=== PATIENT | male | born 1955 | race Caucasian/White ===

== ENCOUNTER 2020-02-05 13:39 | Inpatient (IN) | payer MEDICARE, OTHER ==
[~2020-02-05] VITALS: Ht 177.8 cm; Wt 65.4 kg
--- NOTE | 2020-02-05 14:20 | NUR ---
DIANA FROM STREET, FOUND 3 BLOCK AWAY FROM THE FACILITY HE IS STAYING AT. TO ER BED 12. AAOX4. NOT IN RESP DISTRESS. AMBULATORY. PT REPORTED ELOPED FROM HIS FACILITY. BROUGHT W/ C/O FEELING WEAK BECASUE OF HEAT EXHAUSTION. NO NEURO DEFICIT NOTED. PT VERBALIZED THE HE WAS TRYING TO GO TO THE HOSPITAL THAT IS WHY HE LEFT. AWAITING MD FOR EVAL.
--- NOTE | 2020-02-05 14:45 | NUR ---
SPOKE WITH AISHA HENDRICKS AT THE [facility]. PT WAS ASKING TO SEE THE DENTIST THIS MORNING. AFTER BREAKFAST PT WAS MISSING FROM THE FACILITY AND NO WHERE TO BE FOUND. ACCORDING TO HER, FIRE DEPARTMENT INFORMED HER THAT THE FIRE DEPARTMENT NOTIFIED HER THAT THE PATIENT WAS FOUND 3 BLOCKS FROM THE FACILITY THEN BROUGHT TO [facility]. [facility] WILL BETAKING BACK THE PATIENT IF TO BE DISCHARGED
[2020-02-05 14:53] LABS: BASOPHILS # (AUTO) 0.1 /CMM (0.0-0.2); BASOPHILS % (AUTO) 0.6 % (0.0-2.0); EOSINOPHILS % (AUTO) 0.2 % (0.0-6.0); HEMATOCRIT 40 % (39-51); HEMOGLOBIN 13.5 g/dL (13.5-17.5); LYMPHOCYTES # (AUTO) 0.6 /CMM (0.8-4.8); MEAN CORPUSCULAR HGB CONC 34 g/dl (31.0-36.0); MEAN CORPUSCULAR VOLUME 89 fL (80-96); MONOCYTES # (AUTO) 0.7 /CMM (0.1-1.30); NEUTROPHILS # (AUTO) 8.1 /CMM (1.8-8.9); NEUTROPHILS % (AUTO) 86.2 % (43.0-81.0); PLATELET COUNT (AUTO) 202 /CMM (150-450); RED BLOOD CELL COUNT(AUTO) 4.51 MIL/uL (4.5-6.0); WHITE BLOOD COUNT (AUTO) 9.4 K/uL (4.3-11.0)
[2020-02-05] MEDS ORDERED: IV NS 0.9% 1,000 ML IV ONE (15:00)
--- NOTE | 2020-02-05 15:00 | NUR ---
PT PROVIDED WITH A MEAL
[2020-02-05 15:02] LABS: MAGNESIUM 1.9 mg/dL (1.8-2.4)
--- NOTE | 2020-02-05 15:13 | NUR ---
VIANCA SIEBEL ARCHITECT - [phone] ISAC, CONSERVATOR - [phone]
[2020-02-05 15:20] LABS: ALANINE AMINOTRANSFERASE 28 U/L (12-78); ALBUMIN 4.1 g/dL (3.4-5.0); ALKALINE PHOSPHATASE 88 U/L (46-116); ASPARTATE AMINOTRANSFERASE 28 U/L (15-37); BILIRUBIN,DIRECT 0.2 mg/dL (0.0-0.2); BILIRUBIN,TOTAL 0.8 mg/dL (0.2-1.0); CALCIUM, SERUM 9.4 mg/dL (8.5-10.1); CARBON DIOXIDE 23 mmol/L (21-32); CHLORIDE 109 mmol/L (98-107); CREATININE 1.2 mg/dL (0.6-1.3); GLUCOSE 97 mg/dL (74-106); SODIUM SERUM 145 mmol/L (136-145); TOTAL PROTEIN, SERUM 7.1 g/dL (6.4-8.2); UREA NITROGEN, BLOOD 17 mg/dL (7-18)
[2020-02-05 15:21] LABS: ACETAMINOPHEN < 2 ug/ml (10-30); ALCOHOL, BLOOD < 3 mg/dL (0-0); POTASSIUM 2.7 mmol/L (3.5-5.1); SALICYLATE < 2.8 mg/dL (2.8-20.0)
[2020-02-05] MEDS ORDERED: POTASSIUM CL. PREMIX PERIPHER. 50 ML ONE (15:52)
[2020-02-05] MEDS ORDERED: POTASSIUM CHLORIDE 20 MEQ TAB.PRT.SR PO ONE (15:52)
[2020-02-05] MEDS: POTASSIUM CHLORIDE 20 MEQ TAB.PRT.SR PO ONE ×2 (15:54→16:00)
--- NOTE | 2020-02-05 16:36 | NUR ---
CALLED HOUSE SUP FOR MS BED
[2020-02-05] MEDS ORDERED: BUPR200T2 PO (16:39)
[2020-02-05] MEDS ORDERED: ASPI-1169 PO (16:39)
[2020-02-05] MEDS ORDERED: LOPE2CAP PO (16:39)
[2020-02-05] MEDS ORDERED: PROM6.256 PO (16:39)
[2020-02-05] MEDS ORDERED: POTA20TA83 PO (16:39)
[2020-02-05] MEDS ORDERED: FINA5TAB11 PO (16:39)
[2020-02-05] MEDS ORDERED: ACET-2605 PO (16:39)
[2020-02-05] MEDS ORDERED: FLUT12AE5 IH (16:39)
[2020-02-05] MEDS ORDERED: CLOZ100T32 PO (16:39)
[2020-02-05] MEDS ORDERED: ALBU1.257 IH (16:39)
[2020-02-05] MEDS ORDERED: DOCU-141 PO (16:39)
[2020-02-05] MEDS ORDERED: ZOLP5TAB8 PO (16:39)
[2020-02-05] MEDS ORDERED: LORA-258 PO (16:39)
[2020-02-05] MEDS ORDERED: BUSP5TAB3 PO (16:39)
[2020-02-05] MEDS ORDERED: SERT50TA PO (16:39)
--- NOTE | 2020-02-05 16:52 | NUR ---
room 113-2
[2020-02-05] MEDS ORDERED: ONDANSETRON HCL/PF 4 MG/2 ML VIAL IVP PRN ×2 (17:00→17:30)
[2020-02-05] MEDS ORDERED: MAGNESIUM HYDROXIDE 30 ML UDC PO PRN ×2 (17:00→17:30)
[2020-02-05] MEDS ORDERED: ACETAMINOPHEN 325 MG TABLET PO PRN ×2 (17:00→17:30)
[2020-02-05] MEDS ORDERED: HYDROCODONE/APAP 5/325MG TABLET PO PRN ×2 (17:00→17:30)
[2020-02-05] MEDS ORDERED: Z GUARD REMEDY 2 OZ OINT TP PRN ×2 (17:00→17:30)
[2020-02-05] MEDS ORDERED: ZOLPIDEM TARTRATE 5 MG TABLET PO PRN ×3 (17:00→23:30)
[2020-02-05] MEDS ORDERED: MAG HYDROX/AL HYDROX/SIMETH 30 ML UDC PO PRN ×2 (17:00→17:30)
--- NOTE | 2020-02-05 17:12 | NUR ---
REPORT GIVEN TO JAVIER COLVIN FOR GUNNAR
--- NOTE | 2020-02-05 17:13 | NUR ---
COVID SWAB DONE AND SENT TO LAB
--- NOTE | 2020-02-05 17:13 | NUR ---
PT BEING TRANSPORTED TO UNIT ON [facility] WITH EMT AT BEDSIDE ON STABLE CONDITION.
[2020-02-05 18:28] VITALS: BP 124/70
[2020-02-05] MEDS: POTASSIUM CL. PREMIX PERIPHER. 50 ML IV SCH ×4 (19:25→22:38)
--- NOTE | 2020-02-05 19:28 | NUR ---
Patient is alert, he was recently released from a psyche hosp according to his conservator. Patient recently moved to [facility] [phone]. He is ambulatory and requires supervision with adl's. Spoke with conservator Marlene [phone],she prefer patient be dc back to the [facility] on discharge. Addendum: 02/05/20 at 9 by STERLING SELF RN Amended: Links added.
[2020-02-05] MEDS: Potassium Chloride 20 MEQ in IV NS 0.9% 1,000 ML IV PRN (19:34)
--- NOTE | 2020-02-05 19:35 | NUR ---
RN NOTES CALLED PHARMACY NATHAN AND ASK IF SHE PUT THE KDUR ACTIVE ON OMNICELL SHE SAYS THATS ED ORDER AND DONT ADMINISTER IT AND ED WILL MAKE THE DOCUMENTATION FOR THAT
[2020-02-05] MEDS ORDERED: LORAZEPAM 0.5 MG TABLET PO PRN (23:30)
[2020-02-05] MEDS ORDERED: DOCUSATE SODIUM 100 MG CAPSULE PO PRN (23:30)
[2020-02-06] VITALS: BP 143/74
[2020-02-06 06:44] LABS: CALCIUM, SERUM 8.4 mg/dL (8.5-10.1); CREATININE 0.9 mg/dL (0.6-1.3); POTASSIUM 3.4 mmol/L (3.5-5.1)
--- NOTE | 2020-02-06 07:16 | NUR ---
RN CLOSING NOTES PT ON BED SLEEPING EASY TO WAKE UP NO SIGN AND SYMPTOMS OF RESPIRATORY DISTRESS, NO COMPALINT OF PAIN AKCY, NO SIGNIFICANT CHANGES ON CONDITION NOTED ALL NEEDS ATTENDED DROPLET ISOLATION MAINTAINED FOR R/O COVID SAFETY MEASURE OBSERVED CALL LIGHT WITHIN REACH WILL ENDORSE TO AM SHIFT NURSE
[2020-02-06] MEDS ORDERED: PANTOPRAZOLE 40 MG TABLET.DR PO SCH (07:30)
--- NOTE | 2020-02-06 07:30 | NUR ---
RN CLINICAL DOCUMENTATION SPECIALIST/LESLYE OPENING NOTE RECEIVED PT IN BED AWAKE, ALERT AND ORIENTED X2. PT IS ON OXYGEN 2L VIA N/C SATURATING AT 100% AT THIS TIME. PT IS ON REGULAR DIET ( PARTS SPECIALIST CONSULTED). PT NOTED WITH LEFT KNEE EXCORIATION/SCAB. PT HAS A RIGHT FOREARM 18' INTACT AND PATENT AND FLUSHING WELL. PT IS IN STABLE CONDITION. AT THIS TIME. NO ACUTE DISTRESS OR SOB NOTED AT THIS TIME. PT'S HOB ELEVATED TOLERATED. CALL LIGHT WITHIN REACH AND FUNCTIONING. BED LOCKED AND IN LOWEST POSITION. WILL CONTINUE TO MONITOR AND ASSESS PT.
[2020-02-06 08:00] VITALS: BP 130/74
[2020-02-06] MEDS ORDERED: SERTRALINE HCL 50 MG TABLET PO SCH (09:00)
[2020-02-06] MEDS: ASPIRIN 81 MG TAB.CHEW PO SCH (09:04)
[2020-02-06] MEDS: PANTOPRAZOLE 40 MG TABLET.DR PO SCH (09:05)
[2020-02-06] MEDS: FINASTERIDE (5 MG) 5 MG TABLET PO SCH (09:05)
[2020-02-06] MEDS: POTASSIUM CHLORIDE 20 MEQ TAB.PRT.SR PO SCH (09:05)
[2020-02-06] MEDS: buPROPion SR 100 MG TABLET.ER PO SCH ×2 (09:05→17:00)
[2020-02-06] MEDS: busPIRone 5 MG TABLET PO SCH ×2 (09:05→17:00)
[2020-02-06] MEDS: Potassium Chloride 20 MEQ in IV NS 0.9% 1,000 ML IV PRN (12:43)
--- NOTE | 2020-02-06 16:00 | NUR ---
TEMPLATE INSPECTOR/LESLYE NOTE GAVE REPORT TO LOREN (MED-SURG) NURSE. PT IS IN STABLE CONDITION. PT BEING TRANSFERRED TO [facility].
--- NOTE | 2020-02-06 16:20 | NUR ---
RN MS NOTES RECEIVED PT FROM LESLYE RN BRANDON VIA WHEELCHAIR, PT IS AWAKE, ALERT AND ORIENTED, NO COMPLAINT OF PAIN OR ANY DISCOMFORT, RESPIRATIONS NORMAL, ROOM SET UP ORIENTATION PROVIDED TO PT, VERBALIZED UNDERSTANDING, KEPT WARM AND COMFORTABLE, CALL LIGHT WITHIN REACH.
[2020-02-06 17:00] VITALS: BP 123/76
--- NOTE | 2020-02-06 18:22 | NUR ---
RN MS NOTES PT IN BED, AWAKE, ALERT AND ORIENTED, NO COMPLAINT OF PAIN OR ANY DISCOMFORT, COMPLIANT AND COOPERATIVE WITH CARE, NO BEHAVIOR PROBLEM NOTED, IV FLUIDS INFUSING WELL, CALL LIGHT WITHIN REACH, PM CARE PROVIDED, ALL NEEDS ATTENDED.
--- NOTE | 2020-02-06 19:30 | NUR ---
MS/RN OPENING NOTES RECEIVED PATIENT IN BED HAVING DINNER. PATIENT IS ALERT AND ORIENTED X 3. PATIENT IS ON ROOM AIR TOLERATING WELL. NO SIGNS IF SOB OR RESPIRATORY DISTRESS. PATIENTS BREATHING IS EVEN AND UNLABORED. PATIENT STATES NO PAIN AT THE MOMENT. PATIENT HAS IV ACCESS ON RIGHT FOREARM #18 G INTACT RUNNING NS/20MEQ KCL AT 80 ML/HR. PATIENT IS REQUESTING HE WOULD LIKE TO SPEAK WITH CAPPER MACHINE OPERATOR FOR SNF PLACEMENT. SAFETY MEASURES ARE IN PLACE, BED IS LOCKED AND PLACED IN THE LOW POSITION, SIDE RAILS UP X 3. CALL LIGHT IS WITHIN REACH. WILL CONTINUE TO MONITOR THOUGH OUT SHIFT.
[2020-02-06 20:00] VITALS: BP 147/88
[2020-02-06 20:23] VITALS: BP 147/88
[2020-02-06] MEDS: MIRTAZAPINE 15 MG TABLET PO SCH (21:58)
[2020-02-06] MEDS: CLOZAPINE 100 MG TABLET PO SCH (21:58)
[2020-02-06] MEDS ORDERED: MIRTAZAPINE 15 MG TABLET PO SCH (22:00)
[2020-02-06] MEDS ORDERED: CLOZAPINE 100 MG TABLET PO SCH (22:00)
[2020-02-07] MEDS: Potassium Chloride 20 MEQ in IV NS 0.9% 1,000 ML IV PRN ×2 (05:29→22:51)
--- NOTE | 2020-02-07 06:30 | NUR ---
MS/RN CLOSING NOTES PATIENT IN BED SLEEPING. PATIENT IS ALERT AND ORIENTED X 2-3. PATIENT IS ON ROOM AIR TOLERATING WELL. NO SIGNS OF SOB OR RESPIRATORY DISTRESS. PATIENTS BREATHING IS EVEN AND UNLABORED. PATIENT STATES NO PAIN AT THE MOMENT. PATIENT HAS IV ACCESS ON RIGHT FOREARM #18 G INTACT RUNNING NS/20MEQ KCL AT 80 ML/HR. ALL PATIENTS NEEDS HAVE BEEN NET DURING SHIFT. SAFETY MEASURES ARE IN PLACE, BED IS LOCKED AND PLACED IN THE LOW POSITION, SIDE RAILS UP X 3. CALL LIGHT IS WITHIN REACH. WILL ENDORSE CARE TO DAY SHIFT.
[2020-02-07 08:00] VITALS: BP 127/79
[2020-02-07] MEDS: busPIRone 5 MG TABLET PO SCH ×2 (08:54→16:41)
[2020-02-07] MEDS: ASPIRIN 81 MG TAB.CHEW PO SCH (08:54)
[2020-02-07] MEDS: PANTOPRAZOLE 40 MG TABLET.DR PO SCH (08:54)
[2020-02-07] MEDS: FINASTERIDE (5 MG) 5 MG TABLET PO SCH (08:54)
[2020-02-07] MEDS: POTASSIUM CHLORIDE 20 MEQ TAB.PRT.SR PO SCH (08:54)
[2020-02-07] MEDS: buPROPion SR 100 MG TABLET.ER PO SCH ×2 (08:57→16:41)
--- NOTE | 2020-02-07 17:57 | NUR ---
rn notes patient remains on room air, no sob noted, a/o x2-3 at this time. Quiet most of the time, Uses the urinal, bed ridden. R FA 19 present with NS / KCL @ 80 ml per hour. Plan is to have patient placed on a possible SNF placement. plan is to move patient to MS2 in a few minutes
[2020-02-07 18:45] VITALS: BP 130/82
--- NOTE | 2020-02-07 18:48 | NUR ---
Received patient from [facility], bedside report given by JAVIER Zarate. patient in stable condition. not in any form of distress. no sob. denied pain or discomfort at this time. iv access intact and patent. all belongings checked at bedside, refused to show money noted on the form. situated patient in the room. safety measures in place. bed in low/locked psotion, siderails up x2, bed alarm on. will endorse accordingly
--- NOTE | 2020-02-07 19:15 | NUR ---
BLANCHING MACHINE OPERATOR: RECEIVED REPORT FORM DONOVAN HERRERA. PT IN BED, AWAKE, A/O X2-3 ABLE TO MAKE NEEDS KNOWN, ON RA RESPIRATIONS EVEN AND UNLABORED. IV ACCESS PATENT AND FLUSHING WELL, INFUSING WITH NS + 20MEQ KCL AT 80ML/HR. DISCUSSED PLAN OF CARE TO PT. SAFETTY PRECAUTIONS FOR FALL INITIATED, CALL LIGHT IN REACH, WILL CONTINUE MONITORING PT.
[2020-02-07 20:00] VITALS: BP 134/79
--- NOTE | 2020-02-07 20:33 | NUR ---
rn notes: dr garcía currently in the unit, speaking with the pt.
--- NOTE | 2020-02-07 21:00 | NUR ---
RN NOTES: PT REFUSED SCD DESPITE PROVIDING EDUCATION
[2020-02-07] MEDS: CLOZAPINE 100 MG TABLET PO SCH (21:09)
[2020-02-07] MEDS: MIRTAZAPINE 15 MG TABLET PO SCH (21:09)
--- NOTE | 2020-02-08 07:02 | NUR ---
End of shift report: Pt remains a/o x2, on ra, respirations even and unlabored. Iv access remains patent and flushing well, infusing with ns +20meq kcl at 80ml/hr, no s/s of iv infiltration noted. All due meds administered. Vs remains stable, needs attended. PLAN OF CARE: [facility]. Safety precautions for fall remains engaged, call light in reach, will endorse to day rn for continuity of care.
--- NOTE | 2020-02-08 07:10 | NUR ---
RN OPENING NOTES RECEIVED PATIENT IN BED RESTING. NOT IN ANY FORM OF DISTRESS. NO SOB. DENIED PAIN OR DISCOMFORT AT THIS TIME. IV ACCESS INTACT AND PATENT. KEPT PATIENT SAFE AND COMFORTABLE. BED IN LOW/LOCKED POSITION, SIDERAIL SUPX2, MARLENE LIGHT IN REACH. WILL CONT TO MONITOR ACCORDINGLY.
[2020-02-08] MEDS: ASPIRIN 81 MG TAB.CHEW PO SCH (08:05)
[2020-02-08] MEDS: FINASTERIDE (5 MG) 5 MG TABLET PO SCH (08:05)
[2020-02-08] MEDS: PANTOPRAZOLE 40 MG TABLET.DR PO SCH (08:05)
[2020-02-08] MEDS: busPIRone 5 MG TABLET PO SCH ×2 (08:05→17:36)
[2020-02-08] MEDS: POTASSIUM CHLORIDE 20 MEQ TAB.PRT.SR PO SCH (08:05)
[2020-02-08] MEDS: buPROPion SR 100 MG TABLET.ER PO SCH ×2 (08:12→17:37)
[2020-02-08 08:19] VITALS: BP 127/80
[2020-02-08] MEDS ORDERED: ENOXAPARIN SODIUM 40 MG/0.4 ML DISP.SYRIN SQ SCH (12:00)
[2020-02-08 12:28] LABS: CALCIUM, SERUM 8.7 mg/dL (8.5-10.1); CREATININE 0.9 mg/dL (0.6-1.3)
[2020-02-08] MEDS ORDERED: PANT40TA2 PO (13:57)
[2020-02-08] MEDS ORDERED: MIRT15TA PO (13:57)
[2020-02-08] MEDS ORDERED: CLOZ100T32 PO (13:57)
[2020-02-08 16:00] VITALS: BP 130/79
--- NOTE | 2020-02-08 17:24 | NUR ---
10:30am This SW informed Coordinator Volunteer Services JAVIER Cedillo about the patients request for his discharge plan to be transferred to a custodial with more than 35 patients in the facility. Coordinator Volunteer Services JAVIER Cedillo to speak with the patient and work on this request.
--- NOTE | 2020-02-08 17:24 | NUR ---
10:00AM This SW met with the patient at bedside, in her assigned hospital room. Patient requested to speak with this SW per JAVIER Rondon. Patient is alert and oriented x4. Per notes in patients medical records, patient was found 3 blocks from the [facility] assisted living facility and brought to [facility] due to heat exhaustion. Patient requested information regarding transfer from [facility] to a correction instead. Patient stating, I want to go somewhere that is bigger than 35 residents. This SW explored patients request and concerns. Patient stated I have had trouble with my conservator in the past, and I want to go elsewhere. I wanted to come to make this change happen :I want to make connections, want to make friends, and see more staff and interact with them. I barely receive assistance at the place I was at. This SW informed the patient that she would speak with Case Management as they are the ones that arrange this change. Patient informed this SW about his psychiatric history including depression, visual and auditory hallucinations. Patient stating that he has a primary psychiatrist Dr. Bryant, who eventually he will be asking for a referral to a different psychiatrist because the doctor is getting older. Patient reported auditory hallucinations stating Give me an opportunity. This SW asked the patient to elaborate. Patient stating that it these voices repeated to him Can you elaborate on that? mirroring this SW. Patients visual hallucination come to him in a dream at night, when I can hear the wind, I start to see a plane crash, I am a passenger and this is what I see. Patient does report that he has had suicidal ideations in the past but patient reports no current ideations or plan. Patient informed this SW that a psychiatrist from [facility] has already seen him and prescribed medications for him. Patient could not remember the names of these medications or the purpose. This SW to remain available for all needs regarding this patient.
--- NOTE | 2020-02-08 19:00 | NUR ---
DISCHARGED PATIENT IN STABLE CONDITION, PICKED UP BY GPS STAFF, MICHELET. DC INSTRUCTIONS GIVEN, VERBALIZED UNDERSTANDING. ALL BELONGINGS AND DC PAPERWORK HANDED TO GPS CHARGE NURSE CHERYL. PATIENT REFUSED TO SIGN PAPERWORK. IV ACCESS REMOVED. PHOTOS TAKEN.
== END 2020-02-08 19:00 | DRG 640 ==
LOC: ER 13:39 → TELE1 17:34 → MEDSG1 17:44 → MED 02-06 15:59 → MEDSG2 02-07 18:22
PROVIDERS: ADMIT Nurse Practitioner Acute Care; ATTEND Nurse Practitioner Acute Care
DX: E86.0 Dehydration (principal); G93.41 Metabolic encephalopathy; F33.3 Major depressive disorder, recurrent, severe with psychotic symptoms; E87.6 Hypokalemia; F41.9 Anxiety disorder, unspecified; R53.1 Weakness; F39 Unspecified mood [affective] disorder; Z85.819 Personal history of malignant neoplasm of unspecified site of lip, oral cavity, and pharynx
CPT/HCPCS: 36415; 71045-TC; 80048-TC; 80076-TC; 82550-TC; 83735-TC; 85025-TC; 87081-TC; 94799-TC; 97116-TC; 97530-TC; G0378; G0480; J1650; J3480; J7030; U0003-CS

== ENCOUNTER 2020-02-08 19:30 | Inpatient (IN) | payer MEDICARE, OTHER ==
[~2020-02-08] VITALS: Ht 177.8 cm; Wt 65.3 kg
[~2020-02-08 19:30] MED LIST: ACET-2605 PO; ALBU1.257 IH; ASPI-1169 PO; BUPR200T2 PO; BUSP5TAB3 PO; CLOZ100T32 PO; DOCU-141 PO; FINA5TAB11 PO; FLUT12AE5 IH; LOPE2CAP PO; LORA-258 PO; MIRT15TA PO; PANT40TA2 PO; POTA20TA83 PO; PROM6.256 PO; SERT50TA PO; ZOLP5TAB8 PO
[2020-02-08 19:41] VITALS: BP 143/89
[2020-02-08] MEDS ORDERED: ACETAMINOPHEN 325 MG TABLET PO PRN (20:00)
[2020-02-08] MEDS ORDERED: MAG HYDROX/AL HYDROX/SIMETH 30 ML UDC PO PRN (20:00)
[2020-02-08] MEDS ORDERED: ONDANSETRON 4 MG TAB.RAPDIS PO PRN (20:30)
[2020-02-08] MEDS ORDERED: HYDROCODONE/APAP 5/325MG TABLET PO PRN (20:30)
[2020-02-08] MEDS ORDERED: BLOOD SUGAR DIAGNOSTIC 1 EACH STRIP IN ONE (21:00)
--- NOTE | 2020-02-08 21:00 | NUR ---
RN NOTES: PLACED CALLED STELLA NARAYANAN LPS CONSERVATOR NOTIFIED OF ADMISSION .
[2020-02-08] MEDS: CLOZAPINE 100 MG TABLET PO SCH (21:35)
[2020-02-08] MEDS: MIRTAZAPINE 15 MG TABLET PO SCH (21:35)
[2020-02-08] MEDS: Z GUARD REMEDY 2 OZ OINT TP PRN (22:12)
[2020-02-08 22:53] VITALS: BP 123/72
--- NOTE | 2020-02-08 23:26 | NUR ---
ADMISSION NOTES: ADMITTED THIS 65Y/O MALE PATIENT ADMIT FROM [facility] INTIALLY FROM [facility] AT [address] [facility], ADMITTED TO GPS, PT. IS ON A LPS CONSERVATERSHIP , DUE TO REUSING TO EAT, REFUSING MEDICATION, REFUSING STAFF/FAMILY CARE, HEARING VOCIES , ELOPED FROM HIS FACILITY , DEPRESSED WITH FLAT AFFECT . ,UPON FACE TO FACE ASSESSMENT PATIENT IS A&O X 2 DELUSIONAL, ANXIOUS ,PARANOID , DISORGNIZED ,DISHELVED ,EASILY GETS AGITATED, DENIES SI /HI AT THIS TIME, PT. IS POOR HISTORIAN, POOR INSIGHT ,POOR JUDGEMENT , PT. REFUSED TO SIGNS ADMISSION CONSENT PAPERS , DUE TO MENTAL STATUS / DEPRESSED, BOTH MD AWARE AND NOTIFIED OF THE ADMISSION, BELONGINGS CONTRABAND WERE DONE ,PT. RIGHTS DISCUSS BY ELECTRIC BLASTING CAP ASSEMBLER , PROVIDE THE PT. WITH HANDBOOK, AND MEDICATIONS GUIDE, ENVIRONMENTAL SAFETY CHECK DONE, ENCOURAGED PT. VERBALIZED ANY FEELING CONCERN TO STAFF, ORIENT TO UNIT POLICY, NO ACUTE DISTRESS NOTED,VITAL SIGNS WNL ,DENIES ANY PAIN AT THIS TIME,WILL CONTINUE TO MONITOR FOR Q15 SAFETY AND BEHAVIOR.
--- NOTE | 2020-02-09 06:33 | NUR ---
RN NOTES: PT. RESTING IN HIS ROOM , NO ACUTE DISTRESS, NO CHANGES NOTED, ALL NEEDS ANTICIPATED, WILL CONTINUITY WITH CARE.
[2020-02-09 08:00] VITALS: BP 100/77
[2020-02-09] MEDS: ENSURE ENLIVE 237 ML LIQUID (VANILLA) PO SCH ×2 (08:04→16:42)
[2020-02-09] MEDS: POTASSIUM CHLORIDE 20 MEQ TAB.PRT.SR PO SCH (08:04)
[2020-02-09] MEDS: FINASTERIDE (5 MG) 5 MG TABLET PO SCH (08:04)
[2020-02-09] MEDS: buPROPion SR 100 MG TABLET.ER PO SCH ×2 (08:04→16:42)
[2020-02-09] MEDS: busPIRone 5 MG TABLET PO SCH ×2 (08:04→16:42)
[2020-02-09] MEDS: PANTOPRAZOLE 40 MG TABLET.DR PO SCH (08:04)
[2020-02-09] MEDS: DOCUSATE SODIUM 100 MG CAPSULE PO PRN (08:04)
[2020-02-09] MEDS: ASPIRIN 81 MG TAB.CHEW PO SCH (08:04)
[2020-02-09 16:00] VITALS: BP 133/74
[2020-02-09] MEDS ORDERED: DOCUSATE SODIUM 100 MG CAPSULE PO PRN (18:00)
[2020-02-09 20:43] VITALS: BP 119/76
[2020-02-09] MEDS: CLOZAPINE 100 MG TABLET PO SCH (21:27)
[2020-02-09] MEDS: MIRTAZAPINE 15 MG TABLET PO SCH (21:27)
[2020-02-10 07:14] LABS: BASOPHILS # (AUTO) 0.1 /CMM (0.0-0.2); BASOPHILS % (AUTO) 0.9 % (0.0-2.0); EOSINOPHILS % (AUTO) 2.5 % (0.0-6.0); HEMATOCRIT 45 % (39-51); HEMOGLOBIN 14.7 g/dL (13.5-17.5); LYMPHOCYTES % (AUTO) 15.6 % (20.0-44.0); MEAN CORPUSCULAR HGB CONC 33 g/dl (31.0-36.0); MEAN CORPUSCULAR VOLUME 89 fL (80-96); MONOCYTES # (AUTO) 0.5 /CMM (0.1-1.30); MONOCYTES % (AUTO) 7.6 % (2.0-12.0); NEUTROPHILS # (AUTO) 4.7 /CMM (1.8-8.9); NEUTROPHILS % (AUTO) 73.4 % (43.0-81.0); PLATELET COUNT (AUTO) 167 /CMM (150-450); RED BLOOD CELL COUNT(AUTO) 5.06 MIL/uL (4.5-6.0); WHITE BLOOD COUNT (AUTO) 6.3 K/uL (4.3-11.0)
[2020-02-10 07:38] LABS: CALCIUM, SERUM 9.4 mg/dL (8.5-10.1); CREATININE 1.1 mg/dL (0.6-1.3); POTASSIUM 3.7 mmol/L (3.5-5.1)
[2020-02-10 08:00] VITALS: BP 118/74
[2020-02-10] MEDS: busPIRone 5 MG TABLET PO SCH ×2 (08:09→16:51)
[2020-02-10] MEDS: PANTOPRAZOLE 40 MG TABLET.DR PO SCH (08:09)
[2020-02-10] MEDS: DOCUSATE SODIUM 100 MG CAPSULE PO PRN (08:09)
[2020-02-10] MEDS: ASPIRIN 81 MG TAB.CHEW PO SCH (08:09)
[2020-02-10] MEDS: POTASSIUM CHLORIDE 20 MEQ TAB.PRT.SR PO SCH (08:09)
[2020-02-10] MEDS: buPROPion SR 100 MG TABLET.ER PO SCH ×2 (08:09→16:52)
[2020-02-10] MEDS: FINASTERIDE (5 MG) 5 MG TABLET PO SCH (08:09)
[2020-02-10] MEDS: ENSURE ENLIVE 237 ML LIQUID (VANILLA) PO SCH ×2 (08:10→16:52)
[2020-02-10] MEDS: Z GUARD REMEDY 2 OZ OINT TP PRN (08:13)
[2020-02-10] MEDS ORDERED: FINASTERIDE (5 MG) 5 MG TABLET PO SCH (09:00)
[2020-02-10] MEDS ORDERED: busPIRone 5 MG TABLET PO SCH (09:00)
[2020-02-10] MEDS ORDERED: POTASSIUM CHLORIDE 20 MEQ TAB.PRT.SR PO SCH (09:00)
[2020-02-10] MEDS: FLUTICASONE 110MCG 1 EA INHALER IH SCH ×2 (09:00→16:53)
[2020-02-10] MEDS ORDERED: ASPIRIN 81 MG TAB.CHEW PO SCH (09:00)
[2020-02-10 16:00] VITALS: BP 141/77
[2020-02-10 20:44] VITALS: BP 121/81
[2020-02-10] MEDS: MIRTAZAPINE 15 MG TABLET PO SCH (21:32)
[2020-02-10] MEDS: CLOZAPINE 100 MG TABLET PO SCH (21:32)
[2020-02-11 08:00] VITALS: BP 108/67
[2020-02-11] MEDS: PANTOPRAZOLE 40 MG TABLET.DR PO SCH (08:04)
[2020-02-11] MEDS: FINASTERIDE (5 MG) 5 MG TABLET PO SCH (08:35)
[2020-02-11] MEDS: buPROPion SR 100 MG TABLET.ER PO SCH ×2 (08:35→16:42)
[2020-02-11] MEDS: DOCUSATE SODIUM 100 MG CAPSULE PO PRN (08:35)
[2020-02-11] MEDS: busPIRone 5 MG TABLET PO SCH ×2 (08:35→16:42)
[2020-02-11] MEDS: POTASSIUM CHLORIDE 20 MEQ TAB.PRT.SR PO SCH (08:35)
[2020-02-11] MEDS: ASPIRIN 81 MG TAB.CHEW PO SCH (08:35)
[2020-02-11] MEDS: ENSURE ENLIVE 237 ML LIQUID (VANILLA) PO SCH ×2 (08:37→16:42)
[2020-02-11] MEDS: FLUTICASONE 110MCG 1 EA INHALER IH SCH ×2 (08:37→16:41)
--- NOTE | 2020-02-11 10:55 | NUR ---
CONSERVATOR CONTACT: MIKAYLA contacted pts LPS waltersidney Victoriaine ([phone]) to inform her pt wishes to be discharged to a SNF and has been accepted to [facility]. Anita became upset and states that pt does not belong at a SNF and that pt does not have capacity to make decisions on his own. She states that she wants pt discharged back to [facility]. MIKAYLA stated that she will contact [facility] and inquire on pts readmission due to his elopement from the facility. MIKAYLA requested she speak to pt regarding his placement. Conservyaima stated she will speak to pt regarding his return to [facility]. MIKAYLA will continue to coordinate with anita for a safe and proper discharge plan.
--- NOTE | 2020-02-11 11:12 | NUR ---
FACILITY CONTACT: SW contacted [facility] Address: [address] [place] [address] and spoke to Jocelyne, church business administrator who stated pt is able to return once stable and requests pt get a COVID test done upon discharge.
--- NOTE | 2020-02-11 12:24 | NUR ---
INITIAL DISCHARGE PLAN: Per LPS anita Rosario ([phone]) she wishes for pt to return to [facility] Address: [address] [place] [id number] . SW will help form a safe and proper discharge in collaboration with MD and conservator.
[2020-02-11 16:00] VITALS: BP 121/70
[2020-02-11 20:15] VITALS: BP 120/79
[2020-02-11] MEDS: MIRTAZAPINE 15 MG TABLET PO SCH (21:26)
[2020-02-11] MEDS: CLOZAPINE 100 MG TABLET PO SCH (21:26)
[2020-02-11] MEDS: TEMAZEPAM 7.5 MG CAPSULE PO PRN (23:49)
--- NOTE | 2020-02-11 23:49 | NUR ---
GPS-RN NOTE: INSOMNIA PATIENT C/O INABILITY TO SLEEP. ADMINISTERED RESTORIL 7.5MG PO ORDERED. WILL CONTINUE TO MONITOR FOR PATIENT'S SAFETY.
[2020-02-12 06:18] LABS: BASOPHILS # (AUTO) 0.1 /CMM (0.0-0.2); EOSINOPHILS % (AUTO) 2.2 % (0.0-6.0); HEMATOCRIT 45 % (39-51); LYMPHOCYTES # (AUTO) 1.1 /CMM (0.8-4.8); LYMPHOCYTES % (AUTO) 11.7 % (20.0-44.0); MEAN CORPUSCULAR HGB CONC 34 g/dl (31.0-36.0); MEAN CORPUSCULAR VOLUME 89 fL (80-96); MONOCYTES # (AUTO) 0.8 /CMM (0.1-1.30); MONOCYTES % (AUTO) 8.6 % (2.0-12.0); NEUTROPHILS # (AUTO) 7.1 /CMM (1.8-8.9); NEUTROPHILS % (AUTO) 76.5 % (43.0-81.0); PLATELET COUNT (AUTO) 220 /CMM (150-450); RED BLOOD CELL COUNT(AUTO) 5.06 MIL/uL (4.5-6.0); WHITE BLOOD COUNT (AUTO) 9.3 K/uL (4.3-11.0)
[2020-02-12] MEDS: PANTOPRAZOLE 40 MG TABLET.DR PO SCH (07:59)
[2020-02-12 08:00] VITALS: BP_SYST 113; BP_SYST 155; BP_DIAS 72; BP_DIAS 79
[2020-02-12] MEDS: FLUTICASONE 110MCG 1 EA INHALER IH SCH ×2 (08:21→16:45)
[2020-02-12] MEDS: Z GUARD REMEDY 2 OZ OINT TP PRN (08:21)
[2020-02-12] MEDS: busPIRone 5 MG TABLET PO SCH ×2 (08:21→16:46)
[2020-02-12] MEDS: buPROPion SR 100 MG TABLET.ER PO SCH ×2 (08:22→16:46)
[2020-02-12] MEDS: POTASSIUM CHLORIDE 20 MEQ TAB.PRT.SR PO SCH (08:22)
[2020-02-12] MEDS: FINASTERIDE (5 MG) 5 MG TABLET PO SCH (08:22)
[2020-02-12] MEDS: CLOZAPINE 25 MG TABLET PO SCH (08:22)
[2020-02-12] MEDS: ENSURE ENLIVE 237 ML LIQUID (VANILLA) PO SCH ×2 (08:22→16:46)
[2020-02-12] MEDS: ASPIRIN 81 MG TAB.CHEW PO SCH (08:22)
[2020-02-12] MEDS: DOCUSATE SODIUM 100 MG CAPSULE PO PRN (08:22)
--- NOTE | 2020-02-12 10:32 | NUR ---
WOUND CARE CONSULT: PT PRESENTS WITH BLANCHABLE REDNESS TO SACRUM AND BUTTOCKS, PRESENT ON ADMISSION. PT DEMONSTRATES ABILITY TO TURN AND REPOSITION HIMSELF IN BED AND IS AMBULATORY. WILL SEE PRN. CURRENT TINO SCORE IS 20.
[2020-02-12 16:00] VITALS: BP 105/70
[2020-02-12 20:30] VITALS: BP 131/81
[2020-02-12] MEDS: MIRTAZAPINE 15 MG TABLET PO SCH (21:56)
[2020-02-12] MEDS: CLOZAPINE 100 MG TABLET PO SCH (21:56)
[2020-02-12] MEDS: MAGNESIUM HYDROXIDE 30 ML UDC PO PRN (22:27)
--- NOTE | 2020-02-12 22:29 | NUR ---
GPS RN NOTES: CONSTIPATION PT C/O OF FEELING CONSTIPATED. OFFERED MOM PO PRN ORDERED. PT AGREED AND TOLERTAED MEDICATION WELL. CONTINUE TO MONITOR.
[2020-02-13 08:00] VITALS: BP 120/75
[2020-02-13] MEDS: PANTOPRAZOLE 40 MG TABLET.DR PO SCH (08:42)
[2020-02-13] MEDS: FLUTICASONE 110MCG 1 EA INHALER IH SCH ×2 (08:43→16:57)
[2020-02-13] MEDS: busPIRone 5 MG TABLET PO SCH ×2 (09:35→16:55)
[2020-02-13] MEDS: CLOZAPINE 25 MG TABLET PO SCH (09:35)
[2020-02-13] MEDS: FINASTERIDE (5 MG) 5 MG TABLET PO SCH (09:35)
[2020-02-13] MEDS: buPROPion SR 100 MG TABLET.ER PO SCH ×2 (09:35→16:55)
[2020-02-13] MEDS: ASPIRIN 81 MG TAB.CHEW PO SCH (09:35)
[2020-02-13] MEDS: POTASSIUM CHLORIDE 20 MEQ TAB.PRT.SR PO SCH (09:35)
[2020-02-13] MEDS: ENSURE ENLIVE 237 ML LIQUID (VANILLA) PO SCH ×2 (09:39→16:57)
--- NOTE | 2020-02-13 11:08 | NUR ---
INDIVIDUAL INTERVENTION: SW met with pt at bedside and discussed his discharge plan. Pt states that he does not want to return to [facility] and instead wants to be discharged to a SNF. SW explained that due to pt being conserved his LPS conservator makes decisions for him and informed him that she wishes for him to return to [facility]. SW informed him that SW attempted to advocate for pt and received push back from conservator. SW encouraged pt to talk to his conservator regarding his discharge plan.
[2020-02-13 16:00] VITALS: BP 117/80
[2020-02-13 20:09] VITALS: BP 118/77
[2020-02-13] MEDS: MIRTAZAPINE 15 MG TABLET PO SCH (21:31)
[2020-02-13] MEDS: CLOZAPINE 100 MG TABLET PO SCH (21:31)
--- NOTE | 2020-02-13 22:00 | NUR ---
GPS RN NOTE PATIENT SEEN BY DR. MCMILLAN WITH NEW ORDER TO INCREASE REMERON TO 22.5 MG AT 2200. ORDER NOTED & CARRIED OUT. PATIENT IS MADE AWARE BY DR. MCMILLAN.
[2020-02-14] MEDS: Z GUARD REMEDY 2 OZ OINT TP PRN (03:11)
--- NOTE | 2020-02-14 06:54 | NUR ---
GPS RN NOTE PATIENT SLEPT WELL AT NIGHT. NO CHANGES NOTED. WILL ENDORSEE TO AM RN FOR CONTINUITY OF CARE.
[2020-02-14 06:57] LABS: CALCIUM, SERUM 8.9 mg/dL (8.5-10.1)
[2020-02-14 08:00] VITALS: BP 115/77
[2020-02-14] MEDS: ASPIRIN 81 MG TAB.CHEW PO SCH (08:10)
[2020-02-14] MEDS: FINASTERIDE (5 MG) 5 MG TABLET PO SCH (08:10)
[2020-02-14] MEDS: POTASSIUM CHLORIDE 20 MEQ TAB.PRT.SR PO SCH (08:11)
[2020-02-14] MEDS: CLOZAPINE 25 MG TABLET PO SCH (08:11)
[2020-02-14] MEDS: buPROPion SR 100 MG TABLET.ER PO SCH ×2 (08:11→16:58)
[2020-02-14] MEDS: PANTOPRAZOLE 40 MG TABLET.DR PO SCH (08:11)
[2020-02-14] MEDS: busPIRone 5 MG TABLET PO SCH ×2 (08:11→16:58)
[2020-02-14] MEDS: ENSURE ENLIVE 237 ML LIQUID (VANILLA) PO SCH ×2 (08:12→17:00)
[2020-02-14] MEDS: FLUTICASONE 110MCG 1 EA INHALER IH SCH ×2 (08:12→17:01)
[2020-02-14 16:00] VITALS: BP 110/68
[2020-02-14 20:00] VITALS: BP 140/58
[2020-02-14] MEDS: CLOZAPINE 100 MG TABLET PO SCH (21:17)
[2020-02-14] MEDS: MIRTAZAPINE 15 MG TABLET PO SCH (21:18)
--- NOTE | 2020-02-14 22:48 | NUR ---
GPS RN NOTE RECEIVED REPORT FROM FELLOW NURSE, PT ISOLATIVE, COMPLIANT, CALM A/O X2-3. PT WAS SLEEPING, NONLABORED BREATHING. VITAL SIGNS STABLE, ENVIRONMENTAL CHECK WAS DONE BED IN LOCKED AND LOWEST POSITION, BED ALARM ON, WILL CONTINUE TO MONITOR Q15MIN FOR SAFETY AND BEHAVIOR.
[2020-02-15 08:00] VITALS: BP 131/80
[2020-02-15] MEDS: ASPIRIN 81 MG TAB.CHEW PO SCH (08:39)
[2020-02-15] MEDS: buPROPion SR 100 MG TABLET.ER PO SCH ×2 (08:39→16:41)
[2020-02-15] MEDS: CLOZAPINE 25 MG TABLET PO SCH (08:40)
[2020-02-15] MEDS: FLUTICASONE 110MCG 1 EA INHALER IH SCH ×2 (08:40→16:42)
[2020-02-15] MEDS: busPIRone 5 MG TABLET PO SCH ×2 (08:40→16:41)
[2020-02-15] MEDS: PANTOPRAZOLE 40 MG TABLET.DR PO SCH (08:40)
[2020-02-15] MEDS: POTASSIUM CHLORIDE 20 MEQ TAB.PRT.SR PO SCH (08:40)
[2020-02-15] MEDS: FINASTERIDE (5 MG) 5 MG TABLET PO SCH (08:45)
[2020-02-15] MEDS: ENSURE ENLIVE 237 ML LIQUID (VANILLA) PO SCH ×2 (08:57→16:41)
[2020-02-15 16:00] VITALS: BP 117/71
--- NOTE | 2020-02-15 19:30 | NUR ---
GPS RN NOTE, RECEIVED PATIENT AWAKE AND IN BED, NO S/S OR COMPLAINTS OF PAIN AT THIS TIME. PATIENT IS DISPLAYING NO S/S OF APPARENT DISTRESS AT THIS TIME. PATIENT BREATHING IS UNLABORED WITH EQUAL RISE AND FALL OF THE CHEST. PATIENT IS ALERT AND ORIENTED X 2-3 ON ROOM AIR WITH A SPO2 99%. PATIENT IS COMPLIANT WITH MEDICATIONS, PARANOID, ANXIOUS AT TIMES, ABLE TO BE REDIRECTED, AND PATIENT IS COOPERATIVE. PATIENT DENIES SUICIDAL AND HOMICIDAL IDEATIONS AT THIS TIME. PATIENT ASSISTED WITH TURNING AND REPOSITIONING Q2HR AND PRN FOR COMFORT AND CIRCULATION. PATIENT HAS NO NEEDS AT THIS TIME. PATIENT EDUCATED ON THE USE OF THE CALL BURT. PATIENT BED SIDE RAILS UP X 2 FOR SAFETY. PATIENT BED IS LOCKED, LOW, WITH BED ALARM ON. WILL CONTINUE TO MONITOR THIS PATIENT Q15 MINUTES WITH THE HELP OF STAFF TO MAINTAIN SAFETY.
[2020-02-15 19:49] VITALS: BP 144/74
[2020-02-15] MEDS: MIRTAZAPINE 15 MG TABLET PO SCH (21:00)
[2020-02-15] MEDS: CLOZAPINE 100 MG TABLET PO SCH (21:00)
[2020-02-16 08:00] VITALS: BP 125/82
[2020-02-16] MEDS: busPIRone 5 MG TABLET PO SCH ×2 (08:09→16:18)
[2020-02-16] MEDS: FINASTERIDE (5 MG) 5 MG TABLET PO SCH (08:09)
[2020-02-16] MEDS: PANTOPRAZOLE 40 MG TABLET.DR PO SCH (08:12)
[2020-02-16] MEDS: ASPIRIN 81 MG TAB.CHEW PO SCH (08:12)
[2020-02-16] MEDS: buPROPion SR 100 MG TABLET.ER PO SCH ×2 (08:12→16:18)
[2020-02-16] MEDS: POTASSIUM CHLORIDE 20 MEQ TAB.PRT.SR PO SCH (08:12)
[2020-02-16] MEDS: CLOZAPINE 25 MG TABLET PO SCH (08:13)
[2020-02-16] MEDS: ENSURE ENLIVE 237 ML LIQUID (VANILLA) PO SCH ×2 (08:13→17:36)
[2020-02-16] MEDS: FLUTICASONE 110MCG 1 EA INHALER IH SCH ×2 (08:23→16:19)
[2020-02-16 13:13] LABS: POTASSIUM 4.3 mmol/L (3.5-5.1)
[2020-02-16 13:19] LABS: CALCIUM, SERUM 8.7 mg/dL (8.5-10.1); CREATININE 1.1 mg/dL (0.6-1.3)
[2020-02-16 16:00] VITALS: BP 128/85
[2020-02-16] MEDS: DOCUSATE SODIUM 100 MG CAPSULE PO PRN (18:32)
[2020-02-16 19:39] VITALS: BP 114/80
[2020-02-16] MEDS: MIRTAZAPINE 15 MG TABLET PO SCH (21:14)
[2020-02-16] MEDS: CLOZAPINE 100 MG TABLET PO SCH (21:14)
[2020-02-17 07:10] LABS: CALCIUM, SERUM 9.3 mg/dL (8.5-10.1); CREATININE 1.2 mg/dL (0.6-1.3); POTASSIUM 3.9 mmol/L (3.5-5.1)
[2020-02-17 08:00] VITALS: BP 107/80
[2020-02-17] MEDS: ENSURE ENLIVE 237 ML LIQUID (VANILLA) PO SCH ×2 (08:55→16:34)
[2020-02-17] MEDS: ASPIRIN 81 MG TAB.CHEW PO SCH (08:56)
[2020-02-17] MEDS: CLOZAPINE 25 MG TABLET PO SCH (08:56)
[2020-02-17] MEDS: POTASSIUM CHLORIDE 20 MEQ TAB.PRT.SR PO SCH (08:56)
[2020-02-17] MEDS: busPIRone 5 MG TABLET PO SCH ×2 (08:56→16:34)
[2020-02-17] MEDS: buPROPion SR 100 MG TABLET.ER PO SCH ×2 (08:56→16:34)
[2020-02-17] MEDS: PANTOPRAZOLE 40 MG TABLET.DR PO SCH (08:57)
[2020-02-17] MEDS: FINASTERIDE (5 MG) 5 MG TABLET PO SCH (08:57)
[2020-02-17] MEDS: FLUTICASONE 110MCG 1 EA INHALER IH SCH ×2 (09:03→16:59)
[2020-02-17] MEDS: MAGNESIUM HYDROXIDE 30 ML UDC PO PRN (09:08)
[2020-02-17 16:00] VITALS: BP 106/68
[2020-02-17] MEDS: DOCUSATE SODIUM 100 MG CAPSULE PO PRN (16:58)
[2020-02-17 20:00] VITALS: BP 117/77
[2020-02-17] MEDS: CLOZAPINE 100 MG TABLET PO SCH (21:10)
[2020-02-17] MEDS: MIRTAZAPINE 15 MG TABLET PO SCH (21:12)
[2020-02-18 08:00] VITALS: BP 119/81
[2020-02-18] MEDS: ENSURE ENLIVE 237 ML LIQUID (VANILLA) PO SCH ×2 (08:18→16:10)
[2020-02-18] MEDS: PANTOPRAZOLE 40 MG TABLET.DR PO SCH (08:18)
[2020-02-18] MEDS: POTASSIUM CHLORIDE 20 MEQ TAB.PRT.SR PO SCH (08:18)
[2020-02-18] MEDS: FINASTERIDE (5 MG) 5 MG TABLET PO SCH (08:18)
[2020-02-18] MEDS: busPIRone 5 MG TABLET PO SCH ×2 (08:18→16:10)
[2020-02-18] MEDS: buPROPion SR 100 MG TABLET.ER PO SCH ×2 (08:18→16:10)
[2020-02-18] MEDS: CLOZAPINE 25 MG TABLET PO SCH (08:18)
[2020-02-18] MEDS: ASPIRIN 81 MG TAB.CHEW PO SCH (08:18)
[2020-02-18] MEDS: FLUTICASONE 110MCG 1 EA INHALER IH SCH ×2 (08:19→16:10)
[2020-02-18 16:00] VITALS: BP 139/89
[2020-02-18] MEDS: MAGNESIUM HYDROXIDE 30 ML UDC PO PRN (16:10)
[2020-02-18 19:50] VITALS: BP 129/80
[2020-02-18] MEDS: CLOZAPINE 100 MG TABLET PO SCH (21:06)
[2020-02-18] MEDS: MIRTAZAPINE 15 MG TABLET PO SCH (21:08)
[2020-02-18] MEDS: DOCUSATE SODIUM 100 MG CAPSULE PO PRN (21:09)
--- NOTE | 2020-02-18 21:10 | NUR ---
GPS RN NOTE: CONSTIPATION PT C/O OF CONSTIPATION REQUESTED COLACE, ADMIN COLACE @ [id number], WILL REASSESS AND CONTINUE TO MONITOR Q15MIN FOR SAFETY AND BEHAVIOR.
--- NOTE | 2020-02-18 23:47 | NUR ---
GPS RN NOTE: INDIGESTION PT COMPLAINED OF UPSET STOMACH, REQUESTED SOMEING FOR IT. ADMIN MAALOX PRN @1030, WILL REASSESS AND CONTINUE TO MONITOR Q15MIN FOR SAFETY AND BEHAVIOR.
[2020-02-19 08:05] VITALS: BP 129/78
[2020-02-19] MEDS: ENSURE ENLIVE 237 ML LIQUID (VANILLA) PO SCH ×2 (08:38→17:40)
--- NOTE | 2020-02-19 09:21 | NUR ---
CONSERVATOR CONTACT: MIKAYLA contacted pts LPS conservator Marlene ([phone]) and informed her pt has written SW 3 letters expressing his wishes to be discharged to a SNF due to him being really sick and believing he has cancer. Marlene stated she spoke to pt this morning and explained to him why he couldn't go to a SNF. Per Marlene she states that pt is delusional and is having psychosomatic symptoms and needs his antipsychotic medication to be increased. She requested to speak to Psychiatrist Dr. Mendoza. MIKAYLA informed Dr. Mendoza via phone call.
[2020-02-19] MEDS: busPIRone 5 MG TABLET PO SCH ×2 (09:26→17:40)
[2020-02-19] MEDS: FLUTICASONE 110MCG 1 EA INHALER IH SCH ×2 (09:26→17:42)
[2020-02-19] MEDS: FINASTERIDE (5 MG) 5 MG TABLET PO SCH (09:26)
[2020-02-19] MEDS: POTASSIUM CHLORIDE 20 MEQ TAB.PRT.SR PO SCH (09:26)
[2020-02-19] MEDS: ASPIRIN 81 MG TAB.CHEW PO SCH (09:26)
[2020-02-19] MEDS: PANTOPRAZOLE 40 MG TABLET.DR PO SCH (09:26)
[2020-02-19] MEDS: buPROPion SR 100 MG TABLET.ER PO SCH ×2 (09:27→17:40)
[2020-02-19] MEDS: DOCUSATE SODIUM 100 MG CAPSULE PO PRN (09:27)
[2020-02-19] MEDS: CLOZAPINE 25 MG TABLET PO SCH (09:27)
[2020-02-19 10:16] LABS: BASOPHILS # (AUTO) 0.1 /CMM (0.0-0.2); BASOPHILS % (AUTO) 1.2 % (0.0-2.0); EOSINOPHILS % (AUTO) 2.7 % (0.0-6.0); HEMATOCRIT 40 % (39-51); HEMOGLOBIN 13.4 g/dL (13.5-17.5); LYMPHOCYTES # (AUTO) 0.9 /CMM (0.8-4.8); LYMPHOCYTES % (AUTO) 13.5 % (20.0-44.0); MEAN CORPUSCULAR HGB CONC 33 g/dl (31.0-36.0); MEAN CORPUSCULAR VOLUME 89 fL (80-96); MONOCYTES # (AUTO) 0.5 /CMM (0.1-1.30); MONOCYTES % (AUTO) 7.6 % (2.0-12.0); NEUTROPHILS # (AUTO) 5.1 /CMM (1.8-8.9); PLATELET COUNT (AUTO) 215 /CMM (150-450); RED BLOOD CELL COUNT(AUTO) 4.52 MIL/uL (4.5-6.0); WHITE BLOOD COUNT (AUTO) 6.8 K/uL (4.3-11.0)
--- NOTE | 2020-02-19 14:56 | NUR ---
CONSERVATOR CONTACT: SW received a voicemail from [facility] conservsidney Rosario ([phone]) requesting a callback. SW returned call and was unable to leave a message due to mailbox being full.
--- NOTE | 2020-02-19 15:17 | NUR ---
CONSERVATOR CONTACT: SW received a call from pts [facility] ([phone]) requesting a call from psychiatrist Dr. Mendoza to discuss pts treatment. SW contacted psychiatrist via phone call and notified him of request.
[2020-02-19 16:00] VITALS: BP 105/69
--- NOTE | 2020-02-19 18:00 | NUR ---
QUIET,COOPERATIVE,REQUESTING COLACE 2X DAY.
[2020-02-19] MEDS: CLOZAPINE 100 MG TABLET PO SCH (21:22)
[2020-02-19] MEDS: MIRTAZAPINE 15 MG TABLET PO SCH (21:22)
[2020-02-20 03:27] VITALS: BP 119/73
[2020-02-20 08:00] VITALS: BP 123/76
[2020-02-20] MEDS: busPIRone 5 MG TABLET PO SCH ×2 (08:23→17:43)
[2020-02-20] MEDS: ASPIRIN 81 MG TAB.CHEW PO SCH (08:23)
[2020-02-20] MEDS: FLUVOXAMINE MALEATE 50 MG TABLET PO SCH ×3 (08:23→17:46)
[2020-02-20] MEDS: DOCUSATE SODIUM 100 MG CAPSULE PO PRN (08:24)
[2020-02-20] MEDS: FINASTERIDE (5 MG) 5 MG TABLET PO SCH (08:24)
[2020-02-20] MEDS: CLOZAPINE 25 MG TABLET PO SCH (08:25)
[2020-02-20] MEDS: FLUTICASONE 110MCG 1 EA INHALER IH SCH ×2 (08:26→17:42)
[2020-02-20] MEDS: ENSURE ENLIVE 237 ML LIQUID (VANILLA) PO SCH ×2 (08:27→17:42)
[2020-02-20] MEDS: PANTOPRAZOLE 40 MG TABLET.DR PO SCH (08:29)
[2020-02-20] MEDS: POTASSIUM CHLORIDE 20 MEQ TAB.PRT.SR PO SCH (08:29)
--- NOTE | 2020-02-20 15:13 | NUR ---
INDIVIDUAL INTERVENTION: SW met with pt at bedside and discussed his discharge plan. Pt states that he does not want to return to [facility] and instead wants to be discharged to a SNF. SW explained that due to pt being conserved his LPS conservator makes decisions for him and informed him that she wishes for him to return to [facility]. SW discussed reasons why he does not want to return to [facility] and pt states because he is unable to afford it. SW stated that he is part of an assisted living waiver that pays for his monthly fees. SW explained that per his conservator he does not meet criteria for a SNF, pt states that he does as he is very ill and has cancer. SW provided reality orientation and assessed for insight into his mental illness. Pts insight and judgement is impaired and pt is refusing to be discharged to [facility].
--- NOTE | 2020-02-20 15:52 | NUR ---
sleeping most of day.
[2020-02-20 16:00] VITALS: BP 123/75
[2020-02-20 19:59] VITALS: BP 130/81
[2020-02-20 20:00] VITALS: BP 130/81
[2020-02-20] MEDS: CLOZAPINE 100 MG TABLET PO SCH (21:39)
[2020-02-20] MEDS: MIRTAZAPINE 15 MG TABLET PO SCH (21:39)
--- NOTE | 2020-02-20 21:46 | NUR ---
GPS RN NOTE PATIENT WAS SEEN BY DR. MCMILLAN & PATIENT INFORMED DR. MCMILLAN THAT HE HAS PAIN, ASSESSED GÓMEZ PATIENT AGAIN & ASKED HIM THAT WHERE IS THE PAIN SO PAIN MEDICINE COULD BE GIVEN BUT PATIENT STATED," I AM OK NOW, THAT PAIN WAS 1 HOUR AGO IN MY THROAT." PATIENT IS WATCHING TV AT THIS TIME, NO ACUTE DISTRESS, NO SOB, NO OTHER CHANGES NOTED. ASKED THE PATIENT MULTIPLE TIMES IF HE IS IN PAIN, PAIN MEDICINE COULD BE GIVEN BUT PATIENT KEPT DENYING ANY PAIN AT THIS TIME. WILL CONTINUE TO MONITOR FOR ANY CHANGES & WILL NOTIFY MD [place].
--- NOTE | 2020-02-20 22:33 | NUR ---
GPS RN NOTE REASSESSED THE PATIENT FOR PAIN, PATIENT CONTINUED TO DENIED ANY PAIN AT THIS TIME & ABLE TO SLEEP COMFORTABLY.
--- NOTE | 2020-02-20 23:20 | NUR ---
GPS RN NOTE: NEW COLACE ORDER PATIENT STATED THAT HE HAS BEEN TAKING COLACE 250 MG PO TWICE A DAY FOR AT LEAST 5 YEARS. IF I HAVE LOOSE BM, I DON'T TAKE IT OR I INFORM THE NURSES NOT TO GIVE IT TO ME. INFORMED DR. ROSE ABOUT PATIENT'S CONCERN & MD ORDERED COLACE 250 MG TWICE A DAY & DC COLACE 100 MG DAILY PRN. ORDER NOTED & CARRIED OUT. PATIENT MADE AWARE.
[2020-02-21] MEDS: TEMAZEPAM 7.5 MG CAPSULE PO PRN (01:47)
--- NOTE | 2020-02-21 01:47 | NUR ---
GPS RN NOTE: INSOMNIA PATIENT IS UNABLE TO SLEEP, PRN RESTORIL 7.5 MG 1 CAP PO GIVEN. WILL REASSESS FOR EFFECTIVENESS.
[2020-02-21 08:00] VITALS: BP_SYST 129; BP_SYST 134; BP_DIAS 72; BP_DIAS 95
[2020-02-21] MEDS: ASPIRIN 81 MG TAB.CHEW PO SCH (08:41)
[2020-02-21] MEDS: FINASTERIDE (5 MG) 5 MG TABLET PO SCH (08:41)
[2020-02-21] MEDS: PANTOPRAZOLE 40 MG TABLET.DR PO SCH (08:41)
[2020-02-21] MEDS: FLUVOXAMINE MALEATE 50 MG TABLET PO SCH ×3 (08:41→18:10)
[2020-02-21] MEDS: CLOZAPINE 25 MG TABLET PO SCH (08:41)
[2020-02-21] MEDS: POTASSIUM CHLORIDE 20 MEQ TAB.PRT.SR PO SCH (08:41)
[2020-02-21] MEDS: busPIRone 5 MG TABLET PO SCH ×2 (08:41→17:12)
[2020-02-21] MEDS: DOCUSATE SODIUM 250 MG CAPSULE PO SCH ×2 (08:41→17:12)
[2020-02-21] MEDS: FLUTICASONE 110MCG 1 EA INHALER IH SCH ×2 (08:44→17:12)
[2020-02-21] MEDS: ENSURE ENLIVE 237 ML LIQUID (VANILLA) PO SCH ×2 (09:33→17:00)
--- NOTE | 2020-02-21 15:00 | NUR ---
INDIVIDUAL INTERVENTION: SW met with pt at bedside to discuss his discharge plan. Pt was asleep and not easily roused by verbal cues.
--- NOTE | 2020-02-21 15:02 | NUR ---
CONSERVATOR CONTACT: MIKAYLA contacted pts LPS anita Rosario ([phone]) and left a voicemail informing her pt will be discharged on Tuesday02/26/20 and requested a psychiatrist and potato inspector follow up.
[2020-02-21 15:28] LABS: CALCIUM, SERUM 8.8 mg/dL (8.5-10.1); CREATININE 1.1 mg/dL (0.6-1.3); POTASSIUM 4.2 mmol/L (3.5-5.1)
[2020-02-21 15:40] LABS: BASOPHILS % (AUTO) 0.6 % (0.0-2.0); HEMATOCRIT 43 % (39-51); HEMOGLOBIN 14.3 g/dL (13.5-17.5); LYMPHOCYTES # (AUTO) 0.6 /CMM (0.8-4.8); MEAN CORPUSCULAR HGB CONC 33 g/dl (31.0-36.0); MEAN CORPUSCULAR VOLUME 89 fL (80-96); MONOCYTES # (AUTO) 0.5 /CMM (0.1-1.30); MONOCYTES % (AUTO) 6.8 % (2.0-12.0); NEUTROPHILS # (AUTO) 6.3 /CMM (1.8-8.9); NEUTROPHILS % (AUTO) 82.6 % (43.0-81.0); PLATELET COUNT (AUTO) 202 /CMM (150-450); RED BLOOD CELL COUNT(AUTO) 4.87 MIL/uL (4.5-6.0); WHITE BLOOD COUNT (AUTO) 7.6 K/uL (4.3-11.0)
--- NOTE | 2020-02-21 15:43 | NUR ---
FACILITY CONTACT: SW contacted [facility] Address: [address] [place] [address] and spoke to Jocelyne, software administrator and informed her pt will be discharging on Tuesday02/26/20. She agreed with discharge plan.
--- NOTE | 2020-02-21 16:00 | NUR ---
CONSERVATOR CONTACT: SW received a call from pts LPS conservator Marlene ([phone]) stating that she did not know what to do in regards to pts placement. She states that pt continues to refuse to return to [facility]. SW informed her that currently pt was being transferred to the overflow unit as he was currently a rule our for COVID. SW stated that she would notify her of results tomorrow.
--- NOTE | 2020-02-21 16:30 | NUR ---
GPS/RN-NOTES PATIENT WAS TRANSFER TO OV UNIT TO RULE OUT COVID, REPORT WAS GIVEN TO TATIANA TRAINING ADMINISTRATOR. PATIENT'S CONSERVATOR STELLA ) MADE AWARE.
--- NOTE | 2020-02-21 16:40 | NUR ---
MS RN NOTES RECEIVED PATIENT FROM GPS, PATIENT ALERT,ORIENTED X3 COOPERATIVE. PATIENT WITH SITTER AT BEDSIDE. PATIENT GPS OVERFLOW, TRANSFERRED FOR ISOLATION DUE TO SUSPECTED COVID SINCE PATIENT IS COUGHING. PATIENT SITUATED IN ROOM. WILL CONTINUE TO MONITOR.
--- NOTE | 2020-02-21 17:00 | NUR ---
GPS RN NOTES NASAL SWAB DONE FOR COVID TEST WAITING FOR RESULTS.
--- NOTE | 2020-02-21 18:40 | NUR ---
GPS RN NOTES CALL RECEIVED FROM LAB WITH NEGATIVE COVID RESULTS. GPS NOTIFIED PATIENT TRANSFERRED BACK TO GPS
--- NOTE | 2020-02-21 19:20 | NUR ---
GPS/RN-NOTES PATIENT BACK IN THE UNIT, AWAKE, ALERT X2 AMBULATORY STEADY GAIT.NO ACUTE DISTRESS NOTED. WILL ENDORSE TO INCOMING NURSE/SHIFT FOR CONTINUITY OF CARE.
[2020-02-21 20:00] VITALS: BP 145/68
[2020-02-21 20:06] VITALS: BP 145/68
[2020-02-21] MEDS: MIRTAZAPINE 15 MG TABLET PO SCH (21:29)
[2020-02-21] MEDS: CLOZAPINE 100 MG TABLET PO SCH (21:29)
--- NOTE | 2020-02-22 00:35 | NUR ---
GPS RN NOTE: NEW ORDER PATIENT C/O PRODUCTIVE COUGH , CLEAR SECRETIONS, C/O SOB INTERMITTENTLY, NO ACUTE DISTRESS NOTED AT THIS TIME. VITALS WNL, O2 SAT 95% AT RA. CXR & COVID-19 WAS DONE ON 02/21/2020, BOTH TESTS RESULTED NEGATIVE. NOTIFIED ABOUT PATIENT'S CONDITION WITH NEW ORDER TO ADMINISTER ALBUTEROL NEB Q 6 HOURS PRN & PULMONARY CONSULT IN AM. ORDER NOTED & CARRIED OUT. CONTINUING TO MONITOR THE PATIENT CLOSELY FOR ANY CHANGE OF CONDITION.
--- NOTE | 2020-02-22 00:47 | NUR ---
GPS RN NOTE CALLED AFTER HOURS PHARMACY TO VERIFY ALBUTEROL NEB ORDER.
--- NOTE | 2020-02-22 00:49 | NUR ---
CALLED RESPIRATORY, SPOKE TO RAY & REQUESTED BREATHING TREATMENT TO BE GIVEN TO THE PATIENT.
[2020-02-22] MEDS ORDERED: ALBUTEROL FS 2.5 MG/0.5 ML VIAL.NEB NEB PRN (01:00)
--- NOTE | 2020-02-22 01:31 | NUR ---
GPS RN NOTE: BREATHING TREATMENT GIVEN RT ARRIVED TO GPS UNIT & ADMINISTERED BREATHING TREATMENT TO THE PATIENT & TOLERATED WELL. NO ACUTE DISTRESS NOTED. WILL CONTINUE TO MONITOR FOR ANY CHANGE OF CONDITION.
--- NOTE | 2020-02-22 03:39 | NUR ---
GPS RN NOTE PATIENT IS SLEEPING AT THIS TIME. NO ACUTE DISTRESS NOTED.
--- NOTE | 2020-02-22 05:19 | NUR ---
GPS RN NOTE PATIENT HAS INTERMITTENT COUGH EPISODES, VITALS CHECKED 106/75, 106, 20, 97.9, 97@ RA. NO ACUTE DISTRESS NOTED. ASSESSED FOR PAIN, PATIENT DENIES PAIN AT THIS TIME. CONTINUING TO MONITOR FOR ANY CHANGE OF CONDITION.
--- NOTE | 2020-02-22 06:06 | NUR ---
GPS RN NOTE NOTIFIED MD ABOUT PATIENT'S INTERMITTENT COUGH EPISODES, MD ORDERED ROBITUSSIN COUGH SYRUP Q 6 HOURS PRN. ORDER NOTED & CARRIED OUT. WAITING FOR PHARMACY TO VERIFY NEW ORDER.
[2020-02-22] MEDS: GUAIFENESIN/D-METHORPHAN HB 5 ML UDC PO PRN (06:23)
--- NOTE | 2020-02-22 06:24 | NUR ---
GPS RN NOTE: ROBITUSSIN GIVEN PHARMACY VERIFIED ROBITUSSIN ORDER & ADMINISTERED TO THE PATIENT ORDERED BY MD. WILL CONTINUE TO MONITOR THE PATIENT CLOSELY & WILL ENDORSE TO AM RN FOR CONTINUITY OF CARE.
[2020-02-22] MEDS ORDERED: GUAIFENESIN/CODEINE 10 ML UDC PO PRN (06:30)
[2020-02-22 08:00] VITALS: BP 124/76
[2020-02-22] MEDS: ENSURE ENLIVE 237 ML LIQUID (VANILLA) PO SCH ×2 (08:30→16:42)
[2020-02-22] MEDS: PANTOPRAZOLE 40 MG TABLET.DR PO SCH (08:34)
[2020-02-22] MEDS: ASPIRIN 81 MG TAB.CHEW PO SCH (08:45)
[2020-02-22] MEDS: DOCUSATE SODIUM 250 MG CAPSULE PO SCH ×2 (08:45→16:42)
[2020-02-22] MEDS: POTASSIUM CHLORIDE 20 MEQ TAB.PRT.SR PO SCH (08:45)
[2020-02-22] MEDS: busPIRone 5 MG TABLET PO SCH ×2 (08:45→16:42)
[2020-02-22] MEDS: FINASTERIDE (5 MG) 5 MG TABLET PO SCH (08:46)
[2020-02-22] MEDS: FLUVOXAMINE MALEATE 50 MG TABLET PO SCH ×3 (08:46→16:42)
[2020-02-22] MEDS: CLOZAPINE 25 MG TABLET PO SCH (08:46)
[2020-02-22] MEDS: FLUTICASONE 110MCG 1 EA INHALER IH SCH ×2 (10:12→16:43)
--- NOTE | 2020-02-22 10:24 | NUR ---
CONSERVATOR CONTACT: MIKAYLA received a call from pts LPS conservsidney oRsario ([phone]) stating that she agrees with pts discharge to [facility]. MIKAYLA informed her that pt will be discharged on Tuesday02/26/20.
--- NOTE | 2020-02-22 11:42 | NUR ---
FACILITY CONTACT: Pt spoke with Linda, hospital coordinator at [facility] Address: [address], [place] [address] who stated pt has been accepted to their facility.
[2020-02-22 16:00] VITALS: BP 123/79
--- NOTE | 2020-02-22 17:01 | NUR ---
GPS/RN-NOTES DNP MAGDALENO MADE AWARE REGARDING A RECOMMENDATIONS BY THE CONE SEWER MD LAST NIGHT FOR A PULMONARY CONSULTS FOR THE PATIENT. PER MAGDALENO THERE IS NO NEED FOR THE PULMONARY CONSULT BECAUSE THE CHEST XR YESTERDAY RESULTS WAS NEGATIVE.
[2020-02-22 19:58] VITALS: BP 121/80
[2020-02-22] MEDS: CLOZAPINE 100 MG TABLET PO SCH (21:35)
[2020-02-22] MEDS: MIRTAZAPINE 15 MG TABLET PO SCH (21:35)
--- NOTE | 2020-02-23 06:38 | NUR ---
GPS RN CLOSING NOTES: PT IS LAYING ON BED AWAKE AND ALERT. NO BEHAVIORAL ISSUES THIS SHIFT. PT SLEPT FOR 8HRS. NO S/S OF DISTRESS, RESPIRATION EVEN AND UNLABORED WITH EQUAL RISE AND FALL OF THE CHEST ON ROOM AIR. PT IS MED COMPLIANT. ALL PT CARE NEEDS MET ANTICIPATED. WILL CONTINUE TO MONITOR AND ENDORSE TO AM SHIFT
[2020-02-23] MEDS: PANTOPRAZOLE 40 MG TABLET.DR PO SCH (07:52)
[2020-02-23 08:00] VITALS: BP 129/78
[2020-02-23] MEDS: POTASSIUM CHLORIDE 20 MEQ TAB.PRT.SR PO SCH (08:29)
[2020-02-23] MEDS: ASPIRIN 81 MG TAB.CHEW PO SCH (08:29)
[2020-02-23] MEDS: CLOZAPINE 25 MG TABLET PO SCH (08:30)
[2020-02-23] MEDS: FINASTERIDE (5 MG) 5 MG TABLET PO SCH (08:30)
[2020-02-23] MEDS: busPIRone 5 MG TABLET PO SCH ×2 (08:30→16:39)
[2020-02-23] MEDS: DOCUSATE SODIUM 250 MG CAPSULE PO SCH ×2 (08:30→16:39)
[2020-02-23] MEDS: FLUVOXAMINE MALEATE 50 MG TABLET PO SCH ×3 (08:30→16:39)
[2020-02-23] MEDS: ENSURE ENLIVE 237 ML LIQUID (VANILLA) PO SCH ×2 (08:38→16:39)
[2020-02-23] MEDS: FLUTICASONE 110MCG 1 EA INHALER IH SCH ×2 (08:38→16:44)
[2020-02-23 16:00] VITALS: BP 118/75
[2020-02-23] MEDS: GUAIFENESIN/D-METHORPHAN HB 5 ML UDC PO PRN (17:23)
--- NOTE | 2020-02-23 17:30 | NUR ---
GPS/RN-NOTES NOTED PATIENT COUGHING ,ROBITUSSIN 10ML GIVEN PRN ORDER. WILL CONT. MONITORING.
--- NOTE | 2020-02-23 19:02 | NUR ---
GPS/RN-NOTES PATIENT SLEEPING ,NOTED WITH LESS COUGHING,NO ACUTE DISTRESS NOTED. WILL ENDORSE TO INCOMING NURSE FOR CONTINUITY OF CARE.
[2020-02-23 19:34] LABS: APPEARANCE,URINE CLOUDY (CLEAR); BILIRUBIN,URINE SMALL (NEGATIVE); BLOOD, URINE NEGATIVE Ery/uL (NEGATIVE); COLOR,URINE YELLOW (YELLOW); KETONES,URINE NEGATIVE (NEGATIVE); LEUKOCYTE ESTERASE ,URINE NEGATIVE (NEGATIVE); NITRITE, URINE NEGATIVE (NEGATIVE); PROTEIN,URINE NEGATIVE (NEGATIVE); UGLUCOSE NEGATIVE (NEGATIVE); UROBILINOGEN,URINE 0.2 EU/dL (0.2)
[2020-02-23 19:44] LABS: BACTERIA,URINE 2+ /HPF (None Seen); CALCIUM OXALATE CRYSTALS,UR Few /HPF (None Seen); RBC,URINE 0-2 /HPF (0-2); SQUAMOUS EPITHELIAL CELL,UR None Seen /HPF (None Seen); URINE AMORPHOUS URATE Many /HPF (None Seen)
[2020-02-23] MEDS: CLOZAPINE 100 MG TABLET PO SCH (21:17)
[2020-02-23] MEDS: MIRTAZAPINE 15 MG TABLET PO SCH (21:17)
--- NOTE | 2020-02-24 06:21 | NUR ---
GPS RN CLOSING NOTES: PT LAYING ON BED, SLEEPING INTERMITTENTLY. NO BEHAVIORAL ISSUES THIS SHIFT. PT SLEPT FOR 8HRS. NO S/S OF DISTRESS, RESPIRATION EVEN AND UNLABORED WITH EQUAL RISE AND FALL OF THE CHEST ON ROOM AIR. PT IS MED COMPLIANT. ALL PT CARE NEEDS MET ANTICIPATED. WILL CONTINUE TO MONITOR AND ENDORSE TO AM SHIFT
[2020-02-24 07:57] LABS: BASOPHILS # (AUTO) 0.1 /CMM (0.0-0.2); BASOPHILS % (AUTO) 0.7 % (0.0-2.0); EOSINOPHILS % (AUTO) 2.5 % (0.0-6.0); HEMATOCRIT 43 % (39-51); HEMOGLOBIN 14.1 g/dL (13.5-17.5); LYMPHOCYTES # (AUTO) 1.1 /CMM (0.8-4.8); LYMPHOCYTES % (AUTO) 13.7 % (20.0-44.0); MEAN CORPUSCULAR HGB CONC 33 g/dl (31.0-36.0); MEAN CORPUSCULAR VOLUME 89 fL (80-96); MONOCYTES # (AUTO) 0.6 /CMM (0.1-1.30); MONOCYTES % (AUTO) 7.7 % (2.0-12.0); NEUTROPHILS # (AUTO) 6.2 /CMM (1.8-8.9); NEUTROPHILS % (AUTO) 75.4 % (43.0-81.0); PLATELET COUNT (AUTO) 150 /CMM (150-450); RED BLOOD CELL COUNT(AUTO) 4.81 MIL/uL (4.5-6.0); WHITE BLOOD COUNT (AUTO) 8.2 K/uL (4.3-11.0)
[2020-02-24 08:00] VITALS: BP 126/74
[2020-02-24] MEDS: FLUVOXAMINE MALEATE 50 MG TABLET PO SCH ×3 (08:12→16:24)
[2020-02-24] MEDS: FINASTERIDE (5 MG) 5 MG TABLET PO SCH (08:12)
[2020-02-24] MEDS: busPIRone 5 MG TABLET PO SCH ×2 (08:12→16:23)
[2020-02-24] MEDS: CLOZAPINE 25 MG TABLET PO SCH (08:12)
[2020-02-24] MEDS: ENSURE ENLIVE 237 ML LIQUID (VANILLA) PO SCH ×2 (08:12→16:24)
[2020-02-24] MEDS: DOCUSATE SODIUM 250 MG CAPSULE PO SCH ×2 (08:12→16:27)
[2020-02-24] MEDS: ASPIRIN 81 MG TAB.CHEW PO SCH (08:12)
[2020-02-24] MEDS: PANTOPRAZOLE 40 MG TABLET.DR PO SCH (08:12)
[2020-02-24] MEDS: POTASSIUM CHLORIDE 20 MEQ TAB.PRT.SR PO SCH (08:12)
[2020-02-24] MEDS: FLUTICASONE 110MCG 1 EA INHALER IH SCH ×2 (08:13→16:23)
[2020-02-24 08:15] LABS: ALBUMIN 3.3 g/dL (3.4-5.0); BILIRUBIN,TOTAL 0.4 mg/dL (0.2-1.0); CALCIUM, SERUM 8.9 mg/dL (8.5-10.1); POTASSIUM 3.7 mmol/L (3.5-5.1); TOTAL PROTEIN, SERUM 6.8 g/dL (6.4-8.2)
[2020-02-24] MEDS: GUAIFENESIN/D-METHORPHAN HB 5 ML UDC PO PRN (08:25)
--- NOTE | 2020-02-24 08:47 | NUR ---
RN NOTES RN PAGED HOSPITALIST/DT REGARDING PT'S UA RESULT. AWAITING FOR CALL BACK.
--- NOTE | 2020-02-24 08:53 | NUR ---
RN NOTES RECEIVED CALL BACK FROM DT/SUPERVISOR WHIPPED TOPPING AND STATED IT'S NOT HIS PT AND WAS CHANGED TO CN/SUPERVISOR WHIPPED TOPPING. AND ADVISED JUST TO WAIT FOR CN/SUPERVISOR WHIPPED TOPPING TO DO ROUNDS. CHARGE NURSE MADE AWARE.
--- NOTE | 2020-02-24 11:00 | NUR ---
RN NOTES PT SEEN AND EVALUATED BY HOSPITALIST/CN, INFORMED REGARDING UA RESULT. PER GEOSCIENCE LABORATORY TECHNICIAN/CN HE'LL PUT ORDERS FOR ANTIBIOTIC. AWAITING FOR ORDERS.
--- NOTE | 2020-02-24 15:13 | NUR ---
RN NOTES SPOKE TO HOSPITALIST/CN REGARDING PLAN FOR POSITIVE UA. PER CN, NOT CONVINCED IT IS UTI, AWAITING FOR UA CULTURE BEFORE HE ORDERS ANTIBIOTICS HE STATED. CHARGE NURSE/TANIYA MADE AWARE WELL.
[2020-02-24 16:00] VITALS: BP 123/80
[2020-02-24 19:32] VITALS: BP 130/81
[2020-02-24] MEDS: CLOZAPINE 100 MG TABLET PO SCH (21:30)
[2020-02-24] MEDS: TEMAZEPAM 7.5 MG CAPSULE PO PRN (21:30)
[2020-02-24] MEDS: MIRTAZAPINE 15 MG TABLET PO SCH (21:30)
[2020-02-25] MEDS: PANTOPRAZOLE 40 MG TABLET.DR PO SCH (07:57)
[2020-02-25 08:00] VITALS: BP 120/73
[2020-02-25] MEDS: busPIRone 5 MG TABLET PO SCH ×2 (08:00→17:23)
[2020-02-25] MEDS: POTASSIUM CHLORIDE 20 MEQ TAB.PRT.SR PO SCH (08:00)
[2020-02-25] MEDS: CLOZAPINE 25 MG TABLET PO SCH (08:00)
[2020-02-25] MEDS: FLUVOXAMINE MALEATE 50 MG TABLET PO SCH ×3 (08:00→17:23)
[2020-02-25] MEDS: FINASTERIDE (5 MG) 5 MG TABLET PO SCH (08:00)
[2020-02-25] MEDS: ASPIRIN 81 MG TAB.CHEW PO SCH (08:00)
[2020-02-25] MEDS: ENSURE ENLIVE 237 ML LIQUID (VANILLA) PO SCH ×2 (08:01→17:24)
[2020-02-25] MEDS: DOCUSATE SODIUM 250 MG CAPSULE PO SCH ×2 (08:01→17:23)
[2020-02-25] MEDS: FLUTICASONE 110MCG 1 EA INHALER IH SCH ×2 (08:05→17:31)
[2020-02-25 16:00] VITALS: BP 117/73
[2020-02-25 19:42] VITALS: BP 101/81
[2020-02-25] MEDS: MIRTAZAPINE 15 MG TABLET PO SCH (21:12)
[2020-02-25] MEDS: CLOZAPINE 100 MG TABLET PO SCH (21:13)
[2020-02-25] MEDS ORDERED: PNEUMOCOCCAL 23-VAL P-SAC VAC 0.5 ML VIAL SQ ONE (23:30)
[2020-02-25] MEDS ORDERED: INFLUENZA VACCINE 2020-21 0.5 ML DISP.SYRIN IM ONE (23:30)
[2020-02-26] MEDS: PANTOPRAZOLE 40 MG TABLET.DR PO SCH (07:51)
[2020-02-26 08:00] VITALS: BP 119/61
[2020-02-26] MEDS: POTASSIUM CHLORIDE 20 MEQ TAB.PRT.SR PO SCH (08:04)
[2020-02-26] MEDS: FLUTICASONE 110MCG 1 EA INHALER IH SCH (08:04)
[2020-02-26] MEDS: busPIRone 5 MG TABLET PO SCH (08:04)
[2020-02-26] MEDS: FLUVOXAMINE MALEATE 50 MG TABLET PO SCH (08:05)
[2020-02-26] MEDS: DOCUSATE SODIUM 250 MG CAPSULE PO SCH (08:05)
[2020-02-26] MEDS: FINASTERIDE (5 MG) 5 MG TABLET PO SCH (08:05)
[2020-02-26] MEDS: ENSURE ENLIVE 237 ML LIQUID (VANILLA) PO SCH (08:06)
[2020-02-26] MEDS: ASPIRIN 81 MG TAB.CHEW PO SCH (08:06)
[2020-02-26] MEDS: CLOZAPINE 25 MG TABLET PO SCH (08:06)
--- NOTE | 2020-02-26 09:00 | NUR ---
RN NOTE-AWAKE ALERT ORIENTED TO PERSON PLACE FLAT AFFECT SUSPICIOUS AND PARANOID GUARDED. PO INTAKE FAIR MED COMPLIANT NEEDS ATTENDED DENIES AH VH DIRECTABLE PENDING DC
--- NOTE | 2020-02-26 09:10 | NUR ---
SW DISCHARGE NOTE: Patient will be discharged to [facility] [address] [place] [address] ([phone]) via ambulance transportation at 12pm. Spoke with Linda, Admin Coordinator at the facility who states they are ready to accept the patient today. Patient is aware and agreeable with discharge plans. Patient is alert and oriented x3, is unable to plan for self-care at this time, however, is willing to accept care at [facility]. Patient denies any suicidal or homicidal ideation. Patient presents with euthymic mood and congruent affect. Patient will follow-up at the facility with Psychiatrist: Dr. Torres Address: [address] [place] [address] ) Inspector General: Dr. Werner Address: [address] [address] ([phone]). Patients LPS anita Rosario ([phone]) is aware and agreeable with discharge plans.
[2020-02-26] MEDS ORDERED: PNEUMOCOCCAL 23-VAL P-SAC VAC 0.5 ML VIAL SQ ONE (10:00)
--- NOTE | 2020-02-26 11:20 | NUR ---
FIRER GLOST KILN NOTE- PT DC AT THIS TIME TO [facility] VIA AMBULANCE AND GURNEY. PT DC INSTRUCTIONS AND AFTERCARE REPORT GIVEN TO ROSALIND AT FACILITY AND REVIEWED W AMBULANCE STAFF. VS ARE STABLE . PT ALERT ORIENTED TO PERSON PLACE. PT CONFUSED THOUGH DENIES SI HI AH VH. PERSONAL VALUABLES RETURNED TO PT AND SIGNED FOR. ID WRISTBAND REMOVED. PT ESCORTED OFF UNIT AT THIS TIME.
== END 2020-02-26 11:20 | DRG 885 ==
LOC: GPS 19:30 → GPSOV2 02-21 16:37 → GPS 02-21 18:57
PROVIDERS: ADMIT Psychiatry & Neurology Psychiatry; ATTEND Student in an Organized Health Care Education/Training Program
DX: F33.3 Major depressive disorder, recurrent, severe with psychotic symptoms (principal); F23 Brief psychotic disorder; F41.9 Anxiety disorder, unspecified; K21.9 Gastro-esophageal reflux disease without esophagitis; E87.6 Hypokalemia; N40.0 Benign prostatic hyperplasia without lower urinary tract symptoms; R53.1 Weakness; F39 Unspecified mood [affective] disorder
CPT/HCPCS: 36415; 71045-TC; 80048-TC; 80053-TC; 80061-TC; 81000-TC; 82962-TC; 85025-TC; 87081-TC; 87086-TC; 90732; 97116-TC; 97530-TC; Q0162; Q2036

== ENCOUNTER 2020-11-15 03:13 | Inpatient (IN) | payer MEDICARE, OTHER ==
[~2020-11-15] VITALS: Ht 182.9 cm; Wt 59.0 kg
[~2020-11-15 03:13] MED LIST changes: -LOPE2CAP PO; +MIRT-121 PO; -MIRT15TA PO; -PROM6.256 PO
--- NOTE | 2020-11-15 03:16 | NUR ---
PT AAOX4. BIBPA FROM [facility] FOR +AH "VOICES TELLING TO HURT ROOMMATE" PLACED IN BED 11 ON MONITOR AND PULSE OX. VSS. AWAITING ER MD FOR EVAL.
[2020-11-15 03:46] LABS: BASOPHILS % (AUTO) 0.5 % (0.0-2.0); EOSINOPHILS % (AUTO) 1.1 % (0.0-6.0); HEMATOCRIT 40 % (39-51); HEMOGLOBIN 13.4 g/dL (13.5-17.5); LYMPHOCYTES % (AUTO) 12.7 % (20.0-44.0); MEAN CORPUSCULAR HGB CONC 34 g/dl (31.0-36.0); MEAN CORPUSCULAR VOLUME 94 fL (80-96); MONOCYTES # (AUTO) 0.6 /CMM (0.1-1.30); MONOCYTES % (AUTO) 7.4 % (2.0-12.0); NEUTROPHILS # (AUTO) 6.2 /CMM (1.8-8.9); NEUTROPHILS % (AUTO) 78.3 % (43.0-81.0); PLATELET COUNT (AUTO) 134 /CMM (150-450); WHITE BLOOD COUNT (AUTO) 7.9 K/uL (4.3-11.0)
[2020-11-15 03:56] LABS: CALCIUM, SERUM 8.7 mg/dL (8.5-10.1); CARBON DIOXIDE 30 mmol/L (21-32); CHLORIDE 108 mmol/L (98-107); GLUCOSE 97 mg/dL (74-106); POTASSIUM 3.9 mmol/L (3.5-5.1); SODIUM SERUM 144 mmol/L (136-145); UREA NITROGEN, BLOOD 22 mg/dL (7-18)
[2020-11-15 03:57] LABS: BILIRUBIN,URINE Negative (NEGATIVE); COLOR,URINE YELLOW (YELLOW); LEUKOCYTE ESTERASE ,URINE Small (NEGATIVE); NITRITE, URINE Positive (NEGATIVE); PH,URINE 5.5 (5.0-8.0); PROTEIN,URINE Negative (NEGATIVE); UGLUCOSE Negative (NEGATIVE); UROBILINOGEN,URINE 0.2 EU/dL (0.2)
[2020-11-15 04:09] LABS: ACETAMINOPHEN 0 ug/ml (10-30); ALANINE AMINOTRANSFERASE 31 U/L (12-78); ALBUMIN 3.3 g/dL (3.4-5.0); ALCOHOL, BLOOD < 3 mg/dL (0-0); ALKALINE PHOSPHATASE 90 U/L (46-116); ASPARTATE AMINOTRANSFERASE 25 U/L (15-37); BILIRUBIN,DIRECT 0.1 mg/dL (0.0-0.2); BILIRUBIN,TOTAL 0.3 mg/dL (0.2-1.0); TOTAL PROTEIN, SERUM 6.6 g/dL (6.4-8.2)
--- NOTE | 2020-11-15 04:23 | NUR ---
CALLED [employer] [employer] SAL[employer] CONSULTANT FOR EVAL. LEFT A MESSAGE.
[2020-11-15] MEDS ORDERED: CEPHALEXIN MONOHYDRATE 500 MG CAPSULE PO ONE ×2 (04:30→04:48)
[2020-11-15 04:46] LABS: BACTERIA,URINE Moderate /HPF (None Seen); RBC,URINE 0-2 /HPF (0-2); SQUAMOUS EPITHELIAL CELL,UR None Seen /HPF (None Seen); WBC,URINE 81-100 /HPF (0-3)
--- NOTE | 2020-11-15 06:00 | NUR ---
ROZ CALLED BACK. SHE'LL BE ON THE WAY
--- NOTE | 2020-11-15 06:10 | NUR ---
REMAINS ON MONITOR AND PULSE OX.
--- NOTE | 2020-11-15 06:55 | NUR ---
REPORT CALLED TO CAYETANO LUNA.
--- NOTE | 2020-11-15 07:13 | NUR ---
RECEIVED REPORT FROM JAVIER SIMPSON FOR GUNNAR. PT IS AAOX3, NOT IN RESPIRATORY DISTRESS, V/S STABLE, KEPT RESTED AND COMFORTABLE. WILL CONTINUE TO MONITOR.
--- NOTE | 2020-11-15 07:30 | NUR ---
RN-ADMISSION- ADMITTED 65 Y.O MALE PATIENT FROM [facility] ER. PATIENT ON 5150 HOLD FOR DTS AND GD ADULT. UPON FACE TO FACE ASSESSMENT PATIENT A/O X3 WITH DEPRESSED MOOD BUT COOPERATIVE DURING THE INTERVIEW. PATIENT DID VERBALIZED THAT HE IS HEARING VOICES BUT DENIES SI/HI. PATIENT IS UNDER THE CARE OF DR. GONZALES (PSYCHIATRIST) AND DR. ESPINOZA -(CRIME SPECIALIST) BOTH WAS MADE AWARE OF THE ADMISSION. FULL SKIN ASSESSMENT AND CONTRABAND DONE. MRSA SWAB DONE. PATIENT MANAGER HEMATOLOGY VIVIAN [phone] WAS MADE AWARE OF THE ADMISSION. PATIENT WAS ORIENTED IN THE UNIT AND UNIT POLICIES,PATIENT'S RIGHT AND MEDICATION BOOKLET WAS GIVEN TO THE PATIENT.WILL CONT. MONITORING FOR SAFETY AND BEHAVIOR.
[2020-11-15] MEDS ORDERED: ACETAMINOPHEN 325 MG TABLET PO PRN ×2 (08:00→13:00)
[2020-11-15] MEDS ORDERED: LORAZEPAM 0.5 MG TABLET PO PRN (08:00)
[2020-11-15] MEDS ORDERED: MAG HYDROX/AL HYDROX/SIMETH 30 ML UDC PO PRN (08:00)
[2020-11-15] MEDS ORDERED: MAGNESIUM HYDROXIDE 30 ML UDC PO PRN (08:00)
[2020-11-15] MEDS ORDERED: TEMAZEPAM 7.5 MG CAPSULE PO PRN (08:00)
[2020-11-15] MEDS ORDERED: BLOOD SUGAR DIAGNOSTIC 1 EACH STRIP IN ONE (08:00)
--- NOTE | 2020-11-15 08:00 | NUR ---
RN-CO: DR GONZALES GAVE HER ADMITTING ORDERS.
[2020-11-15] MEDS ORDERED: LACT10SO3 PO (08:20)
[2020-11-15] MEDS ORDERED: MULT-439 PO (08:20)
[2020-11-15] MEDS ORDERED: ACET325T53 PO (08:20)
[2020-11-15] MEDS ORDERED: CLOZ200T24 PO (08:20)
[2020-11-15] MEDS ORDERED: BISA10SU11 RC (08:20)
[2020-11-15] MEDS ORDERED: SENN-175 PO (08:20)
[2020-11-15] MEDS ORDERED: NA P133E RC (08:20)
[2020-11-15] MEDS ORDERED: DIVA500T2 PO ×2 (08:20)
[2020-11-15] MEDS ORDERED: MAG-55 PO (08:20)
[2020-11-15] MEDS ORDERED: CRAN425C6 PO (08:20)
[2020-11-15] MEDS ORDERED: PALI234D IM (08:20)
[2020-11-15] MEDS ORDERED: MAGN400O6 PO (08:20)
[2020-11-15] MEDS ORDERED: NA PHOS,M-B/NA PHOS,DI-BA 1 EA ENEMA RC PRN (13:00)
[2020-11-15] MEDS ORDERED: BISACODYL SUPP (10 MG) 10 MG/SUPP.RECT SUPP.RECT RC PRN (13:00)
[2020-11-15 16:00] VITALS: BP 104/62
[2020-11-15] MEDS: DOCUSATE SODIUM 100 MG CAPSULE PO SCH (16:25)
[2020-11-15] MEDS ORDERED: DIVALPROEX SODIUM 500 MG TABLET.DR PO SCH ×2 (17:00→22:00)
[2020-11-15 19:56] VITALS: BP 120/72
[2020-11-15 20:00] VITALS: BP 120/72
[2020-11-15] MEDS: SENNOSIDES 8.6 MG TABLET PO SCH (21:43)
[2020-11-15] MEDS: DIVALPROEX SODIUM 250 MG TABLET.DR PO SCH (21:44)
[2020-11-15] MEDS: CEPHALEXIN MONOHYDRATE 500 MG CAPSULE PO SCH (21:44)
[2020-11-15] MEDS: CLOZAPINE 25 MG TABLET PO SCH (21:47)
--- NOTE | 2020-11-16 06:52 | NUR ---
NURSES NOTES: PATIENT IN THE ROOM, AWAKE, NO COMPLAINS OF PAIN EXCEPT FOR THE PATIENT BEING FIXATED ABOUT BOWEL MOVEMENT WHEN HE HAD BM 2X IN THIS SHIFT. EDUCATED PATIENT ABOUT THIS. ATTENDED TO PATIENT'S NEEDS. WILL ENDORSE PATIENT'S CARE TO DAY SHIFT NURSE.
[2020-11-16] MEDS: PANTOPRAZOLE 40 MG TABLET.DR PO SCH (07:30)
[2020-11-16 07:54] LABS: BILIRUBIN,TOTAL 0.4 mg/dL (0.2-1.0); CALCIUM, SERUM 8.5 mg/dL (8.5-10.1); CREATININE 0.9 mg/dL (0.6-1.3); POTASSIUM 3.8 mmol/L (3.5-5.1); TOTAL PROTEIN, SERUM 6.1 g/dL (6.4-8.2)
[2020-11-16 08:00] VITALS: BP 136/81
[2020-11-16] MEDS: MULTIVITAMINS,THERAGRAN 1 UDTAB TABLET PO SCH (09:00)
[2020-11-16] MEDS: FINASTERIDE (5 MG) 5 MG TABLET PO SCH (09:00)
[2020-11-16] MEDS: DOCUSATE SODIUM 100 MG CAPSULE PO SCH ×2 (09:23→17:37)
[2020-11-16] MEDS: CEPHALEXIN MONOHYDRATE 500 MG CAPSULE PO SCH ×2 (09:23→21:12)
[2020-11-16] MEDS: Z GUARD REMEDY 2 OZ OINT TP SCH (09:24)
[2020-11-16] MEDS: DIVALPROEX SODIUM 500 MG TABLET.DR PO SCH ×2 (09:27→13:12)
[2020-11-16] MEDS: ASPIRIN 81 MG TAB.CHEW PO SCH (09:28)
[2020-11-16] MEDS: ENSURE ENLIVE 237 ML LIQUID (VANILLA) PO SCH ×2 (13:10→17:36)
[2020-11-16 16:00] VITALS: BP 109/70
[2020-11-16 20:52] VITALS: BP 119/72
[2020-11-16] MEDS: DIVALPROEX SODIUM 250 MG TABLET.DR PO SCH (21:35)
[2020-11-16] MEDS: SENNOSIDES 8.6 MG TABLET PO SCH (21:36)
[2020-11-16] MEDS: CLOZAPINE 25 MG TABLET PO SCH (21:41)
[2020-11-17 08:00] VITALS: BP 126/79
[2020-11-17] MEDS: CEPHALEXIN MONOHYDRATE 500 MG CAPSULE PO SCH ×2 (09:04→21:47)
[2020-11-17] MEDS: MULTIVITAMINS,THERAGRAN 1 UDTAB TABLET PO SCH (09:04)
[2020-11-17] MEDS: FINASTERIDE (5 MG) 5 MG TABLET PO SCH (09:04)
[2020-11-17] MEDS: DOCUSATE SODIUM 100 MG CAPSULE PO SCH ×2 (09:04→16:53)
[2020-11-17] MEDS: DIVALPROEX SODIUM 500 MG TABLET.DR PO SCH ×2 (09:04→12:44)
[2020-11-17] MEDS: PANTOPRAZOLE 40 MG TABLET.DR PO SCH (09:04)
[2020-11-17] MEDS: ASPIRIN 81 MG TAB.CHEW PO SCH (09:04)
[2020-11-17] MEDS: ENSURE ENLIVE 237 ML LIQUID (VANILLA) PO SCH ×3 (09:05→16:54)
[2020-11-17] MEDS: Z GUARD REMEDY 2 OZ OINT TP SCH (09:15)
[2020-11-17 16:00] VITALS: BP 104/62
--- NOTE | 2020-11-17 16:09 | NUR ---
SNF Contact: SW contacted Linda ([phone]) from [facility] and confirmed that the pt can return.
--- NOTE | 2020-11-17 16:15 | NUR ---
Conservator Contact: SW contacted the pts conservator, Marlene ([phone]), and left a voicemail stating that the SW wanted to discuss the pts discharge.
[2020-11-17 20:00] VITALS: BP 114/68
[2020-11-17] MEDS: DIVALPROEX SODIUM 250 MG TABLET.DR PO SCH (21:50)
[2020-11-17] MEDS: CLOZAPINE 25 MG TABLET PO SCH (21:52)
[2020-11-17] MEDS: SENNOSIDES 8.6 MG TABLET PO SCH (21:57)
[2020-11-18 08:00] VITALS: BP 121/76
[2020-11-18] MEDS: DIVALPROEX SODIUM 500 MG TABLET.DR PO SCH ×2 (10:21→13:46)
[2020-11-18] MEDS: MULTIVITAMINS,THERAGRAN 1 UDTAB TABLET PO SCH (10:21)
[2020-11-18] MEDS: FINASTERIDE (5 MG) 5 MG TABLET PO SCH (10:21)
[2020-11-18] MEDS: CEPHALEXIN MONOHYDRATE 500 MG CAPSULE PO SCH (10:21)
[2020-11-18] MEDS: ASPIRIN 81 MG TAB.CHEW PO SCH (10:21)
[2020-11-18] MEDS: DOCUSATE SODIUM 100 MG CAPSULE PO SCH ×2 (10:21→17:37)
[2020-11-18] MEDS: PANTOPRAZOLE 40 MG TABLET.DR PO SCH (10:21)
[2020-11-18] MEDS: ENSURE ENLIVE 237 ML LIQUID (VANILLA) PO SCH ×3 (10:22→17:36)
[2020-11-18] MEDS: Z GUARD REMEDY 2 OZ OINT TP SCH (11:57)
--- NOTE | 2020-11-18 15:56 | NUR ---
Initial Discharge Plan: Pt currently resides at [facility] located at [address] [place] [address]; ([phone]). Per pt, he would like to return. MIKAYLA will work with the pt, pts MD, and pts conservator regarding appropriate discharge planning. SW will form a safe and proper discharge.
[2020-11-18 16:00] VITALS: BP 97/62
[2020-11-18] MEDS: SULFAMETH/TRIMETH 800/160 MG 1 UDTAB TABLET PO SCH ×2 (16:59→23:01)
[2020-11-18 19:45] VITALS: BP 109/70
[2020-11-18] MEDS: DIVALPROEX SODIUM 250 MG TABLET.DR PO SCH (21:34)
[2020-11-18] MEDS: CLOZAPINE 100 MG TABLET PO SCH (21:34)
[2020-11-18] MEDS: SENNOSIDES 8.6 MG TABLET PO SCH (21:34)
[2020-11-18] MEDS ORDERED: CLOZAPINE 100 MG TABLET PO SCH (22:00)
[2020-11-19 06:42] LABS: BASOPHILS # (AUTO) 0.1 /CMM (0.0-0.2); BASOPHILS % (AUTO) 1.3 % (0.0-2.0); EOSINOPHILS % (AUTO) 2.6 % (0.0-6.0); HEMATOCRIT 37 % (39-51); HEMOGLOBIN 12.3 g/dL (13.5-17.5); LYMPHOCYTES # (AUTO) 1.2 /CMM (0.8-4.8); LYMPHOCYTES % (AUTO) 21.7 % (20.0-44.0); MEAN CORPUSCULAR HGB CONC 34 g/dl (31.0-36.0); MEAN CORPUSCULAR VOLUME 94 fL (80-96); MONOCYTES # (AUTO) 0.4 /CMM (0.1-1.30); MONOCYTES % (AUTO) 7.9 % (2.0-12.0); NEUTROPHILS # (AUTO) 3.7 /CMM (1.8-8.9); NEUTROPHILS % (AUTO) 66.5 % (43.0-81.0); PLATELET COUNT (AUTO) 150 /CMM (150-450); WHITE BLOOD COUNT (AUTO) 5.6 K/uL (4.3-11.0)
[2020-11-19 07:49] LABS: ALBUMIN 2.8 g/dL (3.4-5.0); BILIRUBIN,TOTAL 0.3 mg/dL (0.2-1.0); CALCIUM, SERUM 8.7 mg/dL (8.5-10.1); CREATININE 0.9 mg/dL (0.6-1.3); POTASSIUM 4.1 mmol/L (3.5-5.1); TOTAL PROTEIN, SERUM 5.9 g/dL (6.4-8.2)
[2020-11-19 08:00] VITALS: BP 119/77
[2020-11-19] MEDS: PANTOPRAZOLE 40 MG TABLET.DR PO SCH (08:25)
[2020-11-19] MEDS: ENSURE ENLIVE 237 ML LIQUID (VANILLA) PO SCH ×3 (08:26→16:25)
[2020-11-19] MEDS: DIVALPROEX SODIUM 500 MG TABLET.DR PO SCH ×2 (08:27→12:31)
[2020-11-19] MEDS: ASPIRIN 81 MG TAB.CHEW PO SCH (08:27)
[2020-11-19] MEDS: DOCUSATE SODIUM 100 MG CAPSULE PO SCH ×2 (08:27→16:25)
[2020-11-19] MEDS: FINASTERIDE (5 MG) 5 MG TABLET PO SCH (08:27)
[2020-11-19] MEDS: SULFAMETH/TRIMETH 800/160 MG 1 UDTAB TABLET PO SCH ×2 (08:27→21:13)
[2020-11-19] MEDS: Z GUARD REMEDY 2 OZ OINT TP SCH (08:27)
[2020-11-19] MEDS: MULTIVITAMINS,THERAGRAN 1 UDTAB TABLET PO SCH (08:27)
--- NOTE | 2020-11-19 09:00 | NUR ---
RN NOTE- PT ALERT ORIENTED TO PERSON PLACE WITHDRAWN DISHEVELED FLAT AFFECT MED COMPLIANT POOR EYE CONTACT AND MINIMAL INTERACTION W STAFF OR OTHERS
[2020-11-19] MEDS: MAGNESIUM HYDROXIDE 30 ML UDC PO PRN (09:43)
--- NOTE | 2020-11-19 09:43 | NUR ---
RN NOTE- PT REQUESTED MILK OF MAGNESIA DUE TO REPORTED NO BM X 2 DAYS. MOM 30 ML GIVEN
--- NOTE | 2020-11-19 13:34 | NUR ---
Conservator Contact: MIKAYLA contacted the pts conservator, Marlene ([phone]), and informed her that the pt will be returning to [facility] the next day.
[2020-11-19 16:00] VITALS: BP 104/69
[2020-11-19 20:00] VITALS: BP 105/70
[2020-11-19] MEDS: CLOZAPINE 100 MG TABLET PO SCH (21:14)
[2020-11-19] MEDS: DIVALPROEX SODIUM 250 MG TABLET.DR PO SCH (21:14)
[2020-11-19] MEDS: SENNOSIDES 8.6 MG TABLET PO SCH (21:14)
[2020-11-20 08:00] VITALS: BP 90/57
[2020-11-20] MEDS: ENSURE ENLIVE 237 ML LIQUID (VANILLA) PO SCH ×2 (08:29→12:09)
[2020-11-20] MEDS: PANTOPRAZOLE 40 MG TABLET.DR PO SCH (08:29)
[2020-11-20] MEDS: SULFAMETH/TRIMETH 800/160 MG 1 UDTAB TABLET PO SCH (08:41)
[2020-11-20] MEDS: DIVALPROEX SODIUM 500 MG TABLET.DR PO SCH ×2 (08:41→12:14)
[2020-11-20] MEDS: ASPIRIN 81 MG TAB.CHEW PO SCH (08:41)
[2020-11-20] MEDS: DOCUSATE SODIUM 100 MG CAPSULE PO SCH (08:41)
[2020-11-20] MEDS: FINASTERIDE (5 MG) 5 MG TABLET PO SCH (08:41)
[2020-11-20] MEDS: MULTIVITAMINS,THERAGRAN 1 UDTAB TABLET PO SCH (08:41)
[2020-11-20] MEDS: Z GUARD REMEDY 2 OZ OINT TP SCH (08:44)
--- NOTE | 2020-11-20 08:55 | NUR ---
Dr. Chacon gave an order to D/C hold and D/C to [facility] and to follow up with psych and medical doctors and to continue same meds including prn. Devan SON made aware of the discharge and reconciled the meds.
[2020-11-20] MEDS: MAGNESIUM HYDROXIDE 30 ML UDC PO PRN (08:56)
--- NOTE | 2020-11-20 08:56 | NUR ---
RN NOTE- C/O CONSTIPATION. REQUESTED MOM. MOM 30 CC GIVEN . ENCOURAGED HYDRATION. OFFERED PRUNE JUICE. REFUSED
--- NOTE | 2020-11-20 09:00 | NUR ---
RN NOTE- FOR DC TODAY. PT ALERT ORIENTED TO PERSON PLACE WITHDRAWN DISHEVELED FLAT AFFECT MED COMPLIANT POOR EYE CONTACT AND MINIMAL INTERACTION W STAFF OR OTHERS
--- NOTE | 2020-11-20 11:55 | NUR ---
WOUND CARE CONSULT: PT PRESENTS WITH AREA OF EXCORIATION TO LEFT BUTTOCK,PRESENT ON ADMISSION. RECOMMENDATIONS MADE FOR SKIN CARE AND PROTECTION. DISCUSSED WITH NURSING STAFF. PT IS VERY THIN AND BONY. PT IS INDEPENDENT WITH BED MOBILITY. MD IN AGREEMENT WITH PLAN OF CARE. Addendum: 11/20/20 at 1156 by MATT WILL WNDNU Amended: Links added.
--- NOTE | 2020-11-20 13:32 | NUR ---
Discharge Note: Pt will be discharged to [facility] (SNF) located at [address] [place] [address]; ([phone]). Pts conservator, Marlene ([phone]), was made aware of the discharge. Pt will be transported via [facility] at 12PM. Upon discharge, the pt appears to be in a euthymic mood and presented with a congruent affect. Pt appears to be alert and oriented x4 (time, place, self and situation). Pt appears to be well groomed and appropriately dressed. Pt denies having any suicidal or homicidal ideation as well as auditory or visual hallucinations. Pt will be under the care of her psychiatrist, Dr. Chacon, located at [address] [facility] [address] [place] [address], [place] [address]; ) and luggage liner, Dr. Guzman, located at [address] [facility], [place] [address], . Pt signed the Choice of Vendor form and the multidisciplinary exit care form was done, printed, signed, and given to the patient.
--- NOTE | 2020-11-20 14:11 | NUR ---
Conservator Contact: MIKAYLA contacted the pts conservator, Marlene ([phone]), to inform her that the pt discharged and SW faxed notes to her.
--- NOTE | 2020-11-20 14:45 | NUR ---
RN NOTE- PT DISCHARGED AT THIS TIME VIA AMBULANCE TO SNF. PT ALERT ORIENTED TO PERSON PLACE PURPOSE. VS STABLE. PT IS CALM, INTERACTIVE WITH BLUNTED AFFECT. DENIES ALL. MED COMPLIANT AND DIRECTABLE AT PRESENT. CLOTHING RETURNED , NO OTHER VALUABLES TO RETURN. . ID WRISTBAND REMOVED. ORDERS AND CARE PLAN REPORT PHONED TO FACILITY. PT VACCINES GIVEN PREVIOUSLY AT FACILITY. ESCORTED OFF UNIT BY STAFF.
== END 2020-11-20 14:45 | DRG 885 ==
LOC: ER 03:17 → GPS 06:49
PROVIDERS: ADMIT Psychiatry & Neurology Psychiatry
DX: F25.9 Schizoaffective disorder, unspecified (principal); N39.0 Urinary tract infection, site not specified; E44.1 Mild protein-calorie malnutrition; J44.9 Chronic obstructive pulmonary disease, unspecified; Z20.822 Contact with and (suspected) exposure to COVID-19; K59.00 Constipation, unspecified; Z73.6 Limitation of activities due to disability; F29 Unspecified psychosis not due to a substance or known physiological condition; N40.1 Benign prostatic hyperplasia with lower urinary tract symptoms; B96.89 Other specified bacterial agents as the cause of diseases classified elsewhere
CPT/HCPCS: 36415; 80048-TC; 80053-TC; 80061-TC; 80076-TC; 80164-TC; 81001; 82962-TC; 85025-TC; 87081-TC; 87086-TC; 87186-TC; C9803; G0480

== ENCOUNTER 2022-02-05 09:04 | Inpatient (IN) | payer MEDICARE, OTHER ==
[~2022-02-05] VITALS: Ht 182.9 cm; Wt 78.0 kg
[~2022-02-05 09:04] MED LIST changes: -ACET-2605 PO; +ACET325T53 PO; -ALBU1.257 IH; +BISA10SU11 RC; -BUPR200T2 PO; -BUSP5TAB3 PO; -CLOZ100T32 PO; +CRAN425C6 PO; -FLUT12AE5 IH; +LACT10SO3 PO; -LORA-258 PO; +MAG-55 PO; +MAGN400O6 PO; -MIRT-121 PO; +MULT-439 PO; +NA P133E RC; -POTA20TA83 PO; +SENN-175 PO; -SERT50TA PO; -ZOLP5TAB8 PO
--- NOTE | 2022-02-05 09:20 | NUR ---
RECEIVED PT 67 YRS MALE FRAANDREWFER FROM [facility] FOR PSCHY EVALUATION AWAKE and alert fallow comand respirtion spont on room air
--- NOTE | 2022-02-05 09:30 | NUR ---
BLOOD drow by lab ttach at bed side
[2022-02-05 09:57] LABS: BASOPHILS % (AUTO) 0.6 % (0.0-2.0); EOSINOPHILS % (AUTO) 0.5 % (0.0-6.0); HEMATOCRIT 39 % (39-51); HEMOGLOBIN 12.8 g/dL (13.5-17.5); LYMPHOCYTES # (AUTO) 0.7 K/uL (0.8-4.8); LYMPHOCYTES % (AUTO) 12.2 % (20.0-44.0); MEAN CORPUSCULAR HGB CONC 33 g/dl (31.0-36.0); MEAN CORPUSCULAR VOLUME 92 fL (80-96); MONOCYTES # (AUTO) 0.4 K/uL (0.1-1.30); MONOCYTES % (AUTO) 6.4 % (2.0-12.0); NEUTROPHILS # (AUTO) 4.8 K/uL (1.8-8.9); NEUTROPHILS % (AUTO) 80.3 % (43.0-81.0); PLATELET COUNT (AUTO) 139 K/uL (150-450); RED BLOOD CELL COUNT(AUTO) 4.25 MIL/uL (4.5-6.0)
--- NOTE | 2022-02-05 10:07 | NUR ---
resting at this time
[2022-02-05 10:15] LABS: ALANINE AMINOTRANSFERASE 49 U/L (12-78); ALBUMIN 3.8 g/dL (3.4-5.0); ALCOHOL, BLOOD < 3 mg/dL (0-0); ALKALINE PHOSPHATASE 116 U/L (46-116); ASPARTATE AMINOTRANSFERASE 27 U/L (15-37); BILIRUBIN,DIRECT 0.1 mg/dL (0.0-0.2); BILIRUBIN,TOTAL 0.4 mg/dL (0.2-1.0); CALCIUM, SERUM 8.9 mg/dL (8.5-10.1); CARBON DIOXIDE 32 mmol/L (21-32); CHLORIDE 107 mmol/L (98-107); CREATININE 1.2 mg/dL (0.6-1.3); GLUCOSE 117 mg/dL (74-106); POTASSIUM 4.1 mmol/L (3.5-5.1); SODIUM SERUM 143 mmol/L (136-145); TOTAL PROTEIN, SERUM 6.7 g/dL (6.4-8.2); UREA NITROGEN, BLOOD 23 mg/dL (7-18)
[2022-02-05 10:18] LABS: ACETAMINOPHEN < 10 ug/ml (10-30)
[2022-02-05] MEDS ORDERED: BUPR150T5 PO (10:29)
[2022-02-05] MEDS ORDERED: ATEN25TA PO (10:29)
[2022-02-05] MEDS ORDERED: CLON0.5T4 PO (10:29)
[2022-02-05] MEDS ORDERED: CLOZ100T PO (10:29)
[2022-02-05] MEDS ORDERED: AMIN887L PO (10:29)
--- NOTE | 2022-02-05 10:35 | NUR ---
FRANCESCA OMER SENT TO LAB
--- NOTE | 2022-02-05 11:05 | NUR ---
MOVE SHEET SUBMITTED.
[2022-02-05] MEDS ORDERED: BISACODYL SUPP (10 MG) 10 MG/SUPP.RECT SUPP.RECT RC PRN (11:30)
[2022-02-05] MEDS ORDERED: ACETAMINOPHEN 325 MG TABLET PO PRN ×2 (11:30→16:30)
[2022-02-05] MEDS ORDERED: NA PHOS,M-B/NA PHOS,DI-BA 1 EA ENEMA RC PRN (11:30)
[2022-02-05] MEDS ORDERED: MAGNESIUM HYDROXIDE 30 ML UDC PO PRN (11:30)
--- NOTE | 2022-02-05 13:02 | NUR ---
BED 219-0
--- NOTE | 2022-02-05 13:45 | NUR ---
PT REFUSED I&O CATHETER AND SIDE I AM WERRY I WILL GOT UTI
--- NOTE | 2022-02-05 14:15 | NUR ---
PMRT HERE FOR PSCHY EVALUATION PLACE PT ON 5150 FOR HARM HIMSLLF
--- NOTE | 2022-02-05 15:03 | NUR ---
REPORT GIVEN TO ALMA HERRERA FOR GUNNAR
--- NOTE | 2022-02-05 15:28 | NUR ---
UA SENT TO LAB
--- NOTE | 2022-02-05 15:54 | NUR ---
THE PATIENT IS TRANSFERED TO ROOM 219-1 IN STABLE CONDITION AND PER POLICY.
--- NOTE | 2022-02-05 16:00 | NUR ---
GPS RN ADMITTING NOTES ADMITTED 67 Y/O MALE PATIENT FROM [facility] ER WHO WAS BROUGHT TO ER VIA AMBULANCE FROM SNF DUE TO SUICIDAL IDEATION WITH PLAN (HANGING) WELL AUDITORY HALLUCINATIONS. PATIENT IS ON 5150 HOLD FOR DTS. PER 5150 HOLD, UPON FACE TO FACE EVALUATION, PT ENDORSING SUICIDAL IDEATION WITH PLAN TO HANG HIMSELF. PATIENT IS A/O X 3, ABLE TO MAKE NEEDS KNOWN, WITH DEPRESSED AFFECT. NO COMPLAINTS OF PAIN OR DISCOMFORT AT THIS TIME, BUT PATIENT IS ANXIOUS. BG 107. PT REFUSED SKIN ASSESSMENT. GAIT STEADY WITHOUT USE OF ASSISTIVE DEVICE. PATIENT ADVISED OF HIS HOLD AND PATIENT RIGHTS BOOKLET AND PRESCRIPTION MEDICATION GUIDE GIVEN. PATIENT BELONGINGS WERE INVENTORIED FOR [employer]. PT IS UNDER THE PSYCHIATRIC CARE OF DR. GONZALES AND MEDICAL CARE OF QUINTIN CONTRERAS. PATIENT BED IS IN LOW LOCKED POSITION, SIDE RAILS UP X 2 FOR SAFETY. BED ALARM IS ON. WILL CONTINUE TO MONITOR Q15 MINS FOR MOOD, SAFETY AND BEHAVIOR.
[2022-02-05 16:11] LABS: BILIRUBIN,URINE NEGATIVE (NEGATIVE); COLOR,URINE YELLOW (YELLOW); LEUKOCYTE ESTERASE ,URINE NEGATIVE (NEGATIVE); NITRITE, URINE NEGATIVE (NEGATIVE); PROTEIN,URINE NEGATIVE (NEGATIVE); UGLUCOSE NEGATIVE (NEGATIVE); UROBILINOGEN,URINE 0.2 EU/dL (0.2)
[2022-02-05] MEDS ORDERED: MAG HYDROX/AL HYDROX/SIMETH 30 ML UDC PO PRN (16:30)
[2022-02-05] MEDS ORDERED: BLOOD SUGAR DIAGNOSTIC 1 EACH STRIP IN ONE (16:30)
[2022-02-05] MEDS ORDERED: Medication Not On Formulary EA (Cranberry Extract (Cranberry) 425 MG) PO SCH (17:00)
[2022-02-05 20:00] VITALS: BP 105/57
--- NOTE | 2022-02-05 20:08 | NUR ---
RN NOTES:PATIENT IN ROOM SITTING IN BED,AWAKE ALERT.EASILY AGITAED, PARANOID GUARDED,DISORGNIZED,NO ACUTE DISTRESS NOTED.DENIES ANY PAIN OR DISCOMFORT AT THIS TIME.ALL NEEDS ATTENDED. WILL CONTINUE MONITORING FOR SAFETY AND BEHAVIOR.
[2022-02-05 21:34] VITALS: BP 107/63
[2022-02-05] MEDS: SENNOSIDES 8.6 MG TABLET PO SCH (21:36)
[2022-02-05] MEDS: CLOZAPINE 100 MG TABLET PO SCH (21:36)
[2022-02-05 22:00] VITALS: BP 112/64
--- NOTE | 2022-02-06 06:39 | NUR ---
RN NOTES: REFUSED SKIN ASESSMENT PT. REFUSED SKIN ASSESSMENT AND PHOTOS TAKEN , PER PT. MY SKIN IS FINE , NO NEED TO BE ASSESS , PT BEHAVIOR UNCOOPERTIVE ANXIOUS, RESTLESS,PARANOID , ENCOURAGED X3 BUT PT. STRONGLY REFUSED.
[2022-02-06 07:41] LABS: ALBUMIN 3.4 g/dL (3.4-5.0); BILIRUBIN,TOTAL 0.5 mg/dL (0.2-1.0); CALCIUM, SERUM 8.4 mg/dL (8.5-10.1); POTASSIUM 3.7 mmol/L (3.5-5.1); TOTAL PROTEIN, SERUM 5.9 g/dL (6.4-8.2)
[2022-02-06 08:00] VITALS: BP 100/69
[2022-02-06] MEDS: MULTIVIT W/MINERALS 1 TAB TABLET PO SCH (08:28)
[2022-02-06] MEDS: DOCUSATE SODIUM 100 MG CAPSULE PO SCH (08:28)
[2022-02-06] MEDS: FLUOXETINE HCL 20 MG CAPSULE PO SCH (08:28)
[2022-02-06] MEDS: ASPIRIN 81 MG TAB.CHEW PO SCH (08:28)
[2022-02-06] MEDS: FINASTERIDE (5 MG) 5 MG TABLET PO SCH (08:28)
[2022-02-06] MEDS: PANTOPRAZOLE 40 MG TABLET.DR PO SCH (08:28)
[2022-02-06] MEDS: PROSOURCE / PROSTAT (PYXIS) 30 ML UDC PO SCH (08:31)
[2022-02-06] MEDS: ATENOLOL 25 MG TABLET PO SCH (08:31)
[2022-02-06 09:46] LABS: CHOLESTEROL 139 mg/dL (<200); HDL CHOLESTEROL 53 mg/dL (40-60); LDL 73 mg/dL (0-99); TRIGLYCERIDES 63 mg/dL (30-150)
[2022-02-06 16:00] VITALS: BP 106/61
--- NOTE | 2022-02-06 18:37 | NUR ---
RN NOTES PATIENT RESTING IN BED. AWAKE, A/O X3, VERBALLY RESPONSIVE. NO SIGNS OF ACUTE RESPIRATORY DISTRESS NOTED. COMPLIANT WITH MEDS. PATIENT COOPERATIVE, ISOLATIVE, DENIES SI/HI. AMBULATORY, WALKS ALONG HALLWAY. SAFETY MEASURES MAINTAINED. BED IN LOWEST AND LOCKED POSITION, SIDE RAILS UP. NEEDS ATTENDED. WILL ENDORSE TO NEXT SHIFT FOR CONTINUITY OF CARE.
[2022-02-06 20:18] VITALS: BP 104/68
--- NOTE | 2022-02-06 20:38 | NUR ---
RN NOTES : PATIENT RESTING HIS ROOM,AWAKE ALERT.EASILY AGITAED, PARANOID GUARDED,DISORGNIZED,MED COMPLIANT NO ACUTE DISTRESS NOTED.DENIES ANY PAIN OR DISCOMFORT AT THIS TIME.ALL NEEDS ATTENDED.ENCOURAGED PT. TO VERBALIZE ANY FEELING OR CONCERN WILL CONTINUE MONITORING FOR SAFETY AND BEHAVIOR.
[2022-02-06] MEDS: SENNOSIDES 8.6 MG TABLET PO SCH (21:33)
[2022-02-06] MEDS: CLOZAPINE 100 MG TABLET PO SCH (21:33)
--- NOTE | 2022-02-07 07:00 | NUR ---
GPS RN OPENING NOTES PATIENT LAYING IN BED, A/O X 3, ABLE TO MAKE NEEDS KNOWN, TOLERATING WELL ON ROOM AIR WITH NO S/S RESPIRATORY DISTRESS. NO COMPLAINTS OF PAIN OR DISCOMFORT NOTED. PATIENT WITH FLAT AFFECT, ANXIOUS, BUT COOPERATIVE WITH PLAN OF CARE. SAFETY MEASURES IN PLACE: BED IN LOWEST LOCKED POSITION, SIDE RAILS UP X 2, CALL LIGHT WITHIN REACH. WILL CONTINUE TO MONITOR.
[2022-02-07] MEDS: PANTOPRAZOLE 40 MG TABLET.DR PO SCH (07:29)
[2022-02-07 08:00] VITALS: BP 97/65
[2022-02-07] MEDS: FINASTERIDE (5 MG) 5 MG TABLET PO SCH (08:30)
[2022-02-07] MEDS: ASPIRIN 81 MG TAB.CHEW PO SCH (08:30)
[2022-02-07] MEDS: FLUOXETINE HCL 20 MG CAPSULE PO SCH (08:30)
[2022-02-07] MEDS: DOCUSATE SODIUM 100 MG CAPSULE PO SCH (08:30)
[2022-02-07] MEDS: MULTIVIT W/MINERALS 1 TAB TABLET PO SCH (08:30)
[2022-02-07] MEDS: ATENOLOL 25 MG TABLET PO SCH (08:31)
[2022-02-07] MEDS: PROSOURCE / PROSTAT (PYXIS) 30 ML UDC PO SCH (08:56)
[2022-02-07] MEDS ORDERED: PNEUMOCOCCAL 23-VAL P-SAC VAC 0.5 ML VIAL SQ ONE (09:00)
[2022-02-07] MEDS: MAGNESIUM HYDROXIDE 30 ML UDC PO PRN (09:31)
[2022-02-07 16:00] VITALS: BP 100/59
--- NOTE | 2022-02-07 18:00 | NUR ---
GPS RN CLOSING NOTES PATIENT LAYING IN BED, A/O X 3, ABLE TO MAKE NEEDS KNOWN, TOLERATING WELL ON ROOM AIR WITH NO S/S RESPIRATORY DISTRESS. NO COMPLAINTS OF PAIN OR DISCOMFORT NOTED. PATIENT WITH FLAT AFFECT, ANXIOUS, BUT COOPERATIVE WITH PLAN OF CARE. SAFETY MEASURES IN PLACE: BED IN LOWEST LOCKED POSITION, SIDE RAILS UP X 2, CALL LIGHT WITHIN REACH. ALL NEEDS MET. WILL ENDORSE TO SHEET ROCK LAYER FOR GUNNAR.
[2022-02-07 20:12] VITALS: BP 120/73
[2022-02-07] MEDS: CLOZAPINE 100 MG TABLET PO SCH (21:14)
[2022-02-07] MEDS: SENNOSIDES 8.6 MG TABLET PO SCH (21:14)
--- NOTE | 2022-02-08 01:46 | NUR ---
RN NOTES: REFUSED SKIN ASESSMENT PT. REFUSED WEEKLY SKIN ASSESSMENT AND PHOTOS TAKEN , PER PT. MY SKIN IS FINE , NO NEED TO BE ASSESS , ENCOURAGED X3 BUT PT. STRONGLY REFUSED.
[2022-02-08] MEDS: PANTOPRAZOLE 40 MG TABLET.DR PO SCH (07:59)
[2022-02-08 08:00] VITALS: BP 102/70
[2022-02-08] MEDS: FLUOXETINE HCL 20 MG CAPSULE PO SCH (09:13)
[2022-02-08] MEDS: ASPIRIN 81 MG TAB.CHEW PO SCH (09:14)
[2022-02-08] MEDS: FINASTERIDE (5 MG) 5 MG TABLET PO SCH (09:14)
[2022-02-08] MEDS: ATENOLOL 25 MG TABLET PO SCH (09:14)
[2022-02-08] MEDS: DOCUSATE SODIUM 100 MG CAPSULE PO SCH (09:14)
[2022-02-08] MEDS: MULTIVIT W/MINERALS 1 TAB TABLET PO SCH (09:14)
[2022-02-08] MEDS: PROSOURCE / PROSTAT (PYXIS) 30 ML UDC PO SCH (09:15)
--- NOTE | 2022-02-08 09:45 | NUR ---
Individual Therapy: SW met with pt to conduct therapy. Pt appeared labile and hyperverbal. He did appear to be paranoid and unable to have a proper conversation.
--- NOTE | 2022-02-08 12:56 | NUR ---
MIKAYLA Initial Discharge Plan: Patient currently resides at [facility] [address] [place] [address] ([phone]). MIKAYLA spoke with Preeti brown who stated that pt is welcomed back upon discharge. Pt's LPS conservator Marlene ([phone]) ([phone]) is notified. MIKAYLA will work with the MD, family, and pt to help coordinate appropriate discharge.
--- NOTE | 2022-02-08 12:56 | NUR ---
MIKAYLA Clinical Note: Pt placed on a 5150 hold for danger to himself. Pt was hearing voices at his facility and the voices were telling him to kill himself. Patient currently resides at [facility] [place] [id number] ([phone]). MIKAYLA spoke with Preeti brown who stated that pt is welcomed back upon discharge. Pt's LPS conservator Marlene ([phone]) ([phone]) is notified. MIKAYLA will work with the MD, family, and pt to help coordinate appropriate discharge.
--- NOTE | 2022-02-08 13:08 | NUR ---
LPS CONSERVATOR: SW CONTACTED PT'S LPS CONSERVATOR STELLA ([phone]) AND NOTIFIED OF PT'S ADMISSION AND DISCUSSED TREATMENT/DISCHARGE PLAN. SHE STATED SHE WOULD WANT PT BACK TO [facility] WHEN PT IS STABLE, NOTED.
--- NOTE | 2022-02-08 13:09 | NUR ---
Treatment Plan: Pt refused to sign treatment plan and was very paranoid and suspicious.
[2022-02-08 16:00] VITALS: BP 99/63
[2022-02-08] MEDS: LORAZEPAM 0.5 MG TABLET PO PRN (17:57)
--- NOTE | 2022-02-08 17:58 | NUR ---
Patient c/o anxiety medicated with Ativan 0.5mg will continue to monitor.
[2022-02-08] MEDS: clonazePAM 0.5 MG TABLET PO PRN (19:19)
--- NOTE | 2022-02-08 19:55 | NUR ---
GPS RN NOTES PATIENT IS RESTING IN BED COMFORTABLY. ALERT AND ORIENTED X3. NO S/SX OF ACUTE DISTRESS NOTED. PATIENT REMAINS ISOLATIVE, FLAT AFFECT, ANXIOUS, UNPREDICTABLE. PATIENT IS HAVING AUDITORY HALLUCINATIONS. PATIENT STATED "VOICES ARE TELLING HIM TO STAB HIMSELF WITH YELLOW PENCIL". DR. GONZALES NOTIFIED. AWAITING FOR RESPONSE. SAFETY MEASURES IN PLACE. ENCOURAGED PATIENT TO ATTEND IN GROUP ACTIVITIES. WILL CONTINUE TO MONITOR Q15MIN ROUNDS FOR SAFETY AND BEHAVIOR. Addendum: 02/09/22 at 0619 by DEV EDMONDSON RN 2100 - AFTER INTERACTING WITH THE PATIENT. PATIENT CALMED DOWN AND WENT BACK TO BED AND SLEEP. WILL CONTINUE TO MONITOR FOR PT'S SAFETY.
[2022-02-08 19:57] VITALS: BP 106/60
[2022-02-08] MEDS: SENNOSIDES 8.6 MG TABLET PO SCH (21:46)
[2022-02-08] MEDS: CLOZAPINE 100 MG TABLET PO SCH (21:46)
[2022-02-09 08:00] VITALS: BP 104/73
[2022-02-09] MEDS ORDERED: FLUOXETINE HCL 20 MG CAPSULE PO SCH (09:00)
[2022-02-09] MEDS: ATENOLOL 25 MG TABLET PO SCH (09:00)
[2022-02-09] MEDS: ASPIRIN 81 MG TAB.CHEW PO SCH (09:25)
[2022-02-09] MEDS: DOCUSATE SODIUM 100 MG CAPSULE PO SCH (09:25)
[2022-02-09] MEDS: FINASTERIDE (5 MG) 5 MG TABLET PO SCH (09:25)
[2022-02-09] MEDS: MULTIVIT W/MINERALS 1 TAB TABLET PO SCH (09:25)
[2022-02-09] MEDS: PROSOURCE / PROSTAT (PYXIS) 30 ML UDC PO SCH (09:26)
[2022-02-09] MEDS: PANTOPRAZOLE 40 MG TABLET.DR PO SCH (09:26)
[2022-02-09] MEDS: Fluoxetine 10 mg capsule PO SCH (09:27)
[2022-02-09 16:00] VITALS: BP 91/65
[2022-02-09 20:10] VITALS: BP 111/73
[2022-02-09 20:13] VITALS: BP 111/73
[2022-02-09] MEDS: CLOZAPINE 100 MG TABLET PO SCH (21:23)
[2022-02-09] MEDS: SENNOSIDES 8.6 MG TABLET PO SCH (21:24)
[2022-02-09] MEDS: clonazePAM 0.5 MG TABLET PO PRN (22:06)
--- NOTE | 2022-02-10 05:20 | NUR ---
RN Note: 22:00 :Patient noted restless,anxious,preoccupied to his own thoughts.Offered and given Klonopin 0.5 mg PO at 22:06 with good effect.Will continue to monitor q15 min rounds for safety.
[2022-02-10] MEDS: PANTOPRAZOLE 40 MG TABLET.DR PO SCH (07:59)
[2022-02-10 08:00] VITALS: BP 102/67
[2022-02-10] MEDS: MULTIVIT W/MINERALS 1 TAB TABLET PO SCH (08:44)
[2022-02-10] MEDS: Fluoxetine 10 mg capsule PO SCH (08:44)
[2022-02-10] MEDS: DOCUSATE SODIUM 100 MG CAPSULE PO SCH (08:44)
[2022-02-10] MEDS: ATENOLOL 25 MG TABLET PO SCH (08:44)
[2022-02-10] MEDS: ASPIRIN 81 MG TAB.CHEW PO SCH (08:44)
[2022-02-10] MEDS: FINASTERIDE (5 MG) 5 MG TABLET PO SCH (08:44)
[2022-02-10] MEDS: PROSOURCE / PROSTAT (PYXIS) 30 ML UDC PO SCH (09:04)
--- NOTE | 2022-02-10 09:29 | NUR ---
RN-CO: DR GONZALES ORDERED TO CHANGE LEGAL STATUS TO CONSERV. NOTED
--- NOTE | 2022-02-10 10:50 | NUR ---
Individual Therapy: SW attempted to conduct therapy with pt. Pt appeared paranoid and isolative. He stated that he needs to speak to the government. Pt reported that he is afraid of dying. SW provided emotional support and comfort.
[2022-02-10 16:00] VITALS: BP 117/72
[2022-02-10 20:00] VITALS: BP 123/76
[2022-02-10] MEDS: SENNOSIDES 8.6 MG TABLET PO SCH (21:39)
[2022-02-10] MEDS: CLOZAPINE 100 MG TABLET PO SCH (21:39)
[2022-02-10] MEDS: TEMAZEPAM 7.5 MG CAPSULE PO PRN (21:40)
[2022-02-11 08:00] VITALS: BP 97/62
[2022-02-11] MEDS: DOCUSATE SODIUM 100 MG CAPSULE PO SCH (08:48)
[2022-02-11] MEDS: FINASTERIDE (5 MG) 5 MG TABLET PO SCH (08:48)
[2022-02-11] MEDS: MULTIVIT W/MINERALS 1 TAB TABLET PO SCH (08:48)
[2022-02-11] MEDS: FLUOXETINE HCL 20 MG CAPSULE PO SCH (08:48)
[2022-02-11] MEDS: PANTOPRAZOLE 40 MG TABLET.DR PO SCH (08:48)
[2022-02-11] MEDS: ASPIRIN 81 MG TAB.CHEW PO SCH (08:48)
[2022-02-11] MEDS: PROSOURCE / PROSTAT (PYXIS) 30 ML UDC PO SCH (08:51)
[2022-02-11] MEDS: ATENOLOL 25 MG TABLET PO SCH (08:54)
[2022-02-11 16:00] VITALS: BP 125/76
--- NOTE | 2022-02-11 18:42 | NUR ---
RN-NOTES PATIENT IN BED AWAKE A/O X2,GUARDED, CALM,NO ACUTE DISTRESS NOTED.ENCOURAGED TO VERBALIZE FEELINGS AND CONCERN TO THE STAFF AND ATTEND GROUP ACTIVITIES TODAY. PATIENT PREFERS TO STAY IN THE ROOM AND REST .AMBULATORY STEADY GAIT IN THE UNIT WITH STEADY GAIT. ALL NEEDS ATTENDED AND ANTICIPATED.WILL CONT.MONITORING FOR SAFETY AND BEHAVIOR. WILL ENDORSE TO INCOMING SHIFT FOR CONTINUITY OF CARE.
--- NOTE | 2022-02-11 19:30 | NUR ---
GPS RN NOTE, RECEIVED PATIENT AWAKE AND IN BED, NO S/S OR COMPLAINTS OF PAIN AT THIS TIME. PATIENT IS DISPLAYING NO S/S OF APPARENT DISTRESS AT THIS TIME. PATIENT BREATHING IS UNLABORED WITH EQUAL RISE AND FALL OF THE CHEST. PATIENT IS ALERT AND ORIENTED X 3 ON ROOM AIR WITH A SPO2 97%. PATIENT IS COMPLIANT WITH MEDICATIONS, ANXIOUS, AND COOPERATIVE. PATIENT DENIES SUICIDAL AND HOMICIDAL IDEATIONS AT THIS TIME. PATIENT ASSISTED WITH TURNING AND REPOSITIONING Q2HR AND PRN FOR COMFORT AND CIRCULATION. PATIENT HAS NO NEEDS AT THIS TIME. PATIENT EDUCATED ON THE USE OF THE CALL BURT. PATIENT BED SIDE RAILS UP X 2 FOR SAFETY. PATIENT BED IS LOCKED, LOW, WITH BED ALARM ON. WILL CONTINUE TO MONITOR THIS PATIENT Q15 MINUTES WITH THE HELP OF STAFF TO MAINTAIN SAFETY.
--- NOTE | 2022-02-11 19:35 | NUR ---
GPS RN OPENING NOTES: RECEIVED PATIENT IN BED, AWAKE, A/O X3. APPEARS DEPRESSED, FLAT AFFECT, PASSIVE, WITHDRAWN, ISOLATIVE. PER PATIENT, "I DON'T WANT TO GO BACK TO MY DETENTION, THE ROOM IS TOO COLD". WHEN ASKED IF THE STAFF WAS MADE AWARE HIS ROOM WAS TOO COLD HE REPLIED "YES BUT THEY DID NOT DO ANYTHING ABOUT IT". PATIENT WAS INFORMED THAT HARNESS MAKER AND MD WILL BE INFORMED ABOUT HIS REQUEST. PATIENT HAS NO S/S OF DISTRESS. RESPIRATION EVEN AND UNLABORED WITH EQUAL RISE AND FALL OF THE CHEST, ON ROOM AIR. OFFERED FLUID AND SNACKS TOLERATED. BED IN LOWEST POSITION AND LOCKED, SIDE RAILS UP X2 FOR SAFETY. WILL CONTINUE TO MONITOR Q15 FOR MOOD, SAFETY AND BEHAVIOR.
[2022-02-11 20:00] VITALS: BP 101/63
[2022-02-11] MEDS: LORAZEPAM 0.5 MG TABLET PO PRN (21:06)
--- NOTE | 2022-02-11 21:06 | NUR ---
GPS RN NOTE, PATIENT HAS A COMPLAINT OF FEELING ANXIOUS AND IS REQUESTING ATIVAN AT THIS TIME. PATIENT VITAL SIGNS ARE STABLE. GAVE ATIVAN 0.5MG PO Q6HR PRN ORDERED. WILL REASSESS FOR ANXIETY AND I WILL CONTINUE TO MONITOR THIS PATIENT WITH THE HELP OF STAFF.
[2022-02-11] MEDS: SENNOSIDES 8.6 MG TABLET PO SCH (21:21)
[2022-02-11] MEDS: CLOZAPINE 100 MG TABLET PO SCH (21:21)
[2022-02-12] MEDS: PANTOPRAZOLE 40 MG TABLET.DR PO SCH (07:33)
[2022-02-12 08:00] VITALS: BP 100/68
[2022-02-12] MEDS: LACTULOSE 10 G/15 ML UDC (PYXIS) PO PRN (08:10)
[2022-02-12] MEDS: clonazePAM 0.5 MG TABLET PO PRN (08:10)
[2022-02-12] MEDS: ATENOLOL 25 MG TABLET PO SCH (08:10)
[2022-02-12] MEDS: MULTIVIT W/MINERALS 1 TAB TABLET PO SCH (08:10)
[2022-02-12] MEDS: FLUOXETINE HCL 20 MG CAPSULE PO SCH (08:10)
[2022-02-12] MEDS: FINASTERIDE (5 MG) 5 MG TABLET PO SCH (08:10)
[2022-02-12] MEDS: ASPIRIN 81 MG TAB.CHEW PO SCH (08:10)
[2022-02-12] MEDS: DOCUSATE SODIUM 100 MG CAPSULE PO SCH (08:11)
[2022-02-12] MEDS: PROSOURCE / PROSTAT (PYXIS) 30 ML UDC PO SCH (08:22)
[2022-02-12] MEDS ORDERED: clonazePAM 0.5 MG TABLET PO PRN (11:00)
[2022-02-12] MEDS: clonazePAM 0.5 MG TABLET PO SCH ×2 (11:00→16:50)
--- NOTE | 2022-02-12 11:07 | NUR ---
RN-CO: Patient was given Klonopin 0.5 mg po at 0810 am.
--- NOTE | 2022-02-12 13:46 | NUR ---
RN-CO: Patient is compliant with medications and treatment. He is preoccupied with his own thoughts. He has a blunted affect and he stated he doesn't want his private conservator. He is redirectable and slowly progressing. He has a poor insight and judgement and needs constant prompts and redirections.
[2022-02-12 16:00] VITALS: BP 101/64
[2022-02-12 20:00] VITALS: BP 102/61
--- NOTE | 2022-02-12 20:14 | NUR ---
RN NOTES; PATIENT RESTING HIS ROOM,AWAKE ALERT.EASILY AGITAED, PARANOID , ISOLATIVE GUARDED,DISORGNIZED,MED COMPLIANT NO ACUTE DISTRESS NOTED.DENIES ANY PAIN OR DISCOMFORT AT THIS TIME.ALL NEEDS ATTENDED.ENCOURAGED PT. TO VERBALIZE ANY FEELING OR CONCERN WILL CONTINUE MONITORING FOR SAFETY AND BEHAVIOR.
[2022-02-12] MEDS: SENNOSIDES 8.6 MG TABLET PO SCH (21:15)
[2022-02-12] MEDS: CLOZAPINE 100 MG TABLET PO SCH (21:16)
[2022-02-13] MEDS: PANTOPRAZOLE 40 MG TABLET.DR PO SCH (07:50)
[2022-02-13 08:00] VITALS: BP 102/65
[2022-02-13] MEDS: ATENOLOL 25 MG TABLET PO SCH (09:00)
--- NOTE | 2022-02-13 09:00 | NUR ---
RN NOTE:RECEIVED PATIENT SLEEPING WITH BREATHING EVEN AND NONLABORED, GUARDED,NO ACUTE DISTRESS NOTED. COMPLIANT WITH MEDICATIONS. AMBULATORY STEADY GAIT. ALL NEEDS ATTENDED AND ANTICIPATED. WILL CONT MONITORING FOR SAFETY AND BEHAVIOR.
[2022-02-13] MEDS: ASPIRIN 81 MG TAB.CHEW PO SCH (09:02)
[2022-02-13] MEDS: FLUOXETINE HCL 20 MG CAPSULE PO SCH (09:03)
[2022-02-13] MEDS: FINASTERIDE (5 MG) 5 MG TABLET PO SCH (09:03)
[2022-02-13] MEDS: MULTIVIT W/MINERALS 1 TAB TABLET PO SCH (09:03)
[2022-02-13] MEDS: DOCUSATE SODIUM 100 MG CAPSULE PO SCH (09:03)
[2022-02-13] MEDS: PROSOURCE / PROSTAT (PYXIS) 30 ML UDC PO SCH (09:05)
[2022-02-13] MEDS: clonazePAM 0.5 MG TABLET PO SCH ×3 (09:11→16:51)
--- NOTE | 2022-02-13 10:00 | NUR ---
NURSE NOTE: ATENOLOL WITHHELD D/T LOW BP-102/65. WILL CONTINUE TO MONITOR.
[2022-02-13 16:00] VITALS: BP 92/57
[2022-02-13 20:23] VITALS: BP 101/60
[2022-02-13] MEDS: SENNOSIDES 8.6 MG TABLET PO SCH (21:50)
[2022-02-13] MEDS: CLOZAPINE 100 MG TABLET PO SCH (21:50)
[2022-02-14 08:00] VITALS: BP 90/64
[2022-02-14] MEDS: PANTOPRAZOLE 40 MG TABLET.DR PO SCH (08:08)
[2022-02-14] MEDS: FLUOXETINE HCL 20 MG CAPSULE PO SCH (08:31)
[2022-02-14] MEDS: ASPIRIN 81 MG TAB.CHEW PO SCH (08:31)
[2022-02-14] MEDS: MULTIVIT W/MINERALS 1 TAB TABLET PO SCH (08:31)
[2022-02-14] MEDS: clonazePAM 0.5 MG TABLET PO SCH ×3 (08:32→17:18)
[2022-02-14] MEDS: FINASTERIDE (5 MG) 5 MG TABLET PO SCH (08:32)
[2022-02-14] MEDS: DOCUSATE SODIUM 100 MG CAPSULE PO SCH (08:33)
[2022-02-14] MEDS: ATENOLOL 25 MG TABLET PO SCH (08:49)
--- NOTE | 2022-02-14 09:00 | NUR ---
NURSE NOTE: RECEIVED PT UP IN RESTROOM. NO ACUTE DISTRESS NOTED. AMBULATORY, STEADY GAIT. PT IS GUARDED. TOOK MEDICATIONS WITHOUT COMPLAINT. ALL NEEDS ATTENDED AND ANTICIPATED. WILL CONT MONITORING FOR SAFETY AND BEHAVIOR.
--- NOTE | 2022-02-14 09:00 | NUR ---
NURSE NOTE: ATENOLOL WITHHELD AT THIS TIME D/T LOW BP-90/64. WILL CONTINUE TO MONITOR.
[2022-02-14] MEDS: PROSOURCE / PROSTAT (PYXIS) 30 ML UDC PO SCH (10:08)
--- NOTE | 2022-02-14 11:43 | NUR ---
NURSE NOTES: ORTHOSTATIC BLOOD PRESSURE ORDERED. LYIN/71 TX 73 SITTING 94/65 TX 86 STANDING 72/51 TX 103 -PT STATED HE FELT A DIZZY AT THIS TIME. MD OROSCO NOTIFIED WITH RESULTS. DR MARTINEZ ALSO MADE AWARE. WILL CONT TO MONITOR.
[2022-02-14] MEDS ORDERED: IV LR 1000 ML 1,000 ML IV ONE (13:00)
--- NOTE | 2022-02-14 13:40 | NUR ---
NURSE NOTE: EXPLAINED TO PATIENT THAT THE DR ORDERED AND IV BOLUS. PT COMPLIANT. IV STARTED TO R FOREARM BY JAVIER NELSON. 20 GAUGE INSERTION USED. PT TOLERATED WELL. LR IV BOLUS STARTED ORDERED. WILL CONTINUE TO MONITOR.
[2022-02-14 16:00] VITALS: BP 102/65
--- NOTE | 2022-02-14 20:00 | NUR ---
GPS RN NOTE PT IVF FINISHED. CHECKED ORTHSTATIC BP LAYING 95/62, SITTING 107/67, STANDING 84/51. PT STATES " I BECOME DIZZY IF I STAND UP QUICKLY". REMINDED PT TO CALL THE STAFF IF NEED ANYTHING.
[2022-02-14 20:12] VITALS: BP 95/62
[2022-02-14] MEDS: SENNOSIDES 8.6 MG TABLET PO SCH (21:30)
[2022-02-14] MEDS: CLOZAPINE 100 MG TABLET PO SCH (21:30)
[2022-02-15 07:06] LABS: BASOPHILS # (AUTO) 0.1 K/uL (0.0-0.2); BASOPHILS % (AUTO) 1.4 % (0.0-2.0); EOSINOPHILS % (AUTO) 3.6 % (0.0-6.0); HEMATOCRIT 36 % (39-51); HEMOGLOBIN 12.3 g/dL (13.5-17.5); LYMPHOCYTES # (AUTO) 1.2 K/uL (0.8-4.8); LYMPHOCYTES % (AUTO) 24.6 % (20.0-44.0); MEAN CORPUSCULAR HGB CONC 34 g/dl (31.0-36.0); MEAN CORPUSCULAR VOLUME 91 fL (80-96); MONOCYTES # (AUTO) 0.4 K/uL (0.1-1.30); MONOCYTES % (AUTO) 7.2 % (2.0-12.0); NEUTROPHILS # (AUTO) 3.2 K/uL (1.8-8.9); NEUTROPHILS % (AUTO) 63.2 % (43.0-81.0); PLATELET COUNT (AUTO) 162 K/uL (150-450); RED BLOOD CELL COUNT(AUTO) 3.94 MIL/uL (4.5-6.0)
[2022-02-15 07:31] LABS: CALCIUM, SERUM 8.9 mg/dL (8.5-10.1); CREATININE 1.1 mg/dL (0.6-1.3); MAGNESIUM 2.2 mg/dL (1.8-2.4); POTASSIUM 4.2 mmol/L (3.5-5.1)
[2022-02-15 08:00] VITALS: BP 100/64
[2022-02-15] MEDS: ASPIRIN 81 MG TAB.CHEW PO SCH (08:28)
[2022-02-15] MEDS: FINASTERIDE (5 MG) 5 MG TABLET PO SCH (08:29)
[2022-02-15] MEDS: MULTIVIT W/MINERALS 1 TAB TABLET PO SCH (08:29)
[2022-02-15] MEDS: clonazePAM 0.5 MG TABLET PO SCH ×4 (08:29→17:05)
[2022-02-15] MEDS: PANTOPRAZOLE 40 MG TABLET.DR PO SCH (08:29)
[2022-02-15] MEDS: FLUOXETINE HCL 20 MG CAPSULE PO SCH (08:29)
[2022-02-15] MEDS: DOCUSATE SODIUM 100 MG CAPSULE PO SCH (08:29)
[2022-02-15] MEDS: MAGNESIUM HYDROXIDE 30 ML UDC PO PRN ×2 (08:39→21:11)
--- NOTE | 2022-02-15 08:39 | NUR ---
rn notes administered milk of magnesia 30 ml po prn for constipation per patient request. will follow up.
[2022-02-15] MEDS ORDERED: MECLIZINE HCL 12.5 MG TABLET PO PRN (10:30)
[2022-02-15] MEDS: PROSOURCE / PROSTAT (PYXIS) 30 ML UDC PO SCH (12:01)
[2022-02-15] MEDS ORDERED: IV LR 1000 ML 1,000 ML IV ONE (12:30)
--- NOTE | 2022-02-15 13:11 | NUR ---
rn notes patient refused take Klonopin 0.5 mg po scheduled medication, in beginning noted he will take a little late, but now refused, returned and cosigned with charge nurse Miley HERRERA . pharmacy notified.
[2022-02-15 16:00] VITALS: BP 100/66
[2022-02-15] MEDS: CLOZAPINE 100 MG TABLET PO SCH (21:12)
[2022-02-15] MEDS: SENNOSIDES 8.6 MG TABLET PO SCH (21:12)
--- NOTE | 2022-02-15 21:12 | NUR ---
GPS RN NOTE PT C/O CONSTIPATION, MOM GIVEN ORDERED. CONTINUE TO MONITOR HIM.
--- NOTE | 2022-02-16 07:30 | NUR ---
RN OPENING NOTE PATIENT IS IN BED AWAKE, ALERT, AND ORIENTED X 3, AND COOPERATIVE. ON ROOM AIR, BREATHING UNLABORED AND NOT IN ANY FORM OF DISTRESS. NO COMPLAINTS MADE OF THIS TIME. ALL HOSPITAL SAFETY PRECAUTIONS IN PLACE. WILL CONTINUE TO MONITOR THROUGHOUT SHIFT.
[2022-02-16 08:00] VITALS: BP 101/59
[2022-02-16] MEDS: ASPIRIN 81 MG TAB.CHEW PO SCH (09:04)
[2022-02-16] MEDS: DOCUSATE SODIUM 100 MG CAPSULE PO SCH (09:04)
[2022-02-16] MEDS: MULTIVIT W/MINERALS 1 TAB TABLET PO SCH (09:04)
[2022-02-16] MEDS: FLUOXETINE HCL 20 MG CAPSULE PO SCH (09:04)
[2022-02-16] MEDS: clonazePAM 0.5 MG TABLET PO SCH ×3 (09:04→16:54)
[2022-02-16] MEDS: FINASTERIDE (5 MG) 5 MG TABLET PO SCH (09:05)
[2022-02-16] MEDS: PROSOURCE / PROSTAT (PYXIS) 30 ML UDC PO SCH (09:05)
[2022-02-16] MEDS: PANTOPRAZOLE 40 MG TABLET.DR PO SCH (09:05)
[2022-02-16 16:00] VITALS: BP 99/61
--- NOTE | 2022-02-16 18:46 | NUR ---
RN CLOSING NOTE PATIENT REMAINED STABLE THROUGHOUT SHIFT. PATIENT CONTINUES TO BE WITHDRAWN AND ISOLATIVE BUT COMPLIANT TO MEDICATIONS. PATIENT WAS SEEN ROAMING ALONG THE HALLWAYS AT TIMES DURING THE SHIFT. PATIENT IS ALSO ABLE TO MAKE NEEDS KNOWN. BREATHING UNLABORED AND NOT IN ANY FORM OF DISTRESS. DENIES SUICIDAL IDEATIONS OF THIS TIME. ALL HOSPITAL SAFETY PRECAUTIONS IN PLACE. WILL ENDORSE TO RECYCLING PROGRAM MANAGER NURSE.
[2022-02-16 20:34] VITALS: BP 118/69
[2022-02-16] MEDS: SENNOSIDES 8.6 MG TABLET PO SCH (21:10)
[2022-02-16] MEDS: CLOZAPINE 100 MG TABLET PO SCH (21:10)
[2022-02-17 08:00] VITALS: BP 109/65
[2022-02-17] MEDS: PANTOPRAZOLE 40 MG TABLET.DR PO SCH (08:01)
[2022-02-17] MEDS: clonazePAM 0.5 MG TABLET PO SCH ×3 (08:02→16:20)
[2022-02-17] MEDS: MULTIVIT W/MINERALS 1 TAB TABLET PO SCH (08:04)
[2022-02-17] MEDS: LACTULOSE 10 G/15 ML UDC (PYXIS) PO PRN (08:04)
[2022-02-17] MEDS: ASPIRIN 81 MG TAB.CHEW PO SCH (08:05)
[2022-02-17] MEDS: DOCUSATE SODIUM 100 MG CAPSULE PO SCH (08:05)
[2022-02-17] MEDS: FINASTERIDE (5 MG) 5 MG TABLET PO SCH (08:05)
[2022-02-17] MEDS: FLUOXETINE HCL 20 MG CAPSULE PO SCH (08:06)
[2022-02-17] MEDS: PROSOURCE / PROSTAT (PYXIS) 30 ML UDC PO SCH (09:10)
--- NOTE | 2022-02-17 09:55 | NUR ---
RN-CO: Patient is quiet and compliant with medications, has flat effect. He is somewhat better. He is redirectable. He denied pain and discomforts at this time. I encouraged him to shower and attend groups.
[2022-02-17 16:00] VITALS: BP 97/64
--- NOTE | 2022-02-17 19:30 | NUR ---
GPS RN NOTE, RECEIVED PATIENT AWAKE AND IN BED, NO S/S OR COMPLAINTS OF PAIN AT THIS TIME. PATIENT IS DISPLAYING NO S/S OF APPARENT DISTRESS AT THIS TIME. PATIENT BREATHING IS UNLABORED WITH EQUAL RISE AND FALL OF THE CHEST. PATIENT IS ALERT AND ORIENTED X 3 ON ROOM AIR WITH A SPO2 99%. PATIENT IS COMPLIANT WITH MEDICATIONS, ANXIOUS, DELUSIONAL AT TIMES, AND COOPERATIVE. PATIENT DENIES SUICIDAL AND HOMICIDAL IDEATIONS AT THIS TIME. PATIENT ASSISTED WITH TURNING AND REPOSITIONING Q2HR AND PRN FOR COMFORT AND CIRCULATION. PATIENT HAS NO NEEDS AT THIS TIME. PATIENT EDUCATED ON THE USE OF THE CALL BURT. PATIENT BED SIDE RAILS UP X 2 FOR SAFETY. PATIENT BED IS LOCKED, LOW, WITH BED ALARM ON. WILL CONTINUE TO MONITOR THIS PATIENT Q15 MINUTES WITH THE HELP OF STAFF TO MAINTAIN SAFETY.
[2022-02-17 20:00] VITALS: BP 98/65
[2022-02-17] MEDS: CLOZAPINE 100 MG TABLET PO SCH (21:39)
[2022-02-17] MEDS: SENNOSIDES 8.6 MG TABLET PO SCH (21:39)
[2022-02-17] MEDS: MAGNESIUM HYDROXIDE 30 ML UDC PO PRN (23:16)
--- NOTE | 2022-02-17 23:17 | NUR ---
GPS RN NOTE, PATIENT HAS A COMPLAINT OF CONSTIPATION AND IS REQUESTING MILK OF MAGNESIA AT THIS TIME. PATIENT VITAL SIGNS ARE STABLE. GAVE MILK OF MAGNESIA 1 30ML DOSE PO Q12 HR PRN ORDERED. WILL CONTINUE TO MONITOR THIS PATIENT WITH THE HELP OF STAFF.
[2022-02-18] MEDS: PANTOPRAZOLE 40 MG TABLET.DR PO SCH ×2 (07:59→08:48)
[2022-02-18 08:00] VITALS: BP 137/78
[2022-02-18] MEDS: FLUOXETINE HCL 20 MG CAPSULE PO SCH (08:48)
[2022-02-18] MEDS: DOCUSATE SODIUM 100 MG CAPSULE PO SCH (08:48)
[2022-02-18] MEDS: ASPIRIN 81 MG TAB.CHEW PO SCH (08:48)
[2022-02-18] MEDS: clonazePAM 0.5 MG TABLET PO SCH ×3 (08:48→16:37)
[2022-02-18] MEDS: FINASTERIDE (5 MG) 5 MG TABLET PO SCH (08:48)
[2022-02-18] MEDS: MULTIVIT W/MINERALS 1 TAB TABLET PO SCH (08:48)
[2022-02-18] MEDS: PROSOURCE / PROSTAT (PYXIS) 30 ML UDC PO SCH (09:08)
[2022-02-18 16:00] VITALS: BP 131/76
[2022-02-18 20:00] VITALS: BP 95/60
[2022-02-18] MEDS: CLOZAPINE 100 MG TABLET PO SCH (22:08)
[2022-02-18] MEDS: SENNOSIDES 8.6 MG TABLET PO SCH (22:08)
[2022-02-19 08:00] VITALS: BP 105/67
[2022-02-19] MEDS: PROSOURCE / PROSTAT (PYXIS) 30 ML UDC PO SCH (08:54)
[2022-02-19] MEDS: clonazePAM 0.5 MG TABLET PO SCH ×3 (08:55→17:20)
[2022-02-19] MEDS: DOCUSATE SODIUM 100 MG CAPSULE PO SCH (08:55)
[2022-02-19] MEDS: FLUOXETINE HCL 20 MG CAPSULE PO SCH (08:55)
[2022-02-19] MEDS: FINASTERIDE (5 MG) 5 MG TABLET PO SCH (08:55)
[2022-02-19] MEDS: MULTIVIT W/MINERALS 1 TAB TABLET PO SCH (08:55)
[2022-02-19] MEDS: ASPIRIN 81 MG TAB.CHEW PO SCH (08:55)
--- NOTE | 2022-02-19 09:00 | NUR ---
NURSE NOTE: PT AWAKE AT THIS TIME. NO COMPLAINTS OF PAIN. NO DISTRESS NOTED. PT ORIENTED X2. GUARDED, BUT COOPERATIVE.DENIES SI/HI AT THIS TIME. PT AMBULATORY WITH STEADY GAIT. PT IS COMPLIANT WITH MEDICATIONS. ALL NEEDS ATTENDED. WILL CONTINUETO MONITOR.
[2022-02-19 16:00] VITALS: BP 93/65
--- NOTE | 2022-02-19 18:32 | NUR ---
NURSE NOTE: PT IN BED AWAKE A/O X2,GUARDED, CALM. ENCOURAGED TO VERBALIZE FEELINGS AND CONCERN TO THE STAFF. PT PREFERS TO STAY IN THE ROOM AND REST .AMB IN HALLWAY THROUGHOUT DAY. STEADY GAIT. ALL NEEDS ATTENDED.WILL CONT TO MON.
[2022-02-19 20:00] VITALS: BP 104/83
--- NOTE | 2022-02-19 20:24 | NUR ---
RN NOTES: PATIENT RESTING IN ROOM, NO S/SX OF ACUTE DISTRESS NOTED. PATIENT REMAINS ANXIOUS ,EASILY AGITATED, GUARDED NEEDS FREQUENTLY REDIRECTIONS ENCOURAGED PT.TO VERBALIZATION OF THOUGHTS OR FEELINGS AND ENCOURAGED TO ATTEND GROUP ACTIVITIES.SAFETY MEASURES IN PLACE. WILL CONTINUE TO MONITOR Q15MIN ROUNDS FOR SAFETY AND BEHAVIOR.
[2022-02-19] MEDS: SENNOSIDES 8.6 MG TABLET PO SCH (21:26)
[2022-02-19] MEDS: CLOZAPINE 100 MG TABLET PO SCH (21:26)
[2022-02-20] MEDS: PANTOPRAZOLE 40 MG TABLET.DR PO SCH (07:41)
[2022-02-20 08:00] VITALS: BP 109/71
[2022-02-20] MEDS: DOCUSATE SODIUM 100 MG CAPSULE PO SCH (08:10)
[2022-02-20] MEDS: ASPIRIN 81 MG TAB.CHEW PO SCH (08:10)
[2022-02-20] MEDS: MULTIVIT W/MINERALS 1 TAB TABLET PO SCH (08:10)
[2022-02-20] MEDS: FINASTERIDE (5 MG) 5 MG TABLET PO SCH (08:10)
[2022-02-20] MEDS: FLUOXETINE HCL 20 MG CAPSULE PO SCH (08:11)
[2022-02-20] MEDS: clonazePAM 0.5 MG TABLET PO SCH ×3 (08:11→16:49)
[2022-02-20] MEDS: PROSOURCE / PROSTAT (PYXIS) 30 ML UDC PO SCH (08:12)
[2022-02-20] MEDS: MAGNESIUM HYDROXIDE 30 ML UDC PO PRN (08:18)
--- NOTE | 2022-02-20 08:19 | NUR ---
RN-NOTES C/O CONSTIPATION REQUESTING MOM,MOM 30 ML GIVEN PRN ORDER.
[2022-02-20 16:00] VITALS: BP 102/64
--- NOTE | 2022-02-20 20:23 | NUR ---
RN NOTES: PATIENT RESTING IN ROOM,AWAKE ALERT X 3 NO S/SX OF ACUTE DISTRESS NOTED. PATIENT REMAINS ANXIOUS ,EASILY AGITATED, GUARDED NEEDS FREQUENTLY REDIRECTIONS ENCOURAGED PT.TO VERBALIZATION OF THOUGHTS OR FEELINGS AND ENCOURAGED TO ATTEND GROUP ACTIVITIES.SAFETY MEASURES IN PLACE. WILL CONTINUE TO MONITOR Q15MIN ROUNDS FOR SAFETY AND BEHAVIOR.
[2022-02-20 20:52] VITALS: BP 114/69
[2022-02-20] MEDS: SENNOSIDES 8.6 MG TABLET PO SCH (21:29)
[2022-02-20] MEDS: CLOZAPINE 100 MG TABLET PO SCH (21:30)
[2022-02-20] MEDS: TEMAZEPAM 7.5 MG CAPSULE PO PRN (22:43)
--- NOTE | 2022-02-20 22:45 | NUR ---
RN NOTES: INSOMNIA PT. C/O UNABLE TO SLEEP PRN RESTORIL 7.5 MG PO GIVEN ,PER PT. REQUEST, WILL CONTINUE TO MONITOR.
[2022-02-21] MEDS: PANTOPRAZOLE 40 MG TABLET.DR PO SCH (07:47)
[2022-02-21 08:00] VITALS: BP 101/71
[2022-02-21] MEDS: clonazePAM 0.5 MG TABLET PO SCH ×3 (08:05→16:40)
[2022-02-21] MEDS: MULTIVIT W/MINERALS 1 TAB TABLET PO SCH (08:05)
[2022-02-21] MEDS: FLUOXETINE HCL 20 MG CAPSULE PO SCH (08:05)
[2022-02-21] MEDS: ASPIRIN 81 MG TAB.CHEW PO SCH (08:05)
[2022-02-21] MEDS: FINASTERIDE (5 MG) 5 MG TABLET PO SCH (08:05)
[2022-02-21] MEDS: DOCUSATE SODIUM 100 MG CAPSULE PO SCH (08:05)
[2022-02-21] MEDS: LACTULOSE 10 G/15 ML UDC (PYXIS) PO PRN (08:08)
[2022-02-21] MEDS: PROSOURCE / PROSTAT (PYXIS) 30 ML UDC PO SCH (08:19)
--- NOTE | 2022-02-21 09:24 | NUR ---
RN-CO:RECEIVED PATIENT SLEEPING WITH BREATHING EVEN AND NONLABORED EASILY AROUSED,GUARDED,NO ACUTE DISTRESS NOTED. COMPLIANT WITH MEDICATIONS. AMBULATORY STEADY GAIT. ALL NEEDS ATTENDED AND ANTICIPATED. WILL CONT. MONITORING FOR SAFETY AND BEHAVIOR.PATIENT HE IS UNKEMPT AND DISHEVELED AND HAS ON AND OFF ANXIETY.
--- NOTE | 2022-02-21 15:55 | NUR ---
RN-CO: BP LAYING- 105/51, STANDING 85/60.
[2022-02-21 16:00] VITALS: BP 105/51
[2022-02-21 20:31] VITALS: BP 102/62
[2022-02-21] MEDS: SENNOSIDES 8.6 MG TABLET PO SCH (21:25)
[2022-02-21] MEDS: CLOZAPINE 100 MG TABLET PO SCH (21:25)
--- NOTE | 2022-02-21 21:54 | NUR ---
RN note: Patient requested to have prune juice,given 1 cup and well tolerated.Patient refused skin reassessment offered 3x.
[2022-02-22 08:00] VITALS: BP 105/67
[2022-02-22] MEDS: PANTOPRAZOLE 40 MG TABLET.DR PO SCH (08:47)
[2022-02-22] MEDS: ASPIRIN 81 MG TAB.CHEW PO SCH (08:47)
[2022-02-22] MEDS: DOCUSATE SODIUM 100 MG CAPSULE PO SCH (08:47)
[2022-02-22] MEDS: FLUOXETINE HCL 20 MG CAPSULE PO SCH (08:48)
[2022-02-22] MEDS: clonazePAM 0.5 MG TABLET PO SCH ×3 (08:48→17:27)
[2022-02-22] MEDS: PROSOURCE / PROSTAT (PYXIS) 30 ML UDC PO SCH (09:00)
[2022-02-22] MEDS: MAGNESIUM HYDROXIDE 30 ML UDC PO PRN (10:17)
[2022-02-22] MEDS: FINASTERIDE (5 MG) 5 MG TABLET PO SCH (10:17)
[2022-02-22] MEDS: MULTIVIT W/MINERALS 1 TAB TABLET PO SCH (10:17)
--- NOTE | 2022-02-22 13:35 | NUR ---
RN-CO: FF UP EKG ORDER.
[2022-02-22 16:00] VITALS: BP 102/61
--- NOTE | 2022-02-22 18:44 | NUR ---
RN NOTES PT ABLE TO MAKE ALL NEEDS KNOWN, REQUESTED LIST OF ALL MEDICATIONS AND QUESTIONED EACH ONE GIVEN AND WHAT FOR, EXPLAINED ALL MEDICATIONS GIVEN, THE REASON WHY AND THE SIDE EFFECTS, GAVE UNDERSTANDING AND
--- NOTE | 2022-02-22 18:46 | NUR ---
RN NOTES PT SHOWED HE UNDERSTOOD REASONINGS OF MEDICATIONS AND COMPLIANT WITH CARE, WILL CONTINUE TO MONITOR AND KEPT ALL SAFETY PRECAUTIONS IN PLACE BED LOW TO FLOOR, ALL WHEELS LOCKED, PT ALLOWED ME TO PERFORM A HEAD TO TOE SKIN ASSESSMENT HE STATED HE HAD CYSTS ON HIS LOWER BACK BUT NONE NOTED HE WAS POINTING AND TOUCHING HIS SPINE AND THE BONES APPARENT DUE TO THE LOSS OF WEIGHT SO I EXPLAINED TO HIM THOSE WERE HIS SPINAL BONES IN THE LUMBAR REGION, SKIN IS INTACT, BI-LATERAL TOE NAILS ON BOTH FEET ARE BRITTLE DRY CRACKING AND YELLOW , LOTION APPLIED , PT STATED NO PAIN IN AREA.
[2022-02-22 20:45] VITALS: BP 125/72
[2022-02-22] MEDS: CLOZAPINE 100 MG TABLET PO SCH (21:13)
[2022-02-22] MEDS: SENNOSIDES 8.6 MG TABLET PO SCH (21:13)
--- NOTE | 2022-02-23 07:30 | NUR ---
RN OPENING NOTE PATIENT IN BED AWAKE, ON ROOM AIR, BREATHING UNLABORED AND NOT IN ANY FORM OF DISTRESS. APPEARS CALM. ALL SAFETY PRECAUTIONS IN PLACE. WILL CONTINUE TO MONITOR.
[2022-02-23 08:00] VITALS: BP 109/72
[2022-02-23] MEDS: MULTIVIT W/MINERALS 1 TAB TABLET PO SCH (08:22)
[2022-02-23] MEDS: FINASTERIDE (5 MG) 5 MG TABLET PO SCH (08:22)
[2022-02-23] MEDS: ASPIRIN 81 MG TAB.CHEW PO SCH (08:22)
[2022-02-23] MEDS: FLUOXETINE HCL 20 MG CAPSULE PO SCH (08:22)
[2022-02-23] MEDS: DOCUSATE SODIUM 100 MG CAPSULE PO SCH (08:25)
[2022-02-23] MEDS: PANTOPRAZOLE 40 MG TABLET.DR PO SCH (08:25)
[2022-02-23] MEDS: clonazePAM 0.5 MG TABLET PO SCH ×2 (08:25→12:17)
[2022-02-23] MEDS: PROSOURCE / PROSTAT (PYXIS) 30 ML UDC PO SCH (08:26)
--- NOTE | 2022-02-23 10:47 | NUR ---
SW Discharge Note: Patient will be discharged to [facility] [address] [facility] [address] [facility], [place] [address] ([phone]). Please arrange ambulance transportation at 1PM. Spoke with Linda, Admin Coordinator ([phone]) at the facility who states they are ready to accept the patient today. Patients LPS Conservator Marlene ([phone]) is aware and agreeable. Patient is alert and oriented x2, is unable to plan for self-care at this time, however, is willing to accept care at [facility]. Patient denies any suicidal or homicidal ideation. Patient will follow-up at the facility with Dr. Chacon (psychiatrist) [address] [facility], [place] [address]; ([phone]) and (Operations Tech) Dr. Werner [address] [facility], [place] [address]; ([phone]).
--- NOTE | 2022-02-23 11:55 | NUR ---
RN NOTE BLOOD PRESSURE WHEN LYING SUPINE: 105/72; BP WHEN SITTING DOWN: 103/72; BP WHEN STANDING UP: 102/74
--- NOTE | 2022-02-23 13:00 | NUR ---
RN CLOSING NOTE PATIENT IS DISCHARGED TO [facility] IN STABLE DISPOSITION, EXHIBITING EUTHYMIC MOOD AND CONGRUENT AFFECT. PATIENT DENIES SUICIDAL IDEATION OR HOMICIDAL IDEATION OF THIS TIME. ALERT, ORIENTED X 2 AND IS AWARE THAT HE IS FOR TRANSFER TO [facility].BREATHING UNLABORED AND NOT IN ANY FORM OF DISTRESS. PATIENT REFUSED SKIN EVALUATION PRIOR TO DISCHARGE. ALL FORMS SIGNED, DISCHARGE PACKET GIVEN TO AMBULANCE CREW.REPORT GIVEN TO HANNAH OF [facility].
[2022-02-23 16:00] VITALS: BP 143/68
== END 2022-02-23 13:00 | DRG 885 ==
LOC: ER 09:06 → GPS 15:33
PROVIDERS: ADMIT Psychiatry & Neurology Psychosomatic Medicine; ATTEND Nurse Practitioner Acute Care
DX: F25.9 Schizoaffective disorder, unspecified (principal); G93.40 Encephalopathy, unspecified; F23 Brief psychotic disorder; K21.9 Gastro-esophageal reflux disease without esophagitis; F32.9 Major depressive disorder, single episode, unspecified; I10 Essential (primary) hypertension; J44.9 Chronic obstructive pulmonary disease, unspecified; N40.0 Benign prostatic hyperplasia without lower urinary tract symptoms; Z79.82 Long term (current) use of aspirin; Z20.822 Contact with and (suspected) exposure to COVID-19; Z79.899 Other long term (current) drug therapy; Z91.81 History of falling; F42.9 Obsessive-compulsive disorder, unspecified; F41.9 Anxiety disorder, unspecified; J45.909 Unspecified asthma, uncomplicated; Z73.6 Limitation of activities due to disability
CPT/HCPCS: 36415; 80048-TC; 80053-TC; 80061-TC; 80076-TC; 82962-TC; 83735-TC; 84443-TC; 85025-TC; 87081-TC; 90732; C9803; G0480; J7120; J8597

== ENCOUNTER 2022-03-09 17:23 | Inpatient (IN) | payer MEDICARE, OTHER ==
[~2022-03-09] VITALS: Ht 182.9 cm; Wt 77.1 kg
[~2022-03-09 17:23] MED LIST changes: +AMIN887L PO; +ATEN25TA PO; +BUPR150T5 PO; +CLON0.5T4 PO; +CLOZ100T PO; -MAG-55 PO
--- NOTE | 2022-03-09 20:47 | NUR ---
JALYN LUNA FROM CARE FACILITY,HEARING VOICES TELLING HIM " I'M GONNA BLOW THIS PLACE UP". PT AWAKE AND ALERT BREATHING UNLABORED AND EXPRESSING THAT HE WANTS TO SHOOT EVERYONE. PT ASSISTED TO ER 13, SITTER AT BEDSIDE AND SAFETY MEASURES IN PLACE.
--- NOTE | 2022-03-09 20:53 | NUR ---
COVID SWAB COLLECTED AND SENT TO LAB
--- NOTE | 2022-03-09 21:21 | NUR ---
GPS 216-A
[2022-03-09 21:31] LABS: BASOPHILS % (AUTO) 0.5 % (0.0-2.0); EOSINOPHILS % (AUTO) 0.9 % (0.0-6.0); HEMATOCRIT 37 % (39-51); HEMOGLOBIN 12.3 g/dL (13.5-17.5); LYMPHOCYTES # (AUTO) 0.6 K/uL (0.8-4.8); MEAN CORPUSCULAR HGB CONC 33 g/dl (31.0-36.0); MEAN CORPUSCULAR VOLUME 92 fL (80-96); MONOCYTES # (AUTO) 0.3 K/uL (0.1-1.30); NEUTROPHILS # (AUTO) 3.8 K/uL (1.8-8.9); NEUTROPHILS % (AUTO) 79.6 % (43.0-81.0); PLATELET COUNT (AUTO) 132 K/uL (150-450); RED BLOOD CELL COUNT(AUTO) 4.06 MIL/uL (4.5-6.0); WHITE BLOOD COUNT (AUTO) 4.8 K/uL (4.3-11.0)
--- NOTE | 2022-03-09 21:32 | NUR ---
URINE COLLECTED AND SENT TO LAB
[2022-03-09 21:39] LABS: CALCIUM, SERUM 8.7 mg/dL (8.5-10.1); CARBON DIOXIDE 28 mmol/L (21-32); CHLORIDE 107 mmol/L (98-107); CREATININE 1.1 mg/dL (0.6-1.3); GLUCOSE 109 mg/dL (74-106); POTASSIUM 3.6 mmol/L (3.5-5.1); SODIUM SERUM 142 mmol/L (136-145); UREA NITROGEN, BLOOD 20 mg/dL (7-18)
[2022-03-09 21:45] LABS: ALANINE AMINOTRANSFERASE 33 U/L (12-78); ALBUMIN 3.5 g/dL (3.4-5.0); ALKALINE PHOSPHATASE 89 U/L (46-116); ASPARTATE AMINOTRANSFERASE 21 U/L (15-37); BILIRUBIN,DIRECT 0.1 mg/dL (0.0-0.2); BILIRUBIN,TOTAL 0.4 mg/dL (0.2-1.0); TOTAL PROTEIN, SERUM 6.4 g/dL (6.4-8.2)
[2022-03-09 21:59] LABS: ACETAMINOPHEN 0 ug/ml (10-30); ALCOHOL, BLOOD < 3 mg/dL (0-0)
[2022-03-09 22:14] LABS: BILIRUBIN,URINE NEGATIVE (NEGATIVE); COLOR,URINE YELLOW (YELLOW); LEUKOCYTE ESTERASE ,URINE NEGATIVE (NEGATIVE); NITRITE, URINE NEGATIVE (NEGATIVE); PH,URINE 6.5 (5.0-8.0); PROTEIN,URINE NEGATIVE (NEGATIVE); UGLUCOSE NEGATIVE (NEGATIVE); UROBILINOGEN,URINE 0.2 EU/dL (0.2)
[2022-03-09 22:18] LABS: BACTERIA,URINE Rare /HPF (None Seen); RBC,URINE 0-2 /HPF (0-2); SQUAMOUS EPITHELIAL CELL,UR Few /HPF (None Seen); WBC,URINE 0-2 /HPF (0-3)
--- NOTE | 2022-03-09 23:01 | NUR ---
[facility] PAGED
--- NOTE | 2022-03-10 00:55 | NUR ---
REPORT GIVEN TO WEI AT [facility]
[2022-03-10] MEDS ORDERED: ACETAMINOPHEN 325 MG TABLET PO PRN (01:30)
[2022-03-10] MEDS ORDERED: BLOOD SUGAR DIAGNOSTIC 1 EACH STRIP IN ONE (01:30)
[2022-03-10] MEDS ORDERED: MAG HYDROX/AL HYDROX/SIMETH 30 ML UDC PO PRN (01:30)
[2022-03-10] MEDS ORDERED: TEMAZEPAM 7.5 MG CAPSULE PO PRN (01:30)
--- NOTE | 2022-03-10 01:32 | NUR ---
TRANSFERRED TO 216 IN STABLE CONDITION
--- NOTE | 2022-03-10 03:02 | NUR ---
[employer] COUNSEL NOTES; RECEIVED PATIENT FROM ER, ORIGINALLY FROM [facility]. PATIENT ARRIVED THIS UNIT ON A STRETCHER AT 0125 WITH AN ER ESCORT. PATIENT IS ON A 5150 HOLD FOR DTS/DTO. HOLD WAS PLACED ON 03/10/22 AT 0014. PER HOLD, PATIENT WAS BIB AMBULANCE FROM SNF TO ER D/T INCREASED AGITATION AND HALLUCINATIONS. PATIENT INFORMED STAFF AT SNF THAT IF THEY DO NOT TRANSFER HIM TO A HOSPITAL HE WILL KILL HIMSELF. WHILE IN ER PATIENT STATED HE WANTS TO SHOOT AND KILL EVERYONE IN THE HOSPITAL AND HIMSELF BECAUSE VOICES ARE TELLING TELLING HIM TO SO. UPON FACE TO FACE EVALUATION, PATIENT IS A/O X2-3, APPEARS DEPRESSED, FLAT AFFECT, EMACIATED, RAMBLING, DISORGANIZED, POOR INSIGHT, REFUSING TO ANSWER ADMISSION QUESTIONS. PATIENT HAS NO S/S OF RESPIRATORY DISTRESS. RESPIRATION IS EVEN AND UNLABORED WITH EQUAL RISE AND FALL OF THE CHEST, ON ROOM AIR. PATIENT REFUSED TO SIGN ALL ADMISSION PAPER WORK. SKIN ASSESSMENT DONE, PATIENT HAS SACRAL REDNESS, AREA CLEANED, PAT DRY, SKIN BARRIER CREAM APPLIED TO PROTECT SKIN AND PICTURES TAKEN AND PLACED IN PATIENT CHART. ACCU CHEK DONE, BS 89. PATIENT ADVISED OF HIS HOLD AND PATIENT RIGHTS BOOKLET AND PRESCRIPTION MEDICATION GUIDE GIVEN. PATIENT IS UNDER THE PSYCHIATRIC CARE OF DR. GONZALES AND MEDICAL CARE OF DR VALENZUELA. BOTH DOCTORS HAVE BEEN INFORMED OF PATIENT ADMISSION AND ORDERS CARRIED OUT. PATIENT BELONGINGS WERE INVENTORIED AND CHECKED FOR CONTRABAND. PATIENT ADVANCED DIRECTIVES PREFERENCE, IMMUNIZATIONS QUESTIONER, NECESSARY PAPERWORK COMPLETED. PATIENT EDUCATED ON THE USE OF THE CALL BURT. PATIENT BED IS LOCKED AND IN LOWEST POSITION, SIDE RAILS UP X2 FOR SAFETY. PATIENT OFFERED FLUID AND SNACKS TOLERATED. ALL PATIENT CARE NEEDS HAVE BEEN MET ANTICIPATED. PATIENT HAS NO NEEDS AT THIS TIME. I WILL CONTINUE TO MONITOR Q15 MINS FOR SAFETY, MOOD AND BEHAVIOR.
--- NOTE | 2022-03-10 07:13 | NUR ---
GPS RN NOTES: CALLED PATIENT CONSERVATOR STELLA AND INFORMED HER OF PATIENT ADMISSION.
[2022-03-10 08:00] VITALS: BP 121/61
[2022-03-10] MEDS ORDERED: PANT40TA2 PO (08:58)
[2022-03-10] MEDS ORDERED: PALI234D IM (08:58)
[2022-03-10] MEDS ORDERED: LOPE2CAP40 PO (08:58)
[2022-03-10] MEDS ORDERED: MAG30ORA PO (08:58)
[2022-03-10] MEDS ORDERED: FLUO20CA36 PO (08:58)
--- NOTE | 2022-03-10 10:12 | NUR ---
MIKAYLA Clinical Note: Pt placed on a 5150 hold for danger to himself and others. Pt was hearing voices at the facility wanting to kill himself and others. Patient resides at [facility] [address] [address] ([phone]). Pt welcomed back upon dc.
--- NOTE | 2022-03-10 10:12 | NUR ---
MIKAYLA Initial Discharge Note: Patient resides at [facility] [address] [place] [address] ([phone]). MIKAYLA contacted Linda guerra who stated pt is welcomed back. MIKAYLA contacted pt's LPS Conservator Marlene ([phone]) and she stated to call back later. MIKAYLA will attempt to contact later throughout the day.
--- NOTE | 2022-03-10 10:14 | NUR ---
Treatment Plan: Pt refused to sign treatment plan and appeared very anxious.
--- NOTE | 2022-03-10 11:31 | NUR ---
LPS Conservator: MIKAYLA spoke with pt's LPS Conservator Marlene ([phone]) and she stated that she would want pt back to [facility] when stable. MIKAYLA sent detain and treat (F:[phone]) and she will be sending this publications writer updated conservator documents.
--- NOTE | 2022-03-10 11:31 | NUR ---
RN-CO: CBC ORDERED BY DR GONZALES NOTED.
[2022-03-10 11:37] LABS: BASOPHILS % (AUTO) 0.5 % (0.0-2.0); EOSINOPHILS % (AUTO) 0.4 % (0.0-6.0); HEMATOCRIT 40 % (39-51); HEMOGLOBIN 13.3 g/dL (13.5-17.5); LYMPHOCYTES # (AUTO) 0.6 K/uL (0.8-4.8); LYMPHOCYTES % (AUTO) 13.9 % (20.0-44.0); MEAN CORPUSCULAR HGB CONC 33 g/dl (31.0-36.0); MEAN CORPUSCULAR VOLUME 91 fL (80-96); MONOCYTES # (AUTO) 0.3 K/uL (0.1-1.30); MONOCYTES % (AUTO) 5.8 % (2.0-12.0); NEUTROPHILS # (AUTO) 3.7 K/uL (1.8-8.9); NEUTROPHILS % (AUTO) 79.4 % (43.0-81.0); PLATELET COUNT (AUTO) 135 K/uL (150-450); RED BLOOD CELL COUNT(AUTO) 4.38 MIL/uL (4.5-6.0); WHITE BLOOD COUNT (AUTO) 4.6 K/uL (4.3-11.0)
[2022-03-10] MEDS: FLUOXETINE HCL 20 MG CAPSULE PO SCH (12:09)
[2022-03-10] MEDS: clonazePAM 0.5 MG TABLET PO SCH ×2 (13:12→17:49)
--- NOTE | 2022-03-10 13:25 | NUR ---
LPS Conservator: SW received updated LPS conservatorship document LPS Conservator Marlene ([phone]). SW placed in pt's chart. SW received Detain and Treat and placed in pt's chart. Notified Dr. Chacon.
[2022-03-10 16:00] VITALS: BP 104/69
[2022-03-10] MEDS: ASPIRIN 81 MG TAB.CHEW PO SCH (18:17)
--- NOTE | 2022-03-10 19:30 | NUR ---
GPS RN OPENING NOTES: RECEIVED PATIENT IN ROOM LAYING IN BED, AWAKE A/O X2-3. PATIENT APPEARS DEPRESSED, WEAK, FLAT AFFECT, PASSIVE, WITHDRAWN, ISOLATIVE, PARANOID. PER PATIENT "I HAVE PNEUMONIA". WHEN ASKED WHY HE THINKS HE HAS PNEUMONIA PATIENT REPLIED "I HAVE COUGH". PATIENT WAS ASSURED MEDICAL DOCTOR WILL BE NOTIFIED TO FOLLOW UP. NO S/S OF DISTRESS. RESPIRATION EVEN AND UNLABORED WITH EQUAL RISE AND FALL OF THE CHEST, ON ROOM AIR. PATIENT IS OFFERED FLUID AND SNACKS TOLERATED. WILL CONTINUE TO MONITOR Q15 MINS FOR MOOD, BEHAVIOR AND SAFETY.
[2022-03-10 20:00] VITALS: BP 118/72
[2022-03-10] MEDS: SENNOSIDES 8.6 MG TABLET PO SCH (22:00)
[2022-03-10] MEDS: CLOZAPINE 100 MG TABLET PO SCH (22:14)
--- NOTE | 2022-03-10 22:17 | NUR ---
GPS RN NOTES: PATIENT REFUSED SENOKOT 17.2MG TABS PO AT 2200. PER PATIENT "I USE TO HAVE CONSTIPATION ISSUES BUT NOT RIGHT NOW".
[2022-03-11 08:00] VITALS: BP 110/62
[2022-03-11] MEDS: FINASTERIDE (5 MG) 5 MG TABLET PO SCH (08:14)
[2022-03-11] MEDS: ATENOLOL 25 MG TABLET PO SCH (08:14)
[2022-03-11] MEDS: DOCUSATE SODIUM 100 MG CAPSULE PO SCH ×2 (08:14→08:19)
[2022-03-11] MEDS: clonazePAM 0.5 MG TABLET PO SCH ×3 (08:15→16:22)
--- NOTE | 2022-03-11 08:37 | NUR ---
WOUND CARE CONSULT: RECEIVED CONSULT FOR SACRAL REDNESS. PT NOTED TO HAVE BLANCHABLE REDNESS TO SACRUM WITH EXTREMELY BONY SACRAL AREA. PER NURSING STAFF, PT DOES NOT EAT MUCH. PT IS AMBULATORY AND CONTINENT AT THIS TIME. DISCUSSED SKIN PROTECTION WITH NURSING STAFF AND WITH PT. MD IN AGREEMENT WITH PLAN OF CARE.
[2022-03-11] MEDS: FLUOXETINE HCL 20 MG CAPSULE PO SCH (08:42)
[2022-03-11] MEDS ORDERED: Z GUARD REMEDY 4 OZ OINT TP PRN (09:00)
--- NOTE | 2022-03-11 10:00 | NUR ---
Received pt. awake in bed, quiet, responsive to staffs, no distress and no agitation noted. Ate 100% for breakfast and compliant on meds. Pt. stayed in room most of the time, encouraged to verbalize feelings, motivated to attend group activity and encouraged to take shower. Needs attended and will continue to monitor for safety.
[2022-03-11 16:00] VITALS: BP 92/64
[2022-03-11] MEDS: ENSURE ENLIVE 237 ML LIQUID (VANILLA) PO SCH (16:24)
[2022-03-11] MEDS: ASPIRIN 81 MG TAB.CHEW PO SCH (17:26)
--- NOTE | 2022-03-11 19:30 | NUR ---
RECEIVED PATIENT IN ACTIVITY ROOM SITTING AND WATCHING TV, AWAKE A/O X2-3. PATIENT APPEARS WEAK WITH FLAT AFFECT, PASSIVE. NO S/S OF DISTRESS. RESPIRATION EVEN AND UNLABORED WITH EQUAL RISE AND FALL OF THE CHEST, ON ROOM AIR. PATIENT IS OFFERED FLUID AND SNACKS TOLERATED. WILL CONTINUE TO MONITOR Q15 MINS FOR MOOD, BEHAVIOR AND SAFETY.
[2022-03-11 20:00] VITALS: BP 91/59
[2022-03-11] MEDS: SENNOSIDES 8.6 MG TABLET PO SCH (21:07)
[2022-03-11] MEDS: CLOZAPINE 100 MG TABLET PO SCH (21:08)
--- NOTE | 2022-03-12 06:43 | NUR ---
PATIENT ASLEEP IN BED. A/O X2-3. PATIENT APPEARS WEAK WITH FLAT AFFECT, PASSIVE. NO S/S OF DISTRESS. RESPIRATION EVEN AND UNLABORED WITH EQUAL RISE AND FALL OF THE CHEST, ON ROOM AIR. NO S/S OR COMPLAINTS OF PAIN AT THIS TIME. PT DENIES SUICIDE IDEATIONS AND HOMICIDAL IDEATIONS AT THIS TIME. DUE MED GIVEN ORDERED. NEEDS ATTENDED. SAFETY PRECAUTIONS MAINTAINED, PT BED SIDE RAILS UP X2 FOR SAFETY. BED IS LOCKED AND IN LOW POSITION. WILL ENDORSE TO NEXT NURSE ON DUTY FOR CONTINUITY OF CARE.
[2022-03-12 08:00] VITALS: BP 92/54
[2022-03-12] MEDS: ENSURE ENLIVE 237 ML LIQUID (VANILLA) PO SCH ×2 (08:37→16:36)
[2022-03-12] MEDS: DOCUSATE SODIUM 100 MG CAPSULE PO SCH (08:38)
[2022-03-12] MEDS: clonazePAM 0.5 MG TABLET PO SCH ×3 (08:38→16:36)
[2022-03-12] MEDS: FINASTERIDE (5 MG) 5 MG TABLET PO SCH (08:38)
[2022-03-12] MEDS: FLUOXETINE HCL 20 MG CAPSULE PO SCH (08:38)
[2022-03-12] MEDS: ATENOLOL 25 MG TABLET PO SCH (08:39)
--- NOTE | 2022-03-12 13:43 | NUR ---
Dr. Chacon ordered to change the legal status to LPS Conservatorship
[2022-03-12 16:00] VITALS: BP 99/59
[2022-03-12] MEDS: ASPIRIN 81 MG TAB.CHEW PO SCH (17:27)
--- NOTE | 2022-03-12 19:04 | NUR ---
RN-NOTES PATIENT IS COOPERATIVE WITH CARE ,ALERT X3 ,GUARDED, NO ACUTE DISTRESS NOTED.COMPLIANT WITH MEDICATIONS. NOTED WITH TALKING AND MUMBLING TO SELF. NEEDS MINIMAL ASSIST WITH ADL'S .ALL NEEDS ATTENDED AND ANTICIPATED. AMBULATORY WITH STEADY GAIT. WILL CONT.MONITORING FOR SAFETY AND BEHAVIOR.WILL ENDORSE TO INCOMING SHIFT FOR CONTINUITY OF CARE.
--- NOTE | 2022-03-12 19:30 | NUR ---
RECEIVED PATIENT IN ACTIVITY ROOM SITTING AND WATCHING TV, AWAKE A/O X2-3. PATIENT APPEARS WEAK WITH FLAT AFFECT, PASSIVE. NO S/S OF DISTRESS. RESPIRATION EVEN AND UNLABORED WITH EQUAL RISE AND FALL OF THE CHEST, ON ROOM AIR. PATIENT IS OFFERED FLUID AND SNACKS TOLERATED. PT DENIES SUICIDE IDEATIONS AND HOMICIDAL IDEATIONS AT THIS TIME. PT IS AMBULATORY WITH STEADY GAIT. WILL CONTINUE TO MONITOR Q15 MIN WITH THE HELP OF STAFF TO MAINTAIN SAFETY.
[2022-03-12 20:50] VITALS: BP 92/60
[2022-03-12] MEDS: CLOZAPINE 100 MG TABLET PO SCH (21:47)
[2022-03-12] MEDS: SENNOSIDES 8.6 MG TABLET PO SCH ×2 (21:47→21:52)
--- NOTE | 2022-03-12 21:53 | NUR ---
PATIENT REFUSED SENOKOT 17.2 MG TAB. EDUCATED PATIENT REGARDING MEDICATION COMPLIANCE. PATIENT CONTINUED TO REFUSE.
--- NOTE | 2022-03-12 22:18 | NUR ---
GPS RN NOTE, PATIENT HAS A COMPLAINT OF A CHRONIC DRY COUGH AND IS REQUESTING ROBITUSSIN AT THIS TIME. PAGED [facility] AND IN FORMED DR HUI OF MY FINDINGS. DR HUI ORDERED ROBITUSSIN DM SYRUP 5ML PO Q6HR PRN. ALL ORDERS NOTED AND CARRIED OUT. WILL CONTINUE TO MONITOR THIS PATIENT WITH THE HELP OF STAFF.
[2022-03-12] MEDS ORDERED: GUAIFENESIN/D-METHORPHAN HB 5 ML UDC PO PRN (22:30)
--- NOTE | 2022-03-13 06:12 | NUR ---
PATIENT ASLEEP IN BED, A/O X2-3. PATIENT APPEARS WEAK WITH FLAT AFFECT, PASSIVE. NO S/S OF DISTRESS. RESPIRATION EVEN AND UNLABORED WITH EQUAL RISE AND FALL OF THE CHEST, ON ROOM AIR. PATIENT IS OFFERED FLUID AND SNACKS TOLERATED. PT DENIES SUICIDE IDEATIONS AND HOMICIDAL IDEATIONS AT THIS TIME. PT IS AMBULATORY WITH STEADY GAIT. DUE MEDS GIVEN ORDERED. PT HAS NO NEEDS AT THIS TIME. SAFETY PRECAUTIONS MAINTAINED. WILL ENDORSE TO NEXT NURSE ON DUTY FOR CONTINUITY OF CARE.
[2022-03-13 08:00] VITALS: BP 100/62
[2022-03-13] MEDS: FINASTERIDE (5 MG) 5 MG TABLET PO SCH (08:27)
[2022-03-13] MEDS: ENSURE ENLIVE 237 ML LIQUID (VANILLA) PO SCH ×2 (08:27→17:24)
[2022-03-13] MEDS: FLUOXETINE HCL 20 MG CAPSULE PO SCH (08:28)
[2022-03-13] MEDS: clonazePAM 0.5 MG TABLET PO SCH ×3 (08:28→17:23)
[2022-03-13] MEDS: DOCUSATE SODIUM 100 MG CAPSULE PO SCH ×2 (08:28→08:58)
[2022-03-13] MEDS: ATENOLOL 25 MG TABLET PO SCH (08:29)
[2022-03-13] MEDS: ACETYLCYSTEINE 20% SOLN 800 MG/4 ML VIAL PO SCH ×2 (12:54→22:03)
[2022-03-13 16:00] VITALS: BP 82/58
[2022-03-13 16:30] VITALS: BP 94/61
[2022-03-13] MEDS: ASPIRIN 81 MG TAB.CHEW PO SCH (17:23)
--- NOTE | 2022-03-13 18:59 | NUR ---
NURSE NOTE: PT IS COOPERATIVE WITH CARE ,ALERT X3 ,GUARDED, NO ACUTE DISTRESS NOTED. MED COMPLIANT. AMBULATED IN HALLWAY AND WENT TO ACTIVITY ROOM DURING SHIFT. MINIMAL ASSISTANCE WITH ADL'S NEEDED. ALL NEEDS ATTENDED AND ANTICIPATED. AMBULATORY WITH STEADY GAIT. WILL CONT.MONITORING FOR SAFETY AND BEHAVIOR.WILL ENDORSE TO INCOMING SHIFT FOR CONTINUITY OF CARE.
[2022-03-13 20:48] VITALS: BP 97/64
[2022-03-13] MEDS: CLOZAPINE 100 MG TABLET PO SCH (22:06)
[2022-03-13] MEDS: SENNOSIDES 8.6 MG TABLET PO SCH (22:08)
[2022-03-14 08:00] VITALS: BP 99/58
[2022-03-14] MEDS: ENSURE ENLIVE 237 ML LIQUID (VANILLA) PO SCH ×2 (08:42→17:38)
[2022-03-14] MEDS: FLUOXETINE HCL 20 MG CAPSULE PO SCH (08:45)
[2022-03-14] MEDS: FINASTERIDE (5 MG) 5 MG TABLET PO SCH (08:45)
[2022-03-14] MEDS: clonazePAM 0.5 MG TABLET PO SCH ×3 (08:45→17:38)
[2022-03-14] MEDS: DOCUSATE SODIUM 100 MG CAPSULE PO SCH ×2 (08:46→09:32)
[2022-03-14] MEDS: ACETYLCYSTEINE 20% SOLN 800 MG/4 ML VIAL PO SCH ×2 (08:46→21:51)
[2022-03-14] MEDS: ATENOLOL 25 MG TABLET PO SCH (08:46)
[2022-03-14] MEDS: MAGNESIUM HYDROXIDE 30 ML UDC PO PRN (09:32)
[2022-03-14 16:08] VITALS: BP 100/68
[2022-03-14] MEDS: ASPIRIN 81 MG TAB.CHEW PO SCH (18:45)
[2022-03-14 20:24] VITALS: BP 100/50
[2022-03-14] MEDS: CLOZAPINE 100 MG TABLET PO SCH (22:17)
[2022-03-14] MEDS: SENNOSIDES 8.6 MG TABLET PO SCH (22:17)
--- NOTE | 2022-03-15 06:43 | NUR ---
GPS RN CLOSING NOTES: PATIENT IS CURRENTLY SLEEPING IN BED. PATIENT SLEPT 6HRS THIS SHIFT. WEEKLY SKIN ASSESSMENT DONE, PICTURES TAKEN AND PLACED IN PATIENT CHART. WOUND CONSULT ORDERED FOR LEFT ANKLE BRUISE AND BILATERAL TOES FUNGAL INFECTION. PATIENT HAD TWO VERY LARGE BOWEL MOVEMENT THIS SHIFT. PATIENT CLEANED AND Z-GUARD APPLIED TO SKIN FOR PROTECTION. ALL PATIENT CARE NEEDS HAVE BEEN MET ANTICIPATED. WILL CONTINUE TO MONITOR Q15 MINS AND ENDORSE TO AM SHIFT. Addendum: 03/15/22 at 0646 by RHETT HAYES RN PLEASE DISREGARD THIS IS FOR ANOTHER PATIENT
--- NOTE | 2022-03-15 06:46 | NUR ---
GPS RN CLOSING NOTES: PATIENT IS CURRENTLY SLEEPING IN BED. PATIENT SLEPT 8HRS THIS SHIFT. WEEKLY SKIN ASSESSMENT DONE, PICTURES TAKEN AND PLACED IN PATIENT CHART. ALL PATIENT CARE NEEDS HAVE BEEN MET ANTICIPATED. WILL CONTINUE TO MONITOR Q15 MINS AND ENDORSE TO AM SHIFT.
[2022-03-15 08:00] VITALS: BP 100/68
[2022-03-15] MEDS: clonazePAM 0.5 MG TABLET PO SCH ×3 (08:11→17:38)
[2022-03-15] MEDS: FINASTERIDE (5 MG) 5 MG TABLET PO SCH (08:11)
[2022-03-15] MEDS: DOCUSATE SODIUM 100 MG CAPSULE PO SCH (08:11)
[2022-03-15] MEDS: FLUOXETINE HCL 20 MG CAPSULE PO SCH (08:11)
[2022-03-15] MEDS: ENSURE ENLIVE 237 ML LIQUID (VANILLA) PO SCH ×2 (08:13→17:39)
[2022-03-15] MEDS: ATENOLOL 25 MG TABLET PO SCH (08:13)
[2022-03-15] MEDS: ACETYLCYSTEINE 20% SOLN 800 MG/4 ML VIAL PO SCH ×2 (08:16→21:33)
[2022-03-15 16:00] VITALS: BP 126/77
[2022-03-15] MEDS: ASPIRIN 81 MG TAB.CHEW PO SCH (17:38)
[2022-03-15] MEDS: CLOZAPINE 25 MG TABLET PO SCH (17:54)
[2022-03-15 20:03] VITALS: BP 125/74
[2022-03-15 20:20] VITALS: BP 125/74
[2022-03-15] MEDS: CLOZAPINE 100 MG TABLET PO SCH (21:54)
[2022-03-15] MEDS: SENNOSIDES 8.6 MG TABLET PO SCH (21:55)
[2022-03-16] MEDS: ENSURE ENLIVE 237 ML LIQUID (VANILLA) PO SCH ×2 (07:57→17:18)
[2022-03-16 08:00] VITALS: BP 108/63
[2022-03-16] MEDS: FINASTERIDE (5 MG) 5 MG TABLET PO SCH (08:48)
[2022-03-16] MEDS: FLUOXETINE HCL 20 MG CAPSULE PO SCH (08:48)
[2022-03-16] MEDS: clonazePAM 0.5 MG TABLET PO SCH ×3 (08:48→16:05)
[2022-03-16] MEDS: DOCUSATE SODIUM 100 MG CAPSULE PO SCH (08:48)
[2022-03-16] MEDS: ATENOLOL 25 MG TABLET PO SCH (08:49)
[2022-03-16] MEDS: ACETYLCYSTEINE 20% SOLN 800 MG/4 ML VIAL PO SCH ×2 (08:51→21:48)
[2022-03-16 16:03] VITALS: BP 131/86
[2022-03-16] MEDS: CLOZAPINE 25 MG TABLET PO SCH ×2 (16:05→21:52)
[2022-03-16] MEDS: ASPIRIN 81 MG TAB.CHEW PO SCH (17:06)
[2022-03-16 20:40] VITALS: BP 98/55
[2022-03-16] MEDS: SENNOSIDES 8.6 MG TABLET PO SCH (21:53)
--- NOTE | 2022-03-16 21:54 | NUR ---
PATIENT REFUSED SENOKOT 17.2 MG TAB FOR TONIGHT. EDUCATED PATIENT REGARDING MEDICATION COMPLIANCE. PATIENT CONTINUED TO REFUSE. PATIENT STATED, "I AM NOT CONSTIPATED".
[2022-03-17 08:00] VITALS: BP 99/55
[2022-03-17] MEDS: clonazePAM 0.5 MG TABLET PO SCH ×3 (08:15→17:49)
[2022-03-17] MEDS: FLUOXETINE HCL 20 MG CAPSULE PO SCH (08:16)
[2022-03-17] MEDS: DOCUSATE SODIUM 100 MG CAPSULE PO SCH (08:17)
[2022-03-17] MEDS: ENSURE ENLIVE 237 ML LIQUID (VANILLA) PO SCH ×2 (08:17→17:50)
[2022-03-17] MEDS: ATENOLOL 25 MG TABLET PO SCH (08:26)
[2022-03-17] MEDS: ACETYLCYSTEINE 20% SOLN 800 MG/4 ML VIAL PO SCH ×2 (08:27→21:09)
[2022-03-17] MEDS: FINASTERIDE (5 MG) 5 MG TABLET PO SCH (08:33)
[2022-03-17 16:00] VITALS: BP 100/57
[2022-03-17] MEDS: ASPIRIN 81 MG TAB.CHEW PO SCH (17:49)
[2022-03-17] MEDS: CLOZAPINE 25 MG TABLET PO SCH ×2 (17:49→22:10)
[2022-03-17] MEDS: LORAZEPAM 0.5 MG TABLET PO PRN (18:45)
--- NOTE | 2022-03-17 18:46 | NUR ---
pt c/o anxiety medicated with ativan 0.5mg will continue to monitor .
[2022-03-17 20:00] VITALS: BP 125/73
[2022-03-17 20:08] VITALS: BP 125/73
[2022-03-17] MEDS: SENNOSIDES 8.6 MG TABLET PO SCH (22:00)
--- NOTE | 2022-03-17 22:15 | NUR ---
RN NOTE: MEDICATION REFUSAL PATIENT REFUSED SENOKOT 17.2 MG SCHEDULED AT 2200 X 3 DESPITE OF RISKS AND BENEFITS EXPLANATIONS. PATIENT STATED," NO LAXATIVES OR STOOL SOFTENERS TONIGHT." MEDICATION WAS OPENED, OFFERED AND WASTED DUE TO PATIENT'S REFUSAL.
[2022-03-18 08:00] VITALS: BP 98/67
[2022-03-18] MEDS: ATENOLOL 25 MG TABLET PO SCH (09:00)
[2022-03-18] MEDS: FLUOXETINE HCL 20 MG CAPSULE PO SCH (09:15)
[2022-03-18] MEDS: clonazePAM 0.5 MG TABLET PO SCH ×3 (09:15→16:53)
[2022-03-18] MEDS: DOCUSATE SODIUM 100 MG CAPSULE PO SCH (09:15)
[2022-03-18] MEDS: FINASTERIDE (5 MG) 5 MG TABLET PO SCH (09:15)
[2022-03-18] MEDS: ENSURE ENLIVE 237 ML LIQUID (VANILLA) PO SCH ×2 (09:16→16:54)
[2022-03-18] MEDS: ACETYLCYSTEINE 20% SOLN 800 MG/4 ML VIAL PO SCH ×2 (09:21→21:32)
[2022-03-18 16:00] VITALS: BP 109/69
[2022-03-18] MEDS: CLOZAPINE 25 MG TABLET PO SCH (16:54)
[2022-03-18] MEDS: ASPIRIN 81 MG TAB.CHEW PO SCH (17:08)
--- NOTE | 2022-03-18 18:29 | NUR ---
RN-NOTES PATIENT IS VISIBLE IN THE UNIT,GUARDED, AMBULATORY STEADY GAIT, PATIENT ABLE TO MAKE NEEDS KNOWN TO THE STAFF. COMPLIANT WITH MEDICATIONS PREFERS TO STAY IN THE ROOM. ALL NEEDS ATTENDED AND ANTICIPATED. WILL CONT. MONITORING FOR SAFETY AND BEHAVIOR. WILL ENDORSE TO INCOMING NURSE FOR CONTINUITY OF CARE.
--- NOTE | 2022-03-18 19:30 | NUR ---
GPS RN NOTE, RECEIVED PATIENT AWAKE AND IN BED, NO S/S OR COMPLAINTS OF PAIN AT THIS TIME. PATIENT IS DISPLAYING NO S/S OF APPARENT DISTRESS AT THIS TIME. PATIENT BREATHING IS UNLABORED WITH EQUAL RISE AND FALL OF THE CHEST. PATIENT IS ALERT AND ORIENTED X 2 ON ROOM AIR WITH A SPO2 96%. PATIENT IS COMPLIANT WITH MEDICATIONS, ANXIOUS, FORGETFUL, RESPONDING TO INTERNAL STIMULI, AND COOPERATIVE. PATIENT DENIES SUICIDAL AND HOMICIDAL IDEATIONS AT THIS TIME. PATIENT ASSISTED WITH TURNING AND REPOSITIONING Q2HR AND PRN FOR COMFORT AND CIRCULATION. PATIENT HAS NO NEEDS AT THIS TIME. PATIENT EDUCATED ON THE USE OF THE CALL BURT. PATIENT BED SIDE RAILS UP X 2 FOR SAFETY. PATIENT BED IS LOCKED, LOW, WITH BED ALARM ON. WILL CONTINUE TO MONITOR THIS PATIENT Q15 MINUTES WITH THE HELP OF STAFF TO MAINTAIN SAFETY.
[2022-03-18 20:00] VITALS: BP 112/67
[2022-03-18] MEDS: SENNOSIDES 8.6 MG TABLET PO SCH (21:32)
[2022-03-18] MEDS: CLOZAPINE 100 MG TABLET PO SCH (21:33)
[2022-03-19 08:00] VITALS: BP 100/63
[2022-03-19] MEDS: clonazePAM 0.5 MG TABLET PO SCH ×3 (08:02→16:47)
[2022-03-19] MEDS: FLUOXETINE HCL 20 MG CAPSULE PO SCH (08:02)
[2022-03-19] MEDS: ENSURE ENLIVE 237 ML LIQUID (VANILLA) PO SCH ×2 (08:02→16:48)
[2022-03-19] MEDS: FINASTERIDE (5 MG) 5 MG TABLET PO SCH (08:03)
[2022-03-19] MEDS: ATENOLOL 25 MG TABLET PO SCH (08:03)
[2022-03-19] MEDS: DOCUSATE SODIUM 100 MG CAPSULE PO SCH ×2 (08:04→08:22)
[2022-03-19] MEDS: ACETYLCYSTEINE 20% SOLN 800 MG/4 ML VIAL PO SCH ×2 (09:45→21:42)
--- NOTE | 2022-03-19 11:55 | NUR ---
RN Notes: Received pt. awake in bed, quiet, responsive to staffs, no distress and no agitation noted. Ate 100% for breakfast, BP med not given for low BP and compliant on the rest of the meds. Pt. isolates in room, disorganized and disheveled. Encouraged to verbalize feelings, motivated to attend group activity and encouraged to take shower. Needs attended and will continue to monitor for safety.
[2022-03-19 16:00] VITALS: BP 90/59
[2022-03-19] MEDS: CLOZAPINE 25 MG TABLET PO SCH (16:48)
[2022-03-19] MEDS: ASPIRIN 81 MG TAB.CHEW PO SCH (17:15)
[2022-03-19 20:37] VITALS: BP 109/67
[2022-03-19] MEDS: CLOZAPINE 100 MG TABLET PO SCH (21:42)
[2022-03-19] MEDS: SENNOSIDES 8.6 MG TABLET PO SCH (21:42)
[2022-03-20 08:00] VITALS: BP 91/57
[2022-03-20] MEDS: FINASTERIDE (5 MG) 5 MG TABLET PO SCH (08:10)
[2022-03-20] MEDS: FLUOXETINE HCL 20 MG CAPSULE PO SCH (08:10)
[2022-03-20] MEDS: ENSURE ENLIVE 237 ML LIQUID (VANILLA) PO SCH ×2 (08:10→17:07)
[2022-03-20] MEDS: clonazePAM 0.5 MG TABLET PO SCH ×3 (08:10→16:25)
[2022-03-20] MEDS: DOCUSATE SODIUM 100 MG CAPSULE PO SCH (08:11)
[2022-03-20] MEDS: ATENOLOL 25 MG TABLET PO SCH (08:11)
[2022-03-20] MEDS: ACETYLCYSTEINE 20% SOLN 800 MG/4 ML VIAL PO SCH ×2 (09:16→21:32)
--- NOTE | 2022-03-20 09:45 | NUR ---
RN Notes: Received pt. awake in bed, quiet, responsive to staffs, no distress and no agitation noted. Ate 100% for breakfast, BP med not given for low BP and refused Colace and compliant on the rest of the meds. Pt. isolates in room, disorganized and disheveled. Pt. refused to take shower. Encouraged to verbalize feelings, motivated to attend group activity and encouraged to take shower. Needs attended and will continue to monitor for safety.
[2022-03-20 16:00] VITALS: BP 101/56
[2022-03-20] MEDS: CLOZAPINE 25 MG TABLET PO SCH (16:25)
[2022-03-20] MEDS: ASPIRIN 81 MG TAB.CHEW PO SCH (17:07)
--- NOTE | 2022-03-20 19:30 | NUR ---
GPS RN NOTE, RECEIVED PATIENT AWAKE AND IN BED, NO S/S OR COMPLAINTS OF PAIN AT THIS TIME. PATIENT IS DISPLAYING NO S/S OF APPARENT DISTRESS AT THIS TIME. PATIENT BREATHING IS UNLABORED WITH EQUAL RISE AND FALL OF THE CHEST. PATIENT IS ALERT AND ORIENTED X 2 ON ROOM AIR WITH A SPO2 99%. PATIENT IS COMPLIANT WITH MEDICATIONS, ANXIOUS, FORGETFUL, RESPONDING TO INTERNAL STIMULI, AND COOPERATIVE. PATIENT DENIES SUICIDAL AND HOMICIDAL IDEATIONS AT THIS TIME. PATIENT ASSISTED WITH TURNING AND REPOSITIONING Q2HR AND PRN FOR COMFORT AND CIRCULATION. PATIENT HAS NO NEEDS AT THIS TIME. PATIENT EDUCATED ON THE USE OF THE CALL BURT. PATIENT BED SIDE RAILS UP X 2 FOR SAFETY. PATIENT BED IS LOCKED, LOW, WITH BED ALARM ON. WILL CONTINUE TO MONITOR THIS PATIENT Q15 MINUTES WITH THE HELP OF STAFF TO MAINTAIN SAFETY.
[2022-03-20 20:45] VITALS: BP 100/67
[2022-03-20] MEDS: CLOZAPINE 100 MG TABLET PO SCH (21:32)
[2022-03-20] MEDS: SENNOSIDES 8.6 MG TABLET PO SCH (21:32)
[2022-03-21 08:00] VITALS: BP 97/65
[2022-03-21] MEDS: ENSURE ENLIVE 237 ML LIQUID (VANILLA) PO SCH ×2 (08:05→17:42)
[2022-03-21] MEDS: FLUOXETINE HCL 20 MG CAPSULE PO SCH (08:29)
[2022-03-21] MEDS: clonazePAM 0.5 MG TABLET PO SCH ×3 (08:29→17:42)
[2022-03-21] MEDS: DOCUSATE SODIUM 100 MG CAPSULE PO SCH ×2 (08:30→08:35)
[2022-03-21] MEDS: FINASTERIDE (5 MG) 5 MG TABLET PO SCH (08:30)
[2022-03-21] MEDS: ACETYLCYSTEINE 20% SOLN 800 MG/4 ML VIAL PO SCH ×2 (08:31→21:56)
[2022-03-21] MEDS: ATENOLOL 25 MG TABLET PO SCH (08:31)
[2022-03-21] MEDS: LORAZEPAM 0.5 MG TABLET PO PRN (10:48)
--- NOTE | 2022-03-21 10:50 | NUR ---
NURSE NOTE: PT ANXIOUS AT THIS TIME. HEARING VOICES. ATIVAN GIVEN ORDERED. PT TOLERATED WELL. WILL CONT TO MONITOR.
--- NOTE | 2022-03-21 11:50 | NUR ---
NURSE NOTE: PT SLEEPING AT THIS TIME. NO SIGNS OF ANXIETY. ATIVAN EFFECTIVE AT THIS TIME. WILL CONT TO MONITOR.
[2022-03-21 16:00] VITALS: BP 112/67
[2022-03-21] MEDS: CLOZAPINE 25 MG TABLET PO SCH (17:42)
[2022-03-21] MEDS: ASPIRIN 81 MG TAB.CHEW PO SCH (18:21)
[2022-03-21 20:50] VITALS: BP 119/65
[2022-03-21] MEDS: CLOZAPINE 100 MG TABLET PO SCH (21:57)
[2022-03-21] MEDS: SENNOSIDES 8.6 MG TABLET PO SCH (21:58)
[2022-03-22 08:00] VITALS: BP 101/52
[2022-03-22] MEDS: FINASTERIDE (5 MG) 5 MG TABLET PO SCH (08:27)
[2022-03-22] MEDS: clonazePAM 0.5 MG TABLET PO SCH ×3 (08:27→18:00)
[2022-03-22] MEDS: ENSURE ENLIVE 237 ML LIQUID (VANILLA) PO SCH ×2 (08:27→17:00)
[2022-03-22] MEDS: DOCUSATE SODIUM 100 MG CAPSULE PO SCH (08:27)
[2022-03-22] MEDS: FLUOXETINE HCL 20 MG CAPSULE PO SCH (08:27)
[2022-03-22] MEDS: ATENOLOL 25 MG TABLET PO SCH (08:30)
--- NOTE | 2022-03-22 08:45 | NUR ---
NURSE NOTE: CALLED PHARMACY TO LET THEM KNOW THAT THERE IS NO MUCOMIST FOR THE PT AT THIS TIME. SHE TOLD ME THAT I COULD GET IT FROM THE [facility] AND WHEN I TRIED I WAS UNABLE TO AND LET HER KNOW. SHE SAID SOMEONE WOULD BE UP WITH THE MED. Addendum: 03/22/22 at 1106 by ROSE OSCAR RN NURSE NOTE: CALLED PHARMACY AGAIN AT 0945 IN REGARDS TO THE MUCOMIST. SHE AGAIN TOLD ME THAT SOMEONE WOULD BRING IT.
[2022-03-22 11:48] LABS: BASOPHILS % (AUTO) 0.4 % (0.0-2.0); EOSINOPHILS % (AUTO) 0.4 % (0.0-6.0); HEMATOCRIT 41 % (39-51); HEMOGLOBIN 13.6 g/dL (13.5-17.5); LYMPHOCYTES # (AUTO) 0.9 K/uL (0.8-4.8); LYMPHOCYTES % (AUTO) 7.9 % (20.0-44.0); MEAN CORPUSCULAR HGB CONC 33 g/dl (31.0-36.0); MEAN CORPUSCULAR VOLUME 91 fL (80-96); MONOCYTES # (AUTO) 0.6 K/uL (0.1-1.30); MONOCYTES % (AUTO) 5.7 % (2.0-12.0); NEUTROPHILS # (AUTO) 9.2 K/uL (1.8-8.9); NEUTROPHILS % (AUTO) 85.6 % (43.0-81.0); PLATELET COUNT (AUTO) 173 K/uL (150-450); RED BLOOD CELL COUNT(AUTO) 4.51 MIL/uL (4.5-6.0); WHITE BLOOD COUNT (AUTO) 10.8 K/uL (4.3-11.0)
[2022-03-22] MEDS: ACETYLCYSTEINE 20% SOLN 800 MG/4 ML VIAL PO SCH ×2 (13:36→21:38)
[2022-03-22 16:00] VITALS: BP 100/67
[2022-03-22] MEDS: ASPIRIN 81 MG TAB.CHEW PO SCH (17:59)
[2022-03-22] MEDS: CLOZAPINE 25 MG TABLET PO SCH (18:00)
[2022-03-22 20:22] VITALS: BP 106/67
[2022-03-22 20:42] VITALS: BP 106/67
[2022-03-22] MEDS: SENNOSIDES 8.6 MG TABLET PO SCH (21:43)
[2022-03-22] MEDS: CLOZAPINE 100 MG TABLET PO SCH (22:01)
[2022-03-23 08:00] VITALS: BP 106/66
[2022-03-23] MEDS: ENSURE ENLIVE 237 ML LIQUID (VANILLA) PO SCH ×2 (08:26→17:05)
[2022-03-23] MEDS: FINASTERIDE (5 MG) 5 MG TABLET PO SCH (09:06)
[2022-03-23] MEDS: DOCUSATE SODIUM 100 MG CAPSULE PO SCH (09:06)
[2022-03-23] MEDS: FLUOXETINE HCL 20 MG CAPSULE PO SCH (09:06)
[2022-03-23] MEDS: ATENOLOL 25 MG TABLET PO SCH (09:07)
[2022-03-23] MEDS: clonazePAM 0.5 MG TABLET PO SCH ×3 (09:08→17:05)
[2022-03-23] MEDS: ACETYLCYSTEINE 20% SOLN 800 MG/4 ML VIAL PO SCH ×2 (09:08→20:45)
[2022-03-23] MEDS: MAGNESIUM HYDROXIDE 30 ML UDC PO PRN (13:53)
[2022-03-23 16:00] VITALS: BP 100/50
[2022-03-23] MEDS: ASPIRIN 81 MG TAB.CHEW PO SCH (17:05)
[2022-03-23] MEDS: CLOZAPINE 25 MG TABLET PO SCH (17:05)
[2022-03-23 20:05] VITALS: BP 106/68
[2022-03-23] MEDS: CLOZAPINE 100 MG TABLET PO SCH (21:30)
[2022-03-23] MEDS: SENNOSIDES 8.6 MG TABLET PO SCH (21:30)
[2022-03-24 08:00] VITALS: BP 108/50
[2022-03-24] MEDS: FINASTERIDE (5 MG) 5 MG TABLET PO SCH (08:24)
[2022-03-24] MEDS: ENSURE ENLIVE 237 ML LIQUID (VANILLA) PO SCH ×2 (08:24→16:42)
[2022-03-24] MEDS: FLUOXETINE HCL 20 MG CAPSULE PO SCH (08:24)
[2022-03-24] MEDS: clonazePAM 0.5 MG TABLET PO SCH ×3 (08:25→16:41)
[2022-03-24] MEDS: DOCUSATE SODIUM 100 MG CAPSULE PO SCH (08:25)
[2022-03-24] MEDS: ATENOLOL 25 MG TABLET PO SCH (08:25)
[2022-03-24] MEDS: ACETYLCYSTEINE 20% SOLN 800 MG/4 ML VIAL PO SCH ×2 (10:02→21:55)
[2022-03-24 16:00] VITALS: BP 104/64
[2022-03-24] MEDS: CLOZAPINE 25 MG TABLET PO SCH (16:41)
[2022-03-24] MEDS: ASPIRIN 81 MG TAB.CHEW PO SCH (17:45)
[2022-03-24 20:00] VITALS: BP 121/70
[2022-03-24] MEDS: CLOZAPINE 100 MG TABLET PO SCH (21:55)
[2022-03-24] MEDS: SENNOSIDES 8.6 MG TABLET PO SCH (21:56)
[2022-03-25 08:00] VITALS: BP 95/54
[2022-03-25] MEDS: ENSURE ENLIVE 237 ML LIQUID (VANILLA) PO SCH (08:07)
--- NOTE | 2022-03-25 08:10 | NUR ---
SW Discharge Note: Patient will be discharged to [facility] [address], [place] [address] ([phone]). Please arrange ambulance transportation at 1PM. Spoke with Linda, Admin Coordinator at the facility who states they are ready to accept the patient today. Patients LPS Conservsidney Rosario ([phone]) is aware and agreeable. Patient is alert and oriented x2, is unable to plan for self-care at this time, however, is willing to accept care at [facility]. Patient denies any suicidal or homicidal ideation. Patient will follow-up at the facility with Dr. Chacon (psychiatrist) [address], [place] [address]; ([phone]) and (Take Down Inspector) Dr. Werner [address] [facility] [address], [place] [address]; ([phone]). Patient presents with euthymic mood and congruent affect.
[2022-03-25] MEDS: clonazePAM 0.5 MG TABLET PO SCH ×2 (08:44→13:19)
[2022-03-25] MEDS: DOCUSATE SODIUM 100 MG CAPSULE PO SCH (08:44)
[2022-03-25] MEDS: FLUOXETINE HCL 20 MG CAPSULE PO SCH (08:44)
[2022-03-25] MEDS: FINASTERIDE (5 MG) 5 MG TABLET PO SCH (08:44)
[2022-03-25 08:45] VITALS: BP 95/54
[2022-03-25] MEDS: ATENOLOL 25 MG TABLET PO SCH (08:45)
[2022-03-25] MEDS: ACETYLCYSTEINE 20% SOLN 800 MG/4 ML VIAL PO SCH (08:46)
--- NOTE | 2022-03-25 09:44 | NUR ---
Dr. Chacon gave and order to D/C pt. to [facility], to continue same meds including prn and to follow up with psych and medical doctors. Pt. without distress, denies suicidal and homicidal.
--- NOTE | 2022-03-25 13:50 | NUR ---
RN-DISCHARGE NOTES PATIENT HAD A DISCHARGE ORDER FROM DR. GONZALES, SKID ADZER MEDICALLY CLEARED PATIENT FOR DISCHARGE. REPORT WAS GIVEN TO THE TRAINING FACILITATOR. PATIENT DID NOT VERBALIZE SI/HI,DENIES VISUAL/AUDITORY HALLUCINATIONS AT THE TIME OF DISCHARGE. ALL BELONGINGS WAS GIVEN BACK TO THE PATIENT. PATIENT REFUSED BODY ASSESSMENT PRIOR TO DISCHARGE.PATIENT LEFT THE UNIT IN STABLE CONDITION A/O X3,NO ACUTE DISTRESS NOTED. FOILING MACHINE ADJUSTER BY AMBULANCE VIA GURNEY WITH TWO STAFF ASSIST.
== END 2022-03-25 14:00 | DRG 885 ==
LOC: ER 18:04 → GPS 03-10 00:44
PROVIDERS: ADMIT Psychiatry & Neurology Psychosomatic Medicine; ATTEND Internal Medicine
DX: F25.9 Schizoaffective disorder, unspecified (principal); F41.9 Anxiety disorder, unspecified; F32.A Depression, unspecified; F60.0 Paranoid personality disorder; Z79.82 Long term (current) use of aspirin; F42.9 Obsessive-compulsive disorder, unspecified; N40.0 Benign prostatic hyperplasia without lower urinary tract symptoms; K21.9 Gastro-esophageal reflux disease without esophagitis; J44.9 Chronic obstructive pulmonary disease, unspecified; Z20.822 Contact with and (suspected) exposure to COVID-19
CPT/HCPCS: 36415; 70450-TC; 80048-TC; 80061-TC; 80076-TC; 81001; 82565-TC; 82962-TC; 85025-TC; 87081-TC; 97110-TC; 97116-TC; 97530-TC; C9803; G0480

== ENCOUNTER 2022-04-19 19:41 | Inpatient (IN) | payer MEDICARE, MEDICAID ==
[~2022-04-19] VITALS: Ht 185.4 cm; Wt 59.0 kg
[~2022-04-19 19:41] MED LIST changes: -BUPR150T5 PO; +FLUO20CA36 PO; +LOPE2CAP40 PO; +MAG30ORA PO; +PALI234D IM
[2022-04-19 20:38] LABS: BASOPHILS % (AUTO) 0.6 % (0.0-2.0); EOSINOPHILS % (AUTO) 0.8 % (0.0-6.0); HEMATOCRIT 37 % (39-51); HEMOGLOBIN 12.1 g/dL (13.5-17.5); LYMPHOCYTES % (AUTO) 14.7 % (20.0-44.0); MEAN CORPUSCULAR HGB CONC 33 g/dl (31.0-36.0); MEAN CORPUSCULAR VOLUME 89 fL (80-96); MONOCYTES # (AUTO) 0.5 K/uL (0.1-1.30); MONOCYTES % (AUTO) 6.8 % (2.0-12.0); NEUTROPHILS # (AUTO) 5.4 K/uL (1.8-8.9); NEUTROPHILS % (AUTO) 77.1 % (43.0-81.0); PLATELET COUNT (AUTO) 164 K/uL (150-450); RED BLOOD CELL COUNT(AUTO) 4.12 MIL/uL (4.5-6.0)
[2022-04-19 20:39] LABS: CARBON DIOXIDE 29 mmol/L (21-32); CHLORIDE 106 mmol/L (98-107); CREATININE 1.3 mg/dL (0.6-1.3); GLUCOSE 92 mg/dL (74-106); SODIUM SERUM 140 mmol/L (136-145); UREA NITROGEN, BLOOD 19 mg/dL (7-18)
[2022-04-19 20:45] LABS: ALANINE AMINOTRANSFERASE 37 U/L (12-78); ALBUMIN 3.6 g/dL (3.4-5.0); ALCOHOL, BLOOD < 3 mg/dL (0-0); ALKALINE PHOSPHATASE 99 U/L (46-116); ASPARTATE AMINOTRANSFERASE 30 U/L (15-37); BILIRUBIN,DIRECT 0.1 mg/dL (0.0-0.2); BILIRUBIN,TOTAL 0.4 mg/dL (0.2-1.0); TOTAL PROTEIN, SERUM 6.5 g/dL (6.4-8.2)
[2022-04-19 20:54] LABS: ACETAMINOPHEN 0 ug/ml (10-30)
--- NOTE | 2022-04-19 21:21 | NUR ---
COVID SWAB COLLECTED
--- NOTE | 2022-04-19 21:53 | NUR ---
URINE SENT TO LAB
[2022-04-19 22:16] LABS: BILIRUBIN,URINE NEGATIVE (NEGATIVE); COLOR,URINE YELLOW (YELLOW); LEUKOCYTE ESTERASE ,URINE NEGATIVE (NEGATIVE); NITRITE, URINE NEGATIVE (NEGATIVE); PROTEIN,URINE NEGATIVE (NEGATIVE); UGLUCOSE NEGATIVE (NEGATIVE); UROBILINOGEN,URINE 0.2 EU/dL (0.2)
--- NOTE | 2022-04-20 00:29 | NUR ---
ROZ - CRISIS TEAM PAGED
--- NOTE | 2022-04-20 07:10 | NUR ---
Received pt from RN PT ASLEEPY for room
--- NOTE | 2022-04-20 07:15 | NUR ---
Receved pt from MILENA FN
--- NOTE | 2022-04-20 08:00 | NUR ---
RESING AND COMFORTABLE AT THIS TIME
[2022-04-20] MEDS ORDERED: CLOZ50TA PO (08:21)
[2022-04-20] MEDS ORDERED: TEMA7.5C12 PO (08:21)
[2022-04-20] MEDS ORDERED: CLOZ25TA4 PO (08:21)
[2022-04-20] MEDS ORDERED: LACT-47 PO (08:21)
--- NOTE | 2022-04-20 10:00 | NUR ---
NO PAIN WATING FOR PMRT FOR EVALUATION
--- NOTE | 2022-04-20 11:00 | NUR ---
PT VODING 350ML CLEAR YELLOIW COLOR
--- NOTE | 2022-04-20 11:11 | NUR ---
VITAL SIGNS WITHIN NORMAL LIMITS.
--- NOTE | 2022-04-20 12:00 | NUR ---
PT ON 5150 FOR A DANGER TO OTHER AND GRAVELY DISABLED 04/20/22 4002
[2022-04-20] MEDS ORDERED: ACETAMINOPHEN 325 MG TABLET PO PRN (12:30)
[2022-04-20] MEDS ORDERED: BISACODYL SUPP (10 MG) 10 MG/SUPP.RECT SUPP.RECT RC PRN (12:30)
[2022-04-20] MEDS ORDERED: NA PHOS,M-B/NA PHOS,DI-BA 1 EA ENEMA RC PRN (12:30)
[2022-04-20] MEDS ORDERED: LACTULOSE 10 G/15 ML UDC (PYXIS) PO PRN (12:30)
--- NOTE | 2022-04-20 12:44 | NUR ---
Darrick ramírez in [facility] - 04/20/22 at 1246 by RADHA Wating for GPS ROOM
--- NOTE | 2022-04-20 12:46 | NUR ---
[place] for [facility] ROOM
[2022-04-20] MEDS ORDERED: ENSURE CLEAR 237 ML LIQUID (MIX BERRY) PO SCH (17:00)
[2022-04-20] MEDS ORDERED: ASPIRIN 81 MG TAB.CHEW PO SCH (18:00)
--- NOTE | 2022-04-20 19:30 | NUR ---
HAND OFF FERNANDO HERRERA
[2022-04-20] MEDS ORDERED: ASPIRIN 81 MG TAB.CHEW ONE (19:59)
--- NOTE | 2022-04-20 20:27 | NUR ---
GPS 212-1
--- NOTE | 2022-04-20 21:02 | NUR ---
REPORT IS GIVEN TO WEI HERRERA
[2022-04-20] MEDS ORDERED: SENNOSIDES 8.6 MG TABLET PO SCH (22:00)
[2022-04-20] MEDS ORDERED: methylPREDNISolone SOD SUCC 125 MG/2ML VIAL ONE (22:49)
[2022-04-20] MEDS ORDERED: methylPREDNISolone SOD SUCC 125 MG/2ML VIAL IV ONE (23:00)
[2022-04-20] MEDS ORDERED: IPRATROPIUM NEB FS 0.5 MG/2.5 ML AMPUL.NEB NEB PRN (23:00)
[2022-04-20] MEDS ORDERED: ALBUTEROL FS 2.5 MG/0.5 ML VIAL.NEB NEB PRN (23:00)
[2022-04-21] MEDS ORDERED: IPRATROPIUM NEB FS 0.5 MG/2.5 ML AMPUL.NEB ONE (00:21)
[2022-04-21] MEDS ORDERED: ALBUTEROL FS 2.5 MG/0.5 ML VIAL.NEB ONE (00:21)
[2022-04-21 03:45] VITALS: BP 111/56
[2022-04-21] MEDS ORDERED: BLOOD SUGAR DIAGNOSTIC 1 EACH STRIP IN ONE (04:00)
[2022-04-21] MEDS ORDERED: ACETAMINOPHEN 325 MG TABLET PO PRN (04:00)
[2022-04-21] MEDS ORDERED: LORAZEPAM 0.5 MG TABLET PO PRN (04:00)
[2022-04-21] MEDS ORDERED: MAGNESIUM HYDROXIDE 30 ML UDC PO PRN (04:00)
[2022-04-21] MEDS ORDERED: MAG HYDROX/AL HYDROX/SIMETH 30 ML UDC PO PRN (04:00)
[2022-04-21] MEDS ORDERED: TEMAZEPAM 7.5 MG CAPSULE PO PRN (04:00)
--- NOTE | 2022-04-21 04:14 | NUR ---
PT WAS TRANASFERRED TO [facility] FLOOR IN STABLE CONDITION
--- NOTE | 2022-04-21 04:25 | NUR ---
neon glass blower Note: 04/20/22@21:00:Patient was brought here for admission but upon arrival ,noted SOB,appears to be congested with O2 sat 88-89%.ER was informed and spoke to JAVIER Whitfield and told me to send back the patient .Psych MD was informed. 00:35 Patient arrived on the unit calm,quiet , no s/s of SOB. 00:40 Admitted this 67 year old male who was placed on 5150 hold for GD and DTO. 04:26: Patient was congested with SOB and O2 sat is 89-90%.RT was called to give breathing treatment. 04:35: RT at patient side giving breathing treatment.O2 sat is from 80%- 85%-89%. Pt unable to cough up. Pt was suctioned by RT with whitish in color, thin consistency in moderate amount. 04:56: Dr. Abreu notified of patient's change of condition due to desaturation. On non-rebreather mask @15LPM with O2 saturation @90%. 05:07: Dr. Abreu called back with new order to transfer patient to [facility] and continue all medications except benzodiazepines. garbage collector supervisor notified and patient will be in room 103. 0535: Dr. Chacon notified of patient's transfer to [facility]. 0537: Patient left in the unit accompanied by staff. Pt on oxygen at 6LPM with O2 saturation @92%. Report given to JAVIER Francisco.
[2022-04-21] MEDS ORDERED: IPRATROPIUM NEB FS 0.5 MG/2.5 ML AMPUL.NEB NEB PRN (04:30)
[2022-04-21] MEDS ORDERED: ALBUTEROL FS 2.5 MG/0.5 ML VIAL.NEB NEB PRN (04:30)
--- NOTE | 2022-04-21 06:06 | NUR ---
RN Note: 06:00 : Left voicemail message to Marlene Mcgee at [phone]. 0605:Unable to get a hold of maulik Lutz full. .
--- NOTE | 2022-04-21 06:09 | NUR ---
RN note: 5150 hold package was handed to [facility] BILLY RN
--- NOTE | 2022-04-21 06:31 | NUR ---
RN Note: Received order from DR Chacon to continue 5150 hold. [facility] Francisco RN made aware.
[2022-04-21] MEDS ORDERED: PANTOPRAZOLE 40 MG TABLET.DR PO SCH (07:30)
[2022-04-21] MEDS ORDERED: IPRA3AMP23 IH (08:02)
[2022-04-21] MEDS ORDERED: MULTIVIT W/MINERALS 1 TAB TABLET PO SCH (09:00)
[2022-04-21] MEDS ORDERED: ATENOLOL 25 MG TABLET PO SCH (09:00)
[2022-04-21] MEDS ORDERED: FINASTERIDE (5 MG) 5 MG TABLET PO SCH (09:00)
[2022-04-21] MEDS ORDERED: DOCUSATE SODIUM 100 MG CAPSULE PO SCH (09:00)
[2022-04-26] MEDS ORDERED: PANT40TA2 PO (18:24)
[2022-04-26] MEDS ORDERED: DOXY-326 PO (18:24)
[2022-04-26] MEDS ORDERED: ALBU1.25 NEB (18:24)
[2022-04-26] MEDS ORDERED: ACET200V4 NEB (18:24)
[2022-04-26] MEDS ORDERED: DEXA4TAB PO (18:24)
[2022-04-26] MEDS ORDERED: CEFU500T66 PO (18:24)
== END 2022-04-21 05:47 | DRG 885 ==
LOC: ER 19:43 → GPS 04-20 08:06 → TRANSITION 04-20 12:13 → GPS 04-20 20:37
PROVIDERS: ADMIT Psychiatry & Neurology Psychosomatic Medicine
DX: F25.9 Schizoaffective disorder, unspecified (principal); F03.92 Unspecified dementia, unspecified severity, with psychotic disturbance; F03.93 Unspecified dementia, unspecified severity, with mood disturbance; G93.49 Other encephalopathy; F29 Unspecified psychosis not due to a substance or known physiological condition; Z20.822 Contact with and (suspected) exposure to COVID-19; I10 Essential (primary) hypertension; J44.9 Chronic obstructive pulmonary disease, unspecified; K21.9 Gastro-esophageal reflux disease without esophagitis; N40.0 Benign prostatic hyperplasia without lower urinary tract symptoms; Z79.899 Other long term (current) drug therapy; Z79.82 Long term (current) use of aspirin; R53.1 Weakness; Z85.819 Personal history of malignant neoplasm of unspecified site of lip, oral cavity, and pharynx
CPT/HCPCS: 36415; 71045-TC; 80048-TC; 80076-TC; 82962-TC; 85025-TC; 87081-TC; C9803; G0480; J2930

== ENCOUNTER 2022-04-21 05:58 | Inpatient (IN) | payer MEDICARE, MEDICAID ==
[~2022-04-21] VITALS: Ht 180.3 cm; Wt 57.2 kg
[~2022-04-21 05:58] MED LIST changes: -CLOZ100T PO; +CLOZ25TA4 PO; +CLOZ50TA PO; +LACT-47 PO; +TEMA7.5C12 PO
--- NOTE | 2022-04-21 06:15 | NUR ---
ADMISSION NOTES, RECEIVED 67 YO MALE ADMITTED FROM [facility] FOR DESAT[facility]ATION, PATIENT A/O TO SELF, PATIENT 5LPM VIA NC WITH 93% O2, PATIENT VERY CONGESTED, UNDER MEDICAL SERVICES OF ANKUSH DAVIS NP, WITH ADMITTING DX ACUTE RESPIRATORY FAILURE, PATIENT IS WITH ACTIVE 5150 HOLD FROM PSYCH UNIT FOR GRAVELY DISABLED, AND DANGER TO OTHERS, PATIENT WITH LOW TEMP, COVER WITH WARM BLANKETS, PATIENT NOTED WITH REDNESS SIN SACRAL AREA VERY BONY, WILL TAKE PICTURE, AWAITING FOR DR ORDERS, PATIENT WILL HAVE SITTER , BED LOCKED AND IN LOWEST POSITION, CALL LIGHT W/I REACH, WILL ENDORSE CONTINUITY OF TO ONCOMING NURSE.
[2022-04-21 06:30] VITALS: BP 101/69
[2022-04-21] MEDS ORDERED: ACETAMINOPHEN 325 MG TABLET PO PRN ×2 (06:30→10:30)
[2022-04-21] MEDS ORDERED: ONDANSETRON HCL/PF 4 MG/2 ML VIAL IVP PRN (06:30)
[2022-04-21] MEDS ORDERED: Z GUARD REMEDY 4 OZ OINT TP PRN (06:30)
[2022-04-21 07:14] LABS: BASOPHILS % (AUTO) 0.1 % (0.0-2.0); HEMATOCRIT 40 % (39-51); HEMOGLOBIN 13.7 g/dL (13.5-17.5); LYMPHOCYTES # (AUTO) 0.1 K/uL (0.8-4.8); LYMPHOCYTES % (AUTO) 1.3 % (20.0-44.0); MEAN CORPUSCULAR HGB CONC 34 g/dl (31.0-36.0); MEAN CORPUSCULAR VOLUME 89 fL (80-96); MONOCYTES # (AUTO) 0.2 K/uL (0.1-1.30); MONOCYTES % (AUTO) 1.7 % (2.0-12.0); NEUTROPHILS # (AUTO) 10.5 K/uL (1.8-8.9); NEUTROPHILS % (AUTO) 96.9 % (43.0-81.0); PLATELET COUNT (AUTO) 144 K/uL (150-450); RED BLOOD CELL COUNT(AUTO) 4.53 MIL/uL (4.5-6.0); WHITE BLOOD COUNT (AUTO) 10.9 K/uL (4.3-11.0)
--- NOTE | 2022-04-21 07:20 | NUR ---
[facility] RN OPENING NOTES: RECEIVED PATIENT IN BED AWAKE, A&O X2, CALM, COOPERATIVE. ON OXYGEN 6 LITER VIA NASAL CANULA WITH O2SAT 95%; NO S/S OF RESP DISTRESS, NO COUGH, NON-LABORED AND EQUAL BREATHING. ATTACHED TO EXTERNAL MONITOR, SR WITH HR 79. IV ACCESS ON RFA 20G, INTACT AND PATENT, FLUSHES EASILY WITH NO RESISTANCE; NO MEDS/FLUIDS INFUSING THROUGH IT. BED IN LOWEST POSITION, CALL LIGHT WITHIN REACH, SIDE RAILS UP X3. WILL MONITOR
[2022-04-21] MEDS ORDERED: VANCOMYCIN 1 GM in IV D5W 250ml IV ONE (07:30)
[2022-04-21] MEDS: IPRATROPIUM NEB FS 0.5 MG/2.5 ML AMPUL.NEB NEB SCH ×3 (07:35→20:25)
[2022-04-21] MEDS ORDERED: ALBUTEROL FS 2.5 MG/0.5 ML VIAL.NEB NEB SCH ×2 (07:40→13:30)
[2022-04-21 07:42] LABS: ALBUMIN 3.9 g/dL (3.4-5.0); BILIRUBIN,TOTAL 0.6 mg/dL (0.2-1.0); CALCIUM, SERUM 9.3 mg/dL (8.5-10.1); CREATININE 1.1 mg/dL (0.6-1.3); MAGNESIUM 1.9 mg/dL (1.8-2.4); PHOSPHORUS 2.5 mg/dL (2.5-4.9); POTASSIUM 3.9 mmol/L (3.5-5.1); TOTAL PROTEIN, SERUM 7.2 g/dL (6.4-8.2)
[2022-04-21 07:43] LABS: THYROID STIMULATING HORMONE 2.497 uIU/mL (0.358-3.74)
[2022-04-21 08:00] VITALS: BP 123/74
[2022-04-21] MEDS ORDERED: CEFEPIME 1 GM in IV D5W 50 ML IV SCH (08:00)
[2022-04-21] MEDS ORDERED: IPRA3AMP23 IH (08:02)
[2022-04-21] MEDS: ENOXAPARIN SODIUM 40 MG/0.4 ML DISP.SYRIN SQ SCH (08:20)
[2022-04-21] MEDS: methylPREDNISolone SOD SUCC 125 MG/2ML VIAL IV SCH ×3 (08:21→20:28)
[2022-04-21] MEDS ORDERED: PANTOPRAZOLE 40 MG VIAL IV SCH (09:00)
[2022-04-21] MEDS ORDERED: NA PHOS,M-B/NA PHOS,DI-BA 1 EA ENEMA RC PRN (10:30)
[2022-04-21] MEDS ORDERED: Medication Not On Formulary EA (Ipratropium/Albuterol Sulfate (Duoneb 2.5-0.5 Mg/3 Ml So IH PRN (10:30)
[2022-04-21] MEDS ORDERED: BISACODYL SUPP (10 MG) 10 MG/SUPP.RECT SUPP.RECT RC PRN (10:30)
[2022-04-21] MEDS: DOCUSATE SODIUM 100 MG CAPSULE PO SCH (10:47)
[2022-04-21] MEDS: FINASTERIDE (5 MG) 5 MG TABLET PO SCH (10:47)
[2022-04-21] MEDS: ATENOLOL 25 MG TABLET PO SCH (10:48)
[2022-04-21] MEDS ORDERED: LACTULOSE 10 G/15 ML UDC (PYXIS) PO PRN (11:00)
[2022-04-21] MEDS ORDERED: IPRATROPIUM NEB FS 0.5 MG/2.5 ML AMPUL.NEB NEB PRN (11:00)
--- NOTE | 2022-04-21 11:01 | NUR ---
PT. IS AWAKE AND ALERT REFUSE NASAL SUCTIONING. RN NOTIFIED Addendum: 04/21/22 at 1102 by SILAS FERRIS RT Amended: Links added.
[2022-04-21] MEDS: MULTIVIT W/MINERALS 1 TAB TABLET PO SCH (11:43)
[2022-04-21 12:00] VITALS: BP 109/71
[2022-04-21] MEDS ORDERED: ALBUTEROL FS 2.5 MG/3 ML VIAL.NEB NEB PRN (13:30)
[2022-04-21] MEDS: ALBUTEROL HALF STRENGTH 1.25 MG/3 ML VIAL.NEB NEB SCH ×2 (13:35→20:25)
[2022-04-21] MEDS: ACETYLCYSTEINE 20% SOLN 800 MG/4 ML VIAL NEB SCH ×2 (13:35→15:30)
--- NOTE | 2022-04-21 15:44 | NUR ---
MUCOMYST GIVEN @ 1347 Addendum: 04/21/22 at 1545 by SILAS FERRIS RT Amended: Links added.
[2022-04-21 16:00] VITALS: BP 111/82
[2022-04-21] MEDS: ASPIRIN 81 MG TAB.CHEW PO SCH (17:12)
[2022-04-21] MEDS: ENSURE CLEAR 237 ML LIQUID (MIX BERRY) PO SCH (17:12)
--- NOTE | 2022-04-21 19:45 | NUR ---
RN NOTES: PT CONTINUE WITH KASH HAD COUPLE OF EPISODE LOOKING FOR GUN, HEAR VOICES AT TIMES, SEEN BY DR GONZALES WITH ORDERS , STILL CONGESTED RECEIVED BREATHING TREATMENT ORDERED, PER RT HE REFUSED RT TO SUCTION HIM, O2 SAT ABOVE 92%,ENDORSED TO [facility] RN TO CONTINUE TO MONITOR
--- NOTE | 2022-04-21 19:45 | NUR ---
RECEIVED PATIENT FROM PRIOR NURSE, PATIENT VERY CONGESTED, ON 3LPM VIA NC WITH O2 SAT LEVEL 93-94%, NO SOB/ACUTE DISTRESS NOTED, AWAKE A/O TO SELF, SITTER 1:1 AT BEDSIDE, NO DISRUPTIVE BEHAVIOR NOTED, CALLED RT TO ADMINISTER BREATHING TREATMENT, WILL CONTINUE TO MONITOR CLOSELY.
[2022-04-21 20:00] VITALS: BP 100/58
[2022-04-21] MEDS: CEFEPIME 2 GM in IV D5W 100 ML IV SCH (20:28)
[2022-04-21] MEDS: VANCOMYCIN 0.75 GM in IV D5W 250 ML IV SCH (21:08)
[2022-04-21] MEDS: CLOZAPINE 25 MG TABLET PO SCH (21:13)
[2022-04-21] MEDS: SENNOSIDES 8.6 MG TABLET PO SCH (21:15)
[2022-04-22] VITALS: BP 96/58
[2022-04-22] MEDS: ALBUTEROL HALF STRENGTH 1.25 MG/3 ML VIAL.NEB NEB SCH ×4 (02:46→20:10)
[2022-04-22] MEDS: ACETYLCYSTEINE 20% SOLN 800 MG/4 ML VIAL NEB SCH ×4 (02:47→23:58)
[2022-04-22] MEDS: IPRATROPIUM NEB FS 0.5 MG/2.5 ML AMPUL.NEB NEB SCH ×4 (02:47→20:10)
[2022-04-22 04:00] VITALS: BP 102/68
[2022-04-22] MEDS: methylPREDNISolone SOD SUCC 125 MG/2ML VIAL IV SCH ×3 (06:05→21:01)
[2022-04-22 06:39] LABS: HEMATOCRIT 36 % (39-51); HEMOGLOBIN 12.3 g/dL (13.5-17.5); LYMPHOCYTES # (AUTO) 0.4 K/uL (0.8-4.8); LYMPHOCYTES % (AUTO) 3.8 % (20.0-44.0); MEAN CORPUSCULAR HGB CONC 34 g/dl (31.0-36.0); MEAN CORPUSCULAR VOLUME 89 fL (80-96); MONOCYTES # (AUTO) 0.4 K/uL (0.1-1.30); MONOCYTES % (AUTO) 3.5 % (2.0-12.0); NEUTROPHILS # (AUTO) 10.6 K/uL (1.8-8.9); NEUTROPHILS % (AUTO) 92.7 % (43.0-81.0); RED BLOOD CELL COUNT(AUTO) 4.07 MIL/uL (4.5-6.0); WHITE BLOOD COUNT (AUTO) 11.5 K/uL (4.3-11.0)
--- NOTE | 2022-04-22 06:53 | NUR ---
END OF SHIFT, PATIENT IN BED, SLEEPING AROUSES TO TACTILE STIMULI, AT 3LPM VIA NC WITH O2 >94%, NO SOB/ACUTE DISTRESS NOTED, NSR IN TELE MONITOR, SUCTION AND BREATHING TX PROVIDED BY RT, CONT ON ATB, , DRY AND CLEAN, NO DISRUPTIVE BEHAVIOR NOTED DURING THE NIGHT, OTHERWISE NO SIGNIFICANT CHANGE IN CONDITION DURING THE NIGHT, WILL ENDORSE CONTINUITY OF CARE TO ONCOMING NURSE.
[2022-04-22 07:02] LABS: CALCIUM, SERUM 9.3 mg/dL (8.5-10.1); MAGNESIUM 2.1 mg/dL (1.8-2.4); PHOSPHORUS 3.3 mg/dL (2.5-4.9); POTASSIUM 4.4 mmol/L (3.5-5.1)
--- NOTE | 2022-04-22 07:30 | NUR ---
TD RN AM NOTES RECEIVED PATIENT IN BED AWAKE, A&O X2, CALM, COOPERATIVE. ON OXYGEN 3 LITER VIA NASAL CANULA WITH O2SAT> 95%; NO S/S OF RESP DISTRESS, NO COUGH, NON-LABORED AND EQUAL BREATHING. COURSE LUNG SOUNDS ON AUSCULTATION. SR ON MONITOR.. DENIES PAIN OR CHEST DISCOMFORT. IV ACCESS ON RFA 20G, INTACT AND PATENT, FLUSHES EASILY SITE CLEAR. SOFT DIET. SITTER AT BEDSIDE. ON 5150 [EXP 04/23/22]. BED IN LOWEST POSITION, CALL LIGHT WITHIN REACH, SIDE RAILS UP X3. WILL MONITOR
[2022-04-22 07:32] LABS: PLATELET COUNT (AUTO) 47 K/uL (150-450)
[2022-04-22] MEDS: PANTOPRAZOLE 40 MG TABLET.DR PO SCH (07:49)
[2022-04-22 08:00] VITALS: BP 104/67
[2022-04-22] MEDS: VANCOMYCIN 0.75 GM in IV D5W 250 ML IV SCH ×2 (08:08→22:09)
[2022-04-22] MEDS: DOCUSATE SODIUM 100 MG CAPSULE PO SCH (08:09)
[2022-04-22] MEDS: FINASTERIDE (5 MG) 5 MG TABLET PO SCH (08:09)
[2022-04-22] MEDS: MULTIVIT W/MINERALS 1 TAB TABLET PO SCH (08:09)
[2022-04-22] MEDS: ATENOLOL 25 MG TABLET PO SCH (08:09)
[2022-04-22] MEDS: FLUOXETINE HCL 20 MG CAPSULE PO SCH (08:10)
[2022-04-22] MEDS: ENSURE CLEAR 237 ML LIQUID (MIX BERRY) PO SCH ×2 (08:11→17:44)
[2022-04-22] MEDS: CEFEPIME 2 GM in IV D5W 100 ML IV SCH ×2 (08:21→20:58)
[2022-04-22] MEDS: CLOZAPINE 25 MG TABLET PO SCH ×3 (08:33→21:36)
[2022-04-22] MEDS: ENOXAPARIN SODIUM 40 MG/0.4 ML DISP.SYRIN SQ SCH (09:00)
--- NOTE | 2022-04-22 09:00 | NUR ---
RN NOTES LOVENOX NOT ADMINISTERED LOW PLATELET COUNT
[2022-04-22 09:24] LABS: HEMATOCRIT 39 % (39-51); HEMOGLOBIN 13.1 g/dL (13.5-17.5); LYMPHOCYTES # (AUTO) 0.4 K/uL (0.8-4.8); LYMPHOCYTES % (AUTO) 3.2 % (20.0-44.0); MEAN CORPUSCULAR HGB CONC 34 g/dl (31.0-36.0); MEAN CORPUSCULAR VOLUME 88 fL (80-96); MONOCYTES # (AUTO) 0.3 K/uL (0.1-1.30); MONOCYTES % (AUTO) 2.4 % (2.0-12.0); NEUTROPHILS # (AUTO) 11.2 K/uL (1.8-8.9); NEUTROPHILS % (AUTO) 94.4 % (43.0-81.0); PLATELET COUNT (AUTO) 53 K/uL (150-450); RED BLOOD CELL COUNT(AUTO) 4.42 MIL/uL (4.5-6.0); WHITE BLOOD COUNT (AUTO) 11.8 K/uL (4.3-11.0)
--- NOTE | 2022-04-22 09:30 | NUR ---
RN NOTES DUE MEDS GIVEN
[2022-04-22 12:00] VITALS: BP 102/58
[2022-04-22 16:00] VITALS: BP 99/61
[2022-04-22] MEDS: ASPIRIN 81 MG TAB.CHEW PO SCH (17:44)
--- NOTE | 2022-04-22 18:57 | NUR ---
TD RN CLOSING. NOTES PT RESTING IN BED, AWAKE, A&O X2, CALM, COOPERATIVE. ON OXYGEN 3 LITER VIA NASAL CANULA WITH O2SAT> 95%; NO S/S OF RESP DISTRESS, NO COUGH, NON-LABORED AND EQUAL BREATHING. COURSE LUNG SOUNDS ON AUSCULTATION. SR ON MONITOR.. DENIES PAIN OR CHEST DISCOMFORT. IV ACCESS ON RFA 20G, INTACT AND PATENT, FLUSHES EASILY SITE CLEAR. SOFT DIET. SITTER AT BEDSIDE. ON 5150 [EXP 04/23/22]. BED IN LOWEST POSITION, CALL LIGHT WITHIN REACH, SIDE RAILS UP X3. ALL NEEDS MET AT THIS TIME. NO OTHER SIGNIFICANT CHANGE IN CONDITION. WILL ENDORSE TO NEXT SHIFT FOR GUNNAR.
[2022-04-22 20:00] VITALS: BP 97/65
--- NOTE | 2022-04-22 20:00 | NUR ---
TD RN NOTES RECEIVED PATIENT IN BED AWAKE, A&O X2, CALM, COOPERATIVE. V/S STABLE AFEBRILE .PTS IS 5150 ON 1:1 SITTER .SR ON THE MONITOR ,PTS ON OXYGEN 3 LITER VIA NASAL CANULA WITH O2SAT> 95%; NO S/S OF RESP DISTRESS, NO SOB NOTED .BREATHING EVEN NON-LABORED ,DUE MEDS GIVEN ORDERED . DENIES PAIN OR CHEST DISCOMFORT. IV ACCESS ON STEFFI 20G, INTACT AND PATENT, FLUSHES EASILY SITE CLEAR. SOFT DIET. BED IN LOWEST POSITION, CALL LIGHT WITHIN REACH, SIDE RAILS UP X3. WILL CONTINUE TO MONITOR
[2022-04-22] MEDS: SENNOSIDES 8.6 MG TABLET PO SCH (21:36)
--- NOTE | 2022-04-22 23:01 | NUR ---
RN NOTES Spoke to Corin from [facility]; no bed available tonight however, wanted to follow up on ttransfer agreement form that was faxed to MARIALU[facility]; also need d/c summary. Endorsed to primary RN to endorse to AM RN to follow up Addendum: 04/23/22 at 0048 by ROMÁN WOODS RN ERROR IN CHARTING; WRONG PATIENT
[2022-04-23] VITALS: BP 101/62
[2022-04-23] MEDS: ALBUTEROL HALF STRENGTH 1.25 MG/3 ML VIAL.NEB NEB SCH ×4 (00:57→20:40)
[2022-04-23] MEDS: IPRATROPIUM NEB FS 0.5 MG/2.5 ML AMPUL.NEB NEB SCH ×4 (00:57→20:40)
[2022-04-23 03:42] LABS: LYMPHOCYTES % (MANUAL) 5 % (16-48); MONOCYTES % (MANUAL) 2 % (0-11.0); NEUTROPHILS % (MANUAL) 93 (42-76)
[2022-04-23 04:00] VITALS: BP 99/50
[2022-04-23] MEDS: methylPREDNISolone SOD SUCC 125 MG/2ML VIAL IV SCH ×3 (06:02→16:46)
--- NOTE | 2022-04-23 06:42 | NUR ---
TD CLOSING RN NOTES PATIENT REMAIN IN BED AWAKE, A&O X2, CALM, COOPERATIVE. V/S STABLE AFEBRILE .PTS IS 5150 ON 1:1 SITTER .SR ON THE MONITOR ,PTS ON OXYGEN 3 LITER VIA NASAL CANULA WITH O2SAT> 97%; NO S/S OF RESP DISTRESS, NO SOB NOTED .BREATHING EVEN NON-LABORED ,LUNG SOUND DIMINISHED , PTS QUIET AND CALM AT THIS TIME , WILL ENDORSE TO RN DAY SHIFT FOR CONTINUITY OF CARE
[2022-04-23 07:16] LABS: CALCIUM, SERUM 9.1 mg/dL (8.5-10.1); CREATININE 0.9 mg/dL (0.6-1.3); POTASSIUM 4.3 mmol/L (3.5-5.1)
[2022-04-23] MEDS: CEFEPIME 2 GM in IV D5W 100 ML IV SCH ×2 (07:54→20:00)
[2022-04-23] MEDS: PANTOPRAZOLE 40 MG TABLET.DR PO SCH (07:54)
[2022-04-23 08:00] VITALS: BP 102/59
[2022-04-23] MEDS: ACETYLCYSTEINE 20% SOLN 800 MG/4 ML VIAL NEB SCH ×3 (08:04→23:40)
[2022-04-23 08:15] LABS: HEMATOCRIT 35 % (39-51); HEMOGLOBIN 11.9 g/dL (13.5-17.5); LYMPHOCYTES # (AUTO) 0.4 K/uL (0.8-4.8); LYMPHOCYTES % (AUTO) 2.9 % (20.0-44.0); MEAN CORPUSCULAR HGB CONC 34 g/dl (31.0-36.0); MEAN CORPUSCULAR VOLUME 89 fL (80-96); MONOCYTES # (AUTO) 0.8 K/uL (0.1-1.30); MONOCYTES % (AUTO) 5.6 % (2.0-12.0); NEUTROPHILS # (AUTO) 12.3 K/uL (1.8-8.9); NEUTROPHILS % (AUTO) 91.5 % (43.0-81.0); RED BLOOD CELL COUNT(AUTO) 3.98 MIL/uL (4.5-6.0); WHITE BLOOD COUNT (AUTO) 13.4 K/uL (4.3-11.0)
[2022-04-23 08:31] LABS: PLATELET COUNT (AUTO) 42 K/uL (150-450)
[2022-04-23] MEDS: DOCUSATE SODIUM 100 MG CAPSULE PO SCH (08:34)
[2022-04-23] MEDS: FLUOXETINE HCL 20 MG CAPSULE PO SCH (08:34)
[2022-04-23] MEDS: ATENOLOL 25 MG TABLET PO SCH (08:35)
[2022-04-23] MEDS: FINASTERIDE (5 MG) 5 MG TABLET PO SCH (08:35)
[2022-04-23] MEDS: ENSURE CLEAR 237 ML LIQUID (MIX BERRY) PO SCH ×2 (08:36→16:46)
[2022-04-23] MEDS: CLOZAPINE 25 MG TABLET PO SCH ×4 (08:36→21:54)
[2022-04-23] MEDS: MULTIVIT W/MINERALS 1 TAB TABLET PO SCH (08:37)
[2022-04-23] MEDS: ENOXAPARIN SODIUM 40 MG/0.4 ML DISP.SYRIN SQ SCH (09:00)
--- NOTE | 2022-04-23 09:00 | NUR ---
RN NOTE ENOXAPARIN HELD DUE TO LOW PLT 42. CHARGE NURSE BRANDON NOTIFIED AND SHE SAID WILL INFORM THE DOCTOR, IF HE SAYS OK WE WILL ADMINISTER THE MEDICATION.
[2022-04-23] MEDS: VANCOMYCIN 0.75 GM in IV D5W 250 ML IV SCH ×2 (09:09→21:54)
[2022-04-23 12:00] VITALS: BP 96/52
[2022-04-23 12:06] LABS: BAND % (MANUAL) 8 % (0.0-5.0); LYMPHOCYTES % (MANUAL) 1 % (16-48); MONOCYTES % (MANUAL) 5 % (0-11.0); NEUTROPHILS % (MANUAL) 86 (42-76)
[2022-04-23 16:00] VITALS: BP 102/67
[2022-04-23] MEDS: ASPIRIN 81 MG TAB.CHEW PO SCH (16:45)
--- NOTE | 2022-04-23 19:00 | NUR ---
RN CLOSING NOTES PATIENT REMAIN IN BED AWAKE, A&O X2-3, CALM, COOPERATIVE. V/S STABLE AFEBRILE .PTS IS 5150 ON 1:1 SITTER .SR ON THE MONITOR ,PTS ON OXYGEN 3 LITER VIA NASAL CANULA WITH O2SAT> 97%; NO S/S OF RESP DISTRESS, NO SOB NOTED .ALL DUE MEDS GIVEN, BREATHING EVEN NON-LABORED, PTS QUIET AND CALM AT THIS TIME , WILL ENDORSE TO THE BAR HOST/HOSTESS NURSE FOR GUNNAR.
[2022-04-23 20:00] VITALS: BP 103/67
[2022-04-23] MEDS: SENNOSIDES 8.6 MG TABLET PO SCH (21:54)
[2022-04-24] VITALS: BP 102/60
[2022-04-24] MEDS: IPRATROPIUM NEB FS 0.5 MG/2.5 ML AMPUL.NEB NEB SCH ×4 (01:04→19:57)
[2022-04-24] MEDS: ALBUTEROL HALF STRENGTH 1.25 MG/3 ML VIAL.NEB NEB SCH ×4 (01:04→19:57)
[2022-04-24 04:00] VITALS: BP 121/70
[2022-04-24] MEDS: PANTOPRAZOLE 40 MG TABLET.DR PO SCH (06:32)
--- NOTE | 2022-04-24 07:27 | NUR ---
FRAME STRIPPER AND CRUSHER OPENING NOTE RECEIVED PT AWAKE AND RESTING IN BED. PT IS A/O X2, REORIENTED PT NEEDED. ON O2 AT 2L/MIN VIA NASAL CANNULA, TOLERATING WELL. NO SOB NOTED. NOT IN ANY SIGN OF RESPIRATORY DISTRESS. PT ON TELE RESPITE WORKER WITH CURRENT READING OF SINUS RHYTHM, HR 70. NO C/O CARDIAC DISTRESS VOICED OUT AT THIS TIME. IV ACCESS IN STEFFI G #20, INTACT AND PATENT. SAFETY MEASURES IN PLACE: BED IN LOWEST AND LOCKED POSITION, BED ALARM ON, SIDE RAILS UPX2, AND CALL LIGHT WITHIN REACH. WILL CONTINUE TO MONITOR PT.
[2022-04-24 07:34] LABS: CALCIUM, SERUM 8.8 mg/dL (8.5-10.1); CREATININE 0.8 mg/dL (0.6-1.3); POTASSIUM 4.1 mmol/L (3.5-5.1)
[2022-04-24 08:00] VITALS: BP 109/59
[2022-04-24] MEDS: ACETYLCYSTEINE 20% SOLN 800 MG/4 ML VIAL NEB SCH ×3 (08:06→23:33)
[2022-04-24] MEDS: CEFEPIME 2 GM in IV D5W 100 ML IV SCH ×2 (08:30→20:10)
[2022-04-24] MEDS: FLUOXETINE HCL 20 MG CAPSULE PO SCH (08:30)
[2022-04-24] MEDS: MULTIVIT W/MINERALS 1 TAB TABLET PO SCH (08:30)
[2022-04-24] MEDS: FINASTERIDE (5 MG) 5 MG TABLET PO SCH (08:30)
[2022-04-24] MEDS: ATENOLOL 25 MG TABLET PO SCH (08:31)
[2022-04-24] MEDS: methylPREDNISolone SOD SUCC 125 MG/2ML VIAL IV SCH (08:31)
[2022-04-24] MEDS: DOCUSATE SODIUM 100 MG CAPSULE PO SCH (08:31)
[2022-04-24] MEDS: CLOZAPINE 25 MG TABLET PO SCH ×4 (08:31→22:09)
[2022-04-24] MEDS: ENSURE CLEAR 237 ML LIQUID (MIX BERRY) PO SCH ×2 (08:47→17:07)
[2022-04-24] MEDS: VANCOMYCIN 0.75 GM in IV D5W 250 ML IV SCH ×2 (09:21→22:10)
[2022-04-24 12:00] VITALS: BP 110/66
[2022-04-24] MEDS: methylPREDNISolone SOD SUCC 40 MG/ML VIAL IV SCH (13:07)
[2022-04-24 16:00] VITALS: BP 100/59
[2022-04-24] MEDS: ASPIRIN 81 MG TAB.CHEW PO SCH (17:06)
--- NOTE | 2022-04-24 18:02 | NUR ---
RN NOTE PT C/O CONSTIPATION AND REQUESTED MEDICATION TO HELP HIM BM. LACTULOSE 30ML GIVEN ORDERED PRN DAILY FOR CONSTIPATION. WILL MONITOR AND REASSESS PT.
--- NOTE | 2022-04-24 18:39 | NUR ---
SALES AND SUPPORT CENTER AGENT CLOSING NOTE PT AWAKE AND RESTING IN BED. PT IS A/O X2-3, REORIENTED PT NEEDED. ON O2 AT 2L/MIN VIA NASAL CANNULA, TOLERATING WELL. NO SOB NOTED. NOT IN ANY SIGN OF RESPIRATORY DISTRESS. PT ON TELE LICENSED NUCLEAR CONTROL ROOM OPERATOR WITH CURRENT READING OF SINUS RHYTHM, HR 65. NO C/O CARDIAC DISTRESS VOICED OUT AT THIS TIME. IV ACCESS IN STEFFI G #20, INTACT AND PATENT. ALL NEEDS ATTENDED. KEPT CLEAN AND COMFORTABLE. SAFETY MEASURES IN PLACE: BED IN LOWEST AND LOCKED POSITION, BED ALARM ON, SIDE RAILS UPX2, AND CALL LIGHT WITHIN REACH. WILL ENDORSE TO RIGGING AND CONTROLS AIRCRAFT MECHANIC NURSE FOR GUNNAR.
[2022-04-24 20:00] VITALS: BP 109/62
[2022-04-24] MEDS: SENNOSIDES 8.6 MG TABLET PO SCH (22:09)
[2022-04-25] VITALS: BP 123/73
--- NOTE | 2022-04-25 01:00 | NUR ---
RN NOTES RECEIVED REPORT FROM TECH WRITER. PATIENT IN BED A/O X2 ABLE TO MAKE NEEDS KNOWN. WITH IV ACCESS AT R HAND #22 PATENT FLUSHES WELL. ON NASAL CANULA AT 2LPM SATING 98% NO SOB NO DISTRESS NOTED AT THIS TIME. ALL SAFETY MEASURES IN BED AT ALL TIMES. HOB ELEVATED. CALL LIGHT WITHIN REACH. WILL CLOSELY MONITOR THE PATIENT
[2022-04-25] MEDS: ALBUTEROL HALF STRENGTH 1.25 MG/3 ML VIAL.NEB NEB SCH ×4 (01:42→19:30)
[2022-04-25] MEDS: IPRATROPIUM NEB FS 0.5 MG/2.5 ML AMPUL.NEB NEB SCH ×4 (01:42→19:30)
[2022-04-25 04:00] VITALS: BP 113/69
[2022-04-25 05:59] LABS: HEMOGLOBIN 12.2 g/dL (13.5-17.5); LYMPHOCYTES # (AUTO) 0.8 K/uL (0.8-4.8); MONOCYTES # (AUTO) 0.7 K/uL (0.1-1.30); NEUTROPHILS # (AUTO) 8.2 K/uL (1.8-8.9); WHITE BLOOD COUNT (AUTO) 9.7 K/uL (4.3-11.0)
[2022-04-25 06:04] LABS: CALCIUM, SERUM 9.1 mg/dL (8.5-10.1); CREATININE 0.8 mg/dL (0.6-1.3)
[2022-04-25 06:05] LABS: BASOPHILS % (AUTO) 0.1 % (0.0-2.0); HEMATOCRIT 36 % (39-51); LYMPHOCYTES % (AUTO) 8.5 % (20.0-44.0); MEAN CORPUSCULAR HGB CONC 34 g/dl (31.0-36.0); MEAN CORPUSCULAR VOLUME 89 fL (80-96); MONOCYTES % (AUTO) 7.1 % (2.0-12.0); NEUTROPHILS % (AUTO) 84.3 % (43.0-81.0); RED BLOOD CELL COUNT(AUTO) 4.05 MIL/uL (4.5-6.0)
[2022-04-25 06:14] LABS: PLATELET COUNT (AUTO) 35 K/uL (150-450)
--- NOTE | 2022-04-25 06:37 | NUR ---
RN NOTES PATIENT REMAINS STABLE NO SIGNIFICANT CHANGES IN HEALTH CONDITION. STILL WITH R HAND #22 PATENT FLUSHES WELL. ALL SAFETY MEASURES IN PLACE AT ALL TIMES. FREQUENT VISUAL MONITORING RENDERED AT ALL TIMES. WILL ENDORSED TO MORNING SHIFT FOR GUNNAR
--- NOTE | 2022-04-25 07:21 | NUR ---
RN OPEN NOTE RECEIVED PT SLEEPING IN BED. PT IS A/O X2, WILL REORIENTED PT NEEDED. ON O2 AT 2L/MIN VIA NASAL CANNULA, TOLERATING WELL. NO SOB NOTED. NOT IN ANY SIGN OF RESPIRATORY DISTRESS. PT ON TELE SCRAP MATERIALS BUYER WITH CURRENT READING OF SINUS RHYTHM, IV ACCESS IN STEFFI G #20,R HAND 22G INTACT AND PATENT. SAFETY MEASURES IN PLACE: BED IN LOWEST AND LOCKED POSITION, BED ALARM ON, SIDE RAILS UPX2, AND CALL LIGHT WITHIN REACH. WILL CONTINUE TO MONITOR PT.
[2022-04-25] MEDS: PANTOPRAZOLE 40 MG TABLET.DR PO SCH (07:41)
[2022-04-25] MEDS: CEFEPIME 2 GM in IV D5W 100 ML IV SCH ×2 (07:46→21:09)
[2022-04-25 08:00] VITALS: BP 113/67
[2022-04-25] MEDS: ACETYLCYSTEINE 20% SOLN 800 MG/4 ML VIAL NEB SCH ×3 (08:28→23:02)
[2022-04-25] MEDS: CLOZAPINE 25 MG TABLET PO SCH ×4 (08:28→21:09)
[2022-04-25] MEDS: FLUOXETINE HCL 20 MG CAPSULE PO SCH (08:29)
[2022-04-25] MEDS: MULTIVIT W/MINERALS 1 TAB TABLET PO SCH (08:29)
[2022-04-25] MEDS: methylPREDNISolone SOD SUCC 40 MG/ML VIAL IV SCH (08:29)
[2022-04-25] MEDS: FINASTERIDE (5 MG) 5 MG TABLET PO SCH (08:29)
[2022-04-25] MEDS: ATENOLOL 25 MG TABLET PO SCH (08:29)
[2022-04-25] MEDS: VANCOMYCIN 0.75 GM in IV D5W 250 ML IV SCH ×2 (08:30→21:09)
[2022-04-25] MEDS: DOCUSATE SODIUM 100 MG CAPSULE PO SCH (08:30)
[2022-04-25] MEDS: ENSURE CLEAR 237 ML LIQUID (MIX BERRY) PO SCH ×2 (08:41→17:00)
[2022-04-25 11:33] LABS: BAND % (MANUAL) 9 % (0.0-5.0); BASOPHILS % (MANUAL) 0 % (0.0-2.0); EOSINOPHILS % (MANUAL) 0 % (0-4); LYMPHOCYTES % (MANUAL) 7 % (16-48); MONOCYTES % (MANUAL) 5 % (0-11.0); NEUTROPHILS % (MANUAL) 79 (42-76)
[2022-04-25 12:00] VITALS: BP 111/62
[2022-04-25 16:19] VITALS: BP 110/68
[2022-04-25] MEDS: ASPIRIN 81 MG TAB.CHEW PO SCH (17:25)
[2022-04-25] MEDS ORDERED: BISACODYL SUPP (10 MG) 10 MG/SUPP.RECT SUPP.RECT RC PRN (18:00)
--- NOTE | 2022-04-25 18:51 | NUR ---
RN CLOSING NOTE PT IN BED. PT IS A/O X2, ON O2 AT 2L/MIN VIA NASAL CANNULA, TOLERATING WELL. NO SOB NOTED. NOT IN ANY SIGN OF RESPIRATORY DISTRESS. PT ON TELE FLUME TENDER WITH CURRENT READING OF SINUS RHYTHM, IV ACCESS IN STEFFI G #20,R HAND 22G INTACT AND PATENT. SAFETY MEASURES IN PLACE: BED IN LOWEST AND LOCKED POSITION, BED ALARM ON, SIDE RAILS UPX2, AND CALL LIGHT WITHIN REACH. WILL ENDORSE GYMNASIUM TEACHER NURSE TO CONTINUE TO FALLOW UP WITH POC
--- NOTE | 2022-04-25 19:40 | NUR ---
MANAGER BEAUTY OPENING NOTES RECEIVED PT AWAKE AND RESTING IN BED. PT IS A/O X2, REORIENTED PT NEEDED. ON O2 AT 2L/MIN VIA NASAL CANNULA, TOLERATING WELL. NO SOB NOTED. NOT IN ANY SIGN OF RESPIRATORY DISTRESS. PT ON TELE DISTRICT WIRE CHIEF WITH CURRENT READING OF SINUS RHYTHM, HR 65. NO C/O CARDIAC DISTRESS VOICED OUT AT THIS TIME. IV ACCESS IN STEFFI #22G AND R HANG #22G, INTACT AND PATENT. SAFETY MEASURES IN PLACE: BED IN LOWEST AND LOCKED POSITION, BED ALARM ON, SIDE RAILS UPX2, AND CALL LIGHT WITHIN REACH. WILL CONTINUE TO MONITOR THROUGHOUT THE SHIFT.
[2022-04-25 20:00] VITALS: BP 106/60
[2022-04-25] MEDS: SENNOSIDES 8.6 MG TABLET PO SCH (21:09)
--- NOTE | 2022-04-25 22:44 | NUR ---
RN NOTE PT VERBALIZES "I'M HEARING VOICES TELLING ME TO HARM YOU". INFORMED HYPERBARIC WELDER DIVER ANKUSH, HE THEN ORDERED SITTER AT BEDSIDE. CN MADE AWARE. PER STEWARD/STEWARDESS NIGHT CAN'T PROVIDE SITTER AT THIS TIME. WILL CONT TO MONITOR PATIENT CLOSELY.
[2022-04-26] VITALS: BP 111/60
--- NOTE | 2022-04-26 01:17 | NUR ---
RN NOTE NOTED PT TO BE RESTLESS AND ANXIOUS TRYING TO GET OUT OF THE BED AND VERBALIZES "I WILL KILL YOU". HEAD OF SALES AND MARKETING ANKUSH MADE AWARE. ORDERED BENADRYL 25 MG PO X1. ORDER TAKEN AND CARRIED OUT WILL CONT TO MONITOR.
[2022-04-26] MEDS: ALBUTEROL HALF STRENGTH 1.25 MG/3 ML VIAL.NEB NEB SCH ×3 (01:28→14:24)
[2022-04-26] MEDS ORDERED: diphenhydrAMINE HCL 25 MG CAPSULE PO ONE (01:30)
[2022-04-26] MEDS: IPRATROPIUM NEB FS 0.5 MG/2.5 ML AMPUL.NEB NEB SCH ×3 (01:30→13:30)
--- NOTE | 2022-04-26 02:00 | NUR ---
RN NOTE NOTED PT TRYING TO GET OUT OF THE BED AND PULLING IV LINES. FACILITY ASSISTANT MADE AWARE. ORDERED B SOFT WRIST RESTRAINTS. WILL CONT TO MONITOR PT CLOSELY.
[2022-04-26 04:00] VITALS: BP 117/61
[2022-04-26 06:27] LABS: BASOPHILS % (AUTO) 0.1 % (0.0-2.0); EOSINOPHILS % (AUTO) 0.9 % (0.0-6.0); HEMATOCRIT 39 % (39-51); HEMOGLOBIN 13.2 g/dL (13.5-17.5); LYMPHOCYTES # (AUTO) 1.1 K/uL (0.8-4.8); MEAN CORPUSCULAR HGB CONC 34 g/dl (31.0-36.0); MEAN CORPUSCULAR VOLUME 88 fL (80-96); MONOCYTES # (AUTO) 0.8 K/uL (0.1-1.30); MONOCYTES % (AUTO) 8.3 % (2.0-12.0); NEUTROPHILS # (AUTO) 7.4 K/uL (1.8-8.9); NEUTROPHILS % (AUTO) 78.7 % (43.0-81.0); RED BLOOD CELL COUNT(AUTO) 4.39 MIL/uL (4.5-6.0); WHITE BLOOD COUNT (AUTO) 9.5 K/uL (4.3-11.0)
[2022-04-26 06:42] LABS: CALCIUM, SERUM 9.1 mg/dL (8.5-10.1); CREATININE 0.8 mg/dL (0.6-1.3); MAGNESIUM 2.3 mg/dL (1.8-2.4); PHOSPHORUS 3.4 mg/dL (2.5-4.9)
--- NOTE | 2022-04-26 06:50 | NUR ---
FITNESS AND WELLNESS MANAGER CLOSING NOTES PT RESTING IN BED. PT IS A/O X2, REORIENTED PT NEEDED. ON O2 AT 2L/MIN VIA NASAL CANNULA, TOLERATING WELL. NO SOB NOTED. NOT IN ANY SIGN OF RESPIRATORY DISTRESS. PT ON TELE WELDER GAS AUTOMATIC WITH CURRENT READING OF SB HR 59. NO C/O CARDIAC DISTRESS VOICED OUT AT THIS TIME. IV ACCESS IN STEFFI #22G AND R HAND #22G, INTACT AND PATENT. ALL DUE MEDS GIVEN, KEPT DRY AND CLEAN, WITH B SOFT WRIST RESTRAINTS, SAFETY MEASURES IN PLACE: BED IN LOWEST AND LOCKED POSITION, BED ALARM ON, SIDE RAILS UPX2, AND CALL LIGHT WITHIN REACH. WILL ENDORSE TO AM SHIFT NURSE FOR CONTINUITY OF CARE.
[2022-04-26 07:07] LABS: PLATELET COUNT (AUTO) 29 K/uL (150-450)
--- NOTE | 2022-04-26 07:07 | NUR ---
RN NOTE RECEIVED CRITICAL RESULT FROM LAB, PLATELET 29. WILL ENDORSE TO AM SHIFT NURSE.
--- NOTE | 2022-04-26 07:44 | NUR ---
HIGH MAN OPENING NOTES RECEIVED PT SLEEPING, ALERT AND VERBALLY RESPONSIVE WHEN AWAKEN. PT IS A/O X2, REORIENTED PT NEEDED. ON O2 AT 2L/MIN VIA NASAL CANNULA, TOLERATING WELL. NO SOB NOTED. NOT IN ANY SIGN OF RESPIRATORY DISTRESS. PT ON TELE DIRECTOR OF RESIDENTIAL SERVICES WITH CURRENT READING OF SINUS RHYTHM, HR 68, NO C/O CARDIAC DISTRESS VOICED OUT AT THIS TIME. IV ACCESS IN STEFFI #22G AND R HANG #22G, INTACT. NOTED CHEST XRAY DONE. SAFETY MEASURES IN PLACE: BED IN LOWEST AND LOCKED POSITION, BED ALARM ON, SIDE RAILS UPX2, AND CALL LIGHT WITHIN REACH. WILL CONTINUE PLAN OF CARE.
[2022-04-26 08:00] VITALS: BP 124/76
[2022-04-26] MEDS: FLUOXETINE HCL 20 MG CAPSULE PO SCH (08:11)
[2022-04-26] MEDS: DOCUSATE SODIUM 100 MG CAPSULE PO SCH (08:11)
[2022-04-26] MEDS: CLOZAPINE 25 MG TABLET PO SCH ×3 (08:11→17:22)
[2022-04-26] MEDS: ACETYLCYSTEINE 20% SOLN 800 MG/4 ML VIAL NEB SCH ×2 (08:12→14:25)
[2022-04-26] MEDS: MULTIVIT W/MINERALS 1 TAB TABLET PO SCH (08:12)
[2022-04-26] MEDS: PANTOPRAZOLE 40 MG TABLET.DR PO SCH (08:12)
[2022-04-26] MEDS: ATENOLOL 25 MG TABLET PO SCH (08:13)
[2022-04-26] MEDS: CEFEPIME 2 GM in IV D5W 100 ML IV SCH (08:13)
[2022-04-26] MEDS: FINASTERIDE (5 MG) 5 MG TABLET PO SCH (08:13)
[2022-04-26] MEDS: ENSURE CLEAR 237 ML LIQUID (MIX BERRY) PO SCH ×2 (08:41→17:22)
[2022-04-26] MEDS: VANCOMYCIN 0.75 GM in IV D5W 250 ML IV SCH (09:53)
[2022-04-26 12:00] VITALS: BP 101/60
[2022-04-26] MEDS ORDERED: MAGNESIUM HYDROXIDE 30 ML UDC PO ONE (13:00)
[2022-04-26] MEDS ORDERED: CEFEPIME 2 GM in IV D5W 100 ML IV SCH (13:00)
[2022-04-26 13:39] LABS: BAND % (MANUAL) 1 % (0.0-5.0); LYMPHOCYTES % (MANUAL) 19 % (16-48); MONOCYTES % (MANUAL) 8 % (0-11.0); NEUTROPHILS % (MANUAL) 72 (42-76)
[2022-04-26 15:16] VITALS: BP 101/60
[2022-04-26 16:00] VITALS: BP 107/66
[2022-04-26] MEDS: ASPIRIN 81 MG TAB.CHEW PO SCH (17:22)
[2022-04-26] MEDS ORDERED: PANT40TA2 PO (18:24)
[2022-04-26] MEDS ORDERED: DEXA4TAB PO (18:24)
[2022-04-26] MEDS ORDERED: DOXY-326 PO (18:24)
[2022-04-26] MEDS ORDERED: ACET200V4 NEB (18:24)
[2022-04-26] MEDS ORDERED: CEFU500T66 PO (18:24)
[2022-04-26] MEDS ORDERED: ALBU1.25 NEB (18:24)
--- NOTE | 2022-04-26 18:31 | NUR ---
ELECTRON GUN INSPECTOR NOTES. PATIENT ALERT AND VERBALLY RESPONSIVE. RECEIVED NEW ORDER FROM DR. SHILA ROLLINS THAT PATIENT CAN BE DISCHARGED TO [facility]. CALLED CONSERVATOR STELLA INFORMED THAT PATIENT IS MEDICALLY STABLE AND CAN BE TRANSFERRED TO [facility], STELLA AGREED ON TRANSFER, INFORMED DR. RAMIRES, WITH ORDER NOTED. ON RA TOLERATING WELL. NO SOB NOTED. NOT IN ANY SIGN OF RESPIRATORY DISTRESS. NO C/O CARDIAC DISTRESS VOICED OUT AT THIS TIME. DENIES ANY PAIN.KEPT CLEAN AND DRY. CALL LIGHT WITHIN REACH. ALL DISCHARGE PAPER WORKS DONE. WILL ENDORSE TO NIGHT NURSE.
[2022-04-26] MEDS ORDERED: CLOZAPINE 25 MG TABLET PO SCH (22:00)
== END 2022-04-26 19:03 | DRG 193 ==
LOC: TELE-TD 05:58 → TELE1 04-23 08:37
PROVIDERS: ADMIT Nurse Practitioner Acute Care; ATTEND Nurse Practitioner Acute Care
DX: J15.9 Unspecified bacterial pneumonia (principal); G93.41 Metabolic encephalopathy; J96.01 Acute respiratory failure with hypoxia; J44.1 Chronic obstructive pulmonary disease with (acute) exacerbation; J44.0 Chronic obstructive pulmonary disease with (acute) lower respiratory infection; R45.851 Suicidal ideations; D69.3 Immune thrombocytopenic purpura; Z20.822 Contact with and (suspected) exposure to COVID-19; N40.0 Benign prostatic hyperplasia without lower urinary tract symptoms; F32.A Depression, unspecified; F41.9 Anxiety disorder, unspecified; I10 Essential (primary) hypertension; F42.9 Obsessive-compulsive disorder, unspecified; K21.9 Gastro-esophageal reflux disease without esophagitis; F25.9 Schizoaffective disorder, unspecified; R41.9 Unspecified symptoms and signs involving cognitive functions and awareness; Z87.891 Personal history of nicotine dependence; E11.9 Type 2 diabetes mellitus without complications; K59.00 Constipation, unspecified
CPT/HCPCS: 31720; 36415; 71045-TC; 80048-TC; 80053-TC; 80202-TC; 83735-TC; 84100-TC; 84443-TC; 85025-TC; 87040-TC; 87081-TC; 92526; 92611-TC; 94799-TC; C9113; G0378; J0692; J1650; J2920; J2930; J3370; J7050; J7060; Q0163

== ENCOUNTER 2022-04-26 19:13 | Inpatient (IN) | payer MEDICARE, OTHER ==
[~2022-04-26] VITALS: Ht 180.3 cm; Wt 57.2 kg
[~2022-04-26 19:13] MED LIST changes: +ACET200V4 NEB; +ALBU1.25 NEB; -AMIN887L PO; +CEFU500T66 PO; -CLON0.5T4 PO; -CLOZ25TA4 PO; -CLOZ50TA PO; -CRAN425C6 PO; +DEXA4TAB PO; +DOXY-326 PO; -FLUO20CA36 PO; +IPRA3AMP23 IH; -LOPE2CAP40 PO; -MAG30ORA PO; -MAGN400O6 PO; -PALI234D IM; -TEMA7.5C12 PO
[2022-04-26 20:25] VITALS: BP 96/63
--- NOTE | 2022-04-26 20:25 | NUR ---
RN NOTE: ADMITTED A 67-Y/O, MALE, FROM [facility] INITIALLY PT CAME FROM SNF. ADMITTED ON A CONSERVED STATUS. UPON FACE TO FACE EVALUATION, PATIENT IS ALERT AND ORIENTED X2, PT. APPEARS TO BE DEPRESSED, ANXIOUS, GUARDED. PATIENT DENIES SI/HI. DENIES AUDITORY HALLUCINATIONS AT THIS TIME. SKIN ASSESSMENT DONE. PT UNABLE TO SIGN ADMISSION PAPERWORK DUE TO CONFUSION. PT REFUSED FLU/PNEUMONIA VACCINE. PT ALSO REFUSED TO COMMENT ABOUT FLU/PNA VACCINATION AND REFUSING TO GET ONE. ALL BELONGINGS WERE SCREENED FOR CONTRABAND. PATIENT'S RIGHTS WERE DISCUSSED AND BOOKLET WAS GIVEN. CONTACTED DR. GONZALES AND HOSPITALIST ADELAIDA OROSCO AND INFORMED THEM OF THE ADMISSION. BED IN LOWEST POSITION, LOCKED. SAFETY PRECAUTIONS MAINTAINED. WILL CONTINUE TO MONITOR Q15 MINS FOR MOOD, SAFETY AND BEHAVIOR. UNABLE TO GET A HOLD OF Veronica COLEY, VOICEMAIL FULL, PHONE# ([phone]). LEFT A VOICE MESSAGE TO STELLA BABCOCK ([phone]).
[2022-04-26] MEDS ORDERED: MAG HYDROX/AL HYDROX/SIMETH 30 ML UDC PO PRN (21:00)
[2022-04-26] MEDS ORDERED: ACETAMINOPHEN 325 MG TABLET PO PRN (21:00)
[2022-04-26] MEDS ORDERED: BLOOD SUGAR DIAGNOSTIC 1 EACH STRIP IN ONE (21:00)
[2022-04-27] MEDS ORDERED: Medication Not On Formulary EA (Ipratropium/Albuterol Sulfate (Duoneb 2.5-0.5 Mg/3 Ml So IH PRN (04:00)
[2022-04-27] MEDS ORDERED: NA PHOS,M-B/NA PHOS,DI-BA 1 EA ENEMA RC PRN (04:00)
[2022-04-27] MEDS ORDERED: ALBUTEROL FS 2.5 MG/0.5 ML VIAL.NEB NEB PRN (04:30)
[2022-04-27] MEDS ORDERED: IPRATROPIUM NEB FS 0.5 MG/2.5 ML AMPUL.NEB IH PRN (04:30)
[2022-04-27 08:00] VITALS: BP 99/66
[2022-04-27 08:12] LABS: CHOLESTEROL 182 mg/dL (<200); HDL CHOLESTEROL 72 mg/dL (40-60); LDL 94 mg/dL (0-99); TRIGLYCERIDES 119 mg/dL (30-150)
[2022-04-27] MEDS: PANTOPRAZOLE 40 MG TABLET.DR PO SCH (08:15)
[2022-04-27] MEDS: ENSURE CLEAR 237 ML LIQUID (MIX BERRY) PO SCH ×2 (08:15→16:59)
[2022-04-27] MEDS: DOCUSATE SODIUM 100 MG CAPSULE PO SCH (09:11)
[2022-04-27] MEDS: MULTIVIT W/MINERALS 1 TAB TABLET PO SCH (09:11)
[2022-04-27] MEDS: FINASTERIDE (5 MG) 5 MG TABLET PO SCH (09:11)
[2022-04-27] MEDS: Z GUARD REMEDY 4 OZ OINT TP SCH (09:12)
--- NOTE | 2022-04-27 09:22 | NUR ---
MIKAYLA Initial Discharge Plan: Patient resides at [facility] [address] [place] [address] ([phone]). MIKAYLA spoke with Preeti brown who stated that pt is unable to come back due to not being able to provide appropriate care. MIKAYLA will contact pt's LPS Conservsidney Rosario ([phone]) and discuss pt's treatment/discharge plan. MIKAYLA will work with the MD, family, and pt to help coordinate appropriate discharge.
--- NOTE | 2022-04-27 09:22 | NUR ---
MIKAYLA Clinical Note: Pt placed on a 5150 hold for GTO and GD. Pt was experiencing hallucinations[place] [address] ([phone]). MIKAYLA spoke with Preeti brown who stated that pt is unable to come back due to not being able to provide appropriate care. MIKAYLA will contact pt's LPS Conservator Marlene ([phone]) and discuss pt's treatment/discharge plan.
--- NOTE | 2022-04-27 09:22 | NUR ---
Treatment Plan: Pt was suspicious and paranoid. He refused to sign treatment plan.
--- NOTE | 2022-04-27 11:39 | NUR ---
LPS Conservator: SW contacted pt's LPS Conservator Marlene ([phone]) and left a detailed voicemail to discuss pt's treatment/discharge plan.
--- NOTE | 2022-04-27 12:43 | NUR ---
[facility] Conservator: MIKAYLA received a call from LPS Conservator Marlene ([phone]) office and spoke with director social welfare Gloria ([phone]) and requested for this investigative writer to fax clinicals to [facility] (F:[phone]). MIKAYLA will fax tomorrow 04/28 when notes are available.
[2022-04-27] MEDS: CLOZAPINE 25 MG TABLET PO SCH ×2 (13:44→16:59)
[2022-04-27 15:57] VITALS: BP 110/60
[2022-04-27] MEDS: ASPIRIN 81 MG TAB.CHEW PO SCH (18:21)
[2022-04-27 19:54] VITALS: BP 104/68
[2022-04-27] MEDS: SENNOSIDES 8.6 MG TABLET PO SCH (21:10)
[2022-04-27] MEDS ORDERED: CLOZAPINE 100 MG TABLET PO SCH (22:00)
[2022-04-28 08:00] VITALS: BP 134/82
[2022-04-28] MEDS: PANTOPRAZOLE 40 MG TABLET.DR PO SCH (08:25)
[2022-04-28] MEDS: ENSURE CLEAR 237 ML LIQUID (MIX BERRY) PO SCH ×2 (08:26→17:38)
--- NOTE | 2022-04-28 08:51 | NUR ---
Referral: Per pt's LPS Conservator SW sent clinicals to [facility] ([phone]) for placement. SW sent H & P, progress notes, and medication list.
--- NOTE | 2022-04-28 08:58 | NUR ---
LPS Conservator: SW contacted pt's LPS Conservator Marlene ([phone]) and discussed placement. She stated that she would want pt back to [facility] and did not want this property underwriter to send clinicals to [facility]. She reported she would want to find out [place]'s answer first before making a decision.
[2022-04-28] MEDS: FLUOXETINE HCL 20 MG CAPSULE PO SCH (09:44)
[2022-04-28] MEDS: FINASTERIDE (5 MG) 5 MG TABLET PO SCH (09:44)
[2022-04-28] MEDS: CLOZAPINE 25 MG TABLET PO SCH ×2 (09:44→17:38)
[2022-04-28] MEDS: LACTULOSE 10 G/15 ML UDC (PYXIS) PO PRN (09:44)
[2022-04-28] MEDS: DOCUSATE SODIUM 100 MG CAPSULE PO SCH (09:44)
[2022-04-28] MEDS: MULTIVIT W/MINERALS 1 TAB TABLET PO SCH (09:44)
[2022-04-28] MEDS: Z GUARD REMEDY 4 OZ OINT TP SCH (09:45)
[2022-04-28] MEDS ORDERED: risperiDONE 1 MG TABLET PO SCH (11:00)
--- NOTE | 2022-04-28 14:57 | NUR ---
SW Contact: SW received a three way call with Marlene LPS Conservator ([phone]) and Linda from [facility] ([phone]) who stated that pt will be welcomed back if this pt is unable to place pt. Marlene stated that her first choice is [facility] and second choice is [facility]. MIKAYLA explained that pt is not stable at this time and will send clinicals when pt is stable.
--- NOTE | 2022-04-28 15:00 | NUR ---
FACILITY CONTACT: MIKAYLA SPOKE WITH RAVINDRA SIMON FROM [facility] ([phone]) WHO STATED THAT IF THIS INFORMATION ASSURANCE IS UNABLE TO PLACE PT OF THE CHOICE OF THE CONSERVATOR THEN PT IS WELCOMED BACK.
[2022-04-28 16:00] VITALS: BP 114/80
[2022-04-28] MEDS: risperiDONE 1 MG TABLET PO SCH (17:00)
[2022-04-28] MEDS: ASPIRIN 81 MG TAB.CHEW PO SCH (18:12)
--- NOTE | 2022-04-28 18:14 | NUR ---
pharmacy canceled order Resperal 1mg ,there was 2 orders of Risperdal 1mg . Risperdal 1mg given at 1700
[2022-04-28 20:21] VITALS: BP 121/70
[2022-04-28] MEDS: CLOZAPINE 100 MG TABLET PO SCH (21:15)
[2022-04-28] MEDS: SENNOSIDES 8.6 MG TABLET PO SCH (21:15)
[2022-04-29 07:30] LABS: BASOPHILS # (AUTO) 0.1 K/uL (0.0-0.2); BASOPHILS % (AUTO) 0.7 % (0.0-2.0); EOSINOPHILS % (AUTO) 3.3 % (0.0-6.0); HEMATOCRIT 37 % (39-51); HEMOGLOBIN 12.4 g/dL (13.5-17.5); LYMPHOCYTES # (AUTO) 1.1 K/uL (0.8-4.8); LYMPHOCYTES % (AUTO) 11.9 % (20.0-44.0); MEAN CORPUSCULAR HGB CONC 34 g/dl (31.0-36.0); MEAN CORPUSCULAR VOLUME 89 fL (80-96); MONOCYTES # (AUTO) 0.6 K/uL (0.1-1.30); MONOCYTES % (AUTO) 6.7 % (2.0-12.0); NEUTROPHILS # (AUTO) 6.9 K/uL (1.8-8.9); NEUTROPHILS % (AUTO) 77.4 % (43.0-81.0); PLATELET COUNT (AUTO) 113 K/uL (150-450); RED BLOOD CELL COUNT(AUTO) 4.16 MIL/uL (4.5-6.0); WHITE BLOOD COUNT (AUTO) 8.9 K/uL (4.3-11.0)
[2022-04-29 08:00] VITALS: BP 121/73
[2022-04-29 08:10] LABS: CALCIUM, SERUM 8.9 mg/dL (8.5-10.1); MAGNESIUM 2.4 mg/dL (1.8-2.4); PHOSPHORUS 3.4 mg/dL (2.5-4.9); POTASSIUM 3.9 mmol/L (3.5-5.1)
[2022-04-29] MEDS: FLUOXETINE HCL 20 MG CAPSULE PO SCH (08:15)
[2022-04-29] MEDS: risperiDONE 1 MG TABLET PO SCH ×2 (08:15→16:19)
[2022-04-29] MEDS: PANTOPRAZOLE 40 MG TABLET.DR PO SCH (08:15)
[2022-04-29] MEDS: MULTIVIT W/MINERALS 1 TAB TABLET PO SCH (08:16)
[2022-04-29] MEDS: DOCUSATE SODIUM 100 MG CAPSULE PO SCH (08:16)
[2022-04-29] MEDS: CLOZAPINE 25 MG TABLET PO SCH ×2 (08:16→16:19)
[2022-04-29] MEDS: FINASTERIDE (5 MG) 5 MG TABLET PO SCH (08:16)
[2022-04-29] MEDS: ENSURE CLEAR 237 ML LIQUID (MIX BERRY) PO SCH ×2 (08:21→17:09)
[2022-04-29] MEDS: Z GUARD REMEDY 4 OZ OINT TP SCH (09:31)
--- NOTE | 2022-04-29 10:00 | NUR ---
RN Notes: Received pt. awake in bed, responsive to staffs. pt. said that he is not hearing voices to hurt anybody and not hearing voices to hurt himself. Ate 100% for breakfast, compliant on meds. Pt. isolates in the room, encouraged to verbalize feelings, encouraged to attend group activity and motivated to take shower. Needs attended and will continue to monitor for safety.
[2022-04-29] MEDS: LORAZEPAM 0.5 MG TABLET PO PRN (10:53)
--- NOTE | 2022-04-29 10:53 | NUR ---
Pt. is anxious and irritable and Ativan po prn given. Pt. denies hearing voices to hurt [place] and others. Will continue to monitor for safety.
--- NOTE | 2022-04-29 11:40 | NUR ---
SNF Contact: Per pt's LPS Conservator MIKAYLA Rosario followed up with [facility] and they stated they cannot accept pt due to behavior issues.
[2022-04-29] MEDS ORDERED: FLUOXETINE HCL 20 MG CAPSULE PO SCH (13:00)
[2022-04-29 16:00] VITALS: BP 106/67
[2022-04-29] MEDS: ASPIRIN 81 MG TAB.CHEW PO SCH (17:02)
--- NOTE | 2022-04-29 19:30 | NUR ---
GPS RN NOTE, RECEIVED PATIENT AWAKE AND IN BED, NO S/S OR COMPLAINTS OF PAIN AT THIS TIME. PATIENT IS DISPLAYING NO S/S OF APPARENT DISTRESS AT THIS TIME. PATIENT BREATHING IS UNLABORED WITH EQUAL RISE AND FALL OF THE CHEST. PATIENT IS ALERT AND ORIENTED X 2 ON ROOM AIR WITH A SPO2 95%. PATIENT IS COMPLIANT WITH MEDICATIONS, ANXIOUS, RESPONDING TO INTERNAL STIMULI, GUARDED, DISORGANIZED, FORGETFUL, AND COOPERATIVE. PATIENT DENIES SUICIDAL AND HOMICIDAL IDEATIONS AT THIS TIME. PATIENT ASSISTED WITH TURNING AND REPOSITIONING Q2HR AND PRN FOR COMFORT AND CIRCULATION. PATIENT HAS NO NEEDS AT THIS TIME. PATIENT EDUCATED ON THE USE OF THE CALL BURT. PATIENT BED SIDE RAILS UP X 2 FOR SAFETY. PATIENT BED IS LOCKED, LOW, WITH BED ALARM ON. WILL CONTINUE TO MONITOR THIS PATIENT Q15 MINUTES WITH THE HELP OF STAFF TO MAINTAIN SAFETY.
[2022-04-29 20:23] VITALS: BP 103/60
[2022-04-29] MEDS: CLOZAPINE 100 MG TABLET PO SCH (21:17)
[2022-04-29] MEDS: SENNOSIDES 8.6 MG TABLET PO SCH (21:17)
[2022-04-30 08:00] VITALS: BP 97/69
[2022-04-30] MEDS: ENSURE CLEAR 237 ML LIQUID (MIX BERRY) PO SCH ×2 (08:52→16:46)
[2022-04-30] MEDS: Z GUARD REMEDY 4 OZ OINT TP SCH (08:53)
[2022-04-30] MEDS: FLUOXETINE HCL 20 MG CAPSULE PO SCH ×2 (08:55→12:33)
[2022-04-30] MEDS: CLOZAPINE 25 MG TABLET PO SCH ×2 (08:55→16:48)
[2022-04-30] MEDS: DOCUSATE SODIUM 100 MG CAPSULE PO SCH (08:55)
[2022-04-30] MEDS: MULTIVIT W/MINERALS 1 TAB TABLET PO SCH (08:56)
[2022-04-30] MEDS: PANTOPRAZOLE 40 MG TABLET.DR PO SCH (08:56)
[2022-04-30] MEDS: risperiDONE 1 MG TABLET PO SCH ×2 (08:56→16:48)
[2022-04-30] MEDS: FINASTERIDE (5 MG) 5 MG TABLET PO SCH (08:56)
[2022-04-30 16:00] VITALS: BP 111/69
[2022-04-30] MEDS: ASPIRIN 81 MG TAB.CHEW PO SCH (16:48)
[2022-04-30] MEDS: LORAZEPAM 0.5 MG TABLET PO PRN (17:18)
[2022-04-30 20:00] VITALS: BP 121/74
[2022-04-30] MEDS: SENNOSIDES 8.6 MG TABLET PO SCH (21:24)
[2022-04-30] MEDS ORDERED: CLOZAPINE 100 MG TABLET PO SCH (22:00)
[2022-05-01 08:00] VITALS: BP 119/77
[2022-05-01] MEDS: FLUOXETINE HCL 20 MG CAPSULE PO SCH ×2 (08:13→12:04)
[2022-05-01] MEDS: MULTIVIT W/MINERALS 1 TAB TABLET PO SCH (08:13)
[2022-05-01] MEDS: CLOZAPINE 25 MG TABLET PO SCH ×2 (08:13→16:28)
[2022-05-01] MEDS: risperiDONE 1 MG TABLET PO SCH ×2 (08:13→16:28)
[2022-05-01] MEDS: PANTOPRAZOLE 40 MG TABLET.DR PO SCH (08:13)
[2022-05-01] MEDS: DOCUSATE SODIUM 100 MG CAPSULE PO SCH (08:13)
[2022-05-01] MEDS: FINASTERIDE (5 MG) 5 MG TABLET PO SCH (08:13)
[2022-05-01] MEDS: ENSURE CLEAR 237 ML LIQUID (MIX BERRY) PO SCH ×2 (08:18→17:14)
--- NOTE | 2022-05-01 09:30 | NUR ---
RN Notes: Received pt. asleep in bed, breathing is even and unlabored. Ate 100% for breakfast and compliant on meds. Pt. is suspicious and guarded upon approached. Pt. denies hearing voices to hurt himself and hurt others at this time. Encouraged to verbalize feelings and encouraged to take shower. Needs attended and will continue to monitor for safety.
[2022-05-01] MEDS: Z GUARD REMEDY 4 OZ OINT TP SCH (10:01)
[2022-05-01 16:00] VITALS: BP 103/63
[2022-05-01] MEDS: ASPIRIN 81 MG TAB.CHEW PO SCH (17:14)
[2022-05-01 20:00] VITALS: BP 107/63
[2022-05-01] MEDS: SENNOSIDES 8.6 MG TABLET PO SCH (22:00)
[2022-05-01] MEDS: CLOZAPINE 100 MG TABLET PO SCH (22:08)
[2022-05-02 08:00] VITALS: BP 116/79
[2022-05-02] MEDS: ENSURE CLEAR 237 ML LIQUID (MIX BERRY) PO SCH ×2 (08:04→16:12)
[2022-05-02] MEDS: DOCUSATE SODIUM 100 MG CAPSULE PO SCH (08:09)
[2022-05-02] MEDS: risperiDONE 1 MG TABLET PO SCH ×2 (08:09→16:12)
[2022-05-02] MEDS: PANTOPRAZOLE 40 MG TABLET.DR PO SCH (08:09)
[2022-05-02] MEDS: MULTIVIT W/MINERALS 1 TAB TABLET PO SCH (08:09)
[2022-05-02] MEDS: FINASTERIDE (5 MG) 5 MG TABLET PO SCH (08:09)
[2022-05-02] MEDS: CLOZAPINE 25 MG TABLET PO SCH ×2 (08:09→16:12)
[2022-05-02] MEDS: FLUOXETINE HCL 20 MG CAPSULE PO SCH ×2 (08:09→13:25)
[2022-05-02] MEDS: LACTULOSE 10 G/15 ML UDC (PYXIS) PO PRN (08:10)
[2022-05-02] MEDS: Z GUARD REMEDY 4 OZ OINT TP SCH (08:10)
[2022-05-02 16:00] VITALS: BP 103/67
[2022-05-02] MEDS: ASPIRIN 81 MG TAB.CHEW PO SCH (16:13)
[2022-05-02 20:36] VITALS: BP 122/78
[2022-05-02] MEDS: CLOZAPINE 100 MG TABLET PO SCH (21:07)
[2022-05-02] MEDS: SENNOSIDES 8.6 MG TABLET PO SCH (21:07)
--- NOTE | 2022-05-02 23:06 | NUR ---
GPS NOTE PATIENT RECEIVED SITTING IN GERICHAIR, AWAKE, A&O X1-2. VERBALLY STATES HE "WANTS TO KILL ME"; NO OTHER SIGNS OF EMOTIONAL DISTRESS. NO S/S OF RESP DISTRESS, NO SOB OR COUGH, NON-LABORED AND EQUAL BREATHING. PT COMPLIANT WITH MEDICATIONS. REQUIRES MODERATE ASSISTANCE WITH ADLS. ALL NEEDS ATTENDED AND ANTICIPATED. WILL CONTINUE TO MONITOR THROUGHOUT THE NIGHT Q15MIN FOR SAFETY AND BEHAVIOR.
--- NOTE | 2022-05-02 23:59 | NUR ---
RN NOTE PT REQUESTS TO GO TO OBSERVATION ROOM. PT REMOVED FROM [facility]; PT ESCORTED TO OBSERVATION ROOM; PT LAYING DOWN IN BED.
--- NOTE | 2022-05-03 07:01 | NUR ---
GPS NOTE PATIENT LAYING IN BED, ASLEEP BUT EASILY AROUSABLE, A&O X1-2. CONTINUED TO MAKE STATEMENTS ABOUT WANTING TO HURT/KILL STAFF; NO OTHER SIGNS OF EMOTIONAL DISTRESS. NO S/S OF RESP DISTRESS, NO SOB OR COUGH, NON-LABORED AND EQUAL BREATHING. PT COMPLIANT WITH MEDICATIONS. ALL DUE MEDS ADMINISTERED DURING THE NIGHT. ALL NEEDS ATTENDED. WILL ENDORSE TO DAYSHIFT NURSE TO CONTINUE CARE.
[2022-05-03] MEDS: PANTOPRAZOLE 40 MG TABLET.DR PO SCH (07:45)
[2022-05-03 08:00] VITALS: BP 133/86
[2022-05-03] MEDS: FLUOXETINE HCL 20 MG CAPSULE PO SCH ×2 (08:00→13:34)
[2022-05-03] MEDS: ENSURE CLEAR 237 ML LIQUID (MIX BERRY) PO SCH ×2 (08:00→17:11)
[2022-05-03] MEDS: CLOZAPINE 25 MG TABLET PO SCH ×2 (09:02→17:11)
[2022-05-03] MEDS: FINASTERIDE (5 MG) 5 MG TABLET PO SCH (09:02)
[2022-05-03] MEDS: MULTIVIT W/MINERALS 1 TAB TABLET PO SCH (09:03)
[2022-05-03] MEDS: DOCUSATE SODIUM 100 MG CAPSULE PO SCH (09:03)
[2022-05-03] MEDS: Z GUARD REMEDY 4 OZ OINT TP SCH (09:03)
[2022-05-03] MEDS: risperiDONE 1 MG TABLET PO SCH ×2 (09:03→17:10)
[2022-05-03] MEDS: MAGNESIUM HYDROXIDE 30 ML UDC PO PRN (11:05)
[2022-05-03] MEDS ORDERED: diphenhydrAMINE HCL ELIX 25 MG/10 ML UDC PO PRN (11:30)
--- NOTE | 2022-05-03 14:21 | NUR ---
LPS Conservator: SW contacted pt's LPS Conservator Marlene ([phone]) and checked-in on pt's status. She stated when pt is stable to send clinicals to [facility] ([phone]) and [facility] ([phone]). She stated that her first choice is [facility].
[2022-05-03 16:00] VITALS: BP 109/71
[2022-05-03] MEDS: predniSONE 20 MG TABLET PO SCH (17:10)
[2022-05-03] MEDS: ASPIRIN 81 MG TAB.CHEW PO SCH (17:10)
--- NOTE | 2022-05-03 19:30 | NUR ---
PATIENT RECEIVED AWAKE AND RESTING IN BED, NO S/S OR COMPLAINTS OF PAIN AT THIS TIME. PATIENT IS DISPLAYING NO S/S OF APPARENT DISTRESS AT THIS TIME. PATIENT IS ALERT AND ORIENTED X 2. GUARDED, DISORGANIZED, FORGETFUL, AND COOPERATIVE. PATIENT DENIES SUICIDAL AND HOMICIDAL IDEATIONS AT THIS TIME. AMBULATORY. SAFETY MEASURES IN PLACE. WILL CONTINUE MONITORING FOR SAFETY AND WILL CONTINUE PLAN OF CARE.
[2022-05-03 19:54] VITALS: BP 119/75
[2022-05-03] MEDS: CLOZAPINE 100 MG TABLET PO SCH (22:06)
[2022-05-03] MEDS: SENNOSIDES 8.6 MG TABLET PO SCH (22:06)
--- NOTE | 2022-05-04 06:06 | NUR ---
PATIENT ASLEEP IN BED, NO S/S OR COMPLAINTS OF PAIN AT THIS TIME. PATIENT IS DISPLAYING NO S/S OF APPARENT DISTRESS AT THIS TIME. PATIENT IS ALERT AND ORIENTED X 2. GUARDED, FORGETFUL, AND COOPERATIVE. PATIENT DENIES SUICIDAL AND HOMICIDAL IDEATIONS AT THIS TIME. AMBULATORY. DUE MEDS GIVEN ORDERED. NEEDS ATTENDED. SAFETY MEASURES MAINTAINED. WILL ENDORSE TO NEXT NURSE ON DUTY FOR CONTINUITY OF CARE.
[2022-05-04] MEDS: PANTOPRAZOLE 40 MG TABLET.DR PO SCH (07:37)
[2022-05-04] MEDS: FLUOXETINE HCL 20 MG CAPSULE PO SCH ×2 (07:40→13:21)
[2022-05-04] MEDS: ENSURE CLEAR 237 ML LIQUID (MIX BERRY) PO SCH ×2 (07:55→17:26)
[2022-05-04 08:00] VITALS: BP 132/92
[2022-05-04] MEDS: risperiDONE 1 MG TABLET PO SCH ×2 (09:16→16:33)
[2022-05-04] MEDS: DOCUSATE SODIUM 100 MG CAPSULE PO SCH (09:16)
[2022-05-04] MEDS: predniSONE 20 MG TABLET PO SCH ×2 (09:16→16:33)
[2022-05-04] MEDS: MULTIVIT W/MINERALS 1 TAB TABLET PO SCH (09:17)
[2022-05-04] MEDS: Z GUARD REMEDY 4 OZ OINT TP SCH (09:17)
[2022-05-04] MEDS: FINASTERIDE (5 MG) 5 MG TABLET PO SCH (09:19)
[2022-05-04] MEDS: CLOZAPINE 25 MG TABLET PO SCH ×2 (09:20→16:33)
[2022-05-04] MEDS: MAGNESIUM HYDROXIDE 30 ML UDC PO PRN (13:25)
[2022-05-04] MEDS: GUAIFENESIN/D-METHORPHAN HB 5 ML UDC PO PRN (15:06)
[2022-05-04 16:13] VITALS: BP 115/68
[2022-05-04] MEDS: ASPIRIN 81 MG TAB.CHEW PO SCH (17:26)
[2022-05-04 20:08] VITALS: BP 125/74
[2022-05-04] MEDS: CLOZAPINE 100 MG TABLET PO SCH (21:12)
[2022-05-04] MEDS: SENNOSIDES 8.6 MG TABLET PO SCH (21:12)
[2022-05-05 08:00] VITALS: BP 118/84
[2022-05-05] MEDS: PANTOPRAZOLE 40 MG TABLET.DR PO SCH (08:03)
[2022-05-05] MEDS: ENSURE CLEAR 237 ML LIQUID (MIX BERRY) PO SCH ×2 (08:03→17:19)
[2022-05-05] MEDS: risperiDONE 1 MG TABLET PO SCH (08:41)
[2022-05-05] MEDS: predniSONE 20 MG TABLET PO SCH (08:41)
[2022-05-05] MEDS: DOCUSATE SODIUM 100 MG CAPSULE PO SCH (08:41)
[2022-05-05] MEDS: CLOZAPINE 25 MG TABLET PO SCH ×2 (08:41→17:20)
[2022-05-05] MEDS: FINASTERIDE (5 MG) 5 MG TABLET PO SCH (08:41)
[2022-05-05] MEDS: MULTIVIT W/MINERALS 1 TAB TABLET PO SCH (08:41)
[2022-05-05] MEDS: FLUOXETINE HCL 20 MG CAPSULE PO SCH ×2 (08:41→13:20)
[2022-05-05] MEDS: Z GUARD REMEDY 4 OZ OINT TP SCH (08:42)
[2022-05-05] MEDS ORDERED: PALIPERIDONE PALMITATE 234 MG/1.5 ML SYRINGE IM ONE ×2 (10:00→14:00)
[2022-05-05] MEDS: GUAIFENESIN/D-METHORPHAN HB 5 ML UDC PO PRN (11:23)
[2022-05-05] MEDS: MAGNESIUM HYDROXIDE 30 ML UDC PO PRN (11:23)
--- NOTE | 2022-05-05 14:05 | NUR ---
NURSE NOTE: INVEGA SUSTENNA IM ADMINISTERED ORDERED TO L ARM. PT SHIRAZ WELL. WILL CONT TO MONITOR.
[2022-05-05 16:00] VITALS: BP 110/68
[2022-05-05] MEDS: ASPIRIN 81 MG TAB.CHEW PO SCH (17:19)
[2022-05-05] MEDS: predniSONE 5 MG TABLET PO SCH (17:19)
[2022-05-05 20:12] VITALS: BP 141/82
--- NOTE | 2022-05-05 20:26 | NUR ---
RN NOTES : PATIENT RESTING IN BED AWAKE, NO ACUTE DISTRESS NOTED , PATIENT REMAINS ISOLATIVE, APPEARS TO BE DEPRESSED, COOPERATIVE TO CARE. VERBALIZATION OF FEELINGS ENCOURAGED.DENIES SI/HI AT THIS TIME. PER PT. STATES SOME TIMES HEARING VOICES AND AUDITORY/VISUAL HALLUCINATIONS. SAFETY PRECAUTIONS MAINTAINED. WILL CONTINUE TO MONITOR Q15MIN ROUNDS FOR SAFETY AND BEHAVIOR.
[2022-05-05] MEDS: SENNOSIDES 8.6 MG TABLET PO SCH (21:49)
[2022-05-05] MEDS: CLOZAPINE 100 MG TABLET PO SCH (21:49)
--- NOTE | 2022-05-05 22:00 | NUR ---
RN NOTE: 2200 - PATIENT VERBALIZED HE HEARS VOICES TELLING HIM TO HURT OTHERS. PATIENT WAS ENCOURAGED TO VENTILATE FEELINGS. PATIENT APPEARS TO BE ANXIOUS, FEARFUL, BUT ABLE TO REDIRECT. ENCOURAGED PATIENT TO STAY IN THE OBSERVATION ROOM TO WHICH PT AGREED. ADMINISTERED ATIVAN 0.5MG PO ORDERED. PATIENT TOOK THE MEDICATION, TOLERATED WELL. PATIENT WAS PLACED ON LINE OF SIGHT. WILL CONTINUE TO MONITOR Q15MIN FOR SAFETY. DR. GONZALES NOTIFIED OF PATIENT'S BEHAVIOR WITH NO NEW ORDER AT THIS TIME. 2230 - ATIVAN GIVEN WAS EFFECTIVE. PATIENT IS CALM, COOPERATIVE AND PLEASANT UPON APPROACH. PATIENT CONTRACTED FOR SAFETY. PT. STATED "I AM GOOD NOW, I DON'T WANT TO HURT OTHERS". OFFERED FLUIDS/SNACKS. 0200 - PATIENT SLEEPING INTERMITTENTLY. BREATHING UNLABORED NOT IN ANY FORM OF DISTRESS. 0450 - PATIENT IS AWAKE, ALERT AND ORIENTED X1-2. NO SOB NOTED. PATIENT IS CALM AND QUIET. WILL CONTINUE TO MONITOR PT FOR SAFETY.
[2022-05-05] MEDS: LORAZEPAM 0.5 MG TABLET PO PRN (22:02)
--- NOTE | 2022-05-05 22:09 | NUR ---
RN NOTES ANXIETY PT. C/O FEELING ANXIOUS, PACING IN HIS ROOM , PARANOID , UNCOOPERTIVE ,PRN ATIVAN 0.5 MG PO GIVEN PER PT. REQUEST, WILL CONTINUE TO MONITOR.
[2022-05-06] MEDS: TEMAZEPAM 7.5 MG CAPSULE PO PRN (00:14)
--- NOTE | 2022-05-06 00:15 | NUR ---
RN NOTES: INSOMNIA PT. C/O INSOMNIA PRN RESTORIL 7.5 MG PO GIVEN PER PT. REQUEST , WILL CONTINUE TO MONITOR.
--- NOTE | 2022-05-06 06:38 | NUR ---
RN NOTES: PT. RESTING HIS ROOM, PATIENT IS CALM, COOPERATIVE AND PLEASANT UPON APPROACH AT THIS TIME . PER PT. STATES I AM FEELING BETTER NOW, NO ANY BEHAVIOR PROBLEMS NOTED AT THIS TIME, WILL CONTINUITY WITH CARE.
[2022-05-06 08:00] VITALS: BP 134/84
[2022-05-06] MEDS: CLOZAPINE 25 MG TABLET PO SCH ×2 (08:14→16:26)
[2022-05-06] MEDS: MULTIVIT W/MINERALS 1 TAB TABLET PO SCH (08:14)
[2022-05-06] MEDS: predniSONE 5 MG TABLET PO SCH ×2 (08:14→16:26)
[2022-05-06] MEDS: FINASTERIDE (5 MG) 5 MG TABLET PO SCH (08:14)
[2022-05-06] MEDS: Z GUARD REMEDY 4 OZ OINT TP SCH (08:14)
[2022-05-06] MEDS: DOCUSATE SODIUM 100 MG CAPSULE PO SCH (08:14)
[2022-05-06] MEDS: FLUOXETINE HCL 20 MG CAPSULE PO SCH ×2 (08:14→12:19)
[2022-05-06] MEDS: PANTOPRAZOLE 40 MG TABLET.DR PO SCH (08:14)
[2022-05-06] MEDS: ENSURE CLEAR 237 ML LIQUID (MIX BERRY) PO SCH ×2 (08:38→17:03)
[2022-05-06] MEDS: GUAIFENESIN/D-METHORPHAN HB 5 ML UDC PO PRN (08:39)
[2022-05-06] MEDS: LACTULOSE 10 G/15 ML UDC (PYXIS) PO PRN (08:39)
[2022-05-06] MEDS: MEMANTINE HCL 5 MG TABLET PO SCH ×2 (11:43→16:26)
[2022-05-06 16:00] VITALS: BP 145/76
[2022-05-06] MEDS: ASPIRIN 81 MG TAB.CHEW PO SCH (17:03)
--- NOTE | 2022-05-06 17:22 | NUR ---
RN-NOTES PATIENT VISIBLE IN THE UNIT A/O X2 GUARDED,NO ACUTE DISTRESS NOTED.COMPLIANT WITH MEDICATIONS.ABLE TO MAKE NEEDS KNOWN TO THE STAFF. AMBULATORY STEADY GAIT.ALL NEEDS ATTENDED AND ANTICIPATED. WILL CONT. MONITORING FOR SAFETY AND BEHAVIOR. WILL ENDORSE TO INCOMING NURSE FOR CONTINUITY OF CARE.
[2022-05-06] MEDS: LORAZEPAM 0.5 MG TABLET PO PRN (19:51)
--- NOTE | 2022-05-06 19:53 | NUR ---
RN NOTES: ANXIETY PT. C/O FEELING ANXIOUS, PACING IN HALLWAY , PARANOID , UNCOOPERTIVE ,PRN ATIVAN 0.5 MG PO GIVEN PER PT. REQUEST, WILL CONTINUE TO MONITOR.
[2022-05-06 20:00] VITALS: BP 126/79
--- NOTE | 2022-05-06 20:53 | NUR ---
RN NOTES: PATIENT RESTING IN BED AWAKE, NO ACUTE DISTRESS NOTED , ANXIOUS EASILY AGITATED, NEEDY, DEPRESSED, GUARDED , FLAT BLUNTED AFFECT , PARANOID DISHELVED , ANXIOUS. VERBALIZATION OF FEELINGS ENCOURAGED.DENIES SI/HI AT THIS TIME. PER PT. STATES SOME TIMES HEARING VOICES AND AUDITORY/VISUAL HALLUCINATIONS. NEEDS FREQUENTLY REDIRECTIONS, SAFETY PRECAUTIONS MAINTAINED. WILL CONTINUE TO MONITOR Q15MIN ROUNDS FOR SAFETY AND BEHAVIOR.
[2022-05-06] MEDS: SENNOSIDES 8.6 MG TABLET PO SCH (21:12)
[2022-05-06] MEDS: CLOZAPINE 100 MG TABLET PO SCH (21:12)
[2022-05-07 08:00] VITALS: BP 110/67
[2022-05-07] MEDS: ENSURE CLEAR 237 ML LIQUID (MIX BERRY) PO SCH ×2 (08:17→17:06)
[2022-05-07] MEDS: CLOZAPINE 25 MG TABLET PO SCH ×2 (08:18→16:12)
[2022-05-07] MEDS: PANTOPRAZOLE 40 MG TABLET.DR PO SCH (08:19)
[2022-05-07] MEDS: FLUOXETINE HCL 20 MG CAPSULE PO SCH ×2 (08:19→12:25)
[2022-05-07] MEDS: FINASTERIDE (5 MG) 5 MG TABLET PO SCH (08:19)
[2022-05-07] MEDS: DOCUSATE SODIUM 100 MG CAPSULE PO SCH (08:19)
[2022-05-07] MEDS: MULTIVIT W/MINERALS 1 TAB TABLET PO SCH (08:19)
[2022-05-07] MEDS: MEMANTINE HCL 5 MG TABLET PO SCH ×2 (08:19→16:12)
[2022-05-07] MEDS: predniSONE 5 MG TABLET PO SCH ×2 (08:19→16:11)
[2022-05-07] MEDS: Z GUARD REMEDY 4 OZ OINT TP SCH (08:20)
[2022-05-07] MEDS: GUAIFENESIN/D-METHORPHAN HB 5 ML UDC PO PRN (08:45)
[2022-05-07] MEDS: MAGNESIUM HYDROXIDE 30 ML UDC PO PRN (08:45)
[2022-05-07 10:19] LABS: BASOPHILS % (AUTO) 0.2 % (0.0-2.0); EOSINOPHILS % (AUTO) 0.9 % (0.0-6.0); HEMATOCRIT 39 % (39-51); HEMOGLOBIN 12.7 g/dL (13.5-17.5); LYMPHOCYTES % (AUTO) 11.7 % (20.0-44.0); MEAN CORPUSCULAR HGB CONC 33 g/dl (31.0-36.0); MEAN CORPUSCULAR VOLUME 91 fL (80-96); MONOCYTES # (AUTO) 0.6 K/uL (0.1-1.30); MONOCYTES % (AUTO) 6.6 % (2.0-12.0); NEUTROPHILS % (AUTO) 80.6 % (43.0-81.0); PLATELET COUNT (AUTO) 222 K/uL (150-450); RED BLOOD CELL COUNT(AUTO) 4.29 MIL/uL (4.5-6.0); WHITE BLOOD COUNT (AUTO) 8.7 K/uL (4.3-11.0)
[2022-05-07 16:00] VITALS: BP 110/66
[2022-05-07] MEDS: LORAZEPAM 0.5 MG TABLET PO PRN (16:11)
--- NOTE | 2022-05-07 16:15 | NUR ---
RN-NOTES PATIENT IS RESPONDING TO INTERNAL STIMULI STATED" THE VOICE IS TELLING ME TO KILL YOU",REDIRECTED AND REORIENTED. ATIVAN 0.5MG P.O GIVEN PRN ORDER. WILL CONT. MONITORING FOR SAFETY AND BEHAVIOR.
[2022-05-07] MEDS: ASPIRIN 81 MG TAB.CHEW PO SCH (17:06)
--- NOTE | 2022-05-07 18:00 | NUR ---
RN-NOTES PATIENT IN THE OBSERVATION ROOM UP IN THE CHECO CHAIR, AWAKE/A/O X2 ,GUARDED, CALM AND QUIET,NO ACUTE DISTRESS NOTED. ALL NEEDS ATTENDED AND ANTICIPATED. WILL ENDORSE TO INCOMING NURSE FOR CONTINUITY OF CARE.
[2022-05-07 20:00] VITALS: BP 113/69
--- NOTE | 2022-05-07 20:23 | NUR ---
RN NOTES: PATIENT AWAKE ALERT IN HIS ROOM , ANXIOUS EASILY AGITATED, NEEDY, DEPRESSED,UNCOOPERTIVE GUARDED , FLAT BLUNTED AFFECT ,PARANOID DISHELVED, VERBALIZATION OF FEELINGS ENCOURAGED. PT. HEARING VOICES, AUDITORY /VISUAL HALLUCINATIONS PT.IS RESPONDING TO INTERNAL STIMULI STATED THE VOICE IS TELLING HIM TO HURT OTHERS, NEEDS FREQUENTLY REDIRECTIONS, SAFETY PRECAUTIONS MAINTAINED. WILL CONTINUE TO MONITOR Q15MIN ROUNDS FOR SAFETY AND BEHAVIOR.
[2022-05-07] MEDS: CLOZAPINE 100 MG TABLET PO SCH (21:11)
[2022-05-07] MEDS: SENNOSIDES 8.6 MG TABLET PO SCH (21:11)
[2022-05-07] MEDS: TEMAZEPAM 7.5 MG CAPSULE PO PRN (22:18)
--- NOTE | 2022-05-07 22:19 | NUR ---
RN NOTES: INSOMNIA PT. C/O INSOMNIA PRN RESTORIL 7.5 MG PO GIVEN , WILL CONTINUE TO MONITOR.
[2022-05-08 08:00] VITALS: BP 132/85
[2022-05-08] MEDS: ENSURE CLEAR 237 ML LIQUID (MIX BERRY) PO SCH ×2 (08:18→16:02)
[2022-05-08] MEDS: FLUOXETINE HCL 20 MG CAPSULE PO SCH ×2 (08:33→12:44)
[2022-05-08] MEDS: DOCUSATE SODIUM 100 MG CAPSULE PO SCH (08:33)
[2022-05-08] MEDS: FINASTERIDE (5 MG) 5 MG TABLET PO SCH (08:33)
[2022-05-08] MEDS: predniSONE 5 MG TABLET PO SCH ×2 (08:33→16:02)
[2022-05-08] MEDS: CLOZAPINE 25 MG TABLET PO SCH ×2 (08:33→16:02)
[2022-05-08] MEDS: MULTIVIT W/MINERALS 1 TAB TABLET PO SCH (08:33)
[2022-05-08] MEDS: MEMANTINE HCL 5 MG TABLET PO SCH ×2 (08:33→16:02)
[2022-05-08] MEDS: PANTOPRAZOLE 40 MG TABLET.DR PO SCH (08:33)
[2022-05-08] MEDS: Z GUARD REMEDY 4 OZ OINT TP SCH (08:34)
[2022-05-08] MEDS: LORAZEPAM 0.5 MG TABLET PO PRN (12:45)
[2022-05-08 16:00] VITALS: BP 127/84
[2022-05-08] MEDS: ASPIRIN 81 MG TAB.CHEW PO SCH (16:02)
[2022-05-08 20:00] VITALS: BP 127/71
--- NOTE | 2022-05-08 20:29 | NUR ---
NURSING NOTES: RECEIVED PATIENT IN BED AWAKE. PATIENT APPEARS CALM, GUARDED, DISORGANIZED AND ISOLATIVE. PLEASANT ON APPROACH. ENCOURAGED. PATIENT TO VERBALIZED FEELINGS AND THOUGHTS. DENIES SI/HI. WILL CONTINUE TO MONITOR FOR SAFETY AND BEHAVIOR.
[2022-05-08] MEDS: CLOZAPINE 100 MG TABLET PO SCH (21:12)
[2022-05-08] MEDS: SENNOSIDES 8.6 MG TABLET PO SCH (21:18)
[2022-05-08] MEDS: LACTULOSE 10 G/15 ML UDC (PYXIS) PO PRN (21:20)
[2022-05-09 08:00] VITALS: BP 120/82
[2022-05-09] MEDS: ENSURE CLEAR 237 ML LIQUID (MIX BERRY) PO SCH ×2 (08:22→16:14)
[2022-05-09] MEDS: predniSONE 5 MG TABLET PO SCH (08:25)
[2022-05-09] MEDS: MEMANTINE HCL 5 MG TABLET PO SCH ×2 (08:25→16:14)
[2022-05-09] MEDS: DOCUSATE SODIUM 100 MG CAPSULE PO SCH (08:25)
[2022-05-09] MEDS: FINASTERIDE (5 MG) 5 MG TABLET PO SCH (08:25)
[2022-05-09] MEDS: PANTOPRAZOLE 40 MG TABLET.DR PO SCH (08:25)
[2022-05-09] MEDS: CLOZAPINE 25 MG TABLET PO SCH ×2 (08:25→16:14)
[2022-05-09] MEDS: MULTIVIT W/MINERALS 1 TAB TABLET PO SCH (08:25)
[2022-05-09] MEDS: FLUOXETINE HCL 20 MG CAPSULE PO SCH ×2 (08:25→12:53)
[2022-05-09] MEDS: Z GUARD REMEDY 4 OZ OINT TP SCH (08:26)
[2022-05-09] MEDS: MAGNESIUM HYDROXIDE 30 ML UDC PO PRN (09:21)
[2022-05-09] MEDS: LORAZEPAM 0.5 MG TABLET PO PRN (12:53)
[2022-05-09 16:00] VITALS: BP 128/84
[2022-05-09] MEDS: ASPIRIN 81 MG TAB.CHEW PO SCH (17:02)
[2022-05-09 20:39] VITALS: BP 123/63
[2022-05-09] MEDS: CLOZAPINE 100 MG TABLET PO SCH (22:10)
[2022-05-09] MEDS: SENNOSIDES 8.6 MG TABLET PO SCH (22:10)
[2022-05-10] MEDS: PANTOPRAZOLE 40 MG TABLET.DR PO SCH (07:54)
[2022-05-10 08:00] VITALS: BP 132/83
[2022-05-10] MEDS: ENSURE CLEAR 237 ML LIQUID (MIX BERRY) PO SCH ×2 (08:20→17:09)
[2022-05-10] MEDS: DOCUSATE SODIUM 100 MG CAPSULE PO SCH (08:20)
[2022-05-10] MEDS: MEMANTINE HCL 5 MG TABLET PO SCH ×2 (08:20→17:09)
[2022-05-10] MEDS: CLOZAPINE 25 MG TABLET PO SCH ×2 (08:20→17:09)
[2022-05-10] MEDS: MULTIVIT W/MINERALS 1 TAB TABLET PO SCH (08:21)
[2022-05-10] MEDS: FINASTERIDE (5 MG) 5 MG TABLET PO SCH (08:21)
[2022-05-10] MEDS: FLUOXETINE HCL 20 MG CAPSULE PO SCH ×2 (08:21→12:07)
[2022-05-10] MEDS: Z GUARD REMEDY 4 OZ OINT TP SCH (08:21)
[2022-05-10] MEDS: MAGNESIUM HYDROXIDE 30 ML UDC PO PRN (12:06)
[2022-05-10 16:00] VITALS: BP 100/59
[2022-05-10] MEDS: ASPIRIN 81 MG TAB.CHEW PO SCH (17:09)
[2022-05-10] MEDS: LORAZEPAM 0.5 MG TABLET PO PRN (18:34)
--- NOTE | 2022-05-10 18:34 | NUR ---
NURSE NOTE: PT AGITATED. HEARS VOICES TELLING HIM TO HARM STAFF. ATIVAN PO ADMINISTERED ORDERED. PT SHIRAZ WELL. WILL CONT TO MONITOR.
--- NOTE | 2022-05-10 20:00 | NUR ---
NURSE NOTE: PT AWAKE, SITTING IN GERICHAIR IN HALLWAY, ALERT/ORIENTED X2. REORIENTED NEEDED. PT HAS FLAT AFFECT, BLUNTED, VERBALIZING THOUGHTS HARMING AND NOT HARMING AND HE IS REQUESTING TO BE PLACED IN ISOLATION ROOM. PARANOID. ENCOURAGED TO EXPRESS FEELINGS, REDIRECTED AND PLACED IN ISOLATION ROOM BY CHOICE. TIME, WILL CONT TO MONITOR FOR SAFETY AND BEHAVIOR.
[2022-05-10] MEDS: TEMAZEPAM 7.5 MG CAPSULE PO PRN (20:29)
[2022-05-10 21:19] VITALS: BP 117/62
[2022-05-10] MEDS: CLOZAPINE 100 MG TABLET PO SCH (21:19)
[2022-05-10] MEDS: SENNOSIDES 8.6 MG TABLET PO SCH (21:19)
--- NOTE | 2022-05-10 21:30 | NUR ---
PATIENT IN OBSERVATION ROOM PER HIS REQUEST AND SITTING IN CHECO CHAIR. PATIENT HAD EPISODE OF VERBALIZING "I WANT TO KILL YOU," "I DO NOT WANT TO KILL YOU." "I WANT TO BE RESTRAINED" WHILE AMBULATING WITH WITH BILATERAL ARMS UP STRAIGHT FORWARD AND AMBULATING. TYLENOL AND SLEEPING PILL GIVEN PRN ORDERED WITH MINIMAL EFFECT AT THIS TIME. PO FLUIDS OFFERED AND TAKEN WELL. PATIENT VERBALIZED BEING IN THE OBSERVATION ROOM MAKES HIM FEEL BETTER. ENCOURAGED TO VERBALIZE FEELINGS. SAFETY PRECAUTIONS MAINTAINED.
--- NOTE | 2022-05-11 06:55 | NUR ---
CLOSING NOTE: PATIENT SLEEPING QUIETLY IN ROOM. UNLABORED BREATHING. SAFETY PRECAUTIONS MAINTAINED. CLOSELY MONITORED.
--- NOTE | 2022-05-11 07:50 | NUR ---
GPS RN NOTE PATIENT IN BED SLEEPING QUIETLY IN ROOM. UNLABORED BREATHING. SAFETY PRECAUTIONS MAINTAINED. CLOSELY MONITORED. NOT IN DISTRESS AT THIS TIME
--- NOTE | 2022-05-11 07:50 | NUR ---
GPS RN NOTE CLOSING NOTE: PATIENT SLEEPING QUIETLY IN ROOM. UNLABORED BREATHING. SAFETY PRECAUTIONS MAINTAINED. CLOSELY MONITORED.
[2022-05-11 08:00] VITALS: BP 109/68
[2022-05-11] MEDS: ENSURE CLEAR 237 ML LIQUID (MIX BERRY) PO SCH ×2 (08:00→17:10)
[2022-05-11] MEDS: MEMANTINE HCL 5 MG TABLET PO SCH ×2 (09:12→16:29)
[2022-05-11] MEDS: CLOZAPINE 25 MG TABLET PO SCH ×2 (09:13→16:33)
[2022-05-11] MEDS: PANTOPRAZOLE 40 MG TABLET.DR PO SCH (09:15)
[2022-05-11] MEDS: MULTIVIT W/MINERALS 1 TAB TABLET PO SCH (09:15)
[2022-05-11] MEDS: FLUOXETINE HCL 20 MG CAPSULE PO SCH ×2 (09:15→12:15)
[2022-05-11] MEDS: DOCUSATE SODIUM 100 MG CAPSULE PO SCH (09:15)
[2022-05-11] MEDS: FINASTERIDE (5 MG) 5 MG TABLET PO SCH (09:16)
[2022-05-11] MEDS: Z GUARD REMEDY 4 OZ OINT TP SCH (09:18)
--- NOTE | 2022-05-11 09:36 | NUR ---
SNF Referrals: SW sent referrals to [facility] ([phone]) (F:[phone]) attn to [facility] ([phone]) (F:[phone]) attn to Caitlin (director of rehabilitative services stated that admissions will be back to work 05/12). MIKAYLA faxed H & P, progress notes, and medication list.
--- NOTE | 2022-05-11 11:00 | NUR ---
GPS RN NOTE PATIENT IN BED , RESTING IN BED ,NOT IN DISTRESS AT THIS TIME
--- NOTE | 2022-05-11 15:00 | NUR ---
GPS RN NOTE PATIENT WALKING IN HALLWAY, NO C\O DISCOMFORT AT THIS TIME
[2022-05-11 16:00] VITALS: BP 108/74
[2022-05-11] MEDS: ASPIRIN 81 MG TAB.CHEW PO SCH (17:11)
[2022-05-11] MEDS: LORAZEPAM 0.5 MG TABLET PO PRN (17:31)
--- NOTE | 2022-05-11 17:35 | NUR ---
GPS RN NOTE PATIENT PLACED IN OBSERVATION ROOM PER HIS REQUEST AND SITTING IN CHECO CHAIR. PATIENT HAD EPISODE OF VERBALIZING "I WANT TO KILL YOU," "I DO NOT WANT TO KILL YOU." WHILE AMBULATING IN HALLWAY PO FLUIDS OFFERED AND TAKEN SOME ,ATIVAN 0.5 MG PO GIVEN ORDERED PRN PATIENT ENCOURAGED TO VERBALIZE FEELINGS. SAFETY PRECAUTIONS MAINTAINED.
--- NOTE | 2022-05-11 18:52 | NUR ---
gps rn note patient still in observation room sitting on gianni chair, a little calm but still verbalizing at time that hear voices saying i dont want kill you, offered fluids t,ook ensure , will cont to monitor closely and will endorse to rn next shift ,
--- NOTE | 2022-05-11 19:30 | NUR ---
NOC RN OPENING RECEIVED PATIENT IN BED. PATIENT IS CALM AT THIS TIME. DOES GET UP OF BED ON HIS OWN WITH STEADY GAIT. WILL DO VISUAL CHECKS AND ROUNDING WITH STAFF TO ENSURE PATIENT SAFETY.
[2022-05-11 20:39] VITALS: BP 96/70
[2022-05-11] MEDS: CLOZAPINE 100 MG TABLET PO SCH (22:07)
[2022-05-11] MEDS: SENNOSIDES 8.6 MG TABLET PO SCH (22:07)
--- NOTE | 2022-05-11 22:12 | NUR ---
NOC RN NOTE DENIES HEARING VOICES AT THIS TIME. ENCOURAGED PATIENT TO VERBALIZED ANY THOUGHTS OF HARMING SELF AND OTHERS.
[2022-05-12 08:00] VITALS: BP 109/65
[2022-05-12] MEDS: ENSURE CLEAR 237 ML LIQUID (MIX BERRY) PO SCH ×2 (08:09→16:57)
[2022-05-12] MEDS: MEMANTINE HCL 5 MG TABLET PO SCH ×2 (08:11→16:57)
[2022-05-12] MEDS: PANTOPRAZOLE 40 MG TABLET.DR PO SCH (08:11)
[2022-05-12] MEDS: FINASTERIDE (5 MG) 5 MG TABLET PO SCH (08:11)
[2022-05-12] MEDS: MULTIVIT W/MINERALS 1 TAB TABLET PO SCH (08:11)
[2022-05-12] MEDS: CLOZAPINE 25 MG TABLET PO SCH ×2 (08:11→16:57)
[2022-05-12] MEDS: FLUOXETINE HCL 20 MG CAPSULE PO SCH ×2 (08:11→13:26)
[2022-05-12] MEDS: DOCUSATE SODIUM 100 MG CAPSULE PO SCH (08:11)
[2022-05-12] MEDS: Z GUARD REMEDY 4 OZ OINT TP SCH (08:12)
--- NOTE | 2022-05-12 10:07 | NUR ---
SNF Contact: SW contacted [facility] ([phone]) and spoke with Christina from admissions who stated that they are not accepting patient's due to COVID outbreak.
[2022-05-12 16:00] VITALS: BP 107/67
--- NOTE | 2022-05-12 16:10 | NUR ---
SNF Contact: SW received a call from [facility] ([phone]) who stated pt is accepted.
--- NOTE | 2022-05-12 16:11 | NUR ---
LPS Conservator: MIKAYLA notified [facility] LPS Conservator ([phone]) and notified that he is accepted at [facility] ([phone]). She is agreeable of this.
[2022-05-12] MEDS: ASPIRIN 81 MG TAB.CHEW PO SCH (17:00)
[2022-05-12 20:04] VITALS: BP 120/76
[2022-05-12] MEDS: CLOZAPINE 100 MG TABLET PO SCH (21:25)
[2022-05-12] MEDS: SENNOSIDES 8.6 MG TABLET PO SCH (21:25)
[2022-05-12] MEDS: LORAZEPAM 0.5 MG TABLET PO PRN (22:20)
--- NOTE | 2022-05-12 22:20 | NUR ---
NURSE NOTE: PT AGGITATED AT THIS TIME. SAYS HE'S HEARING VOICES TELLING HIM TO HURT THE STAFF. ATIVAN PO ADMINISTERED ORDERED. PT SHIRAZ WELL. REQUESTED TO BE PLACED IN CHECO CHAIR. WILL CONT TO MONITOR.
[2022-05-12] MEDS: TEMAZEPAM 7.5 MG CAPSULE PO PRN (22:32)
--- NOTE | 2022-05-12 22:40 | NUR ---
NURSE NOTE: PT UNABLE TO SLEEP. TEMAZEPAM PO ADMINISTERED ORDERED. PT SHIRAZ WELL. WILL CONT TO MONITOR. WILL CONT TO MONITOR.
--- NOTE | 2022-05-12 23:05 | NUR ---
NURSE NOTE: PT CALM AT THIS TIME. ATIVAN EFFECTIVE AT THIS TIME. PER PT THIS EPISODE OF VOICES HEARD MUCH BETTER THAN PREVIOUS DAYS. WILL CONT TO MONITOR.
--- NOTE | 2022-05-12 23:40 | NUR ---
NURSE NOTE: PT SLEEPING AT THIS TIME. TEMAZEPAM EFFECTIVE AT THIS TIME. WILL CONT TO MONITOR.
[2022-05-13 08:00] VITALS: BP 122/76
[2022-05-13] MEDS: PANTOPRAZOLE 40 MG TABLET.DR PO SCH (08:17)
[2022-05-13] MEDS: ENSURE CLEAR 237 ML LIQUID (MIX BERRY) PO SCH ×2 (08:19→16:17)
[2022-05-13] MEDS: CLOZAPINE 25 MG TABLET PO SCH ×2 (08:29→16:17)
[2022-05-13] MEDS: MULTIVIT W/MINERALS 1 TAB TABLET PO SCH (08:30)
[2022-05-13] MEDS: MEMANTINE HCL 5 MG TABLET PO SCH ×2 (08:30→16:17)
[2022-05-13] MEDS: FINASTERIDE (5 MG) 5 MG TABLET PO SCH (08:30)
[2022-05-13] MEDS: DOCUSATE SODIUM 100 MG CAPSULE PO SCH (08:30)
[2022-05-13] MEDS: Z GUARD REMEDY 4 OZ OINT TP SCH (08:30)
[2022-05-13] MEDS: FLUOXETINE HCL 20 MG CAPSULE PO SCH (12:31)
[2022-05-13 16:00] VITALS: BP 111/77
[2022-05-13] MEDS: risperiDONE 1 MG TABLET PO SCH (16:17)
[2022-05-13] MEDS: ASPIRIN 81 MG TAB.CHEW PO SCH (17:32)
--- NOTE | 2022-05-13 18:34 | NUR ---
RN-NOTES PATIENT VISIBLE IN THE UNIT A/O X2 GUARDED,NO ACUTE DISTRESS NOTED.COMPLIANT WITH MEDICATIONS.ABLE TO MAKE NEEDS KNOWN TO THE STAFF. AMBULATORY STEADY GAIT.NOTED PATIENT RESPONDING TO INTERNAL STIMULI,NOTED PATIENT WITH EPISODE OF LYING ON THE FLOOR IN THE DAY ROOM,REDIRECTED AND REORIENTED PATIENT . PATIENT REQUESTING TO SIT IN THE CHECO CHAIR AND STAY NEXT TO THE NURSE STATION. ALL NEEDS ATTENDED AND ANTICIPATED. WILL CONT. MONITORING FOR SAFETY AND BEHAVIOR. WILL ENDORSE TO INCOMING NURSE FOR CONTINUITY OF CARE.
[2022-05-13] MEDS: LORAZEPAM 0.5 MG TABLET PO PRN (19:19)
--- NOTE | 2022-05-13 19:21 | NUR ---
RN NOTES: ANXIETY PT.NOTED VERY ANXIOUS, PACING IN HALLWAY , PARANOID , UNCOOPERTIVE,NONREDIRECTABLE ,PRN ATIVAN 0.5 MG PO GIVEN PER PT. REQUEST, WILL CONTINUE TO MONITOR.
[2022-05-13 20:03] VITALS: BP 129/90
--- NOTE | 2022-05-13 20:08 | NUR ---
RN NOTES: PATIENT IN HIS ROOM AWAKE ALERT, NO ACUTE DISTRESS NOTED , ANXIOUS EASILY AGITATED, NEEDY, DEPRESSED, GUARDED , FLAT BLUNTED AFFECT ,UNCOOPERTIVE , PARANOID DISHELVED , ANXIOUS. VERBALIZATION OF FEELINGS ENCOURAGED. PER PT. STATES SOME TIMES HEARING VOICES AND AUDITORY/VISUAL HALLUCINATIONS, NEEDS FREQUENTLY REDIRECTIONS, SAFETY PRECAUTIONS MAINTAINED. WILL CONTINUE TO MONITOR Q15MIN ROUNDS FOR SAFETY AND BEHAVIOR.
[2022-05-13] MEDS: SENNOSIDES 8.6 MG TABLET PO SCH (21:30)
[2022-05-13] MEDS: CLOZAPINE 100 MG TABLET PO SCH (21:30)
[2022-05-13] MEDS: TEMAZEPAM 7.5 MG CAPSULE PO PRN (22:04)
--- NOTE | 2022-05-13 22:04 | NUR ---
RN NOTES: INSOMNIA PT. C/O INSOMNIA PRN RESTORIL 7.5 MG PO GIVEN PER PT. REQUEST , WILL CONTINUE TO MONITOR.
[2022-05-14] MEDS: ENSURE CLEAR 237 ML LIQUID (MIX BERRY) PO SCH ×2 (07:47→17:13)
[2022-05-14] MEDS: PANTOPRAZOLE 40 MG TABLET.DR PO SCH (07:47)
[2022-05-14 08:00] VITALS: BP 133/82
[2022-05-14] MEDS: MULTIVIT W/MINERALS 1 TAB TABLET PO SCH (08:16)
[2022-05-14] MEDS: FINASTERIDE (5 MG) 5 MG TABLET PO SCH (08:16)
[2022-05-14] MEDS: Z GUARD REMEDY 4 OZ OINT TP SCH (08:16)
[2022-05-14] MEDS: MEMANTINE HCL 5 MG TABLET PO SCH ×2 (08:16→16:15)
[2022-05-14] MEDS: DOCUSATE SODIUM 100 MG CAPSULE PO SCH (08:16)
[2022-05-14] MEDS: CLOZAPINE 25 MG TABLET PO SCH (08:16)
[2022-05-14] MEDS: risperiDONE 1 MG TABLET PO SCH ×2 (08:16→16:15)
--- NOTE | 2022-05-14 08:40 | NUR ---
LPS Conservator: MIKAYLA notified [facility] LPS Conservator ([phone]) that [facility] denied pt and she stated she would want pt back to [facility].
--- NOTE | 2022-05-14 11:27 | NUR ---
LPS CONSERVATOR: SW received a call from Ivett ([phone]) case investigator for LPS Conservator Marlene stated if this speech writer can fax clinicals to [facility] and [facility].
--- NOTE | 2022-05-14 11:28 | NUR ---
SNF Referral: MIKAYLA sent clinicals to [facility] and [facility]. MIKAYLA sent to Kenia Brown from [facility] ([phone]) for placement. SW sent H & P, progress notes, and medication list. MIKAYLA sent to Joselin brown from [facility] ([phone]) for placement. SW sent H & P, progress notes, and medication list.
[2022-05-14] MEDS: ALPRAZOLAM 0.5 MG TABLET PO SCH ×2 (12:14→16:15)
[2022-05-14] MEDS: FLUOXETINE HCL 20 MG CAPSULE PO SCH (12:14)
--- NOTE | 2022-05-14 12:47 | NUR ---
SNF Contact: SW received a call from Joselin brown from [facility] ([phone]) who stated pt is accepted.
--- NOTE | 2022-05-14 14:28 | NUR ---
SNF Contact: SW spoke with Kenia Arredondo from [facility] ([phone]) who stated that they cannot accept.
--- NOTE | 2022-05-14 15:01 | NUR ---
LPS CONSERVATOR: MIKAYLA spoke with Ivett ([phone]) case consultant for LPS Conservator Marlene and notified that [facility] accepted and [facility] denied. She stated that pt can go to [facility] when ready.
[2022-05-14 16:00] VITALS: BP 118/74
[2022-05-14] MEDS: ASPIRIN 81 MG TAB.CHEW PO SCH (17:13)
--- NOTE | 2022-05-14 18:25 | NUR ---
RN-NOTES PATIENT VISIBLE IN THE UNIT A/O X2,GUARDED,NO ACUTE DISTRESS NOTED.COMPLAINT WITH MEDICATIONS.AMBULATORY STEADY GAIT.ABLE TO MAKE NEEDS KNOWN TO THE STAFF.ALL NEEDS ATTENDED AND ANTICIPATED. WILL CONT. MONITORING FOR SAFETY AND BEHAVIOR.
[2022-05-14 20:00] VITALS: BP 115/72
--- NOTE | 2022-05-14 20:44 | NUR ---
RN NOTES ;PATIENT RESTING IN HIS ROOM AWAKE ALERT, NO ACUTE DISTRESS NOTED , ANXIOUS EASILY AGITATED, NEEDY, DEPRESSED, GUARDED , FLAT BLUNTED AFFECT, PARANOID DISHELVED , ANXIOUS. VERBALIZATION OF FEELINGS ENCOURAGED. DENIES SI/HI AND HEARING VOICES AND AUDITORY/VISUAL HALLUCINATIONS AT THIS TIME, NEEDS FREQUENTLY REDIRECTIONS, SAFETY PRECAUTIONS MAINTAINED. WILL CONTINUE TO MONITOR Q15MIN ROUNDS FOR SAFETY AND BEHAVIOR.
[2022-05-14] MEDS: CLOZAPINE 100 MG TABLET PO SCH (21:33)
[2022-05-14] MEDS: SENNOSIDES 8.6 MG TABLET PO SCH (21:34)
[2022-05-15] MEDS: PANTOPRAZOLE 40 MG TABLET.DR PO SCH (07:43)
[2022-05-15] MEDS: ENSURE CLEAR 237 ML LIQUID (MIX BERRY) PO SCH ×2 (07:43→17:06)
[2022-05-15] MEDS: CLOZAPINE 25 MG TABLET PO SCH (07:43)
[2022-05-15 08:00] VITALS: BP 124/77
[2022-05-15 08:06] LABS: BASOPHILS % (AUTO) 0.7 % (0.0-2.0); EOSINOPHILS % (AUTO) 3.1 % (0.0-6.0); HEMATOCRIT 40 % (39-51); HEMOGLOBIN 12.9 g/dL (13.5-17.5); LYMPHOCYTES % (AUTO) 13.9 % (20.0-44.0); MEAN CORPUSCULAR HGB CONC 32 g/dl (31.0-36.0); MEAN CORPUSCULAR VOLUME 91 fL (80-96); MONOCYTES # (AUTO) 0.4 K/uL (0.1-1.30); MONOCYTES % (AUTO) 5.8 % (2.0-12.0); NEUTROPHILS # (AUTO) 5.2 K/uL (1.8-8.9); NEUTROPHILS % (AUTO) 76.5 % (43.0-81.0); PLATELET COUNT (AUTO) 153 K/uL (150-450); WHITE BLOOD COUNT (AUTO) 6.8 K/uL (4.3-11.0)
[2022-05-15] MEDS: MEMANTINE HCL 5 MG TABLET PO SCH ×2 (08:19→16:14)
[2022-05-15] MEDS: risperiDONE 1 MG TABLET PO SCH ×2 (08:19→16:15)
[2022-05-15] MEDS: FINASTERIDE (5 MG) 5 MG TABLET PO SCH (08:19)
[2022-05-15] MEDS: DOCUSATE SODIUM 100 MG CAPSULE PO SCH (08:19)
[2022-05-15] MEDS: MULTIVIT W/MINERALS 1 TAB TABLET PO SCH (08:19)
[2022-05-15] MEDS: Z GUARD REMEDY 4 OZ OINT TP SCH (08:20)
[2022-05-15] MEDS: ALPRAZOLAM 0.5 MG TABLET PO SCH ×2 (12:03→16:14)
[2022-05-15] MEDS: FLUOXETINE HCL 20 MG CAPSULE PO SCH (12:04)
[2022-05-15 16:00] VITALS: BP 115/60
[2022-05-15] MEDS: ASPIRIN 81 MG TAB.CHEW PO SCH (17:06)
--- NOTE | 2022-05-15 18:41 | NUR ---
RN-NOTES PATIENT VISIBLE IN THE UNIT A/O X2,GUARDED,CALM AND QUIET,NO ACUTE DISTRESS NOTED.COMPLAINT WITH MEDICATIONS. AMBULATORY STEADY GAIT.ABLE TO MAKE NEEDS KNOWN TO THE STAFF.ALL NEEDS ATTENDED AND ANTICIPATED. WILL CONT. MONITORING FOR SAFETY AND BEHAVIOR.
[2022-05-15 20:00] VITALS: BP 105/69
[2022-05-15] MEDS: SENNOSIDES 8.6 MG TABLET PO SCH (21:23)
[2022-05-15] MEDS: CLOZAPINE 100 MG TABLET PO SCH (21:23)
[2022-05-16 08:00] VITALS: BP 90/60
[2022-05-16] MEDS: MULTIVIT W/MINERALS 1 TAB TABLET PO SCH (08:19)
[2022-05-16] MEDS: MEMANTINE HCL 5 MG TABLET PO SCH ×2 (08:19→16:29)
[2022-05-16] MEDS: LACTULOSE 10 G/15 ML UDC (PYXIS) PO PRN (08:20)
[2022-05-16] MEDS: PANTOPRAZOLE 40 MG TABLET.DR PO SCH (08:20)
[2022-05-16] MEDS: FINASTERIDE (5 MG) 5 MG TABLET PO SCH (08:20)
[2022-05-16] MEDS: risperiDONE 1 MG TABLET PO SCH ×2 (08:22→16:29)
[2022-05-16] MEDS: DOCUSATE SODIUM 100 MG CAPSULE PO SCH (08:22)
[2022-05-16] MEDS: ENSURE CLEAR 237 ML LIQUID (MIX BERRY) PO SCH ×2 (08:23→16:22)
[2022-05-16] MEDS: CLOZAPINE 25 MG TABLET PO SCH (09:28)
[2022-05-16] MEDS: Z GUARD REMEDY 4 OZ OINT TP SCH (09:29)
--- NOTE | 2022-05-16 10:37 | NUR ---
RN-CO:RECEIVED PATIENT AWAKE, DENIED PAIN AND DISCOMFORTS, ATE BREAKFAST AND TOOK HIS MEDICATIONS. HE STATED THAT FOR TODAY HE DOESN'T HEAR VOICES. HE IS ISOLATIVE AND UNMOTIVATED OTHERWISE HE IS COOPERATIVE TO CARE. I ENCOURAGED HIM TO VENTILATE HIS FEELINGS, TO SHOWER TODAY AND TO PARTICIPATE IN GROUPS.
[2022-05-16] MEDS: FLUOXETINE HCL 20 MG CAPSULE PO SCH (13:00)
[2022-05-16] MEDS: ALPRAZOLAM 0.5 MG TABLET PO SCH ×2 (13:00→16:29)
[2022-05-16 16:00] VITALS: BP 115/73
[2022-05-16] MEDS: ASPIRIN 81 MG TAB.CHEW PO SCH (17:05)
--- NOTE | 2022-05-16 20:00 | NUR ---
RN NOTE RECEIVED PATIENT IN BED, AWAKE. PT A/O X2,ABLE TO VERBALIZE NEEDS. DENIED PAIN OR DISCOMFORT. TOOK HIS MEDICATIONS. HE STATED THAT HE HEAR VOICES THAT TELL HIM TO KILL PEOPLE. HE IS ISOLATIVE, AND UNMOTIVATED, OTHERWISE HE IS COOPERATIVE TO CARE. PT ENCOURAGED TO TALK ABOUT FEELINGS.
[2022-05-16 20:44] VITALS: BP 124/79
[2022-05-16] MEDS: SENNOSIDES 8.6 MG TABLET PO SCH (21:33)
[2022-05-16] MEDS: CLOZAPINE 100 MG TABLET PO SCH (21:33)
--- NOTE | 2022-05-17 07:00 | NUR ---
RN NOTE LEFT PT IN BED, STILL SLEEPING. PT IN STABLE CONDITION. NO C/O PAIN OR DISCOMFORT, NO ACUTE DISTRESS NOTED. WILL ENDORSE TO AM SHIFT RN FOR CONTINUITY OF CARE.
[2022-05-17] MEDS: CLOZAPINE 25 MG TABLET PO SCH (07:48)
[2022-05-17] MEDS: PANTOPRAZOLE 40 MG TABLET.DR PO SCH (07:48)
[2022-05-17] MEDS: ENSURE CLEAR 237 ML LIQUID (MIX BERRY) PO SCH ×2 (07:49→16:11)
[2022-05-17 08:00] VITALS: BP 127/76
[2022-05-17] MEDS: LACTULOSE 10 G/15 ML UDC (PYXIS) PO PRN (08:08)
[2022-05-17] MEDS: FINASTERIDE (5 MG) 5 MG TABLET PO SCH (08:08)
[2022-05-17] MEDS: DOCUSATE SODIUM 100 MG CAPSULE PO SCH (08:08)
[2022-05-17] MEDS: MULTIVIT W/MINERALS 1 TAB TABLET PO SCH (08:08)
[2022-05-17] MEDS: risperiDONE 1 MG TABLET PO SCH ×2 (08:08→16:21)
[2022-05-17] MEDS: MEMANTINE HCL 5 MG TABLET PO SCH (08:09)
[2022-05-17] MEDS: Z GUARD REMEDY 4 OZ OINT TP SCH (09:23)
[2022-05-17] MEDS: LEVETIRACETAM (250 MG) 250 MG TABLET PO SCH ×2 (10:40→21:13)
[2022-05-17] MEDS: FLUOXETINE HCL 20 MG CAPSULE PO SCH (12:19)
[2022-05-17] MEDS: ALPRAZOLAM 0.5 MG TABLET PO SCH ×2 (12:19→16:20)
[2022-05-17 16:00] VITALS: BP 123/69
[2022-05-17] MEDS: ASPIRIN 81 MG TAB.CHEW PO SCH (17:04)
[2022-05-17 19:41] VITALS: BP 107/76
[2022-05-17] MEDS: CLOZAPINE 100 MG TABLET PO SCH (21:13)
[2022-05-17] MEDS: SENNOSIDES 8.6 MG TABLET PO SCH (21:13)
--- NOTE | 2022-05-18 07:45 | NUR ---
RN Notes; Patient in bed, asleep but easily arouses when called his name. Patient is alert, and oriented x 2. No c/o pain or discomfort at this time. No SI/HI noted at this time, patient seems calm and cooperative and in no acute distress noted at this time. Will continue to monitor patient throughout shift.
[2022-05-18 08:00] VITALS: BP 129/80
--- NOTE | 2022-05-18 08:07 | NUR ---
SW Discharge Note: Patient will be discharged to [facility] located at [address] [place] [address]; ([phone]) via ambulance. Sherry brown from [facility] ([phone]) accepted pt and is welcoming pt today. Patients LPS Conservator Marlene ([phone]) is aware and agreeable. Pt appears to be alert and oriented x1. Pt denies visual/auditory hallucinations. Pt denies denies suicidal or homicidal ideation. Patient will continue to follow-up with (Psychiatrist) Dr. Chacon [address] [facility] [address], [place] [address]; ([phone]). (Manager Of Case Management) Dr. Werner [address] [facility] [address], [place] [address]; ([phone]).
[2022-05-18] MEDS: PANTOPRAZOLE 40 MG TABLET.DR PO SCH (08:11)
[2022-05-18] MEDS: ENSURE CLEAR 237 ML LIQUID (MIX BERRY) PO SCH (08:12)
[2022-05-18] MEDS: DOCUSATE SODIUM 100 MG CAPSULE PO SCH (08:18)
[2022-05-18] MEDS: MULTIVIT W/MINERALS 1 TAB TABLET PO SCH (08:18)
[2022-05-18] MEDS: CLOZAPINE 25 MG TABLET PO SCH (08:19)
[2022-05-18] MEDS: LEVETIRACETAM (250 MG) 250 MG TABLET PO SCH (08:19)
[2022-05-18] MEDS: risperiDONE 1 MG TABLET PO SCH (08:19)
[2022-05-18] MEDS: FINASTERIDE (5 MG) 5 MG TABLET PO SCH (08:19)
[2022-05-18] MEDS: Z GUARD REMEDY 4 OZ OINT TP SCH (08:24)
[2022-05-18] MEDS: FLUOXETINE HCL 20 MG CAPSULE PO SCH (12:18)
[2022-05-18] MEDS: ALPRAZOLAM 0.5 MG TABLET PO SCH (12:18)
--- NOTE | 2022-05-18 12:27 | NUR ---
Called [facility] ([facility]) @ and gave full report to JAVIER Silva. Informed that the picker box operator time from the facility is @ 1300. Reported that the patient denies any suicidal ideation/homicidal ideation and no visual or auditory hallucination noted at this time. .
--- NOTE | 2022-05-18 12:57 | NUR ---
SUPERVISOR METER REPAIR SHOP NOTES Ambulance came to mixing picker tender the patient. Patient will be discharged to [facility] ([facility]) located @ [address] [place] [address] . Patient is in stable condition. Compliant with medications, cooperative with treatment plans. Patient denies SI/HI and no auditory or visual hallucinations noted. Patient instructed to go to the closest ER if developing SI/HI. Behavior improved, psychiatric treatment plans met, medical treatment plans deferred for continual monitoring. Educated patient about exit care and copy provided. Belongings list done and returned to the patient. Patient signed discharge paperwork. Medications reconciled with Dr. Chacon (psychiatrist and Dr. May (temper mill roller). Wound pictures taken and documented in the chart.
--- NOTE | 2022-05-18 13:24 | NUR ---
Patient left the unit via gurney and left in no acute distress accompanied by two ambulance personnel.
[2022-05-19] MEDS ORDERED: CLOZ100T32 PO (15:00)
[2022-05-19] MEDS ORDERED: MAG30ORA PO (15:00)
[2022-05-19] MEDS ORDERED: CLOZ25TA4 PO (15:00)
[2022-05-19] MEDS ORDERED: DIPH25CA51 PO (15:00)
[2022-05-19] MEDS ORDERED: GUAI5SYR PO (15:00)
[2022-05-19] MEDS ORDERED: MAGN400O6 PO (15:00)
[2022-05-19] MEDS ORDERED: TEMA7.5C12 PO (15:00)
[2022-05-19] MEDS ORDERED: LEVE250T2 PO (15:00)
[2022-05-19] MEDS ORDERED: RISP0.2515 PO (15:00)
[2022-05-19] MEDS ORDERED: ALPR0.5T8 PO (15:00)
[2022-05-19] MEDS ORDERED: LORA-259 PO (15:00)
[2022-05-19] MEDS ORDERED: FLUO40CA49 PO (15:00)
== END 2022-05-18 13:24 | DRG 885 ==
LOC: GPS 19:13
PROVIDERS: ADMIT Psychiatry & Neurology Psychosomatic Medicine; ATTEND Student in an Organized Health Care Education/Training Program
DX: F25.9 Schizoaffective disorder, unspecified (principal); F41.9 Anxiety disorder, unspecified; F32.A Depression, unspecified; N40.0 Benign prostatic hyperplasia without lower urinary tract symptoms; Z20.822 Contact with and (suspected) exposure to COVID-19; F42.9 Obsessive-compulsive disorder, unspecified; J44.9 Chronic obstructive pulmonary disease, unspecified; R21 Rash and other nonspecific skin eruption; Z79.899 Other long term (current) drug therapy; R41.9 Unspecified symptoms and signs involving cognitive functions and awareness
CPT/HCPCS: 36415; 80048-TC; 80061-TC; 82565-TC; 82962-TC; 83735-TC; 84100-TC; 85025-TC; J2426; J7512; Q0163

== ENCOUNTER 2022-05-19 11:28 | Inpatient (IN) | payer MEDICARE, OTHER ==
[~2022-05-19] VITALS: Ht 185.4 cm; Wt 61.2 kg
[~2022-05-19 11:28] MED LIST changes: -ACET200V4 NEB; -ALBU1.25 NEB; -CEFU500T66 PO; -DEXA4TAB PO; -DOXY-326 PO
--- NOTE | 2022-05-19 11:35 | NUR ---
shivani LUNA frm snf for medical/psych eval for verbal aggression at the facility
--- NOTE | 2022-05-19 11:48 | NUR ---
blood sample obtained sent to lab
[2022-05-19 12:40] LABS: BASOPHILS % (AUTO) 0.4 % (0.0-2.0); EOSINOPHILS % (AUTO) 1.6 % (0.0-6.0); HEMATOCRIT 39 % (39-51); HEMOGLOBIN 12.8 g/dL (13.5-17.5); LYMPHOCYTES # (AUTO) 0.5 K/uL (0.8-4.8); LYMPHOCYTES % (AUTO) 9.7 % (20.0-44.0); MEAN CORPUSCULAR HGB CONC 33 g/dl (31.0-36.0); MEAN CORPUSCULAR VOLUME 91 fL (80-96); MONOCYTES # (AUTO) 0.3 K/uL (0.1-1.30); MONOCYTES % (AUTO) 5.6 % (2.0-12.0); NEUTROPHILS # (AUTO) 4.7 K/uL (1.8-8.9); NEUTROPHILS % (AUTO) 82.7 % (43.0-81.0); PLATELET COUNT (AUTO) 147 K/uL (150-450); RED BLOOD CELL COUNT(AUTO) 4.25 MIL/uL (4.5-6.0); WHITE BLOOD COUNT (AUTO) 5.6 K/uL (4.3-11.0)
--- NOTE | 2022-05-19 13:37 | NUR ---
urine sample obtained sent to lab
[2022-05-19 14:19] LABS: CALCIUM, SERUM 8.9 mg/dL (8.5-10.1); CARBON DIOXIDE 26 mmol/L (21-32); CHLORIDE 107 mmol/L (98-107); CREATININE 0.8 mg/dL (0.6-1.3); GLUCOSE 91 mg/dL (74-106); POTASSIUM 3.6 mmol/L (3.5-5.1); SODIUM SERUM 140 mmol/L (136-145); UREA NITROGEN, BLOOD 19 mg/dL (7-18)
[2022-05-19 14:24] LABS: ALANINE AMINOTRANSFERASE 54 U/L (12-78); ALBUMIN 3.3 g/dL (3.4-5.0); ALCOHOL, BLOOD < 3 mg/dL (0-0); ALKALINE PHOSPHATASE 114 U/L (46-116); ASPARTATE AMINOTRANSFERASE 28 U/L (15-37); BILIRUBIN,DIRECT 0.1 mg/dL (0.0-0.2); BILIRUBIN,TOTAL 0.3 mg/dL (0.2-1.0); TOTAL PROTEIN, SERUM 6.3 g/dL (6.4-8.2)
--- NOTE | 2022-05-19 14:32 | NUR ---
MOVE SHEET SUBMITTED.
--- NOTE | 2022-05-19 14:47 | NUR ---
[facility] CALLED ACCOUNTANT HELPER PAGED.
[2022-05-19 14:53] LABS: BILIRUBIN,URINE NEGATIVE (NEGATIVE); COLOR,URINE YELLOW (YELLOW); LEUKOCYTE ESTERASE ,URINE NEGATIVE (NEGATIVE); NITRITE, URINE NEGATIVE (NEGATIVE); PROTEIN,URINE NEGATIVE (NEGATIVE); UGLUCOSE NEGATIVE (NEGATIVE); UROBILINOGEN,URINE 0.2 EU/dL (0.2)
[2022-05-19] MEDS ORDERED: DIPH25CA51 PO (15:00)
[2022-05-19] MEDS ORDERED: FLUO40CA49 PO (15:00)
[2022-05-19] MEDS ORDERED: GUAI5SYR PO (15:00)
[2022-05-19] MEDS ORDERED: RISP0.2515 PO (15:00)
[2022-05-19] MEDS ORDERED: ALPR0.5T8 PO (15:00)
[2022-05-19] MEDS ORDERED: LORA-259 PO (15:00)
[2022-05-19] MEDS ORDERED: CLOZ100T32 PO (15:00)
[2022-05-19] MEDS ORDERED: CLOZ25TA4 PO (15:00)
[2022-05-19] MEDS ORDERED: LEVE250T2 PO (15:00)
[2022-05-19] MEDS ORDERED: MAG30ORA PO (15:00)
[2022-05-19] MEDS ORDERED: TEMA7.5C12 PO (15:00)
[2022-05-19] MEDS ORDERED: MAGN400O6 PO (15:00)
[2022-05-19] MEDS ORDERED: MAG HYDROX/AL HYDROX/SIMETH 30 ML UDC PO PRN ×2 (15:30→22:00)
[2022-05-19] MEDS ORDERED: diphenhydrAMINE HCL 25 MG CAPSULE PO PRN (15:30)
[2022-05-19] MEDS ORDERED: Medication Not On Formulary EA (Ipratropium/Albuterol Sulfate (Duoneb 2.5-0.5 Mg/3 Ml So IH PRN (15:30)
[2022-05-19] MEDS ORDERED: NA PHOS,M-B/NA PHOS,DI-BA 1 EA ENEMA RC PRN (15:30)
[2022-05-19] MEDS ORDERED: MAGNESIUM HYDROXIDE 30 ML UDC PO PRN (15:30)
[2022-05-19] MEDS ORDERED: ACETAMINOPHEN 325 MG TABLET PO PRN ×2 (15:30→22:00)
[2022-05-19] MEDS: ENSURE CLEAR 237 ML LIQUID (MIX BERRY) PO SCH (17:00)
--- NOTE | 2022-05-19 17:01 | NUR ---
GOT BED 220-A
[2022-05-19] MEDS ORDERED: ASPIRIN 81 MG TAB.CHEW PO SCH (18:00)
[2022-05-19] MEDS ORDERED: IPRATROPIUM NEB FS 0.5 MG/2.5 ML AMPUL.NEB NEB PRN (19:30)
[2022-05-19] MEDS ORDERED: ALBUTEROL FS 2.5 MG/0.5 ML VIAL.NEB NEB PRN (19:30)
--- NOTE | 2022-05-19 21:30 | NUR ---
PT TRANSFERED TO GPS VIA VAN
[2022-05-19 21:35] VITALS: BP 129/87
--- NOTE | 2022-05-19 21:35 | NUR ---
RN NOTE: ADMITTED A 67-Y/O, MALE, FROM [facility]. ADMITTED ON A 5150 HOLD FOR DTO/GD. PER HOLD, PT ADMITTED DUE TO HALLUCINATION AND AGGRESSIVE BEHAVIOR. PATIENT REPORTED THAT HE IS HEARING VOICES TELLING HIM TO KILL HIS NURSE AND HE REACHED OUT TO GRAB HER. UPON FACE TO FACE EVALUATION, PATIENT IS ALERT AND ORIENTED X2, PT. IS ANXIOUS, APPEARS TO BE DEPRESSED, GUARDED, PREOCCUPIED TO HIS OWN THOUGHTS. PATIENT STILL HEARING VOICES TELLING HIM TO KILL PEOPLE. PATIENT DENIES SUICIDAL IDEATION AT THIS TIME. SKIN ASSESSMENT DONE. PT UNABLE TO SIGN ADMISSION PAPERWORK DUE TO CONFUSION. PT. REFUSED FLU/PNEUMONIA VACCINE. PT ALSO REFUSED TO COMMENT ABOUT FLU/PNA VACCINATION AND REFUSING TO GET ONE. ALL BELONGINGS WERE SCREENED FOR CONTRABAND. PATIENT'S RIGHTS WERE DISCUSSED AND BOOKLET WAS GIVEN. CONTACTED DR. GONZALES AND HOSPITALIST ADELAIDA VICTORIA AND INFORMED THEM OF THE ADMISSION. BED IN LOWEST POSITION, LOCKED. SAFETY PRECAUTIONS MAINTAINED. WILL CONTINUE TO MONITOR Q15 MINS FOR MOOD, SAFETY AND BEHAVIOR. UNABLE TO GET HOLD OF Veronica COLEY PHONE# ([phone]) VOICEMAIL FULL. LEFT A VOICE MAIL MESSAGE TO STELLA BABCOCK ([phone]).
[2022-05-19] MEDS: SENNOSIDES 8.6 MG TABLET PO SCH (21:59)
[2022-05-19] MEDS: LEVETIRACETAM (250 MG) 250 MG TABLET PO SCH (21:59)
[2022-05-19] MEDS ORDERED: BLOOD SUGAR DIAGNOSTIC 1 EACH STRIP IN ONE (22:00)
[2022-05-19] MEDS ORDERED: TEMAZEPAM 7.5 MG CAPSULE PO PRN (22:00)
[2022-05-19] MEDS: LORAZEPAM 0.5 MG TABLET PO PRN (22:05)
[2022-05-19] MEDS: ASPIRIN 81 MG TAB.CHEW PO SCH (22:19)
[2022-05-19 22:38] VITALS: BP 129/87
[2022-05-20 07:58] LABS: CHOLESTEROL 169 mg/dL (<200); HDL CHOLESTEROL 72 mg/dL (40-60); LDL 85 mg/dL (0-99); TRIGLYCERIDES 72 mg/dL (30-150)
[2022-05-20 08:00] VITALS: BP 117/71
[2022-05-20] MEDS: PANTOPRAZOLE 40 MG TABLET.DR PO SCH (08:04)
[2022-05-20] MEDS: LEVETIRACETAM (250 MG) 250 MG TABLET PO SCH ×2 (08:16→20:54)
[2022-05-20] MEDS: FINASTERIDE (5 MG) 5 MG TABLET PO SCH (08:19)
[2022-05-20] MEDS: DOCUSATE SODIUM 100 MG CAPSULE PO SCH (08:19)
[2022-05-20] MEDS: MULTIVIT W/MINERALS 1 TAB TABLET PO SCH (08:19)
[2022-05-20] MEDS: ENSURE CLEAR 237 ML LIQUID (MIX BERRY) PO SCH ×2 (08:58→17:32)
[2022-05-20 09:34] LABS: ALBUMIN 3.7 g/dL (3.4-5.0); BILIRUBIN,TOTAL 0.4 mg/dL (0.2-1.0); CALCIUM, SERUM 8.7 mg/dL (8.5-10.1); POTASSIUM 3.4 mmol/L (3.5-5.1); TOTAL PROTEIN, SERUM 6.8 g/dL (6.4-8.2)
[2022-05-20] MEDS: LACTULOSE 10 G/15 ML UDC (PYXIS) PO PRN (10:07)
--- NOTE | 2022-05-20 10:50 | NUR ---
LPS Conservator: MIKAYLA contacted LPS Conservators office and spoke with Miley ([phone]) and notified of admission. MIKAYLA faxed detain and treat for Marlene to sign ([phone]).
--- NOTE | 2022-05-20 10:50 | NUR ---
MIKAYLA Initial Discharge Note: Patient currently resides at [facility] located at [address] [place] [address]; ([phone]). MIKAYLA reached out to Sherry brown who stated that she would have to follow up with DON to see if pt is welcomed back. MIKAYLA contacted LPS Conservators office and spoke with Miley ([phone]) and notified of admission. MIKAYLA faxed detain and treat for Marlene to sign ([phone]). MIKAYLA will work with the pt, family, and MD for placement.
--- NOTE | 2022-05-20 10:51 | NUR ---
MIKAYLA Clinical Note: Pt placed on a 5150 hold for danger to others and GD. Pt was aggressive at his facility. Patient currently resides at [facility] located at [address] [place] [address]; ([phone]). MIKAYLA reached out to Sherry brown who stated that she would have to follow up with DON to see if pt is welcomed back. MIKAYLA contacted LPS Conservators office and spoke with Miley ([phone]) and notified of admission. MIKAYLA faxed detain and treat for Marlene to sign ([phone]).
--- NOTE | 2022-05-20 10:51 | NUR ---
Treatment Plan: Pt refused to sign treatment plan and was suspicious.
--- NOTE | 2022-05-20 12:00 | NUR ---
RN-NOTES RECEIVED VERBAL ORDER FROM DR. GONZALES OF [place] 0.5MG P.O TID NOTED AND CARRIED OUT.
[2022-05-20] MEDS: clonazePAM 0.5 MG TABLET PO SCH ×2 (12:22→16:26)
[2022-05-20 16:00] VITALS: BP 109/71
[2022-05-20] MEDS: ASPIRIN 81 MG TAB.CHEW PO SCH (17:33)
--- NOTE | 2022-05-20 18:35 | NUR ---
RN-NOTES PATIENT LYING IN BED AWAKE,A/O X2 GUARDED,NO ACUTE DISTRESS NOTED. COMPLIANT WITH MEDICATIONS.AMBULATORY STEADY GAIT. NOTED PATIENT WITH NEEDY AND DEMANDING [id number].VISIBLE IN THE UNIT, ALL NEEDS ATTENDED AND ANTICIPATED. WILL CONT. MONITORING FOR SAFETY AND BEHAVIOR. Addendum: 05/20/22 at 1849 by KEN PINZON RN WILL ENDORSE PATIENT TO INCOMING NURSE FOR CONTINUITY OF CARE.
[2022-05-20 19:57] VITALS: BP 111/67
--- NOTE | 2022-05-20 20:19 | NUR ---
[employer]PS [employer] BENCH MECHANIC NOTE PATIENT AWAKE AND AMBULATORY IN HIS BEDROOM, CALM AT THIS TIME. BREATHING EVEN AND UNLABORED @ RA. A/O X 2. DENIES SI/HI AT THIS TIME. SAFETY MEASURES OBSERVED, EDUCATED PT WITH USE OF CALL LIGHT. WILL CONT TO MONITOR BEHAVIOR, SAFETY AND ANTICIPATE /ATTEND PT'S NEEDS.
[2022-05-20] MEDS: CLOZAPINE 100 MG TABLET PO SCH (20:54)
[2022-05-20] MEDS: MAGNESIUM HYDROXIDE 30 ML UDC PO PRN (20:59)
[2022-05-20] MEDS: SENNOSIDES 8.6 MG TABLET PO SCH (21:01)
--- NOTE | 2022-05-20 21:38 | NUR ---
PT AMBULATING AT THIS TIME- BACK AND FORT BEDROOM- TO DINNING AREA WATCHING TV/ READING BOOKS. DUE MEDICATIONS GIVEN WITHOUT DIFFICULTY , PT COMPLIANT WITH HIS MEDS, AND ALSO PT REQUESTED FOR MOM MEDICATION C/O CONSTIPATION, PRN MOM GIVEN PT'S REQUEST AND ORDER. WILL CONT TO MONITOR AND ANTICIPATE NEEDS.
--- NOTE | 2022-05-21 01:06 | NUR ---
Pt comfortably sleeping in his bed, easy to arouse, breathing even and unlabored. Safety measures observed. Will cont to monitor.
--- NOTE | 2022-05-21 06:15 | NUR ---
Pt awake in his bed, breathing even and unlabored, denies pain or discomfort, denies si/hi . Compliant with his meds during shift, tolerated meds. Safety measures observed. Will cont to monitor and endorse demario to am oncoming nurse.
[2022-05-21] MEDS: PANTOPRAZOLE 40 MG TABLET.DR PO SCH (07:56)
[2022-05-21 08:00] VITALS: BP 111/80
[2022-05-21] MEDS ORDERED: CLOZAPINE 25 MG TABLET PO SCH (08:00)
[2022-05-21] MEDS: clonazePAM 0.5 MG TABLET PO SCH ×3 (08:16→16:38)
[2022-05-21] MEDS: FINASTERIDE (5 MG) 5 MG TABLET PO SCH (08:16)
[2022-05-21] MEDS: DOCUSATE SODIUM 100 MG CAPSULE PO SCH (08:16)
[2022-05-21] MEDS: MULTIVIT W/MINERALS 1 TAB TABLET PO SCH (08:16)
[2022-05-21] MEDS: LEVETIRACETAM (250 MG) 250 MG TABLET PO SCH ×2 (08:16→21:28)
--- NOTE | 2022-05-21 08:16 | NUR ---
SNF Referral: MIKAYLA sent clinicals to Bruce guerra from [facility] ([phone]) for placement. MIKAYLA sent H & P, progress notes, and medication list.
[2022-05-21] MEDS: ENSURE CLEAR 237 ML LIQUID (MIX BERRY) PO SCH ×2 (08:19→16:39)
[2022-05-21 16:00] VITALS: BP 115/62
[2022-05-21] MEDS: ASPIRIN 81 MG TAB.CHEW PO SCH (18:05)
--- NOTE | 2022-05-21 19:08 | NUR ---
RN-NOTES PATIENT LYING IN BED AWAKE,A/O X2 GUARDED,NO ACUTE DISTRESS NOTED. COMPLIANT WITH MEDICATIONS. AMBULATORY STEADY GAIT.ABLE TO MAKE NEEDS KNOWN TO THE STAFF. NOTED PATIENT WITH NEEDY AND DEMANDING [id number].VISIBLE IN THE UNIT, ALL NEEDS ATTENDED AND ANTICIPATED. WILL CONT. MONITORING FOR SAFETY AND BEHAVIOR.WILL ENDORSE TO INCOMING NURSE FOR CONTINUITY OF CARE.
[2022-05-21 20:00] VITALS: BP 120/79
[2022-05-21] MEDS: LORAZEPAM 0.5 MG TABLET PO PRN (20:02)
--- NOTE | 2022-05-21 20:03 | NUR ---
RN NOTES: ANXIETY PT.C/O FEELING ANXIOUS,PARANOID,RESTLESS,PRN ATIVAN 0.5 MG PO GIVEN PER PT. REQUEST, WILL CONTINUE TO MONITOR.
[2022-05-21] MEDS: CLOZAPINE 100 MG TABLET PO SCH (21:27)
[2022-05-21] MEDS: SENNOSIDES 8.6 MG TABLET PO SCH (22:37)
[2022-05-22 08:00] VITALS: BP 100/66
[2022-05-22] MEDS: clonazePAM 0.5 MG TABLET PO SCH ×3 (08:13→16:41)
[2022-05-22] MEDS: MULTIVIT W/MINERALS 1 TAB TABLET PO SCH (08:13)
[2022-05-22] MEDS: LEVETIRACETAM (250 MG) 250 MG TABLET PO SCH ×2 (08:13→21:15)
[2022-05-22] MEDS: PANTOPRAZOLE 40 MG TABLET.DR PO SCH (08:13)
[2022-05-22] MEDS: DOCUSATE SODIUM 100 MG CAPSULE PO SCH (08:13)
[2022-05-22] MEDS: FINASTERIDE (5 MG) 5 MG TABLET PO SCH (08:13)
[2022-05-22] MEDS: ENSURE CLEAR 237 ML LIQUID (MIX BERRY) PO SCH ×2 (08:13→16:41)
[2022-05-22 16:06] VITALS: BP 113/74
[2022-05-22] MEDS: ASPIRIN 81 MG TAB.CHEW PO SCH (17:40)
--- NOTE | 2022-05-22 19:26 | NUR ---
RN-NOTES PATIENT VISIBLE IN THE UNIT,A/O X2 GUARDED,NO ACUTE DISTRESS NOTED. COMPLIANT WITH MEDICATIONS. AMBULATORY STEADY GAIT.ABLE TO MAKE NEEDS KNOWN TO THE STAFF. NOTED PATIENT WITH NEEDY AND DEMANDING [id number].VISIBLE IN THE UNIT, ALL NEEDS ATTENDED AND ANTICIPATED. WILL CONT. MONITORING FOR SAFETY AND BEHAVIOR.WILL ENDORSE TO INCOMING NURSE FOR CONTINUITY OF CARE.
--- NOTE | 2022-05-22 20:18 | NUR ---
RN NOTES: RECEIVED PATIENT RESTING IN ROOM GUARDED,NO ACUTE DISTRESS NOTED, PARANOID, EASILY AGITATED ,NEEDY AND DEMANDING [id number]. ALL NEEDS ATTENDED AND ANTICIPATED. WILL CONT. MONITORING FOR SAFETY AND BEHAVIOR.
[2022-05-22] MEDS: SENNOSIDES 8.6 MG TABLET PO SCH (21:15)
[2022-05-22] MEDS: CLOZAPINE 100 MG TABLET PO SCH (21:15)
[2022-05-22 22:06] VITALS: BP 117/72
[2022-05-23 08:00] VITALS: BP 115/73
[2022-05-23] MEDS: ENSURE CLEAR 237 ML LIQUID (MIX BERRY) PO SCH ×2 (09:06→17:22)
[2022-05-23] MEDS: DOCUSATE SODIUM 100 MG CAPSULE PO SCH (09:09)
[2022-05-23] MEDS: clonazePAM 0.5 MG TABLET PO SCH ×3 (09:09→17:24)
[2022-05-23] MEDS: MULTIVIT W/MINERALS 1 TAB TABLET PO SCH (09:09)
[2022-05-23] MEDS: FINASTERIDE (5 MG) 5 MG TABLET PO SCH (09:09)
[2022-05-23] MEDS: PANTOPRAZOLE 40 MG TABLET.DR PO SCH (09:09)
[2022-05-23] MEDS: LEVETIRACETAM (250 MG) 250 MG TABLET PO SCH ×2 (09:09→21:03)
[2022-05-23 16:00] VITALS: BP 92/61
[2022-05-23] MEDS: ASPIRIN 81 MG TAB.CHEW PO SCH (17:24)
[2022-05-23 20:46] VITALS: BP 108/72
[2022-05-23] MEDS: CLOZAPINE 100 MG TABLET PO SCH (21:03)
[2022-05-23] MEDS: SENNOSIDES 8.6 MG TABLET PO SCH (21:04)
[2022-05-24 08:00] VITALS: BP 110/68
[2022-05-24] MEDS: MULTIVIT W/MINERALS 1 TAB TABLET PO SCH (08:16)
[2022-05-24] MEDS: FINASTERIDE (5 MG) 5 MG TABLET PO SCH (08:16)
[2022-05-24] MEDS: PANTOPRAZOLE 40 MG TABLET.DR PO SCH (08:16)
[2022-05-24] MEDS: DOCUSATE SODIUM 100 MG CAPSULE PO SCH (08:16)
[2022-05-24] MEDS: ENSURE CLEAR 237 ML LIQUID (MIX BERRY) PO SCH ×2 (08:16→17:48)
[2022-05-24] MEDS: clonazePAM 0.5 MG TABLET PO SCH ×3 (08:16→17:48)
[2022-05-24] MEDS: LEVETIRACETAM (250 MG) 250 MG TABLET PO SCH ×2 (08:16→21:19)
[2022-05-24] MEDS ORDERED: NA PHOS,M-B/NA PHOS,DI-BA 1 EA ENEMA RC PRN (11:00)
--- NOTE | 2022-05-24 13:42 | NUR ---
NURSE NOTE: PER PT UNABLE TO HAVE A BM FOR MULTIPLE DAYS. REQUESTED MOM. ADMINISTERED ORDERED. PT SHIRAZ WELL. WILL CONT TO MONITOR.
[2022-05-24] MEDS: MAGNESIUM HYDROXIDE 30 ML UDC PO PRN (13:43)
[2022-05-24 16:00] VITALS: BP 107/73
[2022-05-24] MEDS: ASPIRIN 81 MG TAB.CHEW PO SCH (17:47)
[2022-05-24 20:32] VITALS: BP 111/78
[2022-05-24] MEDS: CLOZAPINE 100 MG TABLET PO SCH (21:19)
[2022-05-24] MEDS: SENNOSIDES 8.6 MG TABLET PO SCH (21:19)
[2022-05-25 08:00] VITALS: BP 115/74
[2022-05-25] MEDS: DOCUSATE SODIUM 100 MG CAPSULE PO SCH (08:07)
[2022-05-25] MEDS: PANTOPRAZOLE 40 MG TABLET.DR PO SCH (08:07)
[2022-05-25] MEDS: FINASTERIDE (5 MG) 5 MG TABLET PO SCH (08:07)
[2022-05-25] MEDS: MULTIVIT W/MINERALS 1 TAB TABLET PO SCH (08:07)
[2022-05-25] MEDS: clonazePAM 0.5 MG TABLET PO SCH ×3 (08:07→16:55)
[2022-05-25] MEDS: LEVETIRACETAM (250 MG) 250 MG TABLET PO SCH ×2 (08:07→20:58)
[2022-05-25] MEDS: ENSURE CLEAR 237 ML LIQUID (MIX BERRY) PO SCH ×2 (08:10→17:46)
--- NOTE | 2022-05-25 14:52 | NUR ---
SNF Contact: SW spoke with Bruce guerra from [facility] ([phone]) who stated pt is financially denied.
--- NOTE | 2022-05-25 14:55 | NUR ---
SNF Referral: MIKAYLA sent clinicals to [facility] ([phone]) for placement. SW sent H & P, progress notes, and medication list.
[2022-05-25 15:59] VITALS: BP 100/72
[2022-05-25] MEDS: ASPIRIN 81 MG TAB.CHEW PO SCH (17:45)
[2022-05-25 20:04] VITALS: BP 100/58
[2022-05-25] MEDS: CLOZAPINE 100 MG TABLET PO SCH (20:58)
[2022-05-25] MEDS: SENNOSIDES 8.6 MG TABLET PO SCH (21:00)
[2022-05-26] MEDS: PANTOPRAZOLE 40 MG TABLET.DR PO SCH (07:51)
[2022-05-26 08:00] VITALS: BP 141/82
--- NOTE | 2022-05-26 08:04 | NUR ---
SNF Contact: SW spoke with Kenia brown from [facility] ([phone]) and stated pt is accepted.
[2022-05-26] MEDS: DOCUSATE SODIUM 100 MG CAPSULE PO SCH (08:28)
[2022-05-26] MEDS: MULTIVIT W/MINERALS 1 TAB TABLET PO SCH (08:28)
[2022-05-26] MEDS: FINASTERIDE (5 MG) 5 MG TABLET PO SCH (08:29)
[2022-05-26] MEDS: ENSURE CLEAR 237 ML LIQUID (MIX BERRY) PO SCH ×2 (08:29→16:04)
[2022-05-26] MEDS: LEVETIRACETAM (250 MG) 250 MG TABLET PO SCH ×2 (08:29→21:13)
[2022-05-26] MEDS: clonazePAM 0.5 MG TABLET PO SCH ×3 (09:00→16:13)
--- NOTE | 2022-05-26 09:35 | NUR ---
RN-CO: Patient ate his breakfast and took his meds then went back to sleep right away. I will continue to monitor and encouraged him to participate in groups and do his grooming.
--- NOTE | 2022-05-26 12:43 | NUR ---
LPS Conservator: MIKAYLA spoke with Miley ([phone]) [facility] Conservator Marlene assistance and she will pass the message to Marlene that pt is accepted at [facility].
--- NOTE | 2022-05-26 15:06 | NUR ---
SNF Referral: MIKAYLA sent clinicals to Larry from [facility] ([phone]) for placement. SW sent H & P, progress notes, and medication list.
--- NOTE | 2022-05-26 15:07 | NUR ---
SNF Contact: MIKAYLA sent clinicals to Larry from [facility] ([phone]) who stated that they cannot accept the pt due to pt not having nursing facility days.
--- NOTE | 2022-05-26 15:09 | NUR ---
LPS CONSERVATOR: MIKAYLA contacted LPS Conservator Marlene ([phone]) and discussed pt's options. MIKAYLA stated that the only facility pt got accepted was [facility]. MIKAYLA attempted to explain that the other two facilities [facility] and [facility] that the facilities denied due to financial issues. [facility] stating that pt's medications are expensive it will cost about $3,000 dollars and [facility] $5,000. [facility] stating that pt has no SNF days and cannot accept. Marlene was yelling at this underwriter and threatening this underwriter that she will be contacting her divorce attorney. Marlene was not cooperative and this underwriter was unable to have a conversation with Marlene. MIKAYLA notified Director Shira Apodaca and will follow up with Marlene to discuss discharge plan.
[2022-05-26 16:00] VITALS: BP 111/66
--- NOTE | 2022-05-26 16:14 | NUR ---
RN-CO: PT STATED, " I DON'T NEED KLONOPIN RIGHT NOW, I AM SLEEPY.
[2022-05-26] MEDS: ASPIRIN 81 MG TAB.CHEW PO SCH (17:02)
[2022-05-26 19:53] VITALS: BP 107/67
[2022-05-26] MEDS: CLOZAPINE 100 MG TABLET PO SCH (21:13)
[2022-05-26] MEDS: SENNOSIDES 8.6 MG TABLET PO SCH (21:13)
[2022-05-27 08:00] VITALS: BP 123/79
[2022-05-27] MEDS: LEVETIRACETAM (250 MG) 250 MG TABLET PO SCH ×2 (08:03→21:29)
[2022-05-27] MEDS: FINASTERIDE (5 MG) 5 MG TABLET PO SCH (08:03)
[2022-05-27] MEDS: MULTIVIT W/MINERALS 1 TAB TABLET PO SCH (08:03)
[2022-05-27] MEDS: PANTOPRAZOLE 40 MG TABLET.DR PO SCH (08:03)
[2022-05-27] MEDS: DOCUSATE SODIUM 100 MG CAPSULE PO SCH (08:04)
[2022-05-27] MEDS: clonazePAM 0.5 MG TABLET PO SCH ×3 (08:04→16:30)
[2022-05-27] MEDS: ENSURE CLEAR 237 ML LIQUID (MIX BERRY) PO SCH ×2 (08:08→17:22)
--- NOTE | 2022-05-27 09:29 | NUR ---
[facility] REFERRAL: MIKAYLA contacted [facility] ([phone]) and spoke with officer of the day Louise Dickerson to help with [facility] placement [facility] for [facility]. MIKAYLA gave verbal clinicals to Louise and faxed verbal clinicals ([phone]). Louise stated that she is unsure if pt will be accepted and stated that it will take months to find placement for pt. MIKYALA sent H&P, progress notes, medications, laboratory, chest x-ray, COVID test, psychosocial assessment, LPS conservator documents, and nurses notes, per Louise Dickerson's request. Addendum: 05/27/22 at 0951 by MIKAYLA RICO MIKAYLA contacted Louise Dickerson to confirm if pt will be accepted to any of the facilities because of his age. She stated only one facility [place] is the age appropriate for pt.
--- NOTE | 2022-05-27 09:30 | NUR ---
RN Notes: Received pt. awake in bed, responsive to staffs, denies hearing voices to hurt himself and others. Ate 100% for breakfast, compliant on meds. Pt. is unkempt and disheveled. Encouraged to take shower, encouraged to verbalize feelings and motivated to attend group activity. Needs attended, no distress and no agitation noted. Will continue to monitor for safety.
--- NOTE | 2022-05-27 09:56 | NUR ---
Facility Contact: Per Louise Dickerson ([phone]) officer of the day through [facility] stated that the only facility that will possibly take consideration is [facility] ([phone]). This communications writer contacted [facility] ([phone]) and spoke with clerk operator and she stated that the referrals are only through [facility], however, this communications writer requested to be transferred to admissions. SW left a voicemail to admissions Lashaun stating that this communications writer sent clinicals to [facility] and requested more information about the process and if they have any male beds available. SW waiting for a call back and will follow up.
--- NOTE | 2022-05-27 10:01 | NUR ---
[facility] REFERRAL CONFIRMATION: MIKAYLA faxed clinicals at 9:30AM to Louise Dickerson officer of the day ([phone]) (P:[phone]) and received confirmation at 10:02AM. MIKAYLA placed the confirmation note in patient's chart under physician orders.
[2022-05-27 16:00] VITALS: BP 99/64
[2022-05-27] MEDS: ASPIRIN 81 MG TAB.CHEW PO SCH (17:24)
[2022-05-27 20:00] VITALS: BP 110/69
[2022-05-27] MEDS: SENNOSIDES 8.6 MG TABLET PO SCH (21:29)
[2022-05-27] MEDS: CLOZAPINE 100 MG TABLET PO SCH (21:29)
[2022-05-28 08:00] VITALS: BP 138/90
[2022-05-28] MEDS: PANTOPRAZOLE 40 MG TABLET.DR PO SCH (08:12)
[2022-05-28] MEDS: DOCUSATE SODIUM 100 MG CAPSULE PO SCH (08:12)
[2022-05-28] MEDS: LEVETIRACETAM (250 MG) 250 MG TABLET PO SCH ×2 (08:12→21:39)
[2022-05-28] MEDS: clonazePAM 0.5 MG TABLET PO SCH ×3 (08:12→16:12)
[2022-05-28] MEDS: MULTIVIT W/MINERALS 1 TAB TABLET PO SCH (08:12)
[2022-05-28] MEDS: ENSURE CLEAR 237 ML LIQUID (MIX BERRY) PO SCH ×2 (08:13→17:27)
[2022-05-28] MEDS: FINASTERIDE (5 MG) 5 MG TABLET PO SCH (08:13)
--- NOTE | 2022-05-28 08:20 | NUR ---
LPS CONSERVATOR: MIKAYLA contacted [facility] Conservator Marlene ([phone]) and did a conference call with anita's foster care case manager Ivett and Shira Apodaca, director of [place]. Discussed about patient's discharge and placement. Shira Apodaca and this journalists and other writers gave Marlene options of facilities but she was not accepting. She stated that she would prefer for pt to return back to [facility]. She stated that she would want this journalists and other writers to fax clinicals to [facility] as her first option. MIKAYLA stated that [facility] stated that since pt is 67 the only facility that will possibly consider pt is [facility], however, stated the process might take up to 6month-1year but unsure if pt is accepted. MIKAYLA explained that pt does not have SNF days and medications are financially expensive. Anita appeared to be not understanding. MIKAYLA will continue to work with Marlene.
--- NOTE | 2022-05-28 08:23 | NUR ---
SNF CONTACT: SW contacted [facility] in [place] ([phone]) and spoke with Christina from admissions and he stated that they are currently on lockdown because of COVID. He stated that he is unsure when they will re-open. SW requested if he will consider pt if they re-open he stated that he would need to assess pt and to follow up.
--- NOTE | 2022-05-28 09:08 | NUR ---
SNF Contact/Referral: MIKAYLA contacted [facility] ([phone]) and spoke with transaction manager who stated that they currently have a long waitlist. MIKAYLA was transferred to admissions and left a voicemail to gather more information. MIKAYLA contacted [facility] ([phone]) and spoke with Irene who stated to fax ([phone]) patient's clinicals and they will review. MIKAYLA sent H & P, progress notes, and medication list. Irene stated that they are contracted with Hospitals and would have to review.
--- NOTE | 2022-05-28 09:45 | NUR ---
RN Notes: Received pt. awake in bed, responsive to staffs, denies hearing voices to hurt himself and others. Ate 100% for breakfast, compliant on meds. Encouraged to verbalize feelings and motivated to atten group activity. No distress and no agitation noted. Needs attended and will continue to monitor for safety.
--- NOTE | 2022-05-28 13:59 | NUR ---
Facility Contact: MIKAYLA contacted [facility] ([phone]) who stated that they do not take medicare patient's and that it is out of pocket pay. MIKAYLA spoke with Kamron ([phone]) who stated that the daily fee is up to $7,000 dollars and they would need to assess the pt. MIKAYLA will share this information with anita Rosario.
[2022-05-28 16:00] VITALS: BP 95/67
[2022-05-28] MEDS: ASPIRIN 81 MG TAB.CHEW PO SCH (17:28)
--- NOTE | 2022-05-28 19:30 | NUR ---
GPS RN NOTE, RECEIVED PATIENT AWAKE AND IN BED, NO S/S OR COMPLAINTS OF PAIN AT THIS TIME. PATIENT IS DISPLAYING NO S/S OF APPARENT DISTRESS AT THIS TIME. PATIENT BREATHING IS UNLABORED WITH EQUAL RISE AND FALL OF THE CHEST. PATIENT IS ALERT AND ORIENTED X 2 ON ROOM AIR WITH A SPO2 96%. PATIENT IS COMPLIANT WITH MEDICATIONS, CALM, FORGETFUL, AND COOPERATIVE. PATIENT DENIES SUICIDAL AND HOMICIDAL IDEATIONS AT THIS TIME. PATIENT ASSISTED WITH TURNING AND REPOSITIONING Q2HR AND PRN FOR COMFORT AND CIRCULATION. PATIENT HAS NO NEEDS AT THIS TIME. PATIENT EDUCATED ON THE USE OF THE CALL BURT. PATIENT BED SIDE RAILS UP X 2 FOR SAFETY. PATIENT BED IS LOCKED, LOW, WITH BED ALARM ON. WILL CONTINUE TO MONITOR THIS PATIENT Q15 MINUTES WITH THE HELP OF STAFF TO MAINTAIN SAFETY.
[2022-05-28 20:00] VITALS: BP 123/77
[2022-05-28] MEDS: CLOZAPINE 100 MG TABLET PO SCH (21:39)
[2022-05-28] MEDS: SENNOSIDES 8.6 MG TABLET PO SCH (21:39)
[2022-05-29 08:00] VITALS: BP 98/61
[2022-05-29] MEDS: ENSURE CLEAR 237 ML LIQUID (MIX BERRY) PO SCH ×2 (08:28→17:23)
[2022-05-29] MEDS: PANTOPRAZOLE 40 MG TABLET.DR PO SCH (08:32)
[2022-05-29] MEDS: clonazePAM 0.5 MG TABLET PO SCH ×3 (08:32→17:24)
[2022-05-29] MEDS: DOCUSATE SODIUM 100 MG CAPSULE PO SCH (08:32)
[2022-05-29] MEDS: MULTIVIT W/MINERALS 1 TAB TABLET PO SCH (08:32)
[2022-05-29] MEDS: FINASTERIDE (5 MG) 5 MG TABLET PO SCH (08:32)
[2022-05-29] MEDS: LEVETIRACETAM (250 MG) 250 MG TABLET PO SCH ×2 (08:32→21:50)
[2022-05-29 16:00] VITALS: BP 109/72
[2022-05-29] MEDS: ASPIRIN 81 MG TAB.CHEW PO SCH (17:25)
--- NOTE | 2022-05-29 19:30 | NUR ---
GPS RN NOTE, RECEIVED PATIENT AWAKE AND IN BED, NO S/S OR COMPLAINTS OF PAIN AT THIS TIME. PATIENT IS DISPLAYING NO S/S OF APPARENT DISTRESS AT THIS TIME. PATIENT BREATHING IS UNLABORED WITH EQUAL RISE AND FALL OF THE CHEST. PATIENT IS ALERT AND ORIENTED X 2 ON ROOM AIR WITH A SPO2 99%. PATIENT IS COMPLIANT WITH MEDICATIONS, CALM, FORGETFUL, AND COOPERATIVE. PATIENT DENIES SUICIDAL AND HOMICIDAL IDEATIONS AT THIS TIME. PATIENT ASSISTED WITH TURNING AND REPOSITIONING Q2HR AND PRN FOR COMFORT AND CIRCULATION. PATIENT HAS NO NEEDS AT THIS TIME. PATIENT EDUCATED ON THE USE OF THE CALL BURT. PATIENT BED SIDE RAILS UP X 2 FOR SAFETY. PATIENT BED IS LOCKED, LOW, WITH BED ALARM ON. WILL CONTINUE TO MONITOR THIS PATIENT Q15 MINUTES WITH THE HELP OF STAFF TO MAINTAIN SAFETY.
[2022-05-29 20:00] VITALS: BP 112/77
[2022-05-29] MEDS: SENNOSIDES 8.6 MG TABLET PO SCH (21:50)
[2022-05-29] MEDS: CLOZAPINE 100 MG TABLET PO SCH (21:50)
[2022-05-30 08:00] VITALS: BP 116/75
[2022-05-30] MEDS: LEVETIRACETAM (250 MG) 250 MG TABLET PO SCH ×2 (08:01→20:36)
[2022-05-30] MEDS: clonazePAM 0.5 MG TABLET PO SCH ×3 (08:01→17:08)
[2022-05-30] MEDS: DOCUSATE SODIUM 100 MG CAPSULE PO SCH (08:01)
[2022-05-30] MEDS: FINASTERIDE (5 MG) 5 MG TABLET PO SCH (08:01)
[2022-05-30] MEDS: ENSURE CLEAR 237 ML LIQUID (MIX BERRY) PO SCH ×2 (08:02→17:06)
[2022-05-30] MEDS: PANTOPRAZOLE 40 MG TABLET.DR PO SCH (08:02)
[2022-05-30] MEDS: MULTIVIT W/MINERALS 1 TAB TABLET PO SCH (08:02)
[2022-05-30 16:00] VITALS: BP 117/73
[2022-05-30] MEDS: ASPIRIN 81 MG TAB.CHEW PO SCH (17:08)
[2022-05-30] MEDS: CLOZAPINE 100 MG TABLET PO SCH (20:36)
[2022-05-30 20:50] VITALS: BP 101/60
[2022-05-30] MEDS: SENNOSIDES 8.6 MG TABLET PO SCH (21:00)
[2022-05-31] MEDS: PANTOPRAZOLE 40 MG TABLET.DR PO SCH (07:53)
[2022-05-31 08:00] VITALS: BP 113/79
[2022-05-31] MEDS: ENSURE CLEAR 237 ML LIQUID (MIX BERRY) PO SCH ×2 (08:03→16:28)
[2022-05-31] MEDS: MULTIVIT W/MINERALS 1 TAB TABLET PO SCH (08:11)
[2022-05-31] MEDS: DOCUSATE SODIUM 100 MG CAPSULE PO SCH (08:11)
[2022-05-31] MEDS: LEVETIRACETAM (250 MG) 250 MG TABLET PO SCH ×2 (08:11→20:59)
[2022-05-31] MEDS: FINASTERIDE (5 MG) 5 MG TABLET PO SCH (08:12)
[2022-05-31 08:31] LABS: BASOPHILS % (AUTO) 0.7 % (0.0-2.0); EOSINOPHILS % (AUTO) 1.5 % (0.0-6.0); HEMATOCRIT 39 % (39-51); HEMOGLOBIN 12.7 g/dL (13.5-17.5); LYMPHOCYTES # (AUTO) 0.9 K/uL (0.8-4.8); LYMPHOCYTES % (AUTO) 18.5 % (20.0-44.0); MEAN CORPUSCULAR HGB CONC 33 g/dl (31.0-36.0); MEAN CORPUSCULAR VOLUME 91 fL (80-96); MONOCYTES # (AUTO) 0.3 K/uL (0.1-1.30); MONOCYTES % (AUTO) 5.7 % (2.0-12.0); NEUTROPHILS # (AUTO) 3.7 K/uL (1.8-8.9); NEUTROPHILS % (AUTO) 73.6 % (43.0-81.0); PLATELET COUNT (AUTO) 178 K/uL (150-450); RED BLOOD CELL COUNT(AUTO) 4.26 MIL/uL (4.5-6.0); WHITE BLOOD COUNT (AUTO) 5.1 K/uL (4.3-11.0)
[2022-05-31 08:34] LABS: ALBUMIN 3.1 g/dL (3.4-5.0); BILIRUBIN,TOTAL 0.3 mg/dL (0.2-1.0); CALCIUM, SERUM 8.1 mg/dL (8.5-10.1); CREATININE 0.9 mg/dL (0.6-1.3); POTASSIUM 3.5 mmol/L (3.5-5.1)
[2022-05-31] MEDS: clonazePAM 0.5 MG TABLET PO SCH ×3 (08:36→16:32)
--- NOTE | 2022-05-31 14:02 | NUR ---
LPS CONSERVATOR: MIKAYLA contacted LPS Conservator Marlene ([phone]) and left a detailed voicemail that this appeals writer has looked into the nursing facility options. MIKAYLA stated [facility] stated that they are waitlisted, [facility] is not contracted with [facility], [facility] is out of pocket pay $7,000, and for [facility] the hospital will wait until they re-open because they are on lockdown because of covid.
[2022-05-31 16:00] VITALS: BP 126/79
[2022-05-31] MEDS: ASPIRIN 81 MG TAB.CHEW PO SCH (18:18)
[2022-05-31 20:35] VITALS: BP 116/74
[2022-05-31] MEDS: CLOZAPINE 100 MG TABLET PO SCH (20:59)
[2022-05-31] MEDS: SENNOSIDES 8.6 MG TABLET PO SCH (21:00)
[2022-06-01 08:00] VITALS: BP 114/74
[2022-06-01] MEDS: FINASTERIDE (5 MG) 5 MG TABLET PO SCH (08:51)
[2022-06-01] MEDS: DOCUSATE SODIUM 100 MG CAPSULE PO SCH (08:51)
[2022-06-01] MEDS: PANTOPRAZOLE 40 MG TABLET.DR PO SCH (08:51)
[2022-06-01] MEDS: LEVETIRACETAM (250 MG) 250 MG TABLET PO SCH ×2 (08:51→21:15)
[2022-06-01] MEDS: MULTIVIT W/MINERALS 1 TAB TABLET PO SCH (08:51)
[2022-06-01] MEDS: clonazePAM 0.5 MG TABLET PO SCH ×3 (08:51→17:11)
[2022-06-01] MEDS: ENSURE CLEAR 237 ML LIQUID (MIX BERRY) PO SCH ×2 (08:55→17:12)
[2022-06-01 16:00] VITALS: BP 111/78
[2022-06-01] MEDS: ASPIRIN 81 MG TAB.CHEW PO SCH (17:11)
--- NOTE | 2022-06-01 19:01 | NUR ---
RN-NOTES PATIENT VISIBLE IN THE UNIT,A/O X2 GUARDED,NO ACUTE DISTRESS NOTED. COMPLIANT WITH MEDICATIONS. AMBULATORY STEADY GAIT.ABLE TO MAKE NEEDS KNOWN TO THE STAFF. NOTED PATIENT WITH NEEDY AND DEMANDING [id number].VISIBLE IN THE UNIT, ALL NEEDS ATTENDED AND ANTICIPATED. WILL CONT. MONITORING FOR SAFETY AND BEHAVIOR.WILL ENDORSE TO INCOMING NURSE FOR CONTINUITY OF CARE.
[2022-06-01 21:03] VITALS: BP 118/75
[2022-06-01] MEDS: SENNOSIDES 8.6 MG TABLET PO SCH (21:15)
[2022-06-01] MEDS: CLOZAPINE 100 MG TABLET PO SCH (21:15)
[2022-06-02] MEDS: PANTOPRAZOLE 40 MG TABLET.DR PO SCH (07:55)
[2022-06-02 08:00] VITALS: BP 118/75
[2022-06-02] MEDS: ENSURE CLEAR 237 ML LIQUID (MIX BERRY) PO SCH ×2 (08:04→17:20)
[2022-06-02] MEDS: MULTIVIT W/MINERALS 1 TAB TABLET PO SCH (08:07)
[2022-06-02] MEDS: FINASTERIDE (5 MG) 5 MG TABLET PO SCH (08:07)
[2022-06-02] MEDS: DOCUSATE SODIUM 100 MG CAPSULE PO SCH (08:07)
[2022-06-02] MEDS: clonazePAM 0.5 MG TABLET PO SCH ×3 (08:07→16:02)
[2022-06-02] MEDS: LEVETIRACETAM (250 MG) 250 MG TABLET PO SCH ×2 (08:07→21:11)
[2022-06-02 16:00] VITALS: BP 123/76
[2022-06-02] MEDS: ASPIRIN 81 MG TAB.CHEW PO SCH (17:20)
--- NOTE | 2022-06-02 18:12 | NUR ---
RN-NOTES PATIENT VISIBLE IN THE UNIT,A/O X2 GUARDED,NO ACUTE DISTRESS NOTED. COMPLIANT WITH MEDICATIONS. AMBULATORY STEADY GAIT.ABLE TO MAKE NEEDS KNOWN TO THE STAFF. NOTED PATIENT WITH NEEDY AND DEMANDING [id number].VISIBLE IN THE UNIT, ALL NEEDS ATTENDED AND ANTICIPATED. WILL CONT. MONITORING FOR SAFETY AND BEHAVIOR.WILL ENDORSE TO INCOMING NURSE FOR CONTINUITY OF CARE.
--- NOTE | 2022-06-02 19:36 | NUR ---
GPS RN NOTES RECEIVED PATIENT LAYING IN BED WITH EYES CLOSED, EASY TO AROUSE. BREATHING EVEN AND NON-LABORED ON ROOM AIR. NOT IN APPARENT DISTRESS. NO C/O PAIN OR DISCOMFORT. GUARDED. SAFETY PRECAUTIONS IN PLACE: BED LOCKED AND IN LOWEST POSITION, SIDE RAILS UP X2, CALL BURT WITHIN REACH. WILL CONTINUE TO MONITOR FOR SAFETY AND BEHAVIOR.
[2022-06-02 20:00] VITALS: BP 108/78
[2022-06-02 20:04] VITALS: BP 108/70
[2022-06-02] MEDS: CLOZAPINE 100 MG TABLET PO SCH (21:11)
[2022-06-02] MEDS: SENNOSIDES 8.6 MG TABLET PO SCH (21:11)
--- NOTE | 2022-06-03 06:30 | NUR ---
GPS RN NOTE PATIENT IN BED ASLEEP, EASY TO AROUSE. A/O X2, PARANOID, GUARDED AND QUIET. SATURATING WELL IN ROOM AIR. NO CARDIAC OR RESPIRATORY DISTRESS. ALL DUE MEDS GIVEN AND NEEDS ATTENDED. NO SI/HI AT THIS TIME. SAFETY PRECAUTIONS MAINTAINED. WILL CONTINUE TO MONITOR Q15 MINS FOR SAFETY AND BEHAVIOR. WILL ENDORSE TO NEXT SHIFT FOR CONTINUITY OF CARE.
[2022-06-03 08:00] VITALS: BP 118/74
[2022-06-03] MEDS: PANTOPRAZOLE 40 MG TABLET.DR PO SCH (08:23)
[2022-06-03] MEDS: DOCUSATE SODIUM 100 MG CAPSULE PO SCH (08:23)
[2022-06-03] MEDS: LEVETIRACETAM (250 MG) 250 MG TABLET PO SCH ×2 (08:23→20:42)
[2022-06-03] MEDS: MULTIVIT W/MINERALS 1 TAB TABLET PO SCH (08:24)
[2022-06-03] MEDS: ENSURE CLEAR 237 ML LIQUID (MIX BERRY) PO SCH ×2 (08:24→17:35)
[2022-06-03] MEDS: clonazePAM 0.5 MG TABLET PO SCH ×3 (08:24→16:08)
[2022-06-03] MEDS: FINASTERIDE (5 MG) 5 MG TABLET PO SCH (08:24)
--- NOTE | 2022-06-03 15:23 | NUR ---
RN-NOTES PATIENT C/O INDIGESTION,MAALOX 30ML GIVEN PRN ORDER.
[2022-06-03 16:00] VITALS: BP 103/76
[2022-06-03] MEDS: ASPIRIN 81 MG TAB.CHEW PO SCH (17:07)
--- NOTE | 2022-06-03 18:36 | NUR ---
RN-NOTES PATIENT VISIBLE IN THE UNIT,A/O X2 GUARDED,NO ACUTE DISTRESS NOTED. COMPLIANT WITH MEDICATIONS. AMBULATORY STEADY GAIT.ABLE TO MAKE NEEDS KNOWN TO THE STAFF. NOTED PATIENT WITH NEEDY AND DEMANDING [id number].VISIBLE IN THE UNIT, ALL NEEDS ATTENDED AND ANTICIPATED. WILL CONT. MONITORING FOR SAFETY AND BEHAVIOR.WILL ENDORSE TO INCOMING NURSE FOR CONTINUITY OF CARE.
--- NOTE | 2022-06-03 19:34 | NUR ---
RN-NOTES PATIENT RESTING HIS ROOM ,A/O X2 GUARDED , FLAT AFFECT ,NO ACUTE DISTRESS NOTED. COMPLIANT WITH MEDICATIONS. .ABLE TO MAKE NEEDS KNOWN TO THE STAFF. EASILY AGITATED,PREOCCUPIED TO HIS OWN THOUGHTS, NEEDY AND DEMANDING [id number].VISIBLE IN THE UNIT, ALL NEEDS ATTENDED AND ANTICIPATED. ENCOURAGED TO VERBALIZED ANY FEELING OR CONCERN ,WILL CONTINUE TO MONITORING FOR Q 15 SAFETY AND BEHAVIOR.
[2022-06-03 20:00] VITALS: BP 103/61
[2022-06-03] MEDS: CLOZAPINE 100 MG TABLET PO SCH (20:42)
[2022-06-03] MEDS: SENNOSIDES 8.6 MG TABLET PO SCH (21:10)
[2022-06-04 08:00] VITALS: BP 115/75
[2022-06-04] MEDS: DOCUSATE SODIUM 100 MG CAPSULE PO SCH (08:22)
[2022-06-04] MEDS: MULTIVIT W/MINERALS 1 TAB TABLET PO SCH (08:22)
[2022-06-04] MEDS: PANTOPRAZOLE 40 MG TABLET.DR PO SCH (08:22)
[2022-06-04] MEDS: LEVETIRACETAM (250 MG) 250 MG TABLET PO SCH ×2 (08:22→20:28)
[2022-06-04] MEDS: clonazePAM 0.5 MG TABLET PO SCH ×3 (08:22→16:22)
[2022-06-04] MEDS: FINASTERIDE (5 MG) 5 MG TABLET PO SCH (08:22)
[2022-06-04] MEDS: ENSURE CLEAR 237 ML LIQUID (MIX BERRY) PO SCH ×2 (08:39→17:01)
--- NOTE | 2022-06-04 09:30 | NUR ---
RN Notes: Received pt. asleep in bed, breathing is even and unlabored. Ate 100% for breakfast, compliant on meds. Pt. denies hearing voices to hurt himself and others. Encouraged to verbalize feelings and motivated to attend group activity. Needs attended and will continue to monitor for safety.
[2022-06-04] MEDS: LACTULOSE 10 G/15 ML UDC (PYXIS) PO PRN (13:23)
[2022-06-04 16:00] VITALS: BP 118/77
[2022-06-04] MEDS: ASPIRIN 81 MG TAB.CHEW PO SCH (17:02)
[2022-06-04 20:00] VITALS: BP 130/84
--- NOTE | 2022-06-04 20:08 | NUR ---
RN-NOTES PATIENT WALKING IN HALLWAY ,A/O X2 DEPRESSED ,GUARDED , FLAT AFFECT ,NO ACUTE DISTRESS NOTED. COMPLIANT WITH MEDICATIONS. .ABLE TO MAKE NEEDS KNOWN TO THE STAFF. EASILY AGITATED,PREOCCUPIED TO HIS OWN THOUGHTS, NEEDY AND DEMANDING [id number].VISIBLE IN THE UNIT, ALL NEEDS ATTENDED AND ANTICIPATED. ENCOURAGED TO VERBALIZED ANY FEELING OR CONCERN ,WILL CONTINUE TO MONITORING FOR Q 15 SAFETY AND BEHAVIOR.
[2022-06-04] MEDS: CLOZAPINE 100 MG TABLET PO SCH (20:28)
[2022-06-04] MEDS: SENNOSIDES 8.6 MG TABLET PO SCH (21:08)
[2022-06-05 08:00] VITALS: BP 106/74
[2022-06-05] MEDS: DOCUSATE SODIUM 100 MG CAPSULE PO SCH (08:08)
[2022-06-05] MEDS: MULTIVIT W/MINERALS 1 TAB TABLET PO SCH (08:08)
[2022-06-05] MEDS: ENSURE CLEAR 237 ML LIQUID (MIX BERRY) PO SCH ×2 (08:08→17:06)
[2022-06-05] MEDS: LEVETIRACETAM (250 MG) 250 MG TABLET PO SCH ×2 (08:08→20:27)
[2022-06-05] MEDS: FINASTERIDE (5 MG) 5 MG TABLET PO SCH (08:08)
[2022-06-05] MEDS: PANTOPRAZOLE 40 MG TABLET.DR PO SCH (08:08)
[2022-06-05] MEDS: clonazePAM 0.5 MG TABLET PO SCH ×3 (08:08→17:06)
--- NOTE | 2022-06-05 09:45 | NUR ---
RN Notes: Received pt. awake in bed, responsive to staffs, no distress and no agitation noted. Ate 100% for breakfast and compliant on meds. Encouraged to verbalize feelings and motivated to socialize with peers and staffs. No distress and no agitation noted. Needs attended and will continue to monitor for safety.
[2022-06-05 16:00] VITALS: BP 103/69
[2022-06-05] MEDS: ASPIRIN 81 MG TAB.CHEW PO SCH (17:06)
[2022-06-05] MEDS: CLOZAPINE 100 MG TABLET PO SCH (20:27)
[2022-06-05 20:46] VITALS: BP 111/67
[2022-06-05] MEDS: SENNOSIDES 8.6 MG TABLET PO SCH (21:56)
[2022-06-06] MEDS: PANTOPRAZOLE 40 MG TABLET.DR PO SCH (06:45)
[2022-06-06 08:00] VITALS: BP 124/77
[2022-06-06] MEDS: FINASTERIDE (5 MG) 5 MG TABLET PO SCH (08:10)
[2022-06-06] MEDS: DOCUSATE SODIUM 100 MG CAPSULE PO SCH (08:10)
[2022-06-06] MEDS: ENSURE CLEAR 237 ML LIQUID (MIX BERRY) PO SCH ×2 (08:10→17:13)
[2022-06-06] MEDS: LEVETIRACETAM (250 MG) 250 MG TABLET PO SCH ×2 (08:10→20:55)
[2022-06-06] MEDS: MULTIVIT W/MINERALS 1 TAB TABLET PO SCH (08:10)
[2022-06-06] MEDS: clonazePAM 0.5 MG TABLET PO SCH ×3 (08:12→17:13)
[2022-06-06 16:00] VITALS: BP 101/71
[2022-06-06] MEDS: ASPIRIN 81 MG TAB.CHEW PO SCH (17:13)
--- NOTE | 2022-06-06 20:00 | NUR ---
RN NOTE PATIENT REFUSED SKIN ASSESSMENT.
[2022-06-06] MEDS: CLOZAPINE 100 MG TABLET PO SCH (20:55)
[2022-06-06 21:02] VITALS: BP 113/73
[2022-06-06] MEDS: SENNOSIDES 8.6 MG TABLET PO SCH (21:03)
[2022-06-07] MEDS: PANTOPRAZOLE 40 MG TABLET.DR PO SCH (07:53)
[2022-06-07 08:00] VITALS: BP 105/71
[2022-06-07] MEDS: FINASTERIDE (5 MG) 5 MG TABLET PO SCH (08:01)
[2022-06-07] MEDS: LEVETIRACETAM (250 MG) 250 MG TABLET PO SCH ×2 (08:01→21:05)
[2022-06-07] MEDS: DOCUSATE SODIUM 100 MG CAPSULE PO SCH (08:02)
[2022-06-07] MEDS: MULTIVIT W/MINERALS 1 TAB TABLET PO SCH (08:02)
[2022-06-07] MEDS: ENSURE CLEAR 237 ML LIQUID (MIX BERRY) PO SCH ×2 (08:03→17:07)
[2022-06-07] MEDS: clonazePAM 0.5 MG TABLET PO SCH ×3 (09:00→16:29)
--- NOTE | 2022-06-07 13:24 | NUR ---
RN-CO: Patient denies pain and discomforts, calm and cooperative to care. Denies auditory and homicidal ideation. Unmotivated to selfcare.Encouraged to shower and participate in groups.
[2022-06-07 16:00] VITALS: BP 98/72
[2022-06-07] MEDS: GUAIFENESIN/D-METHORPHAN HB 5 ML UDC PO PRN (16:29)
--- NOTE | 2022-06-07 16:29 | NUR ---
RN-CO: ROBITUSSIN 5 ML GIVEN FOR COUGH.
[2022-06-07] MEDS: ASPIRIN 81 MG TAB.CHEW PO SCH (17:08)
[2022-06-07] MEDS: CLOZAPINE 100 MG TABLET PO SCH (21:05)
[2022-06-07] MEDS: SENNOSIDES 8.6 MG TABLET PO SCH (21:06)
[2022-06-07 22:00] VITALS: BP 122/79
[2022-06-08 08:00] VITALS: BP 123/77
[2022-06-08] MEDS: PANTOPRAZOLE 40 MG TABLET.DR PO SCH (08:05)
[2022-06-08] MEDS: DOCUSATE SODIUM 100 MG CAPSULE PO SCH (09:12)
[2022-06-08] MEDS: clonazePAM 0.5 MG TABLET PO SCH ×3 (09:12→17:07)
[2022-06-08] MEDS: LEVETIRACETAM (250 MG) 250 MG TABLET PO SCH ×2 (09:12→20:31)
[2022-06-08] MEDS: FINASTERIDE (5 MG) 5 MG TABLET PO SCH (09:13)
[2022-06-08] MEDS: MULTIVIT W/MINERALS 1 TAB TABLET PO SCH (09:13)
--- NOTE | 2022-06-08 10:11 | NUR ---
SNF CONTACT: SW contacted [facility] in [place] ([phone]) and left a voicemail if they are open admitting patient's because of COVID lockdown.
[2022-06-08] MEDS: ENSURE CLEAR 237 ML LIQUID (MIX BERRY) PO SCH ×2 (10:57→17:08)
[2022-06-08 16:15] VITALS: BP 103/70
[2022-06-08] MEDS: ASPIRIN 81 MG TAB.CHEW PO SCH (17:07)
--- NOTE | 2022-06-08 18:55 | NUR ---
RN-NOTES PATIENT VISIBLE IN THE UNIT,A/O X2 GUARDED,NO ACUTE DISTRESS NOTED. COMPLIANT WITH MEDICATIONS. AMBULATORY STEADY GAIT.ABLE TO MAKE NEEDS KNOWN TO THE STAFF. NOTED PATIENT WITH NEEDY AND DEMANDING [id number].VISIBLE IN THE UNIT, ALL NEEDS ATTENDED AND ANTICIPATED. WILL CONT. MONITORING FOR SAFETY AND BEHAVIOR.WILL ENDORSE TO INCOMING NURSE FOR CONTINUITY OF CARE.
[2022-06-08 19:35] VITALS: BP 107/69
[2022-06-08] MEDS: CLOZAPINE 100 MG TABLET PO SCH (20:30)
[2022-06-08] MEDS: SENNOSIDES 8.6 MG TABLET PO SCH (21:08)
[2022-06-09 08:00] VITALS: BP 114/70
[2022-06-09] MEDS: PANTOPRAZOLE 40 MG TABLET.DR PO SCH (08:00)
[2022-06-09] MEDS: MULTIVIT W/MINERALS 1 TAB TABLET PO SCH (08:53)
[2022-06-09] MEDS: LEVETIRACETAM (250 MG) 250 MG TABLET PO SCH ×2 (08:53→21:22)
[2022-06-09] MEDS: FINASTERIDE (5 MG) 5 MG TABLET PO SCH (08:53)
[2022-06-09] MEDS: clonazePAM 0.5 MG TABLET PO SCH ×3 (08:53→16:40)
[2022-06-09] MEDS: DOCUSATE SODIUM 100 MG CAPSULE PO SCH (08:53)
[2022-06-09] MEDS: ENSURE CLEAR 237 ML LIQUID (MIX BERRY) PO SCH ×2 (09:17→17:12)
--- NOTE | 2022-06-09 09:24 | NUR ---
SNF CONTACT: SW contacted [facility] in [place] ([phone]) and left a voicemail to admissions. Admissions was not in yesterday 06/08 and unsure if he will be in today 06/09.
--- NOTE | 2022-06-09 11:24 | NUR ---
RN-CO: PATIENT DENIED PAIN AND DISCOMFORTS. HIS RESPIRATION IS EVEN AND UNLABORED. HE IS UNMOTIVATED TO SELFCARE. HE IS ISOLATIVE AND REFUSED TO PARTICIPATE IN GROUP ACTIVITIES. HE DENIED SI/HI. I WILL CONTINUE TO ENCOURAGE HIM TO SHOWER AND VENTILATE FEELINGS.
--- NOTE | 2022-06-09 12:06 | NUR ---
SNF CONTACT: SW contacted [facility] in [place] ([phone]) and Christina from admission stated that they do not feel comfortable accepting the pt.
--- NOTE | 2022-06-09 12:14 | NUR ---
LPS CONSERVATOR: MIKAYLA contacted [facility] Conservator Marlene ([phone]) and left a detailed voicemail stating that [facility] did not accept pt and [facility] not [facility] pt [facility]. SW encouraged to contact [facility] as she has patient's at [facility] to discuss if they can accept pt. MIKAYLA stated the only accepting facility is [facility].
[2022-06-09 16:00] VITALS: BP 116/79
[2022-06-09] MEDS: ASPIRIN 81 MG TAB.CHEW PO SCH (17:00)
[2022-06-09 20:07] VITALS: BP 118/72
[2022-06-09] MEDS: SENNOSIDES 8.6 MG TABLET PO SCH (21:22)
[2022-06-09] MEDS: CLOZAPINE 100 MG TABLET PO SCH (21:22)
[2022-06-10 08:00] VITALS: BP 104/68
[2022-06-10] MEDS: MULTIVIT W/MINERALS 1 TAB TABLET PO SCH (08:20)
[2022-06-10] MEDS: clonazePAM 0.5 MG TABLET PO SCH ×3 (08:20→16:30)
[2022-06-10] MEDS: FINASTERIDE (5 MG) 5 MG TABLET PO SCH (08:20)
[2022-06-10] MEDS: PANTOPRAZOLE 40 MG TABLET.DR PO SCH (08:20)
[2022-06-10] MEDS: DOCUSATE SODIUM 100 MG CAPSULE PO SCH (08:20)
[2022-06-10] MEDS: LEVETIRACETAM (250 MG) 250 MG TABLET PO SCH ×2 (08:20→21:22)
[2022-06-10] MEDS: ENSURE CLEAR 237 ML LIQUID (MIX BERRY) PO SCH ×2 (08:21→17:37)
--- NOTE | 2022-06-10 08:52 | NUR ---
LPS CONSERVATOR CONTACT: MIKAYLA adair Rosario ([phone]) voicemail if she had the opportunity to follow up with [facility]. MIKAYLA requested a call back to discuss further.
--- NOTE | 2022-06-10 10:00 | NUR ---
SNF Referral: MIKAYLA sent clinicals to [facility] to Nory brown ([phone]) for placement. SW sent H & P, progress notes, and medication list.
--- NOTE | 2022-06-10 10:00 | NUR ---
RN Notes: Received pt. asleep in bed, breathing is even and unlabored. Ate 100% for breakfast, compliant on meds. Pt. denies hearing voices to hurt himself and others. Encouraged to verbalize feelings and motivated to attend group activity. Pt. encouraged to take shower. Needs attended and will continue to monitor for safety.
--- NOTE | 2022-06-10 10:56 | NUR ---
SNF Referral: MIKAYLA sent clinicals to [facility] to Juan brown ([phone]) for placement. SW sent H & P, progress notes, and medication list.
--- NOTE | 2022-06-10 10:56 | NUR ---
SNF Contact: SW received a call from [facility] to Nory brown ([phone]) who stated they cannot accept pt.
--- NOTE | 2022-06-10 11:08 | NUR ---
SNF Referral: MIKAYLA sent clinicals to Bryson brown ([phone]) for placement at [facility] or [facility]. SW sent H & P, progress notes, and medication list.
--- NOTE | 2022-06-10 12:16 | NUR ---
SW Contact: SW received a call from Bryson brown ([phone]) who stated pt is accepted at [facility].
--- NOTE | 2022-06-10 12:18 | NUR ---
LPS CONSERVATOR CONTACT: MIKAYLA Rosario ([phone]) medical administrative assistant a message that pt is accepted at [facility].
--- NOTE | 2022-06-10 12:41 | NUR ---
[facility] CONSERVATOR CONTACT: MIKAYLA received a call from [facility] Conservator Marlene ([phone]) who stated that she is requesting pt's documents. She is wanting to know why facilities are denying pt. MIKAYLA faxed pt's clinicals ([phone]). MIKAYLA stated pt has another accepting facility [facility]. Marlene stated that she is not agreeable of [facility] or [facility]. She stated that the psychologist will be back Thursday 06/15 or Friday 06/16 at [facility] and would need to discuss with him why he did not accept pt.
--- NOTE | 2022-06-10 13:12 | NUR ---
SNF Contact: received a call from [facility] to Juan brown ([phone]) who stated pt denied due to behavior.
[2022-06-10 16:00] VITALS: BP 116/74
[2022-06-10] MEDS: ASPIRIN 81 MG TAB.CHEW PO SCH (18:07)
--- NOTE | 2022-06-10 19:30 | NUR ---
GPS RN NOTE, RECEIVED PATIENT AWAKE AND IN BED, NO S/S OR COMPLAINTS OF PAIN AT THIS TIME. PATIENT IS DISPLAYING NO S/S OF APPARENT DISTRESS AT THIS TIME. PATIENT BREATHING IS UNLABORED WITH EQUAL RISE AND FALL OF THE CHEST. PATIENT IS ALERT AND ORIENTED X 2 ON ROOM AIR WITH A SPO2 97%. PATIENT IS COMPLIANT WITH MEDICATIONS, CALM, FORGETFUL, AND COOPERATIVE. PATIENT DENIES SUICIDAL AND HOMICIDAL IDEATIONS AT THIS TIME. PATIENT ASSISTED WITH TURNING AND REPOSITIONING Q2HR AND PRN FOR COMFORT AND CIRCULATION. PATIENT HAS NO NEEDS AT THIS TIME. PATIENT EDUCATED ON THE USE OF THE CALL BURT. PATIENT BED SIDE RAILS UP X 2 FOR SAFETY. PATIENT BED IS LOCKED, LOW, WITH BED ALARM ON. WILL CONTINUE TO MONITOR THIS PATIENT Q15 MINUTES WITH THE HELP OF STAFF TO MAINTAIN SAFETY.
[2022-06-10 20:00] VITALS: BP 116/68
[2022-06-10] MEDS: SENNOSIDES 8.6 MG TABLET PO SCH (21:22)
[2022-06-10] MEDS: CLOZAPINE 100 MG TABLET PO SCH (21:22)
[2022-06-11] MEDS: ENSURE CLEAR 237 ML LIQUID (MIX BERRY) PO SCH ×2 (07:54→17:15)
[2022-06-11] MEDS: MULTIVIT W/MINERALS 1 TAB TABLET PO SCH (07:57)
[2022-06-11] MEDS: clonazePAM 0.5 MG TABLET PO SCH ×3 (07:57→17:16)
[2022-06-11] MEDS: DOCUSATE SODIUM 100 MG CAPSULE PO SCH (07:57)
[2022-06-11] MEDS: PANTOPRAZOLE 40 MG TABLET.DR PO SCH (07:57)
[2022-06-11] MEDS: LEVETIRACETAM (250 MG) 250 MG TABLET PO SCH ×2 (07:57→21:36)
[2022-06-11] MEDS: FINASTERIDE (5 MG) 5 MG TABLET PO SCH (07:57)
[2022-06-11 08:00] VITALS: BP 93/60
--- NOTE | 2022-06-11 13:06 | NUR ---
[facility] CONTACT: SW received a call from Louise Dickerson officer of the day (F:[phone]) (P:[phone]) who stated that they received pt's application.
[2022-06-11 16:00] VITALS: BP 98/71
[2022-06-11] MEDS: ASPIRIN 81 MG TAB.CHEW PO SCH (17:16)
--- NOTE | 2022-06-11 19:30 | NUR ---
GPS RN NOTE, RECEIVED PATIENT AWAKE AND IN BED, NO S/S OR COMPLAINTS OF PAIN AT THIS TIME. PATIENT IS DISPLAYING NO S/S OF APPARENT DISTRESS AT THIS TIME. PATIENT BREATHING IS UNLABORED WITH EQUAL RISE AND FALL OF THE CHEST. PATIENT IS ALERT AND ORIENTED X 2 ON ROOM AIR WITH A SPO2 95%. PATIENT IS COMPLIANT WITH MEDICATIONS, CALM, FORGETFUL, AND COOPERATIVE. PATIENT DENIES SUICIDAL AND HOMICIDAL IDEATIONS AT THIS TIME. PATIENT ASSISTED WITH TURNING AND REPOSITIONING Q2HR AND PRN FOR COMFORT AND CIRCULATION. PATIENT HAS NO NEEDS AT THIS TIME. PATIENT EDUCATED ON THE USE OF THE CALL BURT. PATIENT BED SIDE RAILS UP X 2 FOR SAFETY. PATIENT BED IS LOCKED, LOW, WITH BED ALARM ON. WILL CONTINUE TO MONITOR THIS PATIENT Q15 MINUTES WITH THE HELP OF STAFF TO MAINTAIN SAFETY.
[2022-06-11 20:00] VITALS: BP 111/66
[2022-06-11] MEDS: CLOZAPINE 100 MG TABLET PO SCH (21:36)
[2022-06-11] MEDS: SENNOSIDES 8.6 MG TABLET PO SCH (21:36)
[2022-06-12] MEDS: FINASTERIDE (5 MG) 5 MG TABLET PO SCH (07:50)
[2022-06-12] MEDS: clonazePAM 0.5 MG TABLET PO SCH ×3 (07:50→16:35)
[2022-06-12] MEDS: LEVETIRACETAM (250 MG) 250 MG TABLET PO SCH ×2 (07:51→20:32)
[2022-06-12] MEDS: ENSURE CLEAR 237 ML LIQUID (MIX BERRY) PO SCH ×2 (07:51→16:33)
[2022-06-12] MEDS: DOCUSATE SODIUM 100 MG CAPSULE PO SCH (07:51)
[2022-06-12] MEDS: PANTOPRAZOLE 40 MG TABLET.DR PO SCH (07:51)
[2022-06-12] MEDS: MULTIVIT W/MINERALS 1 TAB TABLET PO SCH (07:51)
[2022-06-12 08:00] VITALS: BP 94/69
[2022-06-12 16:00] VITALS: BP 93/66
[2022-06-12] MEDS: ASPIRIN 81 MG TAB.CHEW PO SCH (17:32)
[2022-06-12 20:22] VITALS: BP 99/69
[2022-06-12] MEDS: CLOZAPINE 100 MG TABLET PO SCH (20:32)
[2022-06-12] MEDS: SENNOSIDES 8.6 MG TABLET PO SCH (21:06)
[2022-06-13] MEDS: ENSURE CLEAR 237 ML LIQUID (MIX BERRY) PO SCH ×2 (07:48→16:45)
[2022-06-13] MEDS: DOCUSATE SODIUM 100 MG CAPSULE PO SCH (07:51)
[2022-06-13] MEDS: PANTOPRAZOLE 40 MG TABLET.DR PO SCH (07:51)
[2022-06-13] MEDS: LEVETIRACETAM (250 MG) 250 MG TABLET PO SCH ×2 (07:51→21:17)
[2022-06-13] MEDS: clonazePAM 0.5 MG TABLET PO SCH ×3 (07:51→16:46)
[2022-06-13] MEDS: MULTIVIT W/MINERALS 1 TAB TABLET PO SCH (07:52)
[2022-06-13] MEDS: FINASTERIDE (5 MG) 5 MG TABLET PO SCH (07:52)
[2022-06-13 08:00] VITALS: BP 118/75
[2022-06-13 16:00] VITALS: BP 109/71
[2022-06-13] MEDS: ASPIRIN 81 MG TAB.CHEW PO SCH (16:46)
--- NOTE | 2022-06-13 19:30 | NUR ---
GPS RN OPENING NOTE RECEIVED PATIENT RESTING IN BED, VERBALLY RESPONSIVE. A/OX2. PT STABLE ON ROOM AIR.NO SOB OR S/S OF RESPIRATORY DISTRESS. BREATHING EVEN AND UNLABORED. PT IS GUARDED AND ANXIOUS. SAFETY PRECAUTIONS IN PLACE. WILL CONTINUE TO MONITOR Q15MIN ROUNDS FOR SAFETY AND BEHAVIOR.
[2022-06-13 20:39] VITALS: BP 135/78
[2022-06-13] MEDS: CLOZAPINE 100 MG TABLET PO SCH (21:16)
[2022-06-13] MEDS: SENNOSIDES 8.6 MG TABLET PO SCH (21:17)
[2022-06-14] MEDS: PANTOPRAZOLE 40 MG TABLET.DR PO SCH (07:56)
[2022-06-14 08:00] VITALS: BP 120/78
[2022-06-14] MEDS: DOCUSATE SODIUM 100 MG CAPSULE PO SCH (08:48)
[2022-06-14] MEDS: FINASTERIDE (5 MG) 5 MG TABLET PO SCH (08:48)
[2022-06-14] MEDS: MULTIVIT W/MINERALS 1 TAB TABLET PO SCH (08:48)
[2022-06-14] MEDS: LEVETIRACETAM (250 MG) 250 MG TABLET PO SCH ×2 (08:48→20:49)
[2022-06-14] MEDS: clonazePAM 0.5 MG TABLET PO SCH ×3 (08:48→16:13)
[2022-06-14] MEDS: ENSURE CLEAR 237 ML LIQUID (MIX BERRY) PO SCH ×2 (08:48→16:13)
[2022-06-14 16:00] VITALS: BP 100/74
[2022-06-14 20:44] VITALS: BP 112/74
[2022-06-14] MEDS: CLOZAPINE 100 MG TABLET PO SCH (20:49)
[2022-06-14] MEDS: SENNOSIDES 8.6 MG TABLET PO SCH (21:07)
[2022-06-15 08:00] VITALS: BP 101/52
[2022-06-15] MEDS: clonazePAM 0.5 MG TABLET PO SCH ×3 (08:07→16:28)
[2022-06-15] MEDS: PANTOPRAZOLE 40 MG TABLET.DR PO SCH (08:07)
[2022-06-15] MEDS: LEVETIRACETAM (250 MG) 250 MG TABLET PO SCH ×2 (08:08→20:50)
[2022-06-15] MEDS: FINASTERIDE (5 MG) 5 MG TABLET PO SCH (08:08)
[2022-06-15] MEDS: DOCUSATE SODIUM 100 MG CAPSULE PO SCH (08:08)
[2022-06-15] MEDS: MULTIVIT W/MINERALS 1 TAB TABLET PO SCH (08:08)
[2022-06-15] MEDS: ENSURE CLEAR 237 ML LIQUID (MIX BERRY) PO SCH ×2 (08:27→17:20)
--- NOTE | 2022-06-15 09:16 | NUR ---
LPS CONSERVATOR CONTACT: MIKAYLA contacted LPS Conservator Marlene ([phone]) and spoke with secretary board of commissioners Miley and stated to kindly remind Marlene to speak to the doctor of [facility] to see if they will accept the pt or not.
--- NOTE | 2022-06-15 13:21 | NUR ---
Facility Contact: This typewriter aligner contacted [facility] ([phone]) and requested to be transferred to admissions and left a voicemail to Lashaun to discuss if they have received the referral packet from [facility].
--- NOTE | 2022-06-15 13:29 | NUR ---
[facility] CONTACT: MIKAYLA attempted to speak to Louise Dickerson officer of the day ([phone]) (P:[phone]), however, she was not in today. MIKAYLA spoke with Jd who stated that the packet has been reviewed and that they are waiting for a animal caretaker to review patient's packet. Jd is unsure how long this will take.
[2022-06-15 16:00] VITALS: BP 123/76
[2022-06-15] MEDS: ASPIRIN 81 MG TAB.CHEW PO SCH ×2 (17:12→17:21)
[2022-06-15 20:35] VITALS: BP 119/71
[2022-06-15] MEDS: CLOZAPINE 100 MG TABLET PO SCH (20:50)
[2022-06-15] MEDS: SENNOSIDES 8.6 MG TABLET PO SCH (21:01)
[2022-06-16] MEDS: PANTOPRAZOLE 40 MG TABLET.DR PO SCH (07:37)
[2022-06-16 08:00] VITALS: BP 105/65
[2022-06-16] MEDS: MULTIVIT W/MINERALS 1 TAB TABLET PO SCH (08:36)
[2022-06-16] MEDS: ENSURE CLEAR 237 ML LIQUID (MIX BERRY) PO SCH ×2 (08:36→16:34)
[2022-06-16] MEDS: LEVETIRACETAM (250 MG) 250 MG TABLET PO SCH ×2 (08:36→22:01)
[2022-06-16] MEDS: clonazePAM 0.5 MG TABLET PO SCH ×3 (08:36→16:34)
[2022-06-16] MEDS: FINASTERIDE (5 MG) 5 MG TABLET PO SCH (08:36)
[2022-06-16] MEDS: DOCUSATE SODIUM 100 MG CAPSULE PO SCH (08:36)
--- NOTE | 2022-06-16 08:41 | NUR ---
Facility Contact: This data analyst report writer contacted [facility] ([phone]) for the third time and requested to be transferred to admissions and left a voicemail to Lashaun to discuss if they have received the referral packet from [facility]. MIKAYLA contacted [facility] ([phone]) and followed up if they have received pt's referral. She stated that she is unsure and will have Lashaun from admissions review if they have. She stated that they do get referrals through [facility] only and it might take some time. She did state that currently they have no male beds available. Addendum: 06/16/22 at 0906 by MIKAYLA RICO MIKAYLA contacted [facility] and she stated that they get packets through [facility] and that [facility] would have to approve before they receive a referral.
--- NOTE | 2022-06-16 08:53 | NUR ---
[facility] CONTACT: MIKAYLA attempted to speak to Louise Dickerson officer of the day (F:[phone]) (P:[phone]) and she stated that packet is currently pending to be reviewed #[id number]. She reported that it goes case by case and is unsure how long it will take. Addendum: 06/18/22 at 0916 by MIKAYLA RICO Correction #[id number].
--- NOTE | 2022-06-16 13:00 | NUR ---
LPS CONSERVATOR CONTACT: MIKAYLA contacted LPS Conservator [facility] ([phone]) and spoke with secretary of state Miley and stated to kindly remind Marlene to speak to the doctor of [place] and see what the status was, if she was able to get a hold of the doctor at the facility.
[2022-06-16 16:00] VITALS: BP 106/72
[2022-06-16] MEDS: ASPIRIN 81 MG TAB.CHEW PO SCH (17:03)
[2022-06-16 19:55] VITALS: BP 108/67
[2022-06-16] MEDS: CLOZAPINE 100 MG TABLET PO SCH (22:00)
[2022-06-16] MEDS: SENNOSIDES 8.6 MG TABLET PO SCH (22:02)
[2022-06-16] MEDS: LORAZEPAM 0.5 MG TABLET PO PRN (22:19)
[2022-06-17 08:00] VITALS: BP 107/70
[2022-06-17] MEDS: FINASTERIDE (5 MG) 5 MG TABLET PO SCH (08:08)
[2022-06-17] MEDS: LEVETIRACETAM (250 MG) 250 MG TABLET PO SCH ×2 (08:08→21:12)
[2022-06-17] MEDS: clonazePAM 0.5 MG TABLET PO SCH ×3 (08:08→16:21)
[2022-06-17] MEDS: DOCUSATE SODIUM 100 MG CAPSULE PO SCH (08:08)
[2022-06-17] MEDS: PANTOPRAZOLE 40 MG TABLET.DR PO SCH (08:08)
[2022-06-17] MEDS: MULTIVIT W/MINERALS 1 TAB TABLET PO SCH (08:08)
[2022-06-17] MEDS: ENSURE CLEAR 237 ML LIQUID (MIX BERRY) PO SCH ×2 (08:12→17:23)
--- NOTE | 2022-06-17 10:00 | NUR ---
RN Notes: Received pt. asleep in bed, breathing is even and unlabored. Ate 100% for breakfast and compliant on meds. Pt. denies hearing voices to hurt himself and to hurt others. Encouraged to verbalize feelings and motivated to attend group activity. Needs attended and will continue to monitor for safety.
--- NOTE | 2022-06-17 10:03 | NUR ---
LPS CONSERVATOR CONTACT: MIKAYLA contacted LPS Conservator Marlene ([phone]) and spoke with school secretary Miley who stated Marlene does not have any updates yet about the facility but will remind her again today.
--- NOTE | 2022-06-17 12:59 | NUR ---
[facility] CONSERVATOR CONTACT: SW received a call from [facility] Conservator Marlene ([phone]) and she stated that she has been trying to contact [facility] and requesting to speak to Michael bear but has not been available. She stated she left a message and is waiting for a call back.
[2022-06-17 16:00] VITALS: BP 119/84
[2022-06-17] MEDS: risperiDONE 1 MG TABLET PO SCH ×3 (16:21→21:12)
--- NOTE | 2022-06-17 17:21 | NUR ---
Risperdal po not given at this time due to first dose given at 1621.
[2022-06-17] MEDS: ASPIRIN 81 MG TAB.CHEW PO SCH (17:24)
[2022-06-17 20:18] VITALS: BP 114/84
--- NOTE | 2022-06-17 20:38 | NUR ---
RN NOTES: PATIENT WATCHING TV IN ACTIVITY ROOM ,A/O X2 DEPRESSED ,GUARDED , FLAT AFFECT,EASILY AGITATED ,NO ACUTE DISTRESS NOTED. COMPLIANT WITH MEDICATIONS. .ABLE TO MAKE NEEDS KNOWN TO THE STAFF. EASILY AGITATED,PREOCCUPIED TO HIS OWN THOUGHTS, NEEDY AND DEMANDING [id number].VISIBLE IN THE UNIT, ALL NEEDS ATTENDED AND ANTICIPATED. ENCOURAGED TO VERBALIZED ANY FEELING OR CONCERN ,WILL CONTINUE TO MONITORING FOR Q 15 SAFETY AND BEHAVIOR.
[2022-06-17] MEDS: CLOZAPINE 100 MG TABLET PO SCH (21:12)
[2022-06-17] MEDS: SENNOSIDES 8.6 MG TABLET PO SCH (21:12)
[2022-06-18 08:00] VITALS: BP 94/69
[2022-06-18] MEDS: ENSURE CLEAR 237 ML LIQUID (MIX BERRY) PO SCH ×2 (08:06→17:27)
[2022-06-18] MEDS: FINASTERIDE (5 MG) 5 MG TABLET PO SCH (08:08)
[2022-06-18] MEDS: DOCUSATE SODIUM 100 MG CAPSULE PO SCH (08:08)
[2022-06-18] MEDS: risperiDONE 1 MG TABLET PO SCH ×4 (08:08→21:28)
[2022-06-18] MEDS: PANTOPRAZOLE 40 MG TABLET.DR PO SCH (08:08)
[2022-06-18] MEDS: MULTIVIT W/MINERALS 1 TAB TABLET PO SCH (08:08)
[2022-06-18] MEDS: clonazePAM 0.5 MG TABLET PO SCH ×3 (08:08→17:27)
[2022-06-18] MEDS: LEVETIRACETAM (250 MG) 250 MG TABLET PO SCH ×2 (08:08→21:28)
--- NOTE | 2022-06-18 09:13 | NUR ---
[facility] CONTACT: MIKAYLA attempted to speak to Louise Dickerson officer of the day (F:[phone]) (P:[phone]) and she stated that packet is currently pending to be reviewed #[id number].
[2022-06-18 16:00] VITALS: BP 109/75
[2022-06-18] MEDS: ASPIRIN 81 MG TAB.CHEW PO SCH (17:28)
[2022-06-18 20:26] VITALS: BP 100/59
[2022-06-18] MEDS: CLOZAPINE 100 MG TABLET PO SCH (21:28)
[2022-06-18] MEDS: SENNOSIDES 8.6 MG TABLET PO SCH (21:28)
[2022-06-19 08:00] VITALS: BP 98/60
[2022-06-19] MEDS: DOCUSATE SODIUM 100 MG CAPSULE PO SCH (08:04)
[2022-06-19] MEDS: MULTIVIT W/MINERALS 1 TAB TABLET PO SCH (08:04)
[2022-06-19] MEDS: PANTOPRAZOLE 40 MG TABLET.DR PO SCH (08:04)
[2022-06-19] MEDS: LEVETIRACETAM (250 MG) 250 MG TABLET PO SCH ×2 (08:04→21:31)
[2022-06-19] MEDS: clonazePAM 0.5 MG TABLET PO SCH ×3 (08:04→16:42)
[2022-06-19] MEDS: risperiDONE 1 MG TABLET PO SCH ×3 (08:04→16:42)
[2022-06-19] MEDS: FINASTERIDE (5 MG) 5 MG TABLET PO SCH (08:04)
[2022-06-19] MEDS: ENSURE CLEAR 237 ML LIQUID (MIX BERRY) PO SCH ×2 (08:05→17:38)
--- NOTE | 2022-06-19 09:15 | NUR ---
RN Notes: Received pt. asleep in bed, breathing is even and unlabored. Ate 100% for breakfast and compliant on meds. Pt. denies hearing voices to hurt himself and to hurt others. Encouraged to verbalize feelings and motivated to take shower. Needs attended and will continue to monitor for safety.
[2022-06-19] MEDS ORDERED: risperiDONE 1 MG TABLET PO ONE (17:30)
[2022-06-19] MEDS: ASPIRIN 81 MG TAB.CHEW PO SCH (17:39)
[2022-06-19 17:56] VITALS: BP 117/73
--- NOTE | 2022-06-19 19:30 | NUR ---
GPS RN NOTE, RECEIVED PATIENT AWAKE AND IN BED, NO S/S OR COMPLAINTS OF PAIN AT THIS TIME. PATIENT IS DISPLAYING NO S/S OF APPARENT DISTRESS AT THIS TIME. PATIENT BREATHING IS UNLABORED WITH EQUAL RISE AND FALL OF THE CHEST. PATIENT IS ALERT AND ORIENTED X 2 ON ROOM AIR WITH A SPO2 95%. PATIENT IS COMPLIANT WITH MEDICATIONS, CALM, FORGETFUL, AND COOPERATIVE. PATIENT DENIES SUICIDAL AND HOMICIDAL IDEATIONS AT THIS TIME. PATIENT ASSISTED WITH TURNING AND REPOSITIONING Q2HR AND PRN FOR COMFORT AND CIRCULATION. PATIENT HAS NO NEEDS AT THIS TIME. PATIENT EDUCATED ON THE USE OF THE CALL LIGHT. PATIENT BED SIDE RAILS UP X 2 FOR SAFETY. PATIENT BED IS LOCKED, LOW, WITH BED ALARM ON. WILL CONTINUE TO MONITOR THIS PATIENT Q15 MINUTES WITH THE HELP OF STAFF TO MAINTAIN SAFETY.
[2022-06-19 20:00] VITALS: BP 106/66
[2022-06-19] MEDS: SENNOSIDES 8.6 MG TABLET PO SCH (21:30)
[2022-06-19] MEDS: CLOZAPINE 100 MG TABLET PO SCH (21:31)
[2022-06-20] MEDS: PANTOPRAZOLE 40 MG TABLET.DR PO SCH (07:51)
[2022-06-20 08:00] VITALS: BP 100/73
[2022-06-20] MEDS: FINASTERIDE (5 MG) 5 MG TABLET PO SCH (08:02)
[2022-06-20] MEDS: MULTIVIT W/MINERALS 1 TAB TABLET PO SCH (08:02)
[2022-06-20] MEDS: DOCUSATE SODIUM 100 MG CAPSULE PO SCH (08:02)
[2022-06-20] MEDS: LEVETIRACETAM (250 MG) 250 MG TABLET PO SCH ×2 (08:02→20:13)
[2022-06-20] MEDS: ENSURE CLEAR 237 ML LIQUID (MIX BERRY) PO SCH ×2 (08:04→16:14)
[2022-06-20] MEDS: clonazePAM 0.5 MG TABLET PO SCH ×3 (08:18→16:20)
[2022-06-20] MEDS: risperiDONE 1 MG TABLET PO SCH ×4 (08:19→16:35)
--- NOTE | 2022-06-20 11:21 | NUR ---
RN-CO:PATIENT DENIED SI/VH, COMMAND HALLUCINATION. CALM AND COOPERATIVE TO CARE. NO PAIN AND DISCOMFORTS. I ENCOURAGED HIM TO VENTILATE HIS FEELINGS , SHOWER AND ATTEND GROUP ACTIVITIES.
[2022-06-20 16:00] VITALS: BP 113/68
--- NOTE | 2022-06-20 16:20 | NUR ---
RN-CO: UNABLE TO SCAN BARCODE DUE TO BAD PRINT. Addendum: 06/20/22 at 1622 by ANNA BAILEY RN RN: RE: CRISTINA PETERSON. DID IT MANUALLY.
--- NOTE | 2022-06-20 16:23 | NUR ---
RN-CO: RISPERDAL 1.5 MG PO GIVEN ALREADY TO THE PATIENT. I WILL GIVE THE REMAINING 0.5 MG TAB TO MAKE IT 2 MG.
[2022-06-20] MEDS: ASPIRIN 81 MG TAB.CHEW PO SCH (17:28)
[2022-06-20] MEDS: CLOZAPINE 100 MG TABLET PO SCH (20:13)
[2022-06-20 20:32] VITALS: BP 125/74
[2022-06-20] MEDS: LORAZEPAM 0.5 MG TABLET PO PRN (20:38)
[2022-06-20] MEDS: SENNOSIDES 8.6 MG TABLET PO SCH (21:02)
[2022-06-21 08:00] VITALS: BP 124/76
[2022-06-21] MEDS: MULTIVIT W/MINERALS 1 TAB TABLET PO SCH (08:01)
[2022-06-21] MEDS: FINASTERIDE (5 MG) 5 MG TABLET PO SCH (08:01)
[2022-06-21] MEDS: GUAIFENESIN/D-METHORPHAN HB 5 ML UDC PO PRN (08:01)
[2022-06-21] MEDS: PANTOPRAZOLE 40 MG TABLET.DR PO SCH (08:01)
[2022-06-21] MEDS: LEVETIRACETAM (250 MG) 250 MG TABLET PO SCH (08:01)
[2022-06-21] MEDS: clonazePAM 0.5 MG TABLET PO SCH ×2 (08:01→13:14)
[2022-06-21] MEDS: risperiDONE 1 MG TABLET PO SCH ×2 (08:01→13:15)
[2022-06-21] MEDS: DOCUSATE SODIUM 100 MG CAPSULE PO SCH (08:02)
[2022-06-21] MEDS: ENSURE CLEAR 237 ML LIQUID (MIX BERRY) PO SCH (08:15)
--- NOTE | 2022-06-21 09:44 | NUR ---
LPS CONSERVATOR CONTACT: MIKAYLA contacted LPS Conservator Marlene ([phone]) and spoke with her audio visual secretary and notified that pt will be discharging to [facility]. MIKAYLA stated Marlene Espinal, php wordpress developer, has been in contact with Marlene on 06/18/2022 and have come to an understanding that pt will be discharged to [facility]. Pt has been stable since 05/24 through 06/21 and has not been having voices that are danger to self or others.
--- NOTE | 2022-06-21 09:47 | NUR ---
Discharge Note: Patient will be discharged to snf facility [facility], [place] [address]; ). Please arrange transportation at 2PM. Paediatrician spoke with Kenia service promoter salesperson at [facility]; ([phone], who stated patient will be accepted today. Patient's [facility] Conservator Marlene ([phone]) has been in contact with Idris Espinal, Ampoule Inspector, who has been in contact with Marlene on 06/18/2022 and have an agreement of discharging pt to [facility]. MIKAYLA contacted [facility] Conservator's office ([phone]) and spoke with Miley loading machine adjuster who stated she will notify of pt's discharge. Pt has been stable since 05/24/2022-06/21/2022 and has not been hearing voices. Patient is alert and oriented x3 and is unable to plan for self-care. Patient denies any suicidal or homicidal ideations. Patient is aware and agreeable with discharge plans. Patient will continue to follow-up with (psychiatrist) Dr. Chacon [address], [place] [address]; ([phone]) and (distributor sales manager) Dr. Werner [address], [place] [address]; ([phone]). Patient presents with euthymic and congruent mood.
--- NOTE | 2022-06-21 11:06 | NUR ---
RN-CO: Patient is awake, calm and cooperative to care. Denied suicidal, homicidal and command hallucination. Medically cleared for discharge. Conservator is aware and agreeable of his discharge. Patient has no acute distress and also made aware that he is going to [facility]. Report will be given to receiving RN and EMT.
--- NOTE | 2022-06-21 11:17 | NUR ---
RN-CO: PATIENT WAS SEEN AND EXAMINED BY DR GONZALES AND ORDERED TO DISCONTINUE HOLD AND DISCHARGE PATIENT TO [facility].
--- NOTE | 2022-06-21 11:50 | NUR ---
MIKAYLA Note: [facility] ([phone][facility] office from window caser Ivett who was requesting pt's clinicals. MIKAYLA stated on 06/10/2022 this life underwriter sent pt's clinicals. This life underwriter sent three progress notes of the psychiatrist, nurses notes, and medication list. MIKAYLA discussed this with Shira Apodaca, and this life underwriter will go ahead and send Discharge summary note and medication list (F:[phone]).
[2022-06-21 12:22] LABS: BASOPHILS % (AUTO) 0.9 % (0.0-2.0); EOSINOPHILS % (AUTO) 1.1 % (0.0-6.0); HEMATOCRIT 42 % (39-51); HEMOGLOBIN 13.5 g/dL (13.5-17.5); LYMPHOCYTES % (AUTO) 17.8 % (20.0-44.0); MEAN CORPUSCULAR HGB CONC 32 g/dl (31.0-36.0); MEAN CORPUSCULAR VOLUME 92 fL (80-96); MONOCYTES # (AUTO) 0.5 K/uL (0.1-1.30); MONOCYTES % (AUTO) 8.7 % (2.0-12.0); NEUTROPHILS # (AUTO) 3.8 K/uL (1.8-8.9); NEUTROPHILS % (AUTO) 71.5 % (43.0-81.0); PLATELET COUNT (AUTO) 161 K/uL (150-450); RED BLOOD CELL COUNT(AUTO) 4.54 MIL/uL (4.5-6.0); WHITE BLOOD COUNT (AUTO) 5.3 K/uL (4.3-11.0)
[2022-06-21 12:46] LABS: ALBUMIN 3.5 g/dL (3.4-5.0); BILIRUBIN,TOTAL 0.3 mg/dL (0.2-1.0); CALCIUM, SERUM 8.8 mg/dL (8.5-10.1); POTASSIUM 3.4 mmol/L (3.5-5.1); TOTAL PROTEIN, SERUM 6.5 g/dL (6.4-8.2)
--- NOTE | 2022-06-21 13:39 | NUR ---
DMFelisa: MIKAYLA received a call from [facility] medical record librarian ([phone]) who stated that application has been reviewed and they do not have an admission date or an approved facility. Bong stated that it can take months.
--- NOTE | 2022-06-21 15:30 | NUR ---
RN-CO: Patient was picked up by ambulance, report was given , all belongings were taken by the patient.
== END 2022-06-21 15:28 | DRG 885 ==
LOC: ER 11:30 → GPS 20:05
PROVIDERS: ADMIT Psychiatry & Neurology Psychosomatic Medicine
DX: F25.0 Schizoaffective disorder, bipolar type (principal); E43 Unspecified severe protein-calorie malnutrition; R45.851 Suicidal ideations; G93.40 Encephalopathy, unspecified; R64 Cachexia; Z68.1 Body mass index [BMI] 19.9 or less, adult; F29 Unspecified psychosis not due to a substance or known physiological condition; J44.9 Chronic obstructive pulmonary disease, unspecified; N40.0 Benign prostatic hyperplasia without lower urinary tract symptoms; R41.9 Unspecified symptoms and signs involving cognitive functions and awareness; F21 Schizotypal disorder; I10 Essential (primary) hypertension; F41.9 Anxiety disorder, unspecified; F32.A Depression, unspecified; Z85.819 Personal history of malignant neoplasm of unspecified site of lip, oral cavity, and pharynx; Z79.51 Long term (current) use of inhaled steroids; Z79.82 Long term (current) use of aspirin; Z79.899 Other long term (current) drug therapy; K59.00 Constipation, unspecified; Z91.81 History of falling; F42.9 Obsessive-compulsive disorder, unspecified; Z73.6 Limitation of activities due to disability; R53.1 Weakness; R27.8 Other lack of coordination
CPT/HCPCS: 36415; 80048-TC; 80053-TC; 80061-TC; 80076-TC; 82962-TC; 85025-TC; 87081-TC; G0480